=== PATIENT | female | born 1955 | race Caucasian/White ===

== ENCOUNTER 2021-11-27 15:04 | Outpatient (CLI) | payer MEDICARE, BC, SELFPAY ==
--- NOTE | 2021-11-27 15:00 | CRLHL7_ITS ---
For Patients: As a result of the Century Cures Act, medical imaging exams and procedure reports are released immediately into your electronic medical record. You may view this report before your referring provider. If you have questions, please contact your health care provider. DXA BONE MINERAL DENSITY STUDY, 11/27/2021 Current height (in): 64.0 Weight (lb): 136.0 Menopause age: 52 Ethnicity: White 1. Have you had a previous hip or vertebral fracture? No. 2. Have you had any fractures during your adult life which did not result from significant trauma (e.g., auto accident)? No. 3. Did either of your parents have a hip fracture? Yes. 4. Do you smoke? No. 5. Have you ever taken Glucocorticoids? No. 6. Do you have rheumatoid arthritis? No. 7. Do you have secondary osteoporosis? No. 8. Do you drink 3 or more alcoholic drinks per day? No. 9. Are you being treated for osteoporosis? No. 10. Have you ever taken any of the following medications: Actonel, Evista, Fosamax, Miacalcin, Reclast, Boniva, Forteo, HRT (i.e., estrogen/hormone therapy), Protelos, Prolia, Vitamin D, Calcium, other ??? please specify. ANSWER: Yes, vitamin D and calcium. 11. Do you have any of the following medical conditions: Anorexia or bulimia, asthma or emphysema, end stage renal disease, hyperparathyroidism, any seizure disorders, cancer, inflammatory bowel diseases, hysterectomy, other ??? please specify. ANSWER: Yes, asthma or emphysema, hysterectomy. 12. What was your maximum height (inches)? 64. 13. Do you perform weight bearing exercise regularly? Yes. 14. Do you regularly consume dairy products? Yes. 15. Do you drink caffeinated beverages? No. If female: 16. At what age did your period start? 13. 17. Are you premenopausal? No. 18. How many full-term pregnancies have you had? 0. 19. Have you ever missed your period for more than 6 months in a row (not including or menopause)? No. TECHNIQUE: Bone mineral density study was performed using the [employer]. FINDINGS: The results of the study expressed as bone mineral density (BMD) are as follows: Lumbar Spine L1 and L4: BMD: 0.975 g/cm2. T-score: -0.6. Z-score: 1.3. Neck Left: BMD: 0.752 g/cm2. T-score: -0.9. Z-score: 0.7. Right: BMD: 0.774 g/cm2. T-score: -0.7. Z-score: 0.9. Total Left: BMD: 0.886 g/cm2. T-score: -0.5. Z-score: 0.9. Right: BMD: 0.964 g/cm2. T-score: 0.2. Z-score: 1.5. IMPRESSION: Normal bone density. COMPARISON: Compared with scan of 03/15/2017, the bone mineral density has decreased by 15.0 percent at the spine and decreased by 10.1 percent at the hip. *Comparison exams done prior to 10/2019 were performed on different unit, nuvoTV. JUANITA TORRES M.D. Diagnostic/Breast Radiologist [email or web address] Transcribed: 6:[address]/Dictated by: Juanita Torres MD @ 11/27/2021 3:43:00 PM (Electronically Signed)
== END 2021-11-27 15:05 | disposition home or self-care (01) ==
LOC: RAD 15:06
PROVIDERS: PCP Internal Medicine; Visit Provider Internal Medicine
DX: Z78.0 Asymptomatic menopausal state (principal); Z13.820 Encounter for screening for osteoporosis
CPT/HCPCS: 77080

== ENCOUNTER 2022-03-04 13:01 | Outpatient (REF) | payer MEDICARE, BC, SELFPAY ==
--- OUTSIDE RECORDS SUMMARY | 2022-03-04 13:10 | XMS_ITS | Continuity of Care Document ---
:1955 Author Organization [facility] Address [address] [place] [address] Care Team Providers Name Role Phone Boogie Oseguera Admitting Physician Allergies, Adverse Reactions, Alerts Allergen Type Severity Reaction Last Updated Verified Status bacitracin Allergy Unknown May 29, 2019 Y A ctive neomycin Allergy Unknown May 29, 2019 Y Ac tive polymyxin B Allergy Unknown May 29, 2019 Y Active Quinolones Allergy Unknown May 29, 2019 Y A ctive Medications No medication information available. Problem List Active Problems Medical Problem Onset Date Status Urinary urgency Active Bladder wall thickening Active Procedures Procedure Date Status US pelvis complete TA May 29, 2019 completed Urine Culture active Relevant Diagnostic Tests and/or Laboratory Data Laboratory Results Test Date/Time Result Interp. Ref. Range Result Comment White Blood Count 7.4 K/uL 4.0-10.0 Red Blood Count 4.59 M/uL 3.93-5.55 Hemoglobin 9.9 g/dL Low 11.2-15.7 Hematocrit 34.3 % 34.1-44.9 Mean Corpuscular 74.70 fl Low 80.00-98.00 Volume Mean Corpuscular 21.6 pg Low 25.6-32.2 Hemoglobin Mean Corpuscular Hgb 28.9 g/dl Low 32.2-36.0 Concent Diff Red Cell Distribution 15.9 % High 11.6-14.4 Width Platelet Count 265 K/uL 150-450 Mean Platelet Volume 10.5 fL 9.1-12.4 Nucleated Red Blood 0.0 % 0.0-0.2 Cells % (auto) Absolute Neutrophils 3.83 K/uL 1.56-6.13 (auto) Absolute Immature 0.03 k/uL 0.00-0.05 Granulocyte (auto Absolute Lymphocytes 1.90 K/uL 1.18-3.74 (auto) Absolute Monocytes 0.52 K/uL 0.24-0.82 (auto) Absolute Eosinophils 1.09 K/uL High 0.04-0.54 (auto) Absolute Basophils 0.03 K/uL 0.00-0.20 (auto) Nucleated RBC Absolute 0.00 M/uL 0.00-0.12 Count (auto) C-Reactive Protein < 4.0 mg/L 0.0-5.0 Sodium Level 143 mEq/L 136-145 Potassium Level 3.4 mEq/L Low 3.5-5.1 Chloride Level 107 mEq/L 98-107 Carbon Dioxide Level 28 mEq/L 23-32 Anion Gap 8 5-15 Glucose Level 99 mg/dL 60-99 Blood Urea Nitrogen 11 mg/dL 8-23 Creatinine 0.78 mg/dL 0.70-1.20 Estimat Glomerular > 60 Race: Filtration Rate Reference Units: mL/min/1.73m2 *Calculated us ing the MDRD equation* In EMR click o n external links for further EGFR information. Calcium Level 8.8 mg/dL 8.5-10.5 Urine Collection Type Void Urine Color Yellow Urine Appearance Clear Urine Specific Jewett 1.015 Urine pH 5.0 Urine Glucose Negative Urine Blood Negative Urine Bilirubin Negative Urine Ketones Negative mg/dL Urine Protein Negative mg/dL Urine Urobilinogen 0.2 EU/dL Urine Nitrite Negative Urine Leukocyte Negative Esterase Chief Complaint and Reason for Visit Encounter Admit Date Chief Complaint Reason for Visit Departed Emergency May 29, 2019 11:19am [facility] Hospital Discharge Instructions Additional Discharge Instructions As we discussed, you r lab work and urinalysis here today do not show any acute abnormalities. Your bladder ultrasound does show mild nonspecific wall thickening of your anterior bladder. This will requi re further evaluation by Uro logy, likely with cystoscopy. You should contact your regular doctor tomorrow for referral to Urology in your home town. As always, you should return to the ER if you develop worsening symptoms, or if you are unable to obtain close follow-up with urologist in the next 1-2 weeks.. No Instructions/Education Provided Encounters Encounter Facility Location Admit/Visit Discharge/Departure Atte nding Date Date Provider Departed [facility] Emergency May 29May 29, 2019 Emergency [facility] Department 2018 11:19am 7:15pm Functional Status No known functional status. Immunizations No known immunizations. Payers Payer Name Policy Covered Covered Relationship Subscriber Subsc riber Type Alliance Party Alliance Party Id Id HealthPartaubrey Marshall [id number] Self / Same As Joanna [id number] Gena Patient Gena SELF PAY Plan of Care No Known Plan of Care Information Social History No known social history. Vital Signs Vital Reading Result Reference Range Collection Date/ Time Height n/a Weight 70.307 kg May 29 11:26am Temperature 98.0 F 97.5 F-99.6 F May 29 11:26am Pulse 70 BPM 60-100 May 29 11:26am Respiration 18 RPM 12-20 May 29 11:26am Pulse Oximetry 98 % 88-100 May 29 9 11:26am Blood Pressure Systolic 180 95-135 May 29, 2019 11:26am Blood Pressure Diastolic 83 55-85 [facility] 2018 11:26am Body Mass Index n/a
[2022-03-04 13:25] LABS: Basophils Absolute Auto 0.04 K/uL (0.00-0.30); Basophils Percent Auto 0.5 % (0.0-3.0); Eosinophils Absolute Auto 0.54 K/uL (0.00-0.50); Hematocrit 38.5 % (33.0-51.0); Hemoglobin* 11.7 gm/dL (12.0-16.0); Immature Granulocytes Abs Auto 0.01 K/uL (0.00-0.30); Lymphocytes Absolute Auto 1.92 K/uL (0.90-2.90); Lymphocytes Percent Auto 24.8 % (20-44); Mean Corpuscular HGB Conc 30 gm/dL (32-36); Mean Corpuscular Hemoglobin 24 pg (26-34); Mean Corpuscular Volume 78 fL (80-100); Monocytes Percent Auto 6.2 % (0.0-11.0); Neutrophils Absolute Auto 4.74 K/uL (1.7-7.0); Neutrophils Percent Auto 61.4 % (42.0-72.0); Platelet Count* 256 K/uL (140-440); RDW Coefficient of Variation % 16.4 % (11.5-15.5); Red Blood Count 4.96 m/uL (4.00-5.20); White Blood Count* 7.73 K/uL (4.50-11.00)
[2022-03-04 13:30] LABS: Slide Review Reflex No
[2022-03-04 13:39] LABS: Iron* 31 ug/dL (37-170)
[2022-03-04 13:48] LABS: Percent Iron Saturation 7 % (20-50); Total Iron Binding Capacity 416 ug/dL (265-497)
[2022-03-04 14:47] LABS: Ferritin* 6.1 ng/mL (11.1-264.0)
[2022-03-04 15:00] LABS: Vitamin B12* 475 pg/mL (243-894)
== END 2022-03-04 13:02 | disposition home or self-care (01) ==
LOC: NPINS 13:01
DX: D50.9 Iron deficiency anemia, unspecified (principal)
CPT/HCPCS: 82607; 82728; 83540; 83550; 85025

== ENCOUNTER 2022-07-28 14:39 | Outpatient (CLI) | payer MEDICARE, BC, SELFPAY ==
[2022-07-28 18:17] LABS: Ferritin* 11.1 ng/mL (11.1-264.0)
--- NOTE | 2022-08-07 09:10 | ONC.NURNOTE ---
Reviewed hematology referral with Dr. Cook. Per Dr. Cook, no anemia; in the notes GI gave cause of low iron, therefore no consult needed. Reviewed with pt; she is being worked up by a 2nd GI team at [facility] (prev followed at [facility]). She reports that [facility] found no GI cause but her new GI team noticed her small bowel has not been worked up. She is currently trialing off of PPI's for a scope and Finnegan placement in 6-8 weeks; this is not scheduled but is in process. Reviewed with pt that she is not anemia now, but if there are future concerns she could talk to PCP about having her labs rechecked. Reviewed all of this with Dr. Rivers, PCP, via phone.
== END 2022-07-28 14:40 | disposition home or self-care (01) ==
LOC: NFLDREF 14:41
PROVIDERS: Visit Provider Internal Medicine
DX: D50.9 Iron deficiency anemia, unspecified (principal)
CPT/HCPCS: 82728

== ENCOUNTER 2022-11-18 08:52 | Outpatient (CLI) | payer MEDICARE, BC, SELFPAY | END 2022-11-18 08:53 | disposition home or self-care (01) | LOC: NFLDREF 14:08 | PROVIDERS: PCP Internal Medicine; Visit Provider Internal Medicine | DX: Z00.00 Encounter for general adult medical examination without abnormal findings (principal); K76.0 Fatty (change of) liver, not elsewhere classified; E83.42 Hypomagnesemia; E03.8 Other specified hypothyroidism; D50.9 Iron deficiency anemia, unspecified; Z83.3 Family history of diabetes mellitus; E78.5 Hyperlipidemia, unspecified; E78.1 Pure hyperglyceridemia | CPT/HCPCS: 80061; 80076; 82565; 82728; 82947; 83735; 84443 ==

== ENCOUNTER 2023-06-08 14:43 | Outpatient (CLI) | payer MEDICARE, BC, SELFPAY ==
--- OUTSIDE RECORDS SUMMARY | 2023-06-09 06:27 | XMS_ITS | Clinical Summary ---
Author Name Unknown Organization [facility] Address [place], [place] [address] Care Team Providers Care Account Development Manager Name Role Phone Sophia Rivers MD Primary Care Provider [phone] Jennifer Prakash MBBS Unavailable [phone] Pcp, No Unavailable Unavailable Sophia Rivers MD Unavailable Sincere Mckee MD Unavailable Unavailable Jennifer Prakash MBBS Unavailable [phone] Jennifer Prakash Unavailable [phone] Allergies Active Allergy Reactions Criticality Noted Date Comments Adhesive Itching,Other - Describe In Comment Field 01/08/2012 Monitor patches Tape it outlines the adhesive spot & gets itchy Allergenic Extracts Other - Describe In Comment Field 08/06/2006 Nasal breathing Amitriptyline Palpitations 06/08/2022 Animal Dander Other - Describe In Comment Field Unknown 06/10/2021 Cats and dogs, allergic rhinitis Bacitracin Itching,Other - Describe In Comment Field Medium 08/06/2006 Skin redness & swelling Efinaconazole Itching Medium 07/01/2016 Skin redness, swelling Severe skin breakdown Hydrocodone Arrhythmia 10/03/2013 Causes arrythmia Kcrhcoaf-Yvtyggckjy-Mfv ymyxin Other - Describe In Comment Field Medium 05/11/2018 Skin itching, redness, swelling Hydrocortisone Rash Medium 08/26/2011 Unlisted Allergen (Include Detail In Comments) Itching,Edema Low 08/11/2012 Topical Antibiotics Quinolones Arrhythmia High 08/27/2015 Skipped beats Quinolones Other - Describe In Comment Field Medium 05/22/2021 Irregular heartbeat Sulfamethoxazole-Trimet hoprim Itching,Other - Describe In Comment Field Medium 08/08/2019 Swollen, red hands Itchy red, swollen palms of both hands Sulfamethoxazole-Trimet hoprim Hives,Edema,Erythema Medium 05/22/2021 Medications Medication Sig Dispensed Refills Start Date End Date Status acetaminophen (TYLENOL) 325 mg tablet Take 2 tablets by mouth every 4 hours if needed (For mild pain.). Max acetaminophen dose: 4000mg in 24 hrs. 0 0 Active propylene glycol (SYSTANE COMPLETE OPHT) Place 1 Drop into the eye(s) each time if needed. 0 Active albuterol sulfate 90 mcg/actuation aebs Inhale 2 Puffs by mouth every 4 hours if needed. 0 Active cholecalciferol, Vitamin D3, 2,000 unit tablet Take 2,000 units by mouth once daily. 0 Active triamcinolone, 55 mcg each actuation, nasal (NASACORT AQ) 55 mcg nasal spray Inhale 2 Sprays to both nostrils once daily. 0 Active rosuvastatin (CRESTOR) 20 mg tabletIndications: Hyperlipidemia, unspecified hyperlipidemia type TAKE 1 TABLET BY MOUTH EVERYDAY AT BEDTIME 90 Tablet 3 2 Active temazepam (RESTORIL) 15 mg capsule Take 15 mg by mouth at bedtime. 0 2 Active Aluminum Hydrox-Magnesium Carb (Gaviscon) 95-358 mg/15 mL susp Take 10 mL by mouth at bedtime if needed (stomach upset). 0 Active Bifidobacterium infantis (ALIGN ORAL) Take 1 Capsule by mouth every morning. 0 Active calcium carb/magnesium hydrox (ROLAIDS ORAL) Take 2 capsules by mouth at bedtime and 2 capsules once daily as needed 0 Active calcium citrate (CITRACAL) 200 mg (950 mg) tablet Take 1,900 mg by mouth once daily. 0 Active clonazePAM (KLONOPIN) 0.5 mg tablet Take 0.25-0.5 mg by mouth at bedtime if needed for Anxiety or Sleep. 0 Active fluticasone propionate (FLOVENT) 44 mcg/Actuation inhaler Inhale 1 Puff by mouth once daily. 0 Active magnesium 250 mg tab Take 250 mg by mouth once daily. 0 Active omeprazole (PRILOSEC) 20 mg Delayed-Release capsule Take 20 mg by mouth two times daily before meals. 0 Active zinc 50 mg tablet Take 50 mg by mouth every morning. 0 Active estrogens, conjugated (PREMARIN) 0.625 mg/gram vaginal cream Insert into the vagina at bedtime if needed. 0 Active famotidine (PEPCID) 40 mg tablet Take 40 mg by mouth 2 times daily if needed for Heartburn or GI Upset. 0 Active Simethicone 125 mg chewable tablet Chew 125-250 mg by mouth 2 times daily if needed for Flatulence or GI Upset. Max dose: 500 mg per 24 hrs 0 Active metoprolol succinate (TOPROL XL) 50 mg sustained-release tabletIndications: PVC's (premature ventricular contractions) TAKE 1 TABLET BY MOUTH EVERY DAY 90 Tablet 1 3 Active lisinopriL (PRINIVIL; ZESTRIL) 2.5 mg tabletIndications: Essential hypertension TAKE 1 TABLET BY MOUTH EVERY DAY 90 Tablet 1 3 Active metoprolol succinate (TOPROL XL) 50 mg sustained-release tabletIndications: PVC's (premature ventricular contractions) TAKE 1 TABLET BY MOUTH EVERY DAY 90 Tablet 3 3 05/18/20 23 Discontinued lisinopriL (PRINIVIL; ZESTRIL) 2.5 mg tabletIndications: Essential hypertension TAKE 1 TABLET BY MOUTH EVERY DAY 90 Tablet 3 3 05/18/20 23 Discontinued Active Problems Problem Noted Date Diagnosed Date Small bowel obstruction 04/04/2022 Obstructive sleep apnea 04/04/2022 Atrial tachycardia 04/14/2017 PVC (premature ventricular contraction) 07/06/19 15 Eosinophilic esophagitis 05/31/2010 Gastroesophageal reflux disease with esophagitis 05/31/2010 Primary hypertension 05/31/2010 Pure hypercholesterolemia 05/31/2010 Leukocytosis 05/31/2010 Microcytic anemia 05/31/2010 Anxiety disorder Primary insomnia Asthma Paroxysmal supraventricular tachycardia Encounters Date Type Department Care Team Description 05/17/2023 Refill [facility] [address] [place] [address] Neda Fuller MD Refill Request (Metoprolol Succinate, Lisinopril) from Last 3 Months Family History Medical History Relation Name Comments Alcoholism Father at age 38 of delerium tremens when he quit drinking ETOH cold-turkey. Cancer-breast Mother Diabetes type II Mother Hyperlipidemia Mother Relation Name Status Comments Father Mother Social History Tobacco Use Types Packs/Day Years Used Date Smoking Tobacco: Never Smokeless Tobacco: Never Tobacco Cessation:Counseling Given: No Alcohol Use Standard Drinks/Week Comments Not Currently 0 (1 standard drink = 0.6 oz pur e alcohol) past yr Social Connections Answer Date Recorded Frequency of Communication with Friends and Fami ly Not on file 05/31/2021 Financial Resource Strain Answer Date R ecorded Difficulty of Paying Living Expenses Not on file 05/31/2021 Difficulty of Paying Living Expenses Not on file 05/31/2021 Sex and Gender Information Value Date Recorded Sex Assigned at Not on file Gender Identity Not on file Sexual Orientation Not on file Obstetrics History Last Filed Vital Signs Vital Sign Reading Time Taken Comments Blood Pressure 132/82 07/01/2022 3:17 PM PLANER STONE Pulse 69 07/01/2022 3:17 PM PLANER STONE Temperature 36.6 ??C (97.8 ??F) 04/05/2022 4:00 PM CS T Respiratory Rate 18 07/01/2022 3:17 PM PLANER STONE Oxygen Saturation 98% 07/01/2022 3:17 PM PLANER STONE Inhaled Oxygen Concentration - - Weight 60.8 kg (134 lb) 07/29/2022 8:09 AM PLANER STONE Height 162.6 cm (5' 4) 07/29/2022 8:09 AM PLANER STONE Body Mass Index 23 07/29/2022 8:09 AM PLANER STONE Plan of Treatment Upcoming Encounters Date Type Department Care Team (Late st Contact Info) Description 09/01/2023 Cardiac Device Check [facility] [phone] 09/02/2023 10:30 AM CDT Office Visit [facility] [address] [place] [address] Neda Fuller MD [address] [facility] [address] [place] [address] Health Maintenance Due Date Last Done Comments Pneumococcal series for age 65+ (1 of 2 - PCV) 1961 Tdap 1966 Depression screening for age 12+ 1967 Hepatitis C screening for ag e 18-79 1973 Tetanus booster 1975 Colonoscopy through age 75 2000 Lipids for age 45-75 2000 Mammogram for age 45-75 2000 Zoster (shingles) series for age 50+ (1 of 2) 2005 DEXA/DXA scan for age 65+ 2020 Medicare Wellness for age 65+ 2020 COVID-19 vaccine series (2022-24 season) 2023 09/29/2022, 03/17/2022, 09/17/2021, Additional history exists Influenza for age 65+ 01/29/2023 BMI (ht and wt on same day) for age 18+ 07/30/2023 07/29/2022, 07/01/2022, 03/30/2022, Additional history exists Insurance Payer Benefit Plan / Group Subscriber ID Effective Dates Phone Address Type MEDICARE PROVIDER BASED MEDICARE PROVIDER BASED [id number] 03/31/2020-Prese nt [address] [place] [address] MEDICARE PART A - HB USE ONLY MEDICARE PART A HB ONLY [id number] 03/31/2020-Prese nt ATTN: CLAIMS [address] [place] [address] MEDICARE PROVIDER BASED MEDICARE PROVIDER BASED [id number] 03/24/2021-Pres ent [address] [place] [address] MEDICARE PART B - HB USE ONLY MEDICARE PART B HB ONLY [id number] 06/08/2022-Presen t ATTN: CLAIMS [address] [place] [address] [facility] [id number] 03/24/2021-Pres ent [address] [place] [address] MEDICARE - PB USE ONLY MEDICARE PB ONLY [id number] 03/24/2021-Pres ent ATTN: CLAIMS [address] [place] [address] [facility] [id number] 03/25/2021-Pres ent [address] [place] [address] [employer] [facility] [place] [id number] 03/31/2020-Prese nt [address] [place] [address] [employer] [facility] [id number] 03/24/2021-Pres ent [address] [place] [address] Advance Directives Documents on File Type Date Recorded Patient [employer] Mason Expl anation Healthcare Directive 03/28/2020 10:41 AM Agent_Darren Avery_12/08/2017 Latest Code Status on File Code Status Date Activated Date Inactivated Comments Full Code 04/04/2022 12:18 PM 04/05/2022 8:00 PM Question Answer Comments Code Status Discussion: Reviewed Preferences Code Status History Code Status Date Activated Date Inactivated Comments Full Code 06/11/2021 12:06 PM 06/12/2021 2:37 AM Question Answer Comments Code Status Discussion: Not Discussed Full Code 07/26/2020 9:07 AM 07/27/2020 2:28 AM Question Answer Comments Code Status Discussion: Not Discussed Full Code 06/14/2020 10:43 AM 06/15/2020 6:13 AM Question Answer Comments Code Status Discussion: Not Discussed Full Code 06/14/2020 7:22 AM 06/14/2020 10:43 AM Question Answer Comments Code Status Discussion: Not Discussed Care Teams Account Development Manager Relationship Specialty Start Date End Date Sophia Rivers MD [address] [place] [address] PCP - General Internal Medicine 04/10/21 Jennifer Prakash MBBS [address] [facility] [address] [place] [address] 06/26/14 Pcp, No . 04/10/21 Sophia Rivers MD [address] [place] [address] Internal Medicine 06/26/14 Sincere Mckee MD . Consulting Physician Cardiology - Electrophysiology 06/26/14 Jennifer Prakash MBBS [address] [address] Cardiology Cardiovascular Disease 06/26/14 Jennifer Prakash MBBS [address] [facility] [address] [place] [address] 03/24/21
--- OUTSIDE RECORDS SUMMARY | 2023-06-09 06:27 | XMS_ITS | Patient Health Record ---
Author Name Unknown Organization [facility] Address [address] [place] [address] [place] [address] Care Team Providers Care Assistive Technology Specialist Name Role Phone SUSY MOSQUEDA MD Primary Care Provider Unatierney ilable ALLERGIES Allergen (clinical drug ingredient) Drug/Non Drug Allergy documented on EMR Reaction Allergy Type Onset Date Status Adhesive (uncoded) other Allergy A ctive All topical antibiotics (uncoded) other Allergy Active cat dander allergenic extract / cat skin extract Cat hair extract (uncoded) other Allergy Active efinaconazole Jublia (uncoded) Unknown Allergy Active Medicinal quinolone and acting as antibacterial agent (FN) Quinolones (uncoded) Unknown Allergy Active moxifloxacin Avelox other Drug Allergy Acti ve Bacitracin other Drug Allergy Active neomycin Neomycin itching, other Drug Allergy Ac tive REASON FOR REFERRAL No Information MEDICATIONS Medication SIG (Take, Route, Frequency, Duration) Notes Start Date End Date Status Aspirin 81 MG 1 tablet Orally Once a day Active Simvastatin 40 MG 1 tablet in the evening Orally Once a day Active Albuterol Sulfate HFA 108 (90 Base) MCG/ACT 2 puffs as needed Inhalation every 6 hrs Active Nasacort Allergy 24HR 55 MCG/ACT 2 puffs in each nostril Nasally Once a day Active Zinc 50 MG 1 tablet Orally Once a day Active Fluticasone Propionate HFA 44 MCG/ACT 1 puff Inhalation once a day Active Pantoprazole Sodium 20 MG 1 tablet Orally twice a day Active Magnesium 250 MG 1 tablet with a meal Orally Once a day Active clonazePAM 0.5 MG 0.5-1 tablet Orally at bedtime and as needed when flying Active Citracal +D3 take two 400 mg tablets Orally twice daily switching to chewabl form due to dysphagia Active Fluocinonide 0.05 % use as directed Externally PRN Active Align 4 MG take one capsul Orally daily Active Systane 0.4-0.3 % 1 drop into each eye as needed Ophthalmic as needed Active Metamucil Smooth Texture 1 Tablespoonful Orally once a day Active Metoprolol Succinate ER 100 MG 1 tablet Orally Once a day can take a 50 mg tablet if needed in addition Active [place] 3 1000 MG 1 capsule Orally Onc e a day Active SOCIAL HISTORY Tobacco Use: Social History Observation Description Date Details (start date - stop date) Never Smoker NA - NA Sex Assigned At : Social History Observation Description Sex Assigned At Unknown Tobacco Use/Smoking Question Answer Notes Are you a nonsmoker PROBLEMS Problem Type ICD Code Onset Dates Problem Status W/U Status Risk SNOMED Code Notes Problem Eosinophilic esophagitis (K20.0) Active confirmed Eosinoph ilic esophagitis (807736411) Problem Hiatal hernia (K44.9) Active confirmed 58159731 Problem Gastroesophageal reflux disease with esophagitis (K21.0) Active confirmed 590899559 Problem Dysphagia (R13.10) Active confirmed Dys phagia (78714449) Problem Obstructive sleep apnea (adult) (pediatric) (G47.33) Active confirmed Obstructive sle ep apnea syndrome (disorder) (06245211) Problem Diaphragmatic hernia without obstruction or gangrene (K44.9) Active confirmed Diaphragmat ic hernia (32245825) Problem Body mass index (BMI) 28.0-28.9, adult (Z68.28) Active confirmed Body mass ind ex 25-29 - overweight (394255765) Problem Atypical chest pain (R07.89) Active confirmed Atypical chest pain (790412215) Problem Overweight (E66.3) Active confirmed Ove rweight (565734867) Problem Schatzki's ring (K22.2) Active confirmed Schatzki's ring (42488005) Problem Chronic gastroesophageal reflux disease (K21.9) Active confirmed Gastroesophagea l reflux disease (721500175) Problem Other sinusitis, unspecified chronicity (J32.9) Active confirmed [id number] PLAN OF TREATMENT No Information Insurance Providers Payer Name Payer Address Payer Phone Subscriber Number Group Number Insured Name Patient Relationship to Insured Coverage Start Date Coverage End Date [facility] MEDICARE PLAN START 19 [address] [place] [address] [id number] KAREN SHIRLEY Self - patient is the insured MEDICAL (GENERAL) HISTORY Medical History History ICD Code asthma gastritis LUCITA on CPAP anxiety and depression hypertension-denies dyslipidemia abdominal pain, bilateral upper quadrant with coffee-ground emesis GERD Long-term arrhythmia Surgical History Surgery Date(Month/Year) hystectomy with bilateral oo phorectomy and salpinectomy (stil has cervix) tonsillectomy and adenoidectomy colonoscopy upper GI endoscopy 01/26/2017 tee Hospitalization History Reason Date(Month/Year) Arrhythmia 1980
--- OUTSIDE RECORDS SUMMARY | 2023-06-09 06:28 | XMS_ITS | Clinical Summary ---
Author Name Unknown Organization [facility] Address [address] [place] [address] Care Team Providers Care Cadastral Engineer Name Role Phone Jonathan Thornton MD Unavailable [phone] Sophia Rivers Primary Care Provider Sandra Ruano APRN, WELDER OPERATOR Unavailable [phone] Clinic, Not Listed Unavailable Unavailable Allergies Active Allergy Reactions Criticality Noted Date Comments Adhesive Other 01/08/2012 Tape it outlines the adhesive spot & gets itchy Moxifloxacin Other 10/23/2011 causes skipping heartbeat Bacitracin Itching,Other 08/06/2006 Skin redness & swelling Sulfamethoxazole-Trimethopr im Itching,Other 10/18/2019 Itchy red, swollen palms of both hands Cat Hair Extract Other 08/06/2006 Nasal breathing Hydrocodone 10/03/2013 Causes arrythmia Neomycin Itching,Other 08/06/2006 Skin redness & swelling Quinazolinones 09/12/2013 Irregular heartbeat ??All All fluoroquinolones. Irregular heart beat Unidentified Other 08/06/2006 Dogs cause nasal breathing Avalox causes skipping heartbeat Medications Medication Sig Dispensed Refills Start Date End Date Status albuterol HFA 90mcg/puff (PROVENTIL;VENTOLIN HFA) 90 mcg/actuation Inhl Inhale 2 puffs every 6 (six) hours as needed. 0 Active metoprolol succinate, XL, (TOPROL XL) 100 mg Oral Tab SR 24hr Take 50 mg by mouth once daily. 0 Active fluticasone HFA 44mcg/puff (FLOVENT) 44 mcg/actuation Inhl Aerosol Inhale 1 puff every morning. 0 Active Zinc 50 mg Oral Tab Take 50 mg by mouth once daily. 0 Active PSYLLIUM SEED, WITH SUGAR, (METAMUCIL SMOOTH TEXTURE ORAL) Take 1 Tablespoonful by mouth at bedtime. 0 Active magnesium 250 mg Oral Tab Take 250 mg by mouth twice a day. 0 Active CALCIUM ORAL Take 200 mg by mouth once daily. I take approx. 1200 mg a day 0 Active PROPYLENE GLYCOL/PEG 400 (SYSTANE OPHT) Instill 1 drop into EACH eye as needed. 0 Active clonazePAM (KLONOPIN) 0.5 mg Oral Tab Take 0.25-0.5 mg by mouth as needed. 0 Active TRIAMCINOLONE ACETONIDE (NASACORT NASAL SPRAY) Instill 2 sprays into EACH nare once daily. 0 Active cholecalciferol, Vitamin D3, 1,000 unit oral tablet Take 1,000 Units by mouth once daily. 0 Active iron,carbonyl-vitam in C (VITRON-C) 65 mg iron- 125 mg oral delayed release tablet Take by mouth once daily. 0 Active Simethicone 125 mg oral Tab Take by mouth twice a day. 0 Active rosuvastatin (CRESTOR) 10 mg oral tablet Take 20 mg by mouth once daily. 0 Active lisinopriL (PRINIVIL) 2.5 mg oral tablet Take 2.5 mg by mouth once daily. 0 Active Active Problems Problem Noted Date Diagnosed Date Small bowel obstruction due to adhesions 020 Abdominal pain, bilateral up per quadrant with coffee ground emesis 10/23/2011 Coffee ground emesis 10/23/2011 Asthma Gastritis LUCITA (obstructive sleep apnea) Overview: on CPAP Anxiety and depression HTN (hypertension) Dyslipidemia Immunizations Name Administration Dates Next Due Influenza 02/28/2011 Social History Tobacco Use Types Packs/Day Years Used Date Smoking Tobacco: Never Smokeless Tobacco: Never Alcohol Use Standard Drinks/Week Comments Not Currently 0 (1 standard drink = 0.6 oz pur e alcohol) Sex and Gender Information Value Date Recorded Sex Assigned at Not on file Gender Identity Not on file Sexual Orientation Not on file Last Filed Vital Signs Vital Sign Reading Time Taken Comments Blood Pressure 147/66 10/19/2019 1:10 PM CDT Pulse 69 10/19/2019 1:10 PM CDT Temperature 36.6 ??C (97.9 ??F) 10/19/2019 1:10 PM CD T Respiratory Rate 18 10/19/2019 1:10 PM CDT Oxygen Saturation 99% 10/19/2019 1:10 PM CDT Inhaled Oxygen Concentration - - Weight 62.6 kg (138 lb) 12/17/2021 8:59 AM CDT Height 162.6 cm (5' 4) 12/17/2021 8:59 AM CDT Body Mass Index 23.69 12/17/2021 8:59 AM CDT Plan of Treatment Health Maintenance Due Date Last Done Comments Dexa Scan 1955 Mammogram Screening 1955 Depression Follow-Up (PHQ-9) 1956 RSV (1 - 1-dose 60+ series) 2015 Adult Tetanus Booster 11/12/2018 11/12/2008 Zoster Vaccine (3 of 3) 04/12/2019 02/15/2019, 03/15 Yearly Review of HCD 10/08/2020 10/09/2019, 10/10/2018, 06/22/2017 COVID-19 Vaccine (5 - 2022-2 4 season) 2023 09/17/2021, 02/27/2021, 08/14/2020, Additional history exists Influenza Vaccine (#1) 2023 , 03/21/2020, 03/21/2019, Additional history exists Pneumococcal 65+ (3 of 3 - P PSV23 or PCV20) 02/28/2023 11/20/2021, 02/28/2018 Colonoscopy 12/05/2026 12/05/2021, 07/01, 01/26/2017, Additional history exists Hepatitis C Screening Completed 09/12/2013 Advance Directives For more information, please contact: [phone] Latest Code Status on File Code Status Date Activated Date Inactivated Comments Full Code 10/19/2019 9:46 AM 10/19/2019 9:04 PM Question Answer Comments How was code status determined? Patient Code Status History Code Status Date Activated Date Inactivated Comments Full Code 10/23/2011 10:49 AM 10/24/2011 1:30 AM Question Answer Comments How was code status determined? Patient Care Teams Cadastral Engineer Relationship Specialty Start Date End Date Sophia Rivers [address] [place] [address] PCP - General 09/13/13 Clinic, Not Listed PCP - Primary Care Clinic 01/25/17 Jonathan Thornton MD [address] [facility] [place] [address] Gastroenterology 11/14/11 Sandra Ruano, GOVERNMENT AFFAIRS RESEARCHER, WELDER OPERATOR [address] [place] [address] Pulmonary/Critical Care 12/27/15
--- OUTSIDE RECORDS SUMMARY | 2023-06-09 06:28 | XMS_ITS | Encounter Summary ---
Author Name Unknown Organization [facility] Address [address], [place] [address] Care Team Providers Care Office Administrative Assistant Name Role Phone Needs Pcp, Assignment Primary Care Provider Reason for Referral * (Routine) - New Request Specialty Diagnoses / Procedures Referred By Contac t Referred To Contact Diagnoses Heartburn Gastroesophageal reflux disease without esophagitis Procedures PH MONITORING 48HR Rashel lE MD [address] [place] [address] Referral ID Status Reason Start Date Expiration Date V isits Requested Visits Authorized [id number] New Request 10/13/2022 01/12/2024 1 1 * Procedure/Equipment (Routine) - New Request Specialty Diagnoses / Procedures Referred By Contjessika t Referred To Contact Diagnoses Heartburn Procedures EGD Boo Crowell MD [address] [place] [address] Referral ID Status Reason Start Date Expiration Date V isits Requested Visits Authorized [id number] New Request 07/30/2022 10/29/2023 1 1 Reason for Visit * Procedure/Equipment (Routine) - New Request Specialty Diagnoses / Procedures Referred By Bhumi t Referred To Contact Diagnoses Heartburn Procedures EGD Boo Crowell MD [address] [place] [address] Referral ID Status Reason Start Date Expiration Date V isits Requested Visits Authorized [id number] New Request 07/30/2022 10/29/2023 1 1 Encounter Details Date Type Department Care Team Description 10/06/2022 9:53 AM CDT - 10/06/2022 11:59 PM CDT [facility] [address] [place], [place] [id number] Rashel lE MD [address] [place], [place] [id number] Gastroesophageal reflux disease without esophagitis (Primary Dx); Heartburn Discharge Disposition: Home Social History Tobacco Use Types Packs/Day Years Used Date Smoking Tobacco: Never Smokeless Tobacco: Never Alcohol Use Standard Drinks/Week Comments Not Currently 0 (1 standard drink = 0.6 oz pur e alcohol) rare Sex and Gender Information Value Date Recorded Sex Assigned at Not on file Gender Identity Not on file Sexual Orientation Not on file documented as of this encounter Last Filed Vital Signs Vital Sign Reading Time Taken Comments Blood Pressure 117/54 10/06/2022 12:00 PM CDT Pulse 60 10/06/2022 12:00 PM CDT Temperature - - Respiratory Rate 16 10/06/2022 12:00 PM CDT Oxygen Saturation 98% 10/06/2022 12:00 PM CDT Inhaled Oxygen Concentration - - Weight - - Height - - Body Mass Index - - documented in this encounter Medications at Time of Discharge Medication Sig Dispensed Refills Start Date End Date ALBUTEROL IN Inhale 1-2 puffs every 4 hours as needed. 51 3 07/09/2006 alumuminum hydroxide-magnesium trisilicate (AKA GAVISCON) 80-20 MG Chew and swallow 2 Tablets by mouth 4 times daily as needed. 0 CALCIUM CITRATE-VITAMIN D OR Take 2 Tablets by mouth. 0 clonazePAM (AKA KLONOPIN) 0.5 MG tablet Take 1-2 tablets by mouth NEEDED PRN. LW Addl Instr:3 refills total Indicated for: Anxiety 60 2 01/25/2009 fluocinonide (LIDEX) 0.05 % external solution Apply topically. 0 06/27/2015 fluticasone (FLOVENT HFA) 44 mcg/actuation inhaler Inhale 2 Puffs two times a day. 34.8 3 07/09/2006 fluticasone propionate (FLONASE) 50 MCG/ACT nasal solution 1 Davidson by Nasal route. 0 08/17/2018 Iron-Vitamin C (VITRON-C) 65-125 MG TABS Take by mouth. 0 lisinopril (ZESTRIL) 2.5 MG tablet Take 1 Tablet (2.5 mg) by mouth daily. 0 magnesium oxide (AKA MAG-OX 400) 250 MG tablet daily with breakfast. 0 metoprolol tartrate (LOPRESSOR) 50 MG tablet Take 1 Tablet (50 mg) by mouth two times a day. 0 Probiotic Product (ALIGN) 4 MG CAPS 0 rosuvastatin (CRESTOR) 20 MG tablet TAKE 1 TABLET BY MOUTH EVERYDAY AT BEDTIME 0 10/27/2019 triamcinolone (NASACORT AQ) 55 MCG/ACT nasal inhaler Place 2 Sprays into both nostrils daily. 0 zinc gluconate 50 MG tablet Take 1 Tablet (50 mg) by mouth daily. 0 Cimetidine (TAGAMET) 200 MG tablet Take 400 mg by mouth daily at bedtime. 0 10/02/2019 01/04/2023 magnesium 250 MG oral tablet Take 1 Tablet (250 mg) by mouth. 0 01/04/2023 documented as of this encounter Progress Notes * Rashel El MD - 10/06/2022 10:10 AM CDTEncounter addended by: Rashel El MD on: 10/13/2022 1:09 PM Actions taken: Visit diagnoses modified, Order list changed, Diagnosis association updated * Rashel El MD - 10/06/2022 10:10 AM CDTEncounter addended by: Rashel El MD on: 10/15/2022 1:25 PM Actions taken: Letter saved * Merlene Power RN - 10/06/2022 10:10 AM CDT Nasal cannula O2 plus verbal stimulation to obtain sats greater than 90%. * Dyana Fontenot RN - 10/06/2022 10:10 AM CDT Patient alert and oriented. Denies pain at this time. Tolerating liquids. Discussed discharge teaching. Patient/family given handouts. Verbalized understanding. Discharge criteria met, pt discharged to home. documented in this encounter Procedure Notes * Rashel El MD - 10/06/2022 10:14 AM CDT Patient Name: Joanna Avery Procedure Date: 10/06/2022 10:14 AM Date of : 1955 Admit Type: Outpatient Age: 67 Gender: Female Note Status: Finalized Attending MD: Rashel El , Procedure: Upper GI endoscopy Indications: Abdominal pain, Iron deficiency anemia, Heartburn, Follow-up of gastro-esophageal reflux disease, Follow-up of eosinophilic esophagitis Providers: Merlene Riggins RN Referring MD: Boo Crowell MD Medicines: Midazolam 6 mg IV, Fentanyl 150 micrograms IV Complications: No immediate complications. Estimated blood loss: Minimal. Procedure: Pre-Anesthesia Assessment: - Prior to the procedure, a History and Physical was performed, and patient medications, allergies and sensitivities were reviewed. The patient's tolerance of previous anesthesia was reviewed. - The risks and benefits of the procedure and the sedation options and risks were discussed with the patient. All questions were answered and informed consent was obtained. - Patient identification and proposed procedure were verified prior to the procedure by the physician and the nurse. The procedure was verified in the procedure room. - Pre-procedure physical examination revealed no contraindications to sedation. - ASA Grade Assessment: II - A patient with mild systemic disease. - After reviewing the risks and benefits, the patient was deemed in satisfactory condition to undergo the procedure. - The anesthesia plan was to use moderate sedation/analgesia (conscious sedation). - Immediately prior to administration of medications, the patient was re-assessed for adequacy to receive sedatives. - Sedation was administered by an endoscopy nurse and surprised by the endoscopist. The sedation level attained was moderate. - The heart rate, respiratory rate, oxygen saturations, blood pressure, adequacy of pulmonary ventilation, and response to care were monitored throughout the procedure. - The physical status of the patient was re-assessed after the procedure. After obtaining informed consent, the endoscope was passed under direct vision. Throughout the procedure, the patient's blood pressure, pulse, and oxygen saturations were monitored continuously. The [id number] was introduced through the mouth, and advanced to the second part of duodenum. The upper GI endoscopy was accomplished without difficulty. The patient tolerated the procedure fairly well. Findings: The Z-line was irregular and was found 37 cm from the incisors. Irregularities were well under 1 cm in length and did not fulfill endoscopic criteria for Barretts esophagus. There were no focal mucosal irregularity seen under white light nor narrow band imaging. This was biopsied with a cold large-capacity forceps for histology and evaluation to rule out Vicente's Esophagus. Estimated blood loss was minimal. There is no endoscopic evidence of areas of erosion, inflammation, stenosis, stricture, ulcerations, free flow reflux, findings consistent with candidiasis, areas of ectopic gastric mucosa, erythema, sclerosis, vertical lines, white nummular lesions, white specks, plaque, scarring, mass, nodules, polyps or diverticula in the entire esophagus. Six random biopsies were obtained with cold large-capacity forceps for histology randomly in the entire esophagus. The patient verbalized discomfort during each biopsy sampling pass of the esophagus. Estimated blood loss was minimal. Evidence of a Toupet fundoplication was found at the gastroesophageal junction and in the cardia. The wrap appeared intact. This was traversed. Patchy mildly erythematous mucosa without bleeding was found in the gastric body. Biopsies were obtained on the greater curvature of the gastric body, on the lesser curvature of the gastric body, at the incisura, on the greater curvature of the gastric antrum and on the lesser curvature of the gastric antrum with cold large-capacity forceps for histology and Helicobacter pylori testing. Biopsies included direct sampling of the erythematous areas within the body described above. Estimated blood loss was minimal. There is no endoscopic evidence of bleeding, ulceration, gastric antral vascular ectasia, areas of hemorrhagic mucosa, angiodysplasia, angioectasia, papules, polyps, mass or erosion in the entire examined stomach. A few localized erosions without bleeding were found in the duodenal bulb. The exam of the duodenum was otherwise normal. Two biopsies were obtained with cold large-capacity forceps for histology and evaluation of celiac disease in the duodenal bulb, as well as four biopsies in the second portion of the duodenum. Estimated blood loss was minimal. The HATCH capsule with delivery system was introduced through the mouth and advanced into the esophagus, such that the HATCH pH capsule was positioned 31 cm from the incisors, which was 6 cm proximal to the GE junction. Suction was applied to the well of the HACTH pH capsule to suck in the adjacent mucosa of the esophagus using the external vacuum pump set at a minimum vacuum pressure of 600 mmHg for 60 seconds. The HATCH pH capsule was then deployed by depressing the plunger on top of the handle to advance the locking pin into the mucosa, thereby attaching the capsule to the esophagus. The plunger was then rotated a quarter turn clockwise to release the capsule from the delivery system. The delivery system was then withdrawn. Endoscopy was utilized for probe placement and diagnostic evaluation. Probe placement was photo documented after deployment by reinsertion of the gastroscope. Estimated blood loss was minimal. Moderate Sedation: Moderate (conscious) sedation was administered by the endoscopy nurse and supervised by the endoscopist. The following parameters were monitored: oxygen saturation, heart rate, blood pressure, and response to care. Total physician intraservice time was 14 minutes. Impression: - Z-line irregular, 37 cm from the incisors. Biopsied. - A Toupet fundoplication was found. The wrap appears intact. - Erythematous mucosa in the gastric body. - Duodenal erosions without bleeding. - Six random biopsies were obtained in the entire esophagus. Note is made of the patient's verbalization of intraprocedural mild discomfort during each biopsy sampling pass of the esophagus during today's exam. - Biopsies were obtained on the greater curvature of the gastric body, on the lesser curvature of the gastric body, at the incisura, on the greater curvature of the gastric antrum and on the lesser curvature of the gastric antrum. - Biopsy performed in the duodenal bulb and in the second portion of the duodenum. - The HATCH pH capsule was positioned 31 cm from the incisors, which was 6 cm proximal to the GE junction. Recommendation: - Hatch pH probe protocol for next 96 hours. - Remain off of all anti secretory therapy. Procedure Code(s): --- Professional --- 54087, Esophagogastroduodenoscopy, flexible, transoral; with biopsy, single or multiple G0500, Moderate sedation services provided by the same physician or other qualified health critical care unit manager performing a gastrointestinal endoscopic service that sedation supports, requiring the presence of an independent trained observer to assist in the monitoring of the patient's level of consciousness and physiological status; initial 15 minutes of intra-service time; patient age 5 years or older (additional time may be reported with [address]01, as appropriate) Diagnosis Code(s): --- Professional --- K22.8, Other specified diseases of esophagus Z98.890, Other specified postprocedural states K31.89, Other diseases of stomach and duodenum K26.9, Duodenal ulcer, unspecified as acute or chronic, without hemorrhage or perforation R10.9, Unspecified abdominal pain D50.9, Iron deficiency anemia, unspecified R12, Heartburn K21.9, Gastro-esophageal reflux disease without esophagitis K20.0, Eosinophilic esophagitis CPT copyright 2020 [employer]. All rights reserved. The codes documented in this report are preliminary and upon welder gas tungsten arc review may be revised to meet current compliance requirements. Rashel El, 10/06/2022 11:43:34 AM Number of Addenda: 0 Note Initiated On: 10/06/2022 10:14 AM Endoscopy Report documented in this encounter Plan of Treatment Upcoming Encounters Date Type Department Care Team Description 07/26/2023 1:30 PM [facility] [address] [facility] [place] [address] 09/09/2023 3:40 PM CDT [facility] [address] [facility] [place] [address] Boo Crowell MD [facility] [address] [facility] [address] [place] [address] documented as of this encounter Procedures Procedure Name Priority Date/Time Associated Diagnosis Comments PH MONITORING 48HR Routine 10/13/2022 3:04 PM CDT Heartburn Gastroesophageal reflux disease without esophagitis SURGICAL PATHOLOGY, GI Routine 11:33 AM CDT ENDO ESOPHAGOGASTRODUODENOSC OPY (EGD) Routine 10/06/2022 10:14 AM CDT Heartburn documented in this encounter Results * PH MONITORING 48HR (10/13/2022 3:04 PM CDT) 10/13/2022 3:04 PM CDT Narrative PN [facility] - 10/13/2022 3:04 PM CDT Patient Name: Joanna Avery Procedure Date: 10/13/2022 3:04 PM Date of : 1955 Admit Type: Outpatient Age: 67 Gender: Female Note Status: Finalized Attending MD: Rashel El , Procedure: ? Esophageal HATCH pH Capsule Results ? / Interpretation Indications: ? Heartburn, Follow-up of esophageal ? reflux, Failure to respond to ? treatment of gastro-esophageal ? reflux disease Providers: ? Rashel El Patient Profile: ? Patient presented for upper ? endoscopy followed by ambulatory pH ? probe study. Study done off of ? anti-secretory therapy. Referring MD: ?Boo Crowell MD Medicines: ? See EGD report. Complications: ? No immediate complications. Procedure: ? The [employer] pH capsule was previously ? placed. Results from that study ? were obtained for interpretation. Findings: ? TOTALS FOR ACID REFLUX ANALYSIS: ? - Acid Exposure Time(s) for pH < 4.0: ? Total Percent Time: 0.6 %. ? - Number of Reflux Episodes: ? Total Refluxes: 12 ? Number of reflux episodes > 5 minutes: 1. ? - Longest reflux episode: 20.9 minutes ? - Symptoms Index (SI): 0.0 (chest pain); 14.3 ? (heartburn); 0.0 (pain along bra line) ? - Symptom Association Probability (SAP): 80.7 (chest ? pain); 80.7 (heartburn); 0.0 (pain along bra line). ? - Symptom Correlation: Weak correlation between ? symptoms (heartburn, chest pain) and reflux episodes, ? noted during the study. ? - See the [employer] data report for further ? details. Moderate Sedation: ? See EGD report. Impression: ?- Normal ambulatory esophageal pH ? study. Patient had one long reflux ? just under 21 minutes in duration ? during which no symptoms were ? logged by the patient (either and ? written in the diary or activated ? by the device recorder on day #2. ? Patient had one other instance of a ? short-lived reflux episode during ? which chest pain was recorded on ? the device recorder. Patient ? recorded a single instance of ? regurgitation during the study on ? the first day during which ? corresponding pH values were basic ? (well above 4 pH). Patient records ? (either via device for quarter or ? written in diary) multiple other ? instances over the course of this ? study marked by symptoms ranging ? from ? s evere pain along bra line? , ? heartburn, chest pain, pain behind ? sternum, sore throat, hoarseness, ? and mucus in throat that are not ? correlated with any reflux episodes ? over the course of the study. ? Findings suggest hypersensitive ? esophagus, functional heartburn, ? and an extra-esophageal source ? (musculoskeletal?) for many of the ? patient's symptoms. Significant ? esophageal motility disorders also ? possible but statistically these ? would be a distinctly less common ? cause of noncardiac chest pain ? and/or the other symptoms ? documented by the patient given the ? patient's study results. Recommendation: ?- Return to GI clinic as previously ? scheduled. Procedure Code(s): ? --- Professional --- ? 13286, 26, Esophagus, ? gastroesophageal reflux test; with ? mucosal attached telemetry pH ? electrode placement, recording, ? analysis and interpretation Diagnosis Code(s): ? --- Professional --- ? R12, Heartburn ? K21.9, Gastro-esophageal reflux ? disease without esophagitis CPT copyright 2020 [employer]. All rights reserved. The codes documented in this report are preliminary and upon welder gas tungsten arc review may be revised to meet current compliance requirements. Rashel El, 10/13/2022 5:31:31 PM Number of Addenda: 0 Note Initiated On: 10/13/2022 3:04 PM ? Endoscopy Report Procedure Note Rashel El MD - 10/13/2022 Patient Name: Joanna Avery Procedure Date: 10/13/2022 3:04 PM Date of : 1955 Admit Type: Outpatient Age: 67 Gender: Female Note Status: Finalized Attending MD: Rashel El , Procedure: Esophageal HATCH pH Capsule Results / Interpretation Indications: Heartburn, Follow-up of esophageal reflux, Failure to respond to treatment of gastro-esophageal reflux disease Providers: Rashel El Patient Profile: Patient presented for upper endoscopy followed by ambulatory pH probe study. Study done off of anti-secretory therapy. Referring MD: Boo Crowell MD Medicines: See EGD report. Complications: No immediate complications. Procedure: The HATCH pH capsule was previously placed. Results from that study were obtained for interpretation. Findings: TOTALS FOR ACID REFLUX ANALYSIS: - Acid Exposure Time(s) for pH < 4.0: Total Percent Time: 0.6 %. - Number of Reflux Episodes: Total Refluxes: 12 Number of reflux episodes > 5 minutes: 1. - Longest reflux episode: 20.9 minutes - Symptoms Index (SI): 0.0 (chest pain); 14.3 (heartburn); 0.0 (pain along bra line) - Symptom Association Probability (SAP): 80.7 (chest pain); 80.7 (heartburn); 0.0 (pain along bra line). - Symptom Correlation: Weak correlation between symptoms (heartburn, chest pain) and reflux episodes, noted during the study. - See the [employer] HATCH data report for further details. Moderate Sedation: See EGD report. Impression: - Normal ambulatory esophageal pH study. Patient had one long reflux just under 21 minutes in duration during which no symptoms were logged by the patient (either and written in the diary or activated by the device recorder on day #2. Patient had one other instance of a short-lived reflux episode during which chest pain was recorded on the device recorder. Patient recorded a single instance of regurgitation during the study on the first day during which corresponding pH values were basic (well above 4 pH). Patient records (either via device for quarter or written in diary) multiple other instances over the course of this study marked by symptoms ranging from ? s evere pain along bra line? , heartburn, chest pain, pain behind sternum, sore throat, hoarseness, and mucus in throat that are not correlated with any reflux episodes over the course of the study. Findings suggest hypersensitive esophagus, functional heartburn, and an extra-esophageal source (musculoskeletal?) for many of the patient's symptoms. Significant esophageal motility disorders also possible but statistically these would be a distinctly less common cause of noncardiac chest pain and/or the other symptoms documented by the patient given the patient's study results. Recommendation: - Return to GI clinic as previously scheduled. Procedure Code(s): --- Professional --- 63980, 26, Esophagus, gastroesophageal reflux test; with mucosal attached telemetry pH electrode placement, recording, analysis and interpretation Diagnosis Code(s): --- Professional --- R12, Heartburn K21.9, Gastro-esophageal reflux disease without esophagitis CPT copyright 2020 [employer]. All rights reserved. The codes documented in this report are preliminary and upon welder gas tungsten arc review may be revised to meet current compliance requirements. Rashel El, 10/13/2022 5:31:31 PM Number of Addenda: 0 Note Initiated On: 10/13/2022 3:04 PM Endoscopy Report Rashel El MD PN GI PROCEDURE [facility]ON[facility]END[facility] PN [facility] * Surgical Path - GI (10/06/2022 11:33 AM CDT) Case Report Surgical Pathology ?Case: [id number] ? Authorizing Provider: ??Rashel El MD ? Collected: ? 10/06/2022 1133 ? Ordering Location: ? [facility] ?Received: ?10/06/2022 1200 ? Endoscopy ? Pathologist: ? Cindy Weems MD ? Specimens: ?? A) - Duodenum ? B) - Stomach ? C) - GE Junction ? D) - Esophagus ? 10/08/2022 4:31 PM CDT [facility] FINAL DIAGNOSIS A. Duodenum, biopsy: Duodenal mucosa with focal mucosal erosion B. Stomach, biopsy: Mild non-specific chronic gastritis No Helicobacter organisms identified on immunohistochemical stain C. GE Junction, biopsy: Squamocolumnar mucosa negative for intestinal metaplasia and dysplasia D. Esophagus, biopsy: Esophageal mucosa with no diagnostic abnormality 10/08/2022 4:31 PM CDT [facility] Clinical Information Anemia GERD 10/08/2022 4:31 PM CDT [facility] Microscopic Description Microscopic examination is performed. Deeper levels were obtained on part A. 10/08/2022 4:31 PM CDT [facility] Special Stains The stain controls have been reviewed and stain appropriately. 10/08/2022 4:31 PM CDT [facility] ASR Disclaimer One or more of these tests were developed and the performance characteristics were determined by [facility]. They have not been cleared or approved by the U.S. Food and Drug Administration. The FDA has determined that such clearance or approval is not necessary. FDA does not require this test to go through premarket FDA review. This test is used for clinical purposes. It should not be regarded as investigational or for research. This laboratory is certified under the Clinical Laboratory Improvement Amendments (CLIA) as qualified to perform high complexity clinical laboratory testing. 10/08/2022 4:31 PM T [facility] Gross Description A: The specimen is received in formalin and labeled with the patient's name and Duodenum. The specimen consists of multiple sosa-white irregular soft tissue fragments, averaging 0.4 cm. The specimen is filtered and entirely submitted in one cassette. B: The specimen is received in formalin and labeled with the patient's name and Stomach. The specimen consists of multiple sosa-white irregular soft tissue fragments, ranging from 0.2-0.4 cm. The specimen was collected and placed in formalin at 11:31 AM, 10/06/2022. The specimen is filtered and entirely submitted in one cassette. C: The specimen is received in formalin and labeled with the patient's name and GE Junction. The specimen consists of 2 sosa-white irregular soft tissue fragments, averaging 0.3 cm. The specimen was collected and placed in formalin at 11:31 AM, 10/06/2022. The specimen is filtered and entirely submitted in one cassette. D: The specimen is received in formalin and labeled with the patient's name and Esophagus. The specimen consists of multiple sosa-white irregular soft tissue fragments, ranging from 0.2-0.5 cm. The specimen was collected and placed in formalin at 11:31 AM, 10/06/2022. The specimen is filtered and entirely submitted in one cassette. DZ 10/08/2022 4:31 PM CDT [facility] Embedded Images 10/08/2022 4:31 PM CDT [facility] Tissue ESOPHAGEAL STRUCTURE / Unknown 10/06/2022 11:33 AM CDT 10/06/2022 12:00 PM CDT Tissue specimen (specimen) STOMACH STRUCTURE / Unknown 10/06/2022 11:33 AM CDT 10/06/2022 12:00 PM CDT Tissue specimen (specimen) ENTIRE INFERIOR ESOPHAGEAL SPHINCTER / Unknown 10/06/2022 11:33 AM CDT 10/06/2022 12:00 PM CDT Tissue specimen (specimen) ESOPHAGEAL STRUCTURE / Unknown 10/06/2022 11:33 AM CDT 10/06/2022 12:00 PM CDT Rashel El MD LAB PATHOLOGY [facility] [address] * EGD (10/06/2022 10:14 AM CDT) 10/06/2022 10:1 4 AM CDT Narrative PN PROVATION - 10/06/2022 10:14 AM CDT Patient Name: Joanna Avery Procedure Date: 10/06/2022 10:14 AM Date of : 1955 Admit Type: Outpatient Age: 67 Gender: Female Note Status: Finalized Attending MD: Rashel El , Procedure: ? Upper GI endoscopy Indications: ? Abdominal pain, Iron deficiency ? anemia, Heartburn, Follow-up of ? gastro-esophageal reflux disease, ? Follow-up of eosinophilic ? esophagitis Providers: ? Rashel El, Merlene Gamez RN Referring MD: ?Boo Crowell MD Medicines: ? Midazolam 6 mg IV, Fentanyl 150 ? micrograms IV Complications: ? No immediate complications. ? Estimated blood loss: Minimal. Procedure: ? Pre-Anesthesia Assessment: ? - Prior to the procedure, a History ? and Physical was performed, and ? patient medications, allergies and ? sensitivities were reviewed. The ? patient's tolerance of previous ? anesthesia was reviewed. ? - The risks and benefits of the ? procedure and the sedation options ? and risks were discussed with the ? patient. All questions were ? answered and informed consent was ? obtained. ? - Patient identification and ? proposed procedure were verified ? prior to the procedure by the ? physician and the nurse. The ? procedure was verified in the ? procedure room. ? - Pre-procedure physical ? examination revealed no ? contraindications to sedation. ? - ASA Grade Assessment: II - A ? patient with mild systemic disease. ? - After reviewing the risks and ? benefits, the patient was deemed in ? satisfactory condition to undergo ? the procedure. ? - The anesthesia plan was to use ? moderate sedation/analgesia ? (conscious sedation). ? - Immediately prior to ? administration of medications, the ? patient was re-assessed for ? adequacy to receive sedatives. ? - Sedation was administered by an ? endoscopy nurse and surprised by ? the endoscopist. The sedation level ? attained was moderate. ? - The heart rate, respiratory rate, ? oxygen saturations, blood pressure, ? adequacy of pulmonary ventilation, ? and response to care were monitored ? throughout the procedure. ? - The physical status of the ? patient was re-assessed after the ? procedure. ? After obtaining informed consent, ? the endoscope was passed under ? direct vision. Throughout the ? procedure, the patient's blood ? pressure, pulse, and oxygen ? saturations were monitored ? continuously. The [id number] was ? introduced through the mouth, and ? advanced to the second part of ? duodenum. The upper GI endoscopy ? was accomplished without ? difficulty. The patient tolerated ? the procedure fairly well. Findings: ? The Z-line was irregular and was found 37 cm from the ? incisors. Irregularities were well under 1 cm in ? length and did not fulfill endoscopic criteria for ? Barretts esophagus. There were no focal mucosal ? irregularity seen under white light nor narrow band ? imaging. This was biopsied with a cold large-capacity ? forceps for histology and evaluation to rule out ? Vicente's Esophagus. Estimated blood loss was minimal. ? There is no endoscopic evidence of areas of erosion, ? inflammation, stenosis, stricture, ulcerations, free ? flow reflux, findings consistent with candidiasis, ? areas of ectopic gastric mucosa, erythema, sclerosis, ? vertical lines, white nummular lesions, white specks, ? plaque, scarring, mass, nodules, polyps or ? diverticula in the entire esophagus. Six random ? biopsies were obtained with cold large-capacity ? forceps for histology randomly in the entire ? esophagus. The patient verbalized discomfort during ? each biopsy sampling pass of the esophagus. Estimated ? blood loss was minimal. ? Evidence of a Toupet fundoplication was found at the ? gastroesophageal junction and in the cardia. The wrap ? appeared intact. This was traversed. ? Patchy mildly erythematous mucosa without bleeding ? was found in the gastric body. Biopsies were obtained ? on the greater curvature of the gastric body, on the ? lesser curvature of the gastric body, at the ? incisura, on the greater curvature of the gastric ? antrum and on the lesser curvature of the gastric ? antrum with cold large-capacity forceps for histology ? and Helicobacter pylori testing. Biopsies included ? direct sampling of the erythematous areas within the ? body described above. Estimated blood loss was ? minimal. ? There is no endoscopic evidence of bleeding, ? ulceration, gastric antral vascular ectasia, areas of ? hemorrhagic mucosa, angiodysplasia, angioectasia, ? papules, polyps, mass or erosion in the entire ? examined stomach. ? A few localized erosions without bleeding were found ? in the duodenal bulb. ? The exam of the duodenum was otherwise normal. ? Two biopsies were obtained with cold large-capacity ? forceps for histology and evaluation of celiac ? disease in the duodenal bulb, as well as four ? biopsies in the second portion of the duodenum. ? Estimated blood loss was minimal. ? The HATCH capsule with delivery system was introduced ? through the mouth and advanced into the esophagus, ? such that the HATCH pH capsule was positioned 31 cm ? from the incisors, which was 6 cm proximal to the GE ? junction. Suction was applied to the well of the ? HATCH pH capsule to suck in the adjacent mucosa of ? the esophagus using the external vacuum pump set at a ? minimum vacuum pressure of 600 mmHg for 60 seconds. ? The HATCH pH capsule was then deployed by depressing ? the plunger on top of the handle to advance the ? locking pin into the mucosa, thereby attaching the ? capsule to the esophagus. The plunger was then ? rotated a quarter turn clockwise to release the ? capsule from the delivery system. The delivery system ? was then withdrawn. Endoscopy was utilized for probe ? placement and diagnostic evaluation. Probe placement ? was photo documented after deployment by reinsertion ? of the gastroscope. Estimated blood loss was minimal. Moderate Sedation: ? Moderate (conscious) sedation was administered by the ? endoscopy nurse and supervised by the endoscopist. ? The following parameters were monitored: oxygen ? saturation, heart rate, blood pressure, and response ? to care. Total physician intraservice time was 14 ? minutes. Impression: ?- Z-line irregular, 37 cm from the ? incisors. Biopsied. ? - A Toupet fundoplication was ? found. The wrap appears intact. ? - Erythematous mucosa in the ? gastric body. ? - Duodenal erosions without ? bleeding. ? - Six random biopsies were obtained ? in the entire esophagus. Note is ? made of the patient's verbalization ? of intraprocedural mild discomfort ? during each biopsy sampling pass of ? the esophagus during today's exam. ? - Biopsies were obtained on the ? greater curvature of the gastric ? body, on the lesser curvature of ? the gastric body, at the incisura, ? on the greater curvature of the ? gastric antrum and on the lesser ? curvature of the gastric antrum. ? - Biopsy performed in the duodenal ? bulb and in the second portion of ? the duodenum. ? - The HATCH pH capsule was ? positioned 31 cm from the incisors, ? which was 6 cm proximal to the GE ? junction. Recommendation: ?- Hatch pH probe protocol for next ? 96 hours. ? - Remain off of all anti secretory ? therapy. Procedure Code(s): ? --- Professional --- ? 16363, Esophagogastroduodenoscopy, ? flexible, transoral; with biopsy, ? single or multiple ? G0500, Moderate sedation services ? provided by the same physician or ? other qualified health care ? professional performing a ? gastrointestinal endoscopic service ? that sedation supports, requiring ? the presence of an independent ? trained observer to assist in the ? monitoring of the patient's level ? of consciousness and physiological ? status; initial 15 minutes of ? intra-service time; patient age 5 ? years or older (additional time may ? be reported with 39508, as ? appropriate) Diagnosis Code(s): ? --- Professional --- ? K22.8, Other specified diseases of ? esophagus ? Z98.890, Other specified ? postprocedural states ? K31.89, Other diseases of stomach ? and duodenum ? K26.9, Duodenal ulcer, unspecified ? as acute or chronic, without ? hemorrhage or perforation ? R10.9, Unspecified abdominal pain ? D50.9, Iron deficiency anemia, ? unspecified ? R12, Heartburn ? K21.9, Gastro-esophageal reflux ? disease without esophagitis ? K20.0, Eosinophilic esophagitis CPT copyright 2020 [employer]. All rights reserved. The codes documented in this report are preliminary and upon welder gas tungsten arc review may be revised to meet current compliance requirements. Rashel El, 10/06/2022 11:43:34 AM Number of Addenda: 0 Note Initiated On: 10/06/2022 10:14 AM ? Endoscopy Report Procedure Note Rashel El MD - 10/06/2022 Patient Name: Joanna Avery Procedure Date: 10/06/2022 10:14 AM Date of : 1955 Admit Type: Outpatient Age: 67 Gender: Female Note Status: Finalized Attending MD: Rashel El , Procedure: Upper GI endoscopy Indications: Abdominal pain, Iron deficiency anemia, Heartburn, Follow-up of gastro-esophageal reflux disease, Follow-up of eosinophilic esophagitis Providers: Merlene Riggins RN Referring MD: Boo Crowell MD Medicines: Midazolam 6 mg IV, Fentanyl 150 micrograms IV Complications: No immediate complications. Estimated blood loss: Minimal. Procedure: Pre-Anesthesia Assessment: - Prior to the procedure, a History and Physical was performed, and patient medications, allergies and sensitivities were reviewed. The patient's tolerance of previous anesthesia was reviewed. - The risks and benefits of the procedure and the sedation options and risks were discussed with the patient. All questions were answered and informed consent was obtained. - Patient identification and proposed procedure were verified prior to the procedure by the physician and the nurse. The procedure was verified in the procedure room. - Pre-procedure physical examination revealed no contraindications to sedation. - ASA Grade Assessment: II - A patient with mild systemic disease. - After reviewing the risks and benefits, the patient was deemed in satisfactory condition to undergo the procedure. - The anesthesia plan was to use moderate sedation/analgesia (conscious sedation). - Immediately prior to administration of medications, the patient was re-assessed for adequacy to receive sedatives. - Sedation was administered by an endoscopy nurse and surprised by the endoscopist. The sedation level attained was moderate. - The heart rate, respiratory rate, oxygen saturations, blood pressure, adequacy of pulmonary ventilation, and response to care were monitored throughout the procedure. - The physical status of the patient was re-assessed after the procedure. After obtaining informed consent, the endoscope was passed under direct vision. Throughout the procedure, the patient's blood pressure, pulse, and oxygen saturations were monitored continuously. The [id number] was introduced through the mouth, and advanced to the second part of duodenum. The upper GI endoscopy was accomplished without difficulty. The patient tolerated the procedure fairly well. Findings: The Z-line was irregular and was found 37 cm from the incisors. Irregularities were well under 1 cm in length and did not fulfill endoscopic criteria for Barretts esophagus. There were no focal mucosal irregularity seen under white light nor narrow band imaging. This was biopsied with a cold large-capacity forceps for histology and evaluation to rule out Vicente's Esophagus. Estimated blood loss was minimal. There is no endoscopic evidence of areas of erosion, inflammation, stenosis, stricture, ulcerations, free flow reflux, findings consistent with candidiasis, areas of ectopic gastric mucosa, erythema, sclerosis, vertical lines, white nummular lesions, white specks, plaque, scarring, mass, nodules, polyps or diverticula in the entire esophagus. Six random biopsies were obtained with cold large-capacity forceps for histology randomly in the entire esophagus. The patient verbalized discomfort during each biopsy sampling pass of the esophagus. Estimated blood loss was minimal. Evidence of a Toupet fundoplication was found at the gastroesophageal junction and in the cardia. The wrap appeared intact. This was traversed. Patchy mildly erythematous mucosa without bleeding was found in the gastric body. Biopsies were obtained on the greater curvature of the gastric body, on the lesser curvature of the gastric body, at the incisura, on the greater curvature of the gastric antrum and on the lesser curvature of the gastric antrum with cold large-capacity forceps for histology and Helicobacter pylori testing. Biopsies included direct sampling of the erythematous areas within the body described above. Estimated blood loss was minimal. There is no endoscopic evidence of bleeding, ulceration, gastric antral vascular ectasia, areas of hemorrhagic mucosa, angiodysplasia, angioectasia, papules, polyps, mass or erosion in the entire examined stomach. A few localized erosions without bleeding were found in the duodenal bulb. The exam of the duodenum was otherwise normal. Two biopsies were obtained with cold large-capacity forceps for histology and evaluation of celiac disease in the duodenal bulb, as well as four biopsies in the second portion of the duodenum. Estimated blood loss was minimal. The HATCH capsule with delivery system was introduced through the mouth and advanced into the esophagus, such that the HATCH pH capsule was positioned 31 cm from the incisors, which was 6 cm proximal to the GE junction. Suction was applied to the well of the HATCH pH capsule to suck in the adjacent mucosa of the esophagus using the external vacuum pump set at a minimum vacuum pressure of 600 mmHg for 60 seconds. The HATCH pH capsule was then deployed by depressing the plunger on top of the handle to advance the locking pin into the mucosa, thereby attaching the capsule to the esophagus. The plunger was then rotated a quarter turn clockwise to release the capsule from the delivery system. The delivery system was then withdrawn. Endoscopy was utilized for probe placement and diagnostic evaluation. Probe placement was photo documented after deployment by reinsertion of the gastroscope. Estimated blood loss was minimal. Moderate Sedation: Moderate (conscious) sedation was administered by the endoscopy nurse and supervised by the endoscopist. The following parameters were monitored: oxygen saturation, heart rate, blood pressure, and response to care. Total physician intraservice time was 14 minutes. Impression: - Z-line irregular, 37 cm from the incisors. Biopsied. - A Toupet fundoplication was found. The wrap appears intact. - Erythematous mucosa in the gastric body. - Duodenal erosions without bleeding. - Six random biopsies were obtained in the entire esophagus. Note is made of the patient's verbalization of intraprocedural mild discomfort during each biopsy sampling pass of the esophagus during today's exam. - Biopsies were obtained on the greater curvature of the gastric body, on the lesser curvature of the gastric body, at the incisura, on the greater curvature of the gastric antrum and on the lesser curvature of the gastric antrum. - Biopsy performed in the duodenal bulb and in the second portion of the duodenum. - The HATCH pH capsule was positioned 31 cm from the incisors, which was 6 cm proximal to the GE junction. Recommendation: - Hatch pH probe protocol for next 96 hours. - Remain off of all anti secretory therapy. Procedure Code(s): --- Professional --- 90750, Esophagogastroduodenoscopy, flexible, transoral; with biopsy, single or multiple G0500, Moderate sedation services provided by the same physician or other qualified health critical care unit manager performing a gastrointestinal endoscopic service that sedation supports, requiring the presence of an independent trained observer to assist in the monitoring of the patient's level of consciousness and physiological status; initial 15 minutes of intra-service time; patient age 5 years or older (additional time may be reported with 15343, as appropriate) Diagnosis Code(s): --- Professional --- K22.8, Other specified diseases of esophagus Z98.890, Other specified postprocedural states K31.89, Other diseases of stomach and duodenum K26.9, Duodenal ulcer, unspecified as acute or chronic, without hemorrhage or perforation R10.9, Unspecified abdominal pain D50.9, Iron deficiency anemia, unspecified R12, Heartburn K21.9, Gastro-esophageal reflux disease without esophagitis K20.0, Eosinophilic esophagitis CPT copyright 2020 [employer]. All rights reserved. The codes documented in this report are preliminary and upon welder gas tungsten arc review may be revised to meet current compliance requirements. Rashel El, 10/06/2022 11:43:34 AM Number of Addenda: 0 Note Initiated On: 10/06/2022 10:14 AM Endoscopy Report Boo Crowell MD PN GI PROCEDURE ORDJuan J [facility]ARD[facility] Organization Address City/State/ZIP Co de Phone Number PN PROVATION documented in this encounter Visit Diagnoses Diagnosis Gastroesophageal reflux disease without esophagitis- Primary Esophageal reflux Heartburn documented in this encounter Administered Medications Inactive Administered Medications - up to 3 most recent administrations Medication Order MAR Action Action Date Dose Rate Site fentaNYL (SUBLIMAZE) injection 25-100 mcg 25-100 mcg, Intravenous, PRN, Other, Moderate Sedation, Starting on Wed10/06/22 at 0727, Until Wed10/07/22 at 0205, Administer in 25-100 mcg increments as directed by endoscopy procedure Practitioner up to a total of 300 mcg. (Give only during endoscopy procedure visit) Given 10/06/2022 11:22 AM CDT 150 mcg midazolam (VERSED) injection 0.5-2 mg 0.5-2 mg, Intravenous, PRN, Sedation, Starting on Wed10/06/22 at 0727, Until Wed10/07/22 at 0205, Administer in 0.5-2 mg increments as directed by endoscopy procedure Practitioner up to a total of 8 mg. (Give only during endoscopy procedure visit) Given 10/06/2022 11:22 AM CDT 6 mg sodium chloride 0.9% injection 10-60 mL 10-60 mL, Intravenous, PRN, Line Patency, For port access and deaccess only, Starting on Wed10/06/22 at 07, Until Wed10/07/22 at 0205 Given 10/06/2022 11:22 AM CDT 20 mL documented in this encounter Care Teams Office Administrative Assistant Relationship Specialty Start Date End Date Needs Pcp, [place] [address] PCP - General 12/12/21 documented as of this encounter
--- OUTSIDE RECORDS SUMMARY | 2023-06-09 06:28 | XMS_ITS | Encounter Summary ---
Author Name Unknown Organization [facility] Address [address], [place] [address] Care Team Providers Care Profile Mill Operator Tape Control Name Role Phone Needs Pcp, Assignment Primary Care Provider [phone] Encounter Details Date Type Department Care Team Description 09/29/2022 9:00 AM CDT Immunization [facility] Department [id number] [id number] Encounter for administration of vaccine (Primary Dx) Social History Tobacco Use Types Packs/Day Years Used Date Smoking Tobacco: Never Smokeless Tobacco: Never Alcohol Use Standard Drinks/Week Comments Not Currently 0 (1 standard drink = 0.6 oz pur e alcohol) rare Sex and Gender Information Value Date Recorded Sex Assigned at Not on file Gender Identity Not on file Sexual Orientation Not on file documented as of this encounter Plan of Treatment Upcoming Encounters Date Type Department Care Team Description 07/26/2023 1:30 PM CRANE ASSEMBLER Appointment [facility] [address] Endoscopy [address] [facility] [address] 09/09/2023 3:40 PM CDT [facility] [address] Gastroenterology [address] [facility] [address] Boo Crowell MD [address] [facility] [address] [place] [address] documented as of this encounter Visit Diagnoses Diagnosis Encounter for administration of vaccine- Primary documented in this encounter Care Teams Profile Mill Operator Tape Control Relationship Specialty Start Date End Date Needs Pcp, Assignment [place], [place] [address] PCP - General 12/12/21 documented as of this encounter
--- OUTSIDE RECORDS SUMMARY | 2023-06-09 06:28 | XMS_ITS | Encounter Summary ---
Author Name Unknown Organization [facility] Address [address], [place] [address] Care Team Providers Care Cupola Charger Insulation Name Role Phone Needs Pcp, Assignment Primary Care Provider Reason for Referral * (Routine) - New Request Specialty Diagnoses / Procedures Referred By Bhumi wellington Referred To Contact Diagnoses Gastroesophageal reflux disease with esophagitis without hemorrhage Procedures Manometry Esophageal Boo Crowell MD [address] [facility] [address] [place] [address] Referral ID Status Reason Start Date Expiration Date V isits Requested Visits Authorized [id number] New Request 04/29/2023 07/28/2024 1 1 TS SPECIALIST Reason for Visit * Reason Onset Date Comments Video Visit 04/29/2023 Encounter Details Date Type Department Care Team Description 04/29/2023 3:40 PM GRANTS SPECIALIST [facility] [address] [place], [place] [address] Boo Crowell MD [address] [place], [place] [id number] Gastroesophageal reflux disease with esophagitis without hemorrhage (Primary Dx); Epigastric burning sensation; Throat burning; Abdominal bloating Social History Tobacco Use Types Packs/Day Years Used Date Smoking Tobacco: Never Smokeless Tobacco: Never Alcohol Use Standard Drinks/Week Comments Not Currently 0 (1 standard drink = 0.6 oz pur e alcohol) rare Sex and Gender Information Value Date Recorded Sex Assigned at Not on file Gender Identity Not on file Sexual Orientation Not on file documented as of this encounter Patient Instructions * Patient Instructions* Boo Crowell MD - 04/29/2023 3:40 PM GRANTS SPECIALIST Jerri Avery, it was a pleasure seeing you again. I have made this summary of our clinicvisit for you today. You have valid questions about possibilities of what could be causing your symptoms. We know, basedon testing, that you do not have a significant amount of 'true acid reflux,' and the amount of acidreflux that you do have is not causing your symptoms. However, that does not rule out the possibility that you may have bile reflux OR the possibility that what you are swallowing is not making it thr ough into your stomach. 2. First, I recommend an Esophageal Manometry with 24h ph-impedance test. I know this is unpleasant, but this will tell us what your swallowing looks like now that you have had the fundoplication andalso if you have bile (non-acid) reflux. 3. I also recommend a test for Small Intestinal Bacterial Overgrowth. You very well may have Small Intestinal Bacterial Overgrowth - the question is if that is responsible for some of your symptoms. We will send you a kit to your home to test for it and be able to help treat with an antibiotics that mostly works in the GI tract, if so. 4. We'll plan to see you back in 6 months and will be in touch as we get these results back. Pleasedon't hesitate to contact us with any questions or concerns. Otherwise, take care! TS SPECIALIST documented in this encounter Progress Notes * Boo Crowell MD - 04/29/2023 3:40 PM CST GI Clinic Consult - [facility] Gastroenterology - MD Joanna Troy Truman Gena MR# [id number] Date of Visit: 04/29/23 MEDICAL DECISION MAKING IMPRESSION/Plan: Joanna Avery is a 68 y.o. female presenting for evaluation of several GI concerns. #. GERD/Eosinophilic Esophagitis - this has resolved with her fundoplication. Upper Endoscopy w Hatch OFF Proton Pump Inhibitor was negative for pathologic reflux. She had a small amount of non-pathologic reflux, however, this did not correlate with her symptoms of throat/epigastric burning - negative Upper Endoscopy in 2022 without any eosinophils #. Epigastric burning/throat burning/LPR - we discussed that this is not due to 'true acid reflux,'however, there is the possiblity of bile reflux - will therefore move forward with Esophageal Manometry plus 24h ph-impedance - notable is that she did report some mild discomfort during esophageal biopsies with the Upper Endoscopy. This raises the possibility of a visceral hypersensitivity #. Abdominal pain - improved with peppermint oil before meals, although not resolved - low FODMAPs was not easy for her as much of it requires a high fiber diet - continue peppermint oil - could consider bentyl in the future - continue the peppermint altoids - test for Small Intestinal Bacterial Overgrowth, suspect this is the case with history of small bowel obstruction, unsure how much this is related to symptomatology #. History of small bowel obstruction - due to adhesions, effectively ruled out IBD with negative MRE and colonoscopy in the past #. Colorectal cancer screening - negative in 2021 Rtc 6 months SUBJECTIVE: Date of Visit: 04/29/23 HPI: Joanna vAery is a 68 y.o. female presenting for evaluation of GERD/Eosinophilic Esophagitis and Disorders of the Gut-Brain Interaction involving chest/upper abdominal pain. History of smallbowel obstruction due to adhesions on a low residue diet - history of G-POEM At last visit, we had recommended peppermint oil in the form of altoids. Had also recommended low FODMAPs diet. Could consider acupuncture and bentyl. Has a history of small bowel obstruction due to adhesions, therefore, recommended against fiber supplement and instead laxatives/stool softeners Re esophageal eosinophilia, her fundoplication reflux surgery reduced reflux such that she does nothave any eosinophils any longer She reports that she's not feeling well bc she's feeling overwhelmed She is still having a burnign sensation at the xiphoid process and is spreading along to both sides. She is having some abdominal pain after she eats and that is not as bothersome. The peppermint seems to be helping somewhat The new things that have happened since she saw me last : - she had two days of diffuse abdominal discomfort, difficult to describe - she also had diarrhea that was just red flakes. Lasted about two days and then went away - the other thing she's had since 2014 is that she's had LPR. She was referred to ENT once in a while and has them look at her throat - reports that her throat has been burning ongoing She had objective data that demonstrated that she had a negative hatch study She had 5 hours of abdominal pain in 04/22 and reports that it was significant. She called into theoffice. It would come in waves, come back, and go away for a minute. That has not come back. She wonders about testing for Small Intestinal Bacterial Overgrowth. Has not had bloating for over a year since her last small bowel obstruction - has been on low fiberdiet. 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 Please refer to chart for details. 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 51 3 alumuminum hydroxide-magnesium trisilicate (AKA GAVISCON) 80-20 MG Chew and swallow 2 Tablets by mouth 4 times daily as needed. CALCIUM CITRATE-VITAMIN D OR Take 2 Tablets by mouth. clonazePAM (AKA KLONOPIN) 0.5 MG tablet Take 1-2 tablets by mouth NEEDED PRN. LW Addl Instr:3 refills total Indicated for: Anxiety 60 2 fluocinonide (LIDEX) 0.05 % external solution Apply topically. fluticasone (FLOVENT HFA) 44 mcg/actuation inhaler Inhale 2 Puffs two times a day. 34.8 3 fluticasone propionate (FLONASE) 50 MCG/ACT nasal solution 1 [place] by Nasal route. Iron-Vitamin C (VITRON-C) 65-125 MG TABS Take by mouth. lisinopril (ZESTRIL) 2.5 MG tablet Take 1 Tablet (2.5 mg) by mouth daily. magnesium oxide (AKA MAG-OX 400) 250 MG tablet daily with breakfast. metoprolol tartrate (LOPRESSOR) 50 MG tablet Take 1 Tablet (50 mg) by mouth two times a day. Probiotic Product (ALIGN) 4 MG CAPS rosuvastatin (CRESTOR) 20 MG tablet TAKE 1 TABLET BY MOUTH EVERYDAY AT BEDTIME triamcinolone (NASACORT AQ) 55 MCG/ACT nasal inhaler Place 2 Sprays into both nostrils daily. zinc gluconate 50 MG tablet Take 1 Tablet (50 mg) by mouth daily. No facility-administered medications prior to visit. Allergies: Allergies for Flower Avery A Status Agent Date Noted Reaction Type Active ADHESIVE 01/08/2012 Other, see comments Active BACITRACIN 07/12/2012 Other, see comments Unspecified Active [id number] 04/25/2001 Allergy Active BACTINE [ANESTHETICS, AMIDE] 07/12/2012 Rash Unspecified Active BACTRIM [SULFAMETHOXAZOLE-TRIMETHOPRIM] 08/08/2019 Itching Active CAT HAIR EXTRACT 08/06/2006 Other, see comments Active JUBLIA [EFINACONAZOLE] 07/01/2016 Active QUINOLONES 04/25/2001 Allergy Physical Exam: GEN: No acute distress, comfortable, appears stated age Head: normocephalic, atraumatic; sclera anicteric ENT: oropharynx clear, normal hearing Lungs: Non labored breathing Abdomen: No abdominal pain reported Skin: no obvious rash, no skin breakdown on face Neuro: A&Ox3, no focal deficits in cranial nerves Psych: appropriate affect and mood GI Procedures: [facility] Esophageal Manometry in 07/2017 - incomplete bolus clearance in 50% of swallows, but otherwise normal Impression: - Z-line irregular, 37 cm from [...] Remain off of all anti secretory therapy. A. Duodenum, biopsy: Duodenal mucosa with focal mucosal erosion B. Stomach, biopsy: Mild non-specific chronic gastritis No Helicobacter organisms identified on immunohistochemical stain C. GE Junction, biopsy: Squamocolumnar mucosa negative for intestinal metaplasia and dysplasia D. Esophagus, biopsy: Esophageal mucosa with no diagnostic abnormality Hatch ph study 09/2022: TOTALS FOR ACID REFLUX ANALYSIS: - Acid [...] noted during the study. - See the [employer] data report for further details. Impression: - Normal ambulatory esophageal pH study. [...] this study marked by symptoms ranging from ?severe pain along bra line?, heartburn, chest pain, pain behind sternum, sore [...] Return to GI clinic as previously scheduled. Notes a longstanding history of GERD. - multiple Upper Endoscopy's demonstrating esophagitis as well as Eosinophilic Esophagitis and a hiatl hernia S/p toupet fundoplication with hernia repair in early 2020 - ph/impedance from 04/2017 demonstrating a demeester score of 33 with significant symptoms correlation w heartburn/chest pain - had reported history of esophageal spasms xx 3 months following removal of the catheter. Esophagus reportedly swallowing on its own - Upper Endoscopy 07/2017 -> dilated the esophagus to 18mm with resultant increase in frequency of heartburn and severity - LPR diagnosed 07/2017. - Esophageal Manometry in 07/2017 -> unremarkable Upper Endoscopy 03/20 - irregular z-line, toupet fundoplication intact. Unremaerkble esophageal biopsies - this was following taper of budesonide Gastric Emptying Scan 04/20 - unremarkable Upper Endoscopy 1 year s/p Toupet in 06/21 -> normal esophagus in the GEJ and the esophageal body - follow-up ph-impedance study in 06/21 demonstrated demeester of 0.4 Hatch performed in 12/19 -> this was performed OFF therapy. Did not have any heartburn. Demeesterwas 1.3. - however, developed ongoing heartburn and was restarted on Proton Pump Inhibitor omeprazole 20mg once a day in 02/19. This was increased to 20mg BID in 03.21 - without improvement, but continued to take Proton Pump Inhibitor for Proton Pump Inhibitor-REE - has taken famoitidine, rolaids, and gaviscon without longlasting relief Overall, has heartburn symptoms without objective evidence of heartburn based on most recent studies. Re Pain - started a few days following Upper Endoscopy w Hatch placement - pain behind sternum, ice packs helps - also has pain along the bra line along the rib since fundoplication -> became worse and daily starting in 01/19. Hot packs help with the discomfort. - both of these pains occur at the same time, starts waking and continues throughout the day Concern for possible Esophageal spasms v EoE - has had negative EoE since the reflux surgery, but has spasms type pain that occurs memontarily with swallowing. Some worse than others. Also with a sticking sensation in the middle of the chest when swallowing liqiuds Intermittent Bowel Obstructions - 10-12y history of intermittent abdominal pain/bloating/vomiting occurring every 6-12 weeks and lasting from 6-18h - hqd coffee ground emesis with this in 2011 and underwent Upper Endoscopy demonstrating acid reflux changes and Eosinophilic Esophagitis. Had started probiotic - pill cam became impacted in 09/2019 -> underwent lysos of adhesions. However, symptoms continued despite the surgery (impacted between the jejunum and ileum) - underwent MRE 12/19 - inflamed bowel loop had resolved and w/o any new findings - hospitalized in 04/21 with small bowel obstruction (CT confirmed), decompressed w NG and discharged the next evening. Pill cam scheduled for 04/21 had been canceled due to concern for capsule retention - has been on low residue diet since w/o any further bowel obstruction symptoms - MRE repeated w/o any evidence of IBD or stricture in 04/[address] Quinones and Jose [facility] - last [facility] in 06/22 - no further bowel obstruction since 04/21 w/o any evidence of CXrohn's - recommend to start fiber supplement - no clear etiology of Iron Deficiency Anemia from a GI cause. 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 - started buspar 06/21 and developed chest pain, restarted 07/18/21 after discussion Last issue is recurrent Iron Deficiency Anemia - found to have hemoglobin of 10 in 04/2019. Upper Endoscopy/colon done 07/2019. Video capsule endoscopy lodged 07/2019 as above. - hemoglobin up to 11.5 with Iron. - 12/19 repeat colon and Upper Endoscopy were negative - 03/21 iron studies clearly with Iron Deficiency Anemia and normal B12. - repeat video capsule endoscopy canceled due to concern for pill retention - uncertain etiology of Iron Deficiency Anemia overall. Cannot assess entire small intestine due tohistory of pillcam impaction She also had a G-POEM performed, presumably for delayed gastric emptying. Boo Crowell MD Gastroenterology Assessment/Plan: Gastroesophageal reflux disease with esophagitis without hemorrhage - BREATH HYDROGEN TEST - Manometry Esophageal; Future Epigastric burning sensation Throat burning Abdominal bloating Billing based on: Time Total time for the visit was 70 minutes including, but not limited to, zax-[id number]-face time spent reviewing records, counseling, and coordination of care. Boo Crowell MD TS SPECIALIST documented in this encounter Plan of Treatment Upcoming Encounters Date Type Department Care Team Description 07/26/2023 1:30 PM GRANTS SPECIALIST Appointment Specialty Center [address] [place] [address] 09/09/2023 3:40 PM CDT Telemedicine Specialty Center [address] [place] [address] Boo Crowell MD [address] [place] [place] [address] Scheduled Orders Name Type Priority Associated Diagnoses Orde r Schedule Manometry Esophageal GI Routine Gastroesophageal reflux disease with esophagitis without hemorrhage 1 Occurrences starting 04/29/2023 documented as of this encounter Visit Diagnoses Diagnosis Gastroesophageal reflux disease with esophagitis without hemorrhage- Primary Epigastric burning sensation Abdominal pain, epigastric Throat burning Throat pain Abdominal bloating Flatulence, eructation, and gas pain documented in this encounter Care Teams Cupola Charger Insulation Relationship Specialty Start Date End Date Needs Pcp, [place] [address] PCP - General 12/12/21 documented as of this encounter
--- OUTSIDE RECORDS SUMMARY | 2023-06-09 06:28 | XMS_ITS | Encounter Summary ---
Author Name Unknown Organization [facility] Address [address], [place] [address] Care Team Providers Care House Director Name Role Phone Needs Pcp, Assignment Primary Care Provider Reason for Visit * (Routine) - New Request Specialty Diagnoses / Procedures Referred By Bhumi t Referred To Contact Diagnoses Heartburn Gastroesophageal reflux disease without esophagitis Procedures PH MONITORING 48HR Rashel El MD [address] [place] [address] Referral ID Status Reason Start Date Expiration Date V isits Requested Visits Authorized [id number] New Request 10/13/2022 01/12/2024 1 1 Encounter Details Date Type Department Care Team Description 10/13/2022 1:13 PM CDT - 10/13/2022 11:59 PM CDT Hospital Encounter Specialty Center [address] [place] [address] Rashel El MD [address] [place], [place] [id number] Discharge Disposition: Home Social History Tobacco Use [...] on file documented as of this encounter Medications at Time of Discharge [...] propionate (FLONASE) 50 MCG/ACT nasal solution 1 [place] by Nasal route. 0 08/17/2018 Iron-Vitamin C [...] 0 01/04/2023 documented as of this encounter Procedure Notes * Rashel El MD - 10/13/2022 3:04 PM CDT Patient Name: [...] noted during the study. - See the [employer] HATCH data report for further details. Moderate [...] previously scheduled. Procedure Code(s): --- Professional --- 98239, 26, Esophagus, gastroesophageal reflux test; with mucosal attached telemetry pH electrode placement, recording, analysis and interpretation Diagnosis Code(s): --- Professional --- R12, Heartburn K21.9, Gastro-esophageal reflux disease without esophagitis CPT copyright 2020 [employer]. All rights reserved. The codes documented in this report are preliminary and upon design coordinator review may be revised to meet current compliance requirements. Rashel El, 10/13/2022 5:31:31 PM Number of Addenda: 0 Note Initiated On: 10/13/2022 3:04 PM Endoscopy Report documented in this encounter Plan of Treatment Upcoming Encounters Date Type Department Care Team Description 07/26/2023 1:30 PM SENIOR J2EE DEVELOPER Appointment Specialty Center [address] [place] [address] 09/09/2023 3:40 PM CDT Telemedicine Specialty Center [address] [place] [address] Boo Crowell MD [address] [facility] [address] [place], [place] [address] documented as of this encounter Procedures Procedure Name Priority Date/Time Associated Diagnosis Comments PH MONITORING 48HR Routine 10/13/2022 3: 04 PM CDT Heartburn Gastroesophageal reflux disease without esophagitis documented in this encounter Results * PH [...] ? No immediate complications. Procedure: ? The HATCH pH capsule was previously ? placed. Results [...] during the study. ? - See the [employer] data report for further ? details. Moderate [...] Procedure Code(s): ? --- Professional --- ? 69901, 26, Esophagus, ? gastroesophageal reflux test; with ? mucosal attached telemetry pH ? electrode placement, recording, ? analysis and interpretation Diagnosis Code(s): ? --- Professional --- ? R12, Heartburn ? K21.9, Gastro-esophageal reflux ? disease without esophagitis CPT copyright 2020 [employer]. All rights reserved. The codes documented in this report are preliminary and upon design coordinator review may be revised to meet current [...] noted during the study. - See the [employer] data report for further details. Moderate Sedation: [...] previously scheduled. Procedure Code(s): --- Professional --- 18955, 26, Esophagus, gastroesophageal reflux test; with mucosal attached telemetry pH electrode placement, recording, analysis and interpretation Diagnosis Code(s): --- Professional --- R12, Heartburn K21.9, Gastro-esophageal reflux disease without esophagitis CPT copyright 2020 [employer]. All rights reserved. The codes documented in this report are preliminary and upon design coordinator review may be revised to meet current compliance requirements. Rashel El, 10/13/2022 5:31:31 PM Number of Addenda: 0 Note Initiated On: 10/13/2022 3:04 PM Endoscopy Report Rashel El MD PN GI PROCEDURE PERLA CARDONA PN [employer]OVATION documented in this encounter Visit Diagnoses Not on filedocumented in this encounter Care Teams House Director Relationship Specialty Start Date End Date Needs Pcp, [place] [address] PCP - General 12/12/21 documented as of this encounter
--- OUTSIDE RECORDS SUMMARY | 2023-06-09 06:28 | XMS_ITS | Encounter Summary ---
Author Name Unknown Organization [facility] Address [address], [place] [address] Care Team Providers Care Film Cleaner Name Role Phone Needs Pcp, Assignment Primary Care Provider [phone] Reason for Visit * Reason Comments Test Results Encounter Details Date Type Department Care Team Description 04/28/2023 Telephone Specialty Center [facility] Gastroenterology [address] [place], [place] [phone] Boo Crowell MD [address] [facility] [address] [place] [address] Test Results Social History Tobacco Use Types Packs/Day Years Used Date Smoking Tobacco: Never Smokeless Tobacco: Never Alcohol Use Standard Drinks/Week Comments Not Currently 0 (1 standard drink = 0.6 oz pur e alcohol) rare Sex and Gender Information Value Date Recorded Sex Assigned at Not on file Gender Identity Not on file Sexual Orientation Not on file documented as of this encounter Nursing Notes * Leticia Zabala RN - 04/28/2023 4:18 PM CST Manometry study from 2018 received via fax. Placed in provider inbox for appt on 04/29. HER SPECIALIST documented in this encounter Plan of Treatment Upcoming Encounters Date Type Department Care Team Description 07/26/2023 1:30 PM TEACHER SPECIALIST Appointment Specialty Center [address] [place] [address] 09/09/2023 3:40 PM CDT Telemedicine Specialty Center [address] [place] [address] Boo Crowell MD [address] [facility] [address] [place], [place] [address] documented as of this encounter Visit Diagnoses Not on filedocumented in this encounter Care Teams Film Cleaner Relationship Specialty Start Date End Date Needs Pcp, [place] [address] PCP - General 12/12/21 documented as of this encounter
--- OUTSIDE RECORDS SUMMARY | 2023-06-09 06:28 | XMS_ITS | Encounter Summary ---
Author Name Unknown Organization [facility] Address [address], [place] [address] Care Team Providers Care Arc Welding Machine Operator Name Role Phone Needs Pcp, Assignment Primary Care Provider Reason for Visit * Reason Comments Provider Orders Glucose breath test Encounter Details Date Type Department Care Team Description 04/29/2023 Telephone [facility] [address] [employer] [address] [place], [place] [id number] Boo Crowell MD [address] [facility] [address] [place] [address] Provider Orders (Glucose breath test) Social History Tobacco Use Types Packs/Day Years [...] as of this encounter Nursing Notes * Britt Carpenter PCA - 04/29/2023 4:32 PM CST Placed glucose breath test via CDI website. Sent patient instructions via [employer]imi. Received CDI confirmation ECTIVE SERVICES OFFICER documented in this encounter Plan of Treatment Upcoming Encounters Date Type Department Care Team Description 07/26/2023 1:30 PM PROTECTIVE SERVICES OFFICER Appointment [facility]ty [facility] [address] [place] [address] 09/09/2023 3:40 PM CDT Telemedicine Specialty [facility] [address] [place] [address] Boo Crowell MD [address] [facility] [address] [place], [place] [phone] documented as of this encounter Visit Diagnoses Not on filedocumented in this encounter Care Teams Arc Welding Machine Operator Relationship Specialty Start Date End Date Needs Pcp, Janessa [place], [place] [phone] PCP - General 12/12/21 documented as of this encounter
--- OUTSIDE RECORDS SUMMARY | 2023-06-09 06:28 | XMS_ITS | Clinical Summary ---
Author Name Unknown Organization [facility] Address [address] [place] [address] Care Team Providers Care Black And White Printer Operator Name Role Phone Needs Pcp, Assignment Primary Care Provider Source Comments You are receiving this document as you are listed as the primary care provider,follow-up provider, or the patient has been referred to you for consultation.This is in compliance with the Medicare and[facility] EHR Incentive Program,which states Providers who transition their patient to another setting of careor provider of care or refers their patient to another provider of care shouldprovide summary care record for each transition of care or referral. [facility] Allergies Active Allergy Reactions Criticality Noted Date Comments Adhesive Other, see comments 01/08/2012 Tape it outlines the adhesive spot & gets itchy Bacitracin Other, see comments 07/12/2012 itching Bhieosczhg-Exntzbgj-Mvz ymyxin 04/25/2001 PN: LW Reaction: ITCHY, SKIN SWELLS Anesthetics, Amide Rash 07/12/2012 Sulfamethoxazole-Trimet hoprim Itching 08/08/2019 Cat Hair Extract Other, see comments 08/06/2006 Nasal breathing Efinaconazole 07/01/2016 Severe skin breakdown Quinolones 04/25/2001 PN: LW Reaction: ARRHYTHMIA Medications Medication Sig Dispensed Refills Start Date End Date Status clonazePAM (AKA KLONOPIN) 0.5 MG tablet Take 1-2 tablets by mouth NEEDED PRN. LW Addl Instr:3 refills total Indicated for: Anxiety 60 2 01/25/2009 Active ALBUTEROL IN Inhale 1-2 puffs every 4 hours as needed. 51 3 07/09/2006 Active fluticasone (FLOVENT HFA) 44 mcg/actuation inhaler Inhale 2 Puffs two times a day. 34.8 3 07/09/2006 Active Probiotic Product (ALIGN) 4 MG CAPS 0 Active magnesium oxide (AKA MAG-OX 400) 250 MG tablet daily with breakfast. 0 Active zinc gluconate 50 MG tablet Take 1 Tablet (50 mg) by mouth daily. 0 Active triamcinolone (NASACORT AQ) 55 MCG/ACT nasal inhaler Place 2 Sprays into both nostrils daily. 0 Active rosuvastatin (CRESTOR) 20 MG tablet TAKE 1 TABLET BY MOUTH EVERYDAY AT BEDTIME 0 10/27/2019 Active CALCIUM CITRATE-VITAMIN D OR Take 2 Tablets by mouth. 0 Active fluocinonide (LIDEX) 0.05 % external solution Apply topically. 0 06/27/2015 Active fluticasone propionate (FLONASE) 50 MCG/ACT nasal solution 1 [place] by Nasal route. 0 08/17/2018 Active Iron-Vitamin C (VITRON-C) 65-125 MG TABS Take by mouth. 0 Active metoprolol tartrate (LOPRESSOR) 50 MG tablet Take 1 Tablet (50 mg) by mouth two times a day. 0 Active lisinopril (ZESTRIL) 2.5 MG tablet Take 1 Tablet (2.5 mg) by mouth daily. 0 Active alumuminum hydroxide-magnesium trisilicate (AKA GAVISCON) 80-20 MG Chew and swallow 2 Tablets by mouth 4 times daily as needed. 0 Active Active Problems Problem Noted Date Diagnosed Date Gastroesophageal reflux disease without esophagi tis 01/26/2018 Encounters Date Type Department Care Team Description 05/14/2023 Orders Only HIM DEPARTMENT Provider, MD Jesenia 04/29/2023 3:40 PM [facility] Telemedicine Specialty Center [facility] [place] [address] Boo Crowell MD Gastroesophageal reflux disease with esophagitis without hemorrhage (Primary Dx); Epigastric burning sensation; Throat burning; Abdominal bloating 04/29/2023 Telephone Specialty Center [facility] Gastro[facility] [address] [place] [address] Boo Crowell MD Provider Orders (Glucose breath test) 04/28/2023 Telephone Specialty Center [address] [facility] [place] [address] Boo Crowell MD Test Results 04/08/2023 Nurse Triage Careline [address] [place] [address] Unassigned, Provider ABDOMINAL PAIN from Last 3 Months Immunizations Name Administration Dates Next Due Flu Vac (18-64 Yrs), Intradermal 03/09/2016,11/2014 Flu Vac (3+ yrs) 02/28/2011 Flu Vac Preserv Free (3+yrs) 03/14/2013,04/01/20 12,05/14/2006 Flublok (RIV4) 03/21/2020 Influenza ([place] Only) (Flul aval Quad 0.5, 3+ yrs) 02/28/2011 Influenza IIV4 (Quadrivalent ) 0.5mL ([id number]) 03/21/2019,03/16/2018,02/28/2018,2016 Influenza IIV4 (Quadrivalent ) Fluzone, 65+ Yrs 03/17/2022,03/27/2021 Influenza, Unspecified Formulation 05/14/2006 Influenza, Whole 03/28/2014 Moderna Bivalent 12+ 09/29/2022 Moderna Monovalent 12+ 09/17/2021 PCV13 (Prevnar) 11/20/2021 PPSV23 (Pneumovax) 02/28/2018 Pfizer Bivalent 12+ 03/17/2022 Pfizer Monovalent 12+ Purple Top 02/27/2021,07/29,07/24/2020 Td, Preservative Free 02/28/2018 Tdap 11/12/2008 Zoster (Zostavax) 03/15/2017 Zoster RZV (Shingrix) 02/15/2019 Social History Tobacco Use Types Packs/Day Years [...] Pulse 60 10/06/2022 12:00 PM CDT Temperature 37.3 ??C (99.2 ??F) 01/26/2018 10:22 AM C DT Respiratory Rate 16 10/06/2022 12:00 PM CDT Oxygen Saturation 98% 10/06/2022 12:00 PM CDT Inhaled Oxygen Concentration - - Weight 62.1 kg (137 lb) 07/30/2022 9:12 AM COMB FIXER Height 162.6 cm (5' 4) 03/06/2021 8:46 AM CDT Body Mass Index 23.52 03/06/2021 8:46 AM CDT Plan of Treatment Upcoming Encounters Date Type Department Care Team Description 07/26/2023 1:30 PM COMB FIXER Appointment Specialty Center [address] [place] [address] 09/09/2023 3:40 PM CDT Telemedicine Specialty Center [address] [place] [address] Boo Crowell MD [address] [place], [place] [id number] Health Maintenance Due Date Last Done Comments Colon Cancer Screening Plan Due 1955 Hep C Screening (Preventive Services) 1955 Medicare Annual Wellness Visit 1955 Mammogram 1955 Cholesterol 2000 Zoster/Shingles (3 of 3) 04/12/2019 02/15/2019, 02/28 Dexa 2020 COVID-19 Vaccine ( season) 2023 09/29/2022, 03/17/2022, 09/17/2021, Additional history exists Pneumococcal 65+ Yrs (3 - PPSV23 or PCV20) 11/20/2026 11/20/2021, 02/28/2018 DTaP/Tdap/Td (3 - Tdap) 02/29/2028 02/28/2018, 11/12 Influenza Completed 03/24/2023, 02/28, 03/27/2021, Additional history exists HepA Aged Out No longer eligi ble based on patient's age to complete this topic HepB Aged Out No longer eligi ble based on patient's age to complete this topic Hib Aged Out No longer eligi ble based on patient's age to complete this topic IPV (Polio) Aged Out No longer eligi ble based on patient's age to complete this topic MCV4 Aged Out No longer eligi ble based on patient's age to complete this topic Procedures Procedure Name Priority Date/Time Associated Diagnosis Comments ENDOSCOPY 05/14/2023 from Last 3 Months Results * ENDOSCOPY (05/14/2023) Interface Provider MD VALDEZ/OTHER/AR from Last 3 Months Care Teams Black And White Printer Operator Relationship Specialty Start Date End Date Needs Pcp, [place] [address] PCP - General 12/12/21
--- OUTSIDE RECORDS SUMMARY | 2023-06-09 06:28 | XMS_ITS | Continuity of Care Document ---
Author Name Unknown Organization [facility] Address [address] [address] [place] [address] Phone Care Team Providers Care Metalworker Name Role Phone Eliazar Garcia MD Unavailable [...] E&m Estab Mod-hi 2 18 Offic/outpt E&m [facility] Mod-ny 2 18 Offic/outpt E&m New Mod-ny Advance Directives Directive Yes / No Effective Date File Name No Information Encounters Encounter Description Practice Location Reason(s) For Visit Diagnoses Date Provider Providers Copied on Encounter [facility], [address] [address], [place], [id number], [place] tel:[phone] [facility] No Information 3 Jose Perea. [address] [facility], [address], [place], [address] , [place]. tel:[phone] Offic/outpt E&m [facility] 2 [facility] [place], [address] [address], [place], [id number], [place] tel:[phone] [facility] GI Symptoms or Concerns (chief complaint) Previous History Review (chief complaint) Eosinophilic esophagitisHiatal herniaEsophageal dysmotility 3 Jose Perea. [address] [facility], [address], [place], [place], [address] , [place]. tel:[phone] Referring Provider: Referral Self, USE FOR SELF REFERRALS. [facility] [place], [address] [address], [place], [id number], [place] tel:[phone] [facility] GI Symptoms or Concerns (chief complaint) Small bowel strictureDietary counseling and surveillance 2 Lorena Mancuso. [address] [facility] [address], [address], [place], [place], [address] , [place]. tel:[phone] Referring Provider: Referral Self, USE FOR SELF REFERRALS. [facility] [place], [address] [address], [place], [address], [place] tel:[phone] [facility] Small bowel stricture 2 Jose Perea. [address] [facility] [address], [address], [place], [place], [address] , [place]. tel:[phone] Established Level 5 [facility] [place], [address] [address], [place], [address], [place] tel:[phone] [facility] GI Symptoms or Concerns (chief complaint) Iron deficiency anemia, unspecified iron deficiency anemia typeSmall bowel stricture 2 Jose Perea. [address] [facility] [address], [address], [place], [address] , [place]. tel: [phone] Referring Provider: Referral Self, USE FOR SELF REFERRALS. [facility], [address] [address], [place], [address], [place] tel:[phone] [facility] Iron deficiency anemia, unspecified iron deficiency anemia type 2 Cain Mello. [address] [facility], [address], [place], [address] , [place]. tel: [phone] [facility], [address] [address], [place], [address], [place] tel:[phone] [facility] No Information 2 Cain Mello. [address] [facility], [address], [place], [address] , [place]. tel: [phone] Established Level 5 [facility], [address] [address], [place], [address], [place] tel:[phone] [facility] GI Symptoms or Concerns (chief complaint) Iron deficiency anemia, unspecified iron deficiency anemia typeGastroesophag eal reflux disease without esophagitis 2 Cain Mello. [address] [facility] [address], [address], [place], [address] , [place]. tel: [phone] Referring Provider: Referral Self, USE FOR SELF REFERRALS. [facility], [address] [address], [place], [address], [place] tel:[phone] [facility] Iron deficiency anemia, unspecified Dec- 2 Cain Mello. [address] [facility], [address], [place], [address] , [place]. tel: [phone] Referring Provider: Riaz Laughlin, [address] [facility] [address], [place], [address] . tel:[phone] [facility], [address] [address], [place], [address], [place] tel:[phone] [facility] GI Symptoms or Concerns (chief complaint) Dysphagia, unspecified typeIron deficiency anemia, unspecifiedDyspha porsche, unspecified 2 Cain Mello. [address] [facility], [address], [place], [address] , [place]. tel: [phone] Referring Provider: Referral Self, USE FOR SELF REFERRALS. [facility], [address] [address], [place], [address], [place] tel:[phone] [facility] Iron deficiency anemia, unspecified iron deficiency anemia typeIron deficiency anemia, unspecified 2 Cain Mello. [address] [facility], [address], [place], [address] , [place]. tel: [phone] Referring Provider: Referral Self, USE FOR SELF REFERRALS. [facility], [address] [address], [place], [address], [place] tel:[phone] [facility] No Information 2 Cani Mello. [address] [facility], [address], [place], [address] , [place]. tel: [phone] Established Level 5 [facility], [address] [address], [place], [address], [place] tel:[phone] [facility] GI Symptoms or Concerns (chief complaint) Iron deficiency anemia, unspecified 2 Cain Mello. [address] [facility] [address], [address], [place], [address] , [place]. tel: [phone] Referring Provider: Referral Self, USE FOR SELF REFERRALS. [facility], [address] [address], [place], [address], [place] tel:[phone] [facility] No Information Jason-2 2 Babak Carney. [address] [facility] [address], [address], [place], [address] , [place]. tel: [phone] Offic/outpt E&m Estab Mod-hi 2 [facility], [address] [address], [place], [address], [place] tel:[phone] [facility] Comment (chief complaint) Iron deficiency anemia, unspecified Apr-0 0 Cain Mello. [address] [facility] [address], [address], [place], [address] , [place]. tel: [phone] Telephone E&M III 21-30 Min EMMANUEL [facility], [address] [address], [place], [address], [place] tel:[phone] [facility] No Information Aug-0 0 Cain Mello. [address] [facility] [address], [address], [place], [address] , [place]. tel: [phone] Referring Provider: Referral Self, USE FOR SELF REFERRALS. [facility], [address] [address], [place], [address], [place] tel:[phone] [facility] Abdominal pain, unspecified abdominal location Jul-2 0 Cain Mello. [address] [facility] [address], [address], [place], [address] , [place]. tel: [phone] [facility], [address] [address], [place], [address], [place] tel:[phone] [facility] Abnormal findings on imaging test Jul-0 0 Cain Mello. [address] [facility] [address], [address], [place], [address] , [place]. tel: [phone] [facility], [address] [address], [place], [address], [place] tel:[phone] [facility] [place] Abnormal finding on imaging Jul-0 0 Cain Mello. [address] [facility] [address], [address], [place], [address] , [place]. tel: [phone] [facility], [address] [address], [place], [address], [place] tel:[phone] [facility] [place] Abnormal finding on imaging Mar-0 0 Cain Mello. [address] [facility] [address], [address], [place], [address] , [place]. tel: [phone] [facility], [address] [address], [place], [address], [place] tel:[phone] [facility] [place] Abdominal pain, unspecified abdominal location Mar-0 0 Cain Mello. [address] [facility], [address], [place], [address] , [place]. tel: [phone] [facility], [address] [address], [place], [address], [place] tel:[phone] [facility] Iron deficiency anemia, unspecified Mar-0 0 Zulma Demarco. [address] [facility], [address], [place], [address] , [place]. tel: [phone] Referring Provider: Riaz Laughlin, [address] [facility] [address], [place], [address] . tel:[phone] [facility], [address] [address], [place], [address], [place] tel:[phone] [facility] No Information Jul-0 0 Cain Mello. [address] [facility], [address], [place], [address] , [place]. tel: [phone] Referring Provider: Jonathan Laughlin, [address], [place], [address]. tel:[phone] [facility], [address] [address], [place], [address], [place] tel:[phone] [facility] No Information 0 Jose Perea. [address] [facility], [address], [place], [address] , [place]. tel: [phone] [facility], [address] [address], [place], [address], [place] tel:[phone] [facility] Iron deficiency anemia, unspecified iron deficiency anemia type 0 Cain Mello. [address] [facility], [address], [place], [address] , [place]. tel: [phone] Specialist : Jonathan Thornton MD, [address] [place] [address] [address], [place], [address]. tel:[phone] [facility] Provider: Boogie Garcia MD, [address] [facility] [address], [place], [address]. tel:[phone] cialist: Kacie Flores MD, [address] [facility] [address], [place], [address]. tel:[phone] [facility], [address] [address], [place], [address], [place] tel:[phone] [facility] Iron deficiency anemia, unspecified iron deficiency anemia type 0 Cain Mello. [address] [facility], [address], [place], [address] , [place]. tel: [phone] [facility], [address] [address], [place], [address], [place] tel:[phone] [facility] Iron deficiency anemia, unspecified iron deficiency anemia type 0 Cain Mello. [address] [facility], [address], [place], [address] , [place]. tel: [phone] Offic/outpt E&m Estab Mod-hi 2 [facility], [address] [address], [place], [address], [place] tel:[phone] [facility] GI Symptoms or Concerns (chief complaint) Eosinophilic esophagitisDietar y counseling and surveillanceEssen tial (primary) hypertension 9 Cain Mello. [address] [facility], [address], [facility] [place], [address] , [place]. [phone] Referring Provider: Referral Self, USE FOR SELF REFERRALS. Offic/outpt E&m Estab Mod-hi 2 [facility], [address] [address], [place], [address], [place] tel:[phone] [facility] GI Symptoms or Concerns (chief complaint) Eosinophilic esophagitisDietar y counseling and surveillanceEssen tiaaaliyah (primary) hypertension 8 Cain Mello. [address] [facility], [facility] [address], [facility] [place], [address] , [place]. [phone] Referring Provider: Sophia Arita, [address] [place] [address], [address]. tel:[phone] Offic/outpt E&m Estab Mod-hi 2 [facility], [address] [address], [place], [address], [place] tel:[phone] [facility] GI Symptoms or Concerns (chief complaint) Eosinophilic esophagitisDietar y counseling and surveillance 8 Cain Mello. [address] [facility], [facility] [address], [facility] [place], [address] , [place]. [phone] Referring Provider: Referral Self, USE FOR SELF REFERRALS. Offic/outpt E&m New Mod-hi [facility], [address] [address], [place], [address], [place] tel:[phone] [facility] GI Symptoms or Concerns (chief complaint) Eosinophilic esophagitisHiatal herniaChest discomfort 8 Roman Morse. [address] [facility], [address], [place], [address] , [place]. [phone] Specialist : Jonathan Thornton MD, [address] [place] [address] [address], [place], [address]. tel:[phone] Provider: Boogie Garcia MD, [address] [place] [address], [place], [address]. tel:[phone] cialist: Kacie Flores MD, [address] [facility] [address], [place], [address]. tel:[phone] erring Provider: Referral Self, USE FOR SELF [...] irectional interface ; Source: Other Registry Prevnar administered Note: MI[facility] bi-d irectional interface ; [...] Influenza, injectable, MDCK, preservative free Flucelvax Quad [id number] administered Source: Source Unspe cified Influenza, injectable, [...] Registry Payers Payer name Insurance type Covered democrat ID Authoriza tion(s) Medicare NGS [id number] Blue Cross Medicare Supplement [id number] Social History Type Description Quantity Date Captured [...] had refractory reflux and went to the [facility] and she ultimately had a [...] chips, canned peaches and skim milkDinner: Silva Calender pot pie (did not eat the peas) [...] Toupet fundoplication in May 2020 at the [facility] and did relatively well for a [...] had refractory reflux and went to the [facility] and she ultimately had a Toupet [...] was including the Baltazar was performed in [facility]. 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 The patient has done well on pantoprazole 20 mg twice daily with clearance of her esophageal eosinophilia and adequate control of her reflux. 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 Thornton at [facility].Diagnosis of Eosinophilic Esophagitis have been made with [...] or my patient coordinator Annika at ext [phone]. Related to Small bowel stricture Gastroparesis Folder [...] the PPIs, we believe as does the [employer] that the benefits in patients [...] Rivers or certainly with Dr. Thornton at [facility].We appreciate assisting in this patient's care and would be happy to see her as needed.Please note these findings are discussed in counseling with the patient for over 45 minutes. Related to Eosinophilic esophagitis Assessments Type Assessment Date No Information Patient Care Teams Name Effective Dates (start - stop) Status Members No Information
--- OUTSIDE RECORDS SUMMARY | 2023-06-09 06:28 | XMS_ITS | Encounter Summary ---
Author Name Unknown Organization [facility] Address [address], [place] [address] Care Team Providers Care Dialysis Registered Nurse Name Role Phone Needs Pcp, Assignment Primary Care Provider Reason for Visit * Reason Comments ABDOMINAL PAIN Encounter Details Date Type Department Care Team Description 04/08/2023 Nurse Triage Careline [address] [place], [place] [address] Unassigned, Provider [address] [place] [address] ABDOMINAL PAIN Social History Tobacco Use Types Packs/Day Years [...] as of this encounter Nursing Notes * Cindy Alcaraz RN - 04/09/2023 3:28 PM CST Spoke with pt and gave below info, pt verbalized understanding and has no questions or concerns andwill continue to monitor and go to the ER if pain is not improving or worsening ITY LINEMAN * Boo Crowell MD - 04/09/2023 3:20 PM CST Sorry that is hard to determine what it is. If it is severe she should go into the ED, otherwise she'll need to be seen in clinic. Thanks. ITY LINEMAN * Xena Choi RN - 04/09/2023 11:34 AM CST Patient calling regarding careline call from last night. Patient describes sharp to burning pain. Upper abdomen last night. Only had protein shake, crackers with soup yesterday - is on a low fiber diet. Patient advised to drink water and monitor. Pain did then resolve. While eating this morning (half a mashed banana), pain returned. No nausea or vomiting. No NSAID use. History of bowel obstruction however the pain is different and patient would normally have vomiting with that. Patients last BM, one little pepper gilmer of red in her stool. Just had water since this morning. Patient wonders if this could be an ulcer since it started again with eating. Dr. Crowell: please advise, thank you. ITY LINEMAN * Bree Carbajal RN - 04/08/2023 5:29 PM CST Verified patient identity: Yes Last name, & street address Situation/Background (brief explanation of current symptoms/situation): Patient is having upper abdominal pain since noon today. It has been waves of pain every couple of minutes that last 1 minute with a 2-3 minute break between. The pain has been pretty severe. It was sharp crampy pain that over the last 45 minutes became stabbing. Patient has had issues with bowel obstructions. The last time was 03/2022. Patient has several erosions that showed up during an endoscopy that was done on 10/06/22.Patient had an episode yesterday that was similar that started at 4:30 pm and lasted about 4 hours.She woke up this morning feeling perfect fine. Patient's last BM was at 4 pm this afternoon. It wasformed and very small. Patient has been waking up for the past 3-4 weeks with a sore throat and sore taste in her mouth. Patient tried peppermint and trident mint gum without help. She also took simethicone around 4 pm. Patient states that [place] she has not had any pain and it appears to have resolved. Reviewed with patient pertinent medical history (as it related to the call): Yes Reviewed with patient pertinent medications (as they relate to call): Yes Reviewed with patient pertinent allergies (as they relate to call): Yes Allergies Allergen Reactions Adhesive Other, see comments Tape it outlines the adhesive spot & gets itchy Bacitracin Other, see comments itching Hezocbicgv-Mmlkwubj-Kxlhwsfuj PN: LW Reaction: ITCHY, SKIN SWELLS Bactine [Anesthetics, Amide] Rash Bactrim [Sulfamethoxazole-Trimethoprim] Itching Cat Hair Extract Other, see comments Nasal breathing Jublia [Efinaconazole] Severe skin breakdown Quinolones PN: LW Reaction: ARRHYTHMIA Reason for Disposition Abdominal pains regularly occur about 1 hour after meals Protocols used: Abdominal Pain - Epcdr-WBIXP-UP Care advice given. Discussed calling GI in the morning to see if there are any cancels and if she can get in within the next 2 weeks. Also advised to have them review what has been going on with her. Patient/caller agrees with plan. Patient/caller verbalizes understanding and has no further questions at this time. Advised patient/caller to call back CareLine if there are further questions or concerns. The CareLine is available 21/12. Bree Olguin RN 5:52 PM 04/08/2023 ITY LINEMAN * Ping Lawson - 04/08/2023 5:26 PM CST Verified patient using 3 identifiers: Yes Caller reports the following red flag symptoms: Pt is having waves of severe abdominal pain. Pt haschronic GI issues. Plan: Transferred directly to a CareLine RN. ' ITY LINEMAN documented in this encounter Plan of Treatment Upcoming Encounters Date Type Department Care Team Description 07/26/2023 1:30 PM UTILITY LINEMAN Appointment Specialty Center [address] [facility] [place] [address] 09/09/2023 3:40 PM CDT Tele[facility] [address] [place] [address] Boo Crowell MD [address] [facility] [address] [place] [address] documented as of this encounter Visit Diagnoses Not on filedocumented in this encounter Care Teams Dialysis Registered Nurse Relationship Specialty Start Date End Date Needs Pcp, [place] [address] PCP - General 12/12/21 documented as of this encounter
--- OUTSIDE RECORDS SUMMARY | 2023-06-09 06:28 | XMS_ITS | Encounter Summary ---
Author Name Unknown Organization [facility] Address [address] [place] [address] Care Team Providers Care Textile Scrap Salvager Name Role Phone Needs Pcp, Assignment Primary Care Provider Encounter Details Date Type Department Care Team Description 12/03/2022 3:40 PM CDT Tele[facility]icine [facility] 6[address] [place], [place] [address] Boo Crowell MD [facility] [facility] [place], [place] [id number] Eosinophilic esophagitis (Primary Dx); Functional chest pain; Small bowel obstruction due to adhesions (HRC) Social History Tobacco Use Types Packs/Day Years [...] * Patient Instructions* Boo Crowell MD - 12/03/2022 3:40 PM CDT Jerri Avery, it was a pleasure seeing you again. I have made this summary of our clinicvisit for you today. Your symptoms are still occurring and frustrating. At this point, we have ruled out actionable problems and our focus is now on symptom control. 2. I recommend you try peppermint altoids or another form of peppermint oil. Take a couple peppermint altoids before each meal. See if that helps with some of the pain in your chest/abdomen that you have been experiencing. 3. I will also speak with Dr. El regarding the DeMeester score and will reach back out to you with it. 4. There are other medications that can help with your pain in case the peppermint altoids do not do the trick. We are talking about bentyl and levsin. I'm not sure about the risk of levsin with heart issues, but we can avoid that in the future anyway. 5. You do not have any eosinophils in your esophagus. That is great. The surgery has taken care of the acid reflux which has normalized your esophagus. 6. Acupuncture is a good avenue to take. TCM acupuncture appears like a reasonable place to try foryour symptoms. 7. Low FODMAPs is a reasonable diet to try. [employer] provides a good source of informationon that. 8. We'll plan to see you back in 4 months. Please don't hesitate to contact us with any questions or concerns. Otherwise, take care! documented in this encounter Progress Notes * Boo Crowell MD - 12/03/2022 3:40 PM CDT GI Clinic Consult - [facility] Gastroenterology - Boo Crowell MD Joanna Avery MR# [id number] Date of Visit: 12/03/22 MEDICAL DECISION MAKING IMPRESSION/Plan: Joanna Avery is a 67 y.o. female presenting for evaluation of multiple GI problems. #. GERD/Eosinophilic Esophagitis - this has significantly improved and has been off medications w/osymptoms based on recent Upper Endoscopy and Hatch study (negative) - negative Upper Endoscopy for eosinophils in esophagus in 2022 - will obtain demeester score and be in touch with her with it as she was requesting this specifically #. Functional chest/upper abdominal pain - provided reassurance - will try peppermint oil in the form of altoids, take 2 before each meal - we discussed the low FODMAPs diet - [employer], would be reasonable to try if her symptomswere problematic enough - reasonable to try acupuncture - could consider bentyl (she was told not to take levsin by a pharmacist) #. History of small bowel obstruction - due to adhesions, I recommended against fiber supplement, can take laxative or stool softener for constipation #. Colorectal cancer screening - negative in 2021 Rtc 4 months SUBJECTIVE: Date of Visit: 12/03/22 HPI: Joanna Avery is a 67 y.o. female presenting for evaluation of multiple GI problems. I had seen Flower in 08/20 at which point I had recommended she undergo an Upper Endoscopy w hatch OFF Proton Pump Inhibitor - this has returned and demonstrates a non-pathologic amount of acid reflux w/o significance Also known to have abdominal pain s/p G-POEM for fundoplication with negative imaging - Gastric Emptying Scan had been unable to be performed in the meanwhile Regarding recurrent small bowel obstruction, she was to continue on low-residue diet - thought to be related to adhesions Known to also have Iron Deficiency Anemia, but unable to fully assess due to capsule retention She was surprised that her Upper Endoscopy was normal. - she is curious as to what her DeMeester score is. She had a normal hemoglobin of 13. She does have low iron. - she was attempted to be referred to hematology, but this was declined bc she did not have anemia - she continues to take PO iron (taking a combo with Vitamin C) - she does feel that it causes her gastric distress She stll has pain behind her sternum. - she is still having pain below her sternum, right int he middle. She has other questions about gastritis and duodenal erosions. She still has the band-like pain across the lower chest. She reports being told to stay away from peppermint oil. - had failed elavil and buspirone - she had been offered bethanechol She also tried acupuncture - felt like it helped with sleep, but did not help with her GI tract. She wants to add fiber back into her diet, but is unsure if she wants to given the history of recurrent small bowel obstruction. 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 Past medical history, family history and social history are reviewed. Please refer to chart for details. PMH: Past Medical History: Diagnosis Date Anxiety disorder, unspecified (HRC) Asthma (HRC) Hypertension (HRC) Obsessive-compulsive personality disorder (HRC) 08/03/[address] [facility] Paroxysmal atrial fibrillation (HRC) PVC (premature ventricular [...] D OR Take 2 Tablets by mouth. Cimetidine (TAGAMET) 200 MG tablet Take 400 mg by mouth daily at bedtime. clonazePAM (AKA KLONOPIN) 0.5 MG tablet Take 1-2 tablets by mouth NEEDED PRN. LW Addl Instr:3 refills total Indicated for: Anxiety 60 2 fluocinonide (LIDEX) 0.05 % external solution Apply topically. fluticasone (FLOVENT HFA) 44 mcg/actuation inhaler Inhale 2 Puffs two times a day. 34.8 3 fluticasone propionate (FLONASE) 50 MCG/ACT nasal solution 1 [place] by Nasal route. Iron-Vitamin C (VITRON-C) 65-125 MG TABS Take by mouth. lisinopril (ZESTRIL) 2.5 MG tablet Take 1 Tablet (2.5 mg) by mouth daily. magnesium 250 MG oral tablet Take 1 Tablet (250 mg) by mouth. magnesium oxide (AKA MAG-OX 400) 250 MG [...] BACITRACIN 07/12/2012 Other, see comments Unspecified Active [id number] 04/25/2001 Allergy Active BACTINE [ANESTHETICS, AMIDE] 07/12/2012 [...] cranial nerves Psych: appropriate affect and mood Pertinent labs and imaging were reviewed. Please refer to chart for details Labs: Hemoglobin is 13.6 Ferritin is 16 Iron level is 31 Trans sat% is 7 - this is while taking iron therapy TIBC is 416 GI Procedures: Upper Endoscopy 09/2022: Impression: - Z-line irregular, 37 cm from [...] noted during the study. - See the Dov[facility] HATCH data report for further details. Impression: - [...] 07/2017. - Esophageal Manometry in 07/2017 -> Upper Endoscopy 03/20 - irregular z-line, toupet fundoplication intact. Unremaerkble esophageal biopsies - this was following taper of budesonide Gastric Emptying Scan 04/20 - unremarkable Upper Endoscopy 1 year s/p Toupet in 06/21 -> normal esophagus in the GEJ and the esophageal body - follow-up ph-impedance study in 06/21 demonstrated demeester of 0.4 Hatch performed in 12/19 -> assumed this was performed OFF therapy. Did not have any heartburn. Demeester was 1.3. - however, developed ongoing heartburn and [...] G-POEM performed, presumably for delayed gastric emptying. I do not have a copy of the Esophageal Manometry. Boo Crowell MD Gastroenterology documented in this encounter Plan of Treatment Upcoming Encounters Date Type Department Care Team Description 07/26/2023 1:30 PM FLOOR FINISHER Appointment Specialty Center 6[address] Endoscopy [address] [facility] [place] [address] 09/09/2023 3:40 PM CDT Telemedicine Specialty Center [address] [place] [address] Boo Crowell MD [address] [facility] [address] [place], [place] [address] documented as of this encounter Visit Diagnoses Diagnosis Eosinophilic esophagitis- Primary Functional chest pain Other chest pain Small bowel obstruction due to adhesions (HRC) Intestinal or peritoneal adhesions with obstruction (postoperative) (postinfection) documented in this encounter Care Teams Textile Scrap Salvager Relationship Specialty Start Date End Date Needs Pcp, [place] [address] PCP - General 12/12/21 documented as of this encounter
--- OUTSIDE RECORDS SUMMARY | 2023-06-09 06:28 | XMS_ITS | Encounter Summary ---
Author Name Unknown Organization [facility] Address [address], [place] [address] Care Team Providers Care Knowledge Management Consultant Name Role Phone Needs Pcp, Assignment Primary Care Provider Encounter Details Date Type Department Care Team Description 05/14/2023 Orders Only [facility] DEPARTMENT Provider, [place] [address] Social History Tobacco Use Types Packs/Day Years [...] Department Care Team Description 07/26/2023 1:30 PM MIRROR FRAMER Appointment Specialty Center [address] [place] [address] 09/09/2023 3:40 PM CDT Telemedicine Specialty Center [address] [place] [address] Boo Crowell MD [address] [facility] [address] [place] [address] documented as of this encounter Procedures Procedure Name Priority Date/Time Associated Diagnosis Comments ENDOSCOPY 05/14/2023 documented in this encounter Results * ENDOSCOPY (05/14/2023) Interface Provider MD DUMMY/OTHER/AR documented in this encounter Visit Diagnoses Not on filedocumented in this encounter Care Teams Knowledge Management Consultant Relationship Specialty Start Date End Date Needs Pcp, [place] [address] PCP - General 12/12/21 documented as of this encounter
--- OUTSIDE RECORDS SUMMARY | 2023-06-09 06:28 | XMS_ITS | Referral Summary ---
Author Name Unknown Organization [facility] Address [address] [place] [address] Care Team Providers Care Toolroom Clerk Name Role Phone Jonathan Thornton MD Unavailable [phone] Sophia Rivers Primary Care Provider Sandra Ruano APRN, FOOD TRAY ASSEMBLER Unavailable [phone] Clinic, Not Listed Unavailable Unavailable Allergies Active [...] 12/17/2021 8:59 AM CDT Plan of Treatment Not on file Advance Directives For more information, please contact: [phone] Latest Code Status on File Code Status Date Activated Date Inactivated Comments Full Code 10/19/2019 9:46 AM 10/19/2019 9:04 PM Question Answer Comments How was code status determined? Patient Code Status History Code Status Date Activated Date Inactivated Comments Full Code 10/23/2011 10:49 AM 10/24/2011 1:30 AM Question Answer Comments How was code status determined? Patient Care Teams Toolroom Clerk Relationship Specialty Start Date End Date Sophia RiversRicha [address] [place] [address] PCP - General 09/13/13 Clinic, Not Listed PCP - Primary Care Clinic 01/25/17 Jonathan Thornton MD [address] [place] [address] [place] [address] Gastroenterology 11/14/11 Sandra Ruano, COMPUTER SUPPORT TECHNICIAN, FOOD TRAY ASSEMBLER [address] [place] [address] Pulmonary/Critical Care 12/27/15
--- OUTSIDE RECORDS SUMMARY | 2023-06-09 06:29 | XMS_ITS | Encounter Summary ---
Author Name Unknown Organization [facility] Address [address] [place] [address] Care Team Providers Care Roof Cement And Paint Maker Name Role Phone Needs Pcp, Assignment Primary Care Provider [phone] Reason for Visit * Reason Comments Provider Orders Encounter Details Date Type Department Care Team Description 08/03/2022 Telephone Specialty Center 6[address] [place], [place] [address] Boo Crowell MD [address] [facility] [address] [place] [address] Provider Orders Social History Tobacco Use Types Packs/Day Years [...] as of this encounter Nursing Notes * Mahsa Akbar RN - 08/14/2022 10:39 AM CDT Lav Crewman was made aware by GI nurse Tara RN that [facility] called this morning and reported that they needed an ICD code indicated on pt's GES orders. Lav Crewman verified paper copy orders that there is a diagnosis code written code K31.84. Lav Crewman attempted to call [facility] multiple times, but received message that office is closed. Lav Crewman left message that ICD code is listed and left GI nursing phone number if any questions. * Mahsa Akbar RN - 08/13/2022 2:34 PM CDT Orders received. Faxed to [facility] via fax number provided below. Confirmation received. Placed in HIM for scanning. Fax numbers: [phone] or [phone] * Boo Crowell MD - 08/13/2022 12:13 PM CDT Order written and in my outbox. Thanks. * Denise Zhao RN - 08/03/2022 11:07 AM CST Patient calling - ROSA 07/30/[address] Crowell - calling to request the Gastric Emptying Scan order be faxed to where she has previously had the test - located out of the [facility] in [place]. (Lav Crewman called to verify that the machine is located in the [facility] and verified the numbers below from the staff - staff states that yes, that test is done out of the [facility]). Ph. [phone] Dr. Crowell: to review fill out fuschia. GI Nursing: Please call patient once orders are faxed. IDE ENERGY SALES REPRESENTATIVES documented in this encounter Plan of Treatment Upcoming Encounters Date Type Department Care Team Description 07/26/2023 1:30 PM OUTSIDE ENERGY SALES REPRESENTATIVES Appointment Specialty Center 6500 Endoscopy [address] [place] [address] 09/09/2023 3:40 PM CDT Telemedicine Specialty Center 6500 G[address]ology [address] [facility] [place] [address] Boo Crowlel MD [address] [facility] [address] [place], [place] [address] documented as of this encounter Visit Diagnoses Not on filedocumented in this encounter Care Teams Roof Cement And Paint Maker Relationship Specialty Start Date End Date Needs Pcp, Janessa [place], [place] [address] PCP - General 12/12/21 documented as of this encounter
--- OUTSIDE RECORDS SUMMARY | 2023-06-09 06:29 | XMS_ITS | Encounter Summary ---
Author Name Unknown Organization [facility] Address [address] [place] [address] Care Team Providers Care Hand Buffer Name Role Phone [facility] Primary Care Provider Encounter Details Date Type Department Care Team (Late st Contact Info) Description 02/06/2023 [facility] [address] [address] Maureen Newton MD [address] [place] [id number] Social History Tobacco Use Types Packs/Day Years Used Date Smoking Tobacco: Never Smokeless Tobacco: Never Alcohol Use Standard Drinks/Week Comments Not Currently 0 (1 standard drink = 0.6 oz pur e alcohol) PHQ-2 Answer Date Recorded PHQ-2 Score 0 06/07/2019 Sex and Gender Information Value Date Recorded Sex Assigned at Not on file Gender Identity Not on file Sexual Orientation Not on file documented as of this encounter Plan of Treatment Not on file documented as of this encounter Visit Diagnoses Not on filedocumented in this encounter Additional Health Concerns Assessment Noted Time PHQ-9 Depression Total Score: 0 06/07/19 20 12:16 PM ROUTE AIDE documented as of this encounter Care Teams Hand Buffer Relationship Specialty Start Date End Date [facility] [address] [place] [address] PCP - General 08/06/15 documented as of this encounter
--- OUTSIDE RECORDS SUMMARY | 2023-06-09 06:29 | XMS_ITS | Encounter Summary ---
Author Name Unknown Organization [facility] Address [address], [place] [address] Care Team Providers Care Panel Flow Machine Operator Name Role Phone Needs Pcp, Assignment Primary Care Provider [phone] Reason for Visit * Reason Comments Questions Encounter Details Date Type Department Care Team Description 08/12/2022 Telephone Specialty Center 6[address] [place] [address] Boo Crowell MD [address] [facility] [address] [place] [address] Questions Social History Tobacco Use Types Packs/Day Years [...] Nursing Notes * Mahsa Akbar RN - 08/13/2022 2:39 PM CDT Outgoing call to pt. Editing Intern relayed provider's message below and advised pt that gastric emptying scan order has been signed and sent (see 08/03/22 tele note). Pt verbalized understanding and agreement. * Boo Crowell MD - 08/13/2022 12:07 PM CDT Keeping it with catina for 10/20 is appropriate. Thanks. * Mahsa Akbar RN - 08/12/2022 2:55 PM CDT Incoming call from pt ROSA 07/30/2022. Plan per provider's [facility] notes was to complete upper endoscopywith HATCH. Pt states earliest appt with HATCH with Dr. Crowell is November 2022. Pt wanted to get in sooner and scheduled with Dr. El for October 06, 2022. Pt inquiring if scheduled appropriately or if Dr. Crowell prefers pt schedule with Dr. Crowell. If so, earliest available is not until November 2022. Pt expressed concerns of not being able to wait that long due to her pain. Seeking provider's guidance and recommendations. documented in this encounter Plan of Treatment Upcoming Encounters Date Type Department Care Team Description 07/26/2023 1:30 PM ELECTRONICS SPECIALIST Appointment Specialty Center 6[address] Endoscopy [address] [place] [facility] [place] [address] 09/09/2023 3:40 PM CDT Telemedicine Specialty Center 6[address] G[address]ology [address] [place] [facility] [place] [address] Boo Crowell MD [address] [facility] [address] [place] [address] documented as of this encounter Visit Diagnoses Not on filedocumented in this encounter Care Teams Panel Flow Machine Operator Relationship Specialty Start Date End [place] [address] PCP - General 12/12/21 documented as of this encounter
--- OUTSIDE RECORDS SUMMARY | 2023-06-09 06:29 | XMS_ITS | Encounter Summary ---
Author Name Unknown Organization [facility] Address [address] [place] [address] Care Team Providers Care Cleaning Professional Name Role Phone Needs Pcp, Assignment Primary Care Provider Encounter Details Date Type Department Care Team Description 08/03/2007 Scanned History External to [facility] OPERATIVE REPORT Social History Tobacco Use Types Packs/Day Years Used Date Smoking Tobacco: Never Assessed Sex and Gender Information Value Date Recorded Sex Assigned at Not on file Gender Identity Not on file Sexual Orientation Not on file documented as of this encounter Plan of Treatment Upcoming Encounters Date Type Department Care Team Description 07/26/2023 1:30 PM STRIP PRESSER Appointment Specialty Center 6[address] [place] [address] 09/09/2023 3:40 PM CDT Telemedicine Specialty Center 6500 Gastroenterology [address] [facility] [place] [address] Boo Crowell MD [address] [facility] [address] [place] [address] documented as of this encounter Visit Diagnoses Not on filedocumented in this encounter Care Teams Cleaning Professional Relationship Specialty Start Date End Date Needs Pcp, [place] [address] PCP - General 12/12/21 documented as of this encounter
--- OUTSIDE RECORDS SUMMARY | 2023-06-09 06:29 | XMS_ITS | Clinical Summary ---
Author Name Unknown Organization [place] Address [address] [place] [id number] Care Team Providers Care Supervisor Drying Name Role Phone Clinic, [facility] Primary Care Provider Allergies Active Allergy Reactions Criticality Noted Date Comments Anesthetics, Amide Other (See Comments),Rash Medium 08/26/2011 Skin itching, redness, swelling Other reaction(s): Other Skin itching, redness, swelling Bacitracin Itching,Other (See Comments) Medium 08/06/2006 Skin redness & swelling Skin redness & swelling Efinaconazole Other (See Comments),Itching Medium 07/01/2016 Severe skin breakdown Skin itching, redness, swelling Other reaction(s): Other Skin itching, redness, swelling Skin redness, swelling Severe skin breakdown Rqceswnm-Lfxfmlnrpc-Qdmw myxin Other (See Comments) Medium 05/11/2018 Skin itching, redness, swelling Other reaction(s): Other Skin itching, redness, swelling Skin itching, redness, swelling Quinolones Other (See Comments) High 04/25/2001 Skipped beats PN: LW Reaction: ARRHYTHMIA Irregular heart beat Other reaction(s): Other causes skipping heartbeat Other reaction(s): Other Irregular heart beat Other reaction(s): Irregular Heartbeat Skipped beats causes skipping heartbeat Medications Medication Sig Dispensed Refills Start Date End Date Status ALBUTEROL IN Inhale 1-2 puffs into the lungs as needed 0 07/09/2006 Active Zinc Sulfate (ZINC 15 PO) Take 50 mg by mouth daily 0 Active Calcium Citrate-Vitamin D 200-250 MG-UNIT TABS Take 2 tablets by mouth daily 0 Active fish oil-omega-3 fatty acids 1000 MG capsule Take 2 g by mouth daily 0 Active metoprolol tartrate (LOPRESSOR) 100 MG tablet Take 50 mg by mouth daily Patient take ER tabs 0 Active pantoprazole (PROTONIX) 20 MG EC tablet Take 40 mg by mouth daily 0 Active clonazePAM (KLONOPIN) 0.5 MG tablet Take 0.5 mg by mouth 2 times daily as needed for anxiety 0 Active multiple vitamin tablet TABS Take 1 tablet by mouth daily 0 Active rosuvastatin (CRESTOR) 20 MG tablet TAKE 1 TABLET BY MOUTH EVERYDAY AT BEDTIME 0 08/10/2020 Active Active Problems No known active problems Resolved Problems Problem Noted Date Diagnosed Date Resolved Date iamJOINT PAIN-ANKLE 12/26/2004 05/13/20 05 Family History Medical History Relation Comments Diabetes Type 2 Brother Alcoholism Father Arrhythmia Father age 38 No Known Problems Maternal Grandfather No Known Problems Maternal Grandmother Breast Cancer Mother Diabetes Type 2 Mother GERD Mother Heart Disease Mother No Known Problems Paternal Grandmother GERD Sister Hyperlipidemia Sister Relation Status Comments Brother Alive Father Maternal Grandfather Maternal Grandmother Mother Alive Paternal Grandmother Sister Alive Social History Tobacco Use Types Packs/Day Years Used Date Smoking Tobacco: Never Smokeless Tobacco: Never Alcohol Use Standard Drinks/Week Comments Not Currently 0 (1 standard drink = 0.6 oz pur e alcohol) PHQ-2 Answer Date Recorded PHQ-2 Score 0 06/07/2019 Adolescent Education Answer Date Record ed Getting School Help Needed Not on file 03/14 Sex and Gender Information Value Date Recorded Sex Assigned at Not on file Gender Identity Not on file Sexual Orientation Not on file Last Filed Vital Signs Vital Sign Reading Time Taken Comments Blood Pressure 120/70 06/07/2019 10:32 AM V/STOL LANDING SIGNAL OFFICER Pulse 78 06/07/2019 10:32 AM V/STOL LANDING SIGNAL OFFICER Temperature - - Respiratory Rate - - Oxygen Saturation - - Inhaled Oxygen Concentration - - Weight 59.8 kg (131 lb 12.8 oz) 021 10:36 AM CDT Height 162.6 cm (5' 4) 10/16/2020 10:3 6 AM CDT Body Mass Index 22.62 10/16/2020 10:36 AM CDT Plan of Treatment Health Maintenance Due Date Last Done Comments ADVANCE CARE PLANNING 1955 ANNUAL REVIEW OF HM ORDERS 1955 CT COLONOGRAPHY 1955 DEXA 1955 FIT 1955 FLEX SIG 1955 MAMMO SCREENING 1955 sDNA (Cologuard) 1955 HEPATITIS C SCREENING 1973 LIPID 2000 RSV VACCINE ( & 60+) (1 - 1-dose 60+ series) 2015 ZOSTER IMMUNIZATION (3 of 3) 04/12/2019 02/15/2019, 03/15/2017 FALL RISK ASSESSMENT 2020 MEDICARE ANNUAL WELLNESS VISIT 10/16/2021 10/16/2020 COVID-19 Vaccine (2022- season) 2023 09/29/2022, 03/17/2022, 09/17/2021, Additional history exists INFLUENZA VACCINE (#1) 2023 , 03/27/2021, 03/21/2020, Additional history exists PHQ-2 (once per calendar year) 2023 06/07/2019, 06/07/2019 Pneumococcal Vaccine: 65+ Years (3 of 3 - PPSV23 or PCV20) 11/20/2026 11/20/2021, 02/28/2018 DTAP/TDAP/TD IMMUNIZATION (3 - Td or Tdap) 02/29/2028 02/28/2018, 11/12/2008 COLONOSCOPY 12/06/2031 12/05/2021 COLORECTAL CANCER SCREENING 12/06/2031 PAP Discontinued 10/16/2020, 10/16/2020 HPV IMMUNIZATION Aged Out No longer e ligible based on patient's age to complete this topic IPV IMMUNIZATION Aged Out No longer e ligible based on patient's age to complete this topic MENINGITIS IMMUNIZATION Aged Out No l onger eligible based on patient's age to complete this topic RSV MONOCLONAL ANTIBODY Aged Out No l onger eligible based on patient's age to complete this topic Care Teams Supervisor Drying Relationship Specialty Start Date End Date Clinic, [facility] [address] [place] [address] PCP - General 08/06/15
--- OUTSIDE RECORDS SUMMARY | 2023-06-09 06:29 | XMS_ITS | Encounter Summary ---
Author Name Unknown Organization [place] Address [address] [place] [address] Care Team Providers Care Massage Therapist Name Role Phone Clinic, [facility] Primary Care Provider Reason for Visit * Reason Onset Date Comments Infection 02/06/2023 Encounter Details Date Type Department Care Team (Late st Contact Info) Description 02/06/2023 3:30 PM CDT Virtual Visit [facility] [address] [id number] Maureen Newton MD [address] [place] [id number] Clinical diagnosis of COVID-19 (Primary Dx) Social History Tobacco Use Types [...] on file documented as of this encounter Progress Notes * Maureen Newton MD - 02/06/2023 3:30 PM CDT Joanna is a 67 year old who is being evaluated via a billable video visit. Tested + last night. Sx started 02/05. First time getting COVID. How would you like to obtain your AVS? MyChart If the video visit is dropped, the invitation should be resent by: Send to e- mail at: [email or web address] Will anyone else be joining your video visit? No Assessment & Plan Clinical diagnosis of COVID-19 - nirmatrelvir and ritonavir (PAXLOVID) 300 mg/100 mg therapy pack; Take 3 tablets by mouth 2 timesdaily for 5 days (Take 2 Nirmatrelvir tablets and 1 Ritonavir tablet twice daily for 5 days) COVID-19 positive patient. Encounter for consideration of medication intervention. Patient does qualify for a prescription. Full discussion with patient including medication options, risks and benefits. Potential drug interactions reviewed with patient. Treatment Planned Paxlovid RX sent to [facility] Temporary change to home medications: Hold rosuvastatin while on Paxlovid x 5 days. Restart on day 6. Estimated body mass index is 22.62 kg/m?? as calculated from the following: Height as of 10/16/20: 1.626 m (5' 4). Weight as of 10/16/20: 59.8 kg (131 lb 12.8 oz). GFR Estimate Date Value Ref Range Status 05/29/2019 >60 see scan ml/min/1.73m2 Final Rocio Newton MD Virtual Urgent Care [facility] Guillermo [place] is a 67 year old, presenting for the following health issues: No chief complaint on file. HPI Tested + last night. Sx started 02/05. First time getting COVID. Review of Systems Constitutional, HEENT, cardiovascular, pulmonary, GI, , musculoskeletal, neuro, skin, endocrine and psych systems are negative, except as otherwise noted. Objective Vitals: No vitals were obtained today due to virtual visit. Physical Exam GENERAL: Healthy, alert and no distress PSYCH: mentation appears normal and affect normal/bright Phone call duration # 10 minutes documented in this encounter Plan of Treatment Not on file documented as of this encounter Visit Diagnoses Diagnosis Clinical diagnosis of COVID-19- Primary documented in this encounter Additional Health Concerns Assessment Noted Time PHQ-9 Depression Total Score: 0 06/07/19 20 12:16 PM HEATING AND VENTILATION ENGINEER documented as of this encounter Care Teams Massage Therapist Relationship Specialty Start Date End Date Clinic, [address] [address] PCP - General 08/06/15 documented as of this encounter
--- OUTSIDE RECORDS SUMMARY | 2023-06-09 06:29 | XMS_ITS | Encounter Summary ---
Author Name Unknown Organization [facility] Address [address], [place] [address] Care Team Providers Care Heat Treat Operator Name Role Phone Needs Pcp, Assignment Primary Care Provider Encounter Details Date Type Department Care Team Description 07/29/2022 Telephone [facility] Procedures [address] [place] [address] Boo Crowell MD [address] [facility] [address] [place] [address] Social History Tobacco Use Types Packs/Day Years [...] as of this encounter Nursing Notes * Boo Crowell MD - 07/29/2022 7:59 AM CST Previous records reviewed: Notes a longstanding history of GERD. - [...] study in 06/21 demonstrated demeester of 0.4 Finnegan performed in 12/19 -> assumed this was [...] a few days following Upper Endoscopy w Finnegan placement - pain behind sternum, ice packs [...] have a copy of the Esophageal Manometry. FIGHTERS DISPATCHER documented in this encounter Plan of Treatment Upcoming Encounters Date Type Department Care Team Description 07/26/2023 1:30 PM FIRE FIGHTERS DISPATCHER Appointment [facility] [address] Endoscopy [address] [place] [address] 09/09/2023 3:40 PM CDT [facility] [address] Gastroenterology [address] [place] [address] Boo Crowell MD [address] Need Fixed [address] [place] [address] documented as of this encounter Visit Diagnoses Not on filedocumented in this encounter Care Teams Heat Treat Operator Relationship Specialty Start Date End Date Needs Pcp, [place] [address] PCP - General 12/12/21 documented as of this encounter
--- OUTSIDE RECORDS SUMMARY | 2023-06-09 06:29 | XMS_ITS | Encounter Summary ---
Author Name Unknown Organization [facility] Address [address] [place] [address] Care Team Providers Care Vehicle Operator Technician Name Role Phone Needs Pcp, Assignment Primary Care Provider Encounter Details Date Type Department Care Team Description 09/24/2022 Telephone [facility] [address] [place] [address] Needs Pcp, Assignment [place], [place] [phone] Social History Tobacco Use Types Packs/Day Years [...] Department Care Team Description 07/26/2023 1:30 PM ANALYSIS MANAGER Appointment [facility] [address] Endoscopy [address] [facility]. [place], [place] [id number] 09/09/2023 3:40 PM CDT Tele[facility]icine [facility] [address] Gastroenterology [facility]. [place], [place] [address] Boo Crowell MD [address] [facility] [address] [place], [place] [address] documented as of this encounter Visit Diagnoses Not on filedocumented in this encounter Care Teams Vehicle Operator Technician Relationship Specialty Start Date End Date Needs Pcp, [place] [address] PCP - General 12/12/21 documented as of this encounter
--- OUTSIDE RECORDS SUMMARY | 2023-06-09 06:29 | XMS_ITS | Referral Summary ---
Author Name Unknown Organization [place] Address [address] [place] [address] Care Team Providers Care Vending Route Servicer Name Role Phone Clinic, [facility] Primary Care Provider Allergies Active Allergy Reactions [...] swelling Skin redness, swelling Severe skin breakdown Qptkxbxt-Zzgkeyxebg-Ruvz myxin Other (See Comments) Medium 05/11/2018 Skin [...] Resolved Date iamJOINT PAIN-ANKLE 12/26/2004 05/13/20 05 Social History Tobacco Use Types Packs/Day Years [...] Comments Blood Pressure 120/70 06/07/2019 10:32 AM DIRECTOR OF ANESTHESIA SERVICES Pulse 78 06/07/2019 10:32 AM DIRECTOR OF ANESTHESIA SERVICES Temperature - - Respiratory Rate - - Oxygen Saturation - - Inhaled Oxygen Concentration - - Weight 59.8 kg (131 lb 12.8 oz) 021 10:36 AM CDT Height 162.6 cm (5' 4) 10/16/2020 10:3 6 AM CDT Body Mass Index 22.62 10/16/2020 10:36 AM CDT Plan of Treatment Not on file Care Teams Vending Route Servicer Relationship Specialty Start Date End Date Clinic, [address] [address] PCP - General 08/06/15
--- OUTSIDE RECORDS SUMMARY | 2023-06-09 06:29 | XMS_ITS | Encounter Summary ---
Author Name Unknown Organization [facility] Address [address] [address] Care Team Providers Care Maintenance Assistant Name Role Phone Needs Pcp, Assignment Primary Care Provider Reason for Referral * Procedure/Equipment (Routine) - Incomplete Specialty Diagnoses / Procedures Referred By Bhumi wellington Referred To Contact Diagnoses Heartburn Dyspepsia Procedures NM Gastric Emptying Scan Boo Crowell MD [address] [place] [address] Referral ID Status Reason Start Date Expiration Date V isits Requested Visits Authorized [id number] Incomplete 07/30/2022 10/29/2023 6 6 O MECHANIC HELPER * Procedure/Equipment (Routine) - New Request Specialty Diagnoses / Procedures Referred By Bhumi wellington Referred To Contact Diagnoses Heartburn Procedures EGD Boo Crowell MD [address] [place] [address] Referral ID Status Reason Start Date Expiration Date V isits Requested Visits Authorized [id number] New Request 07/30/2022 10/29/2023 1 1 O MECHANIC HELPER Encounter Details Date Type Department Care Team Description 07/30/2022 9:10 AM RADIO MECHANIC HELPER Office Visit Specialty Center [address] G[address] [facility] [place] [address] Boo Crowell MD [address] [facility] [address] [place] [address] Heartburn (Primary Dx); Dyspepsia; Hx SBO; Iron deficiency anemia, unspecified iron deficiency anemia type; Gastroparesis Social History Tobacco Use Types Packs/Day Years [...] Sign Reading Time Taken Comments Blood Pressure - - Pulse - - Temperature - - Respiratory Rate - - Oxygen Saturation - - Inhaled Oxygen Concentration - - Weight 62.1 kg (137 lb) 07/30/2022 9:12 AM RADIO MECHANIC HELPER Height - - Body Mass Index 23.52 03/06/2021 8:46 AM CDT documented in this encounter Patient Instructions * Patient Instructions* Boo Crowell MD - 07/30/2022 9:10 AM RADIO MECHANIC HELPER Jerri Avery, it was a pleasure seeing you in clinic today. I want you to go home with this summary of our clinic visit. I recommend we retest for acid reflux with a Upper Endoscopy with Hatch because your symptoms have recurred. I recommend we do this OFF all of your acid reflux medication. So, I recommend that you taper off the Proton Pump Inhibitor. Go to once a day for two weeks and then go to every other day fora week and then stop. If your symptoms get worse after stopping the Proton Pump Inhibitor, let me kn ow. 2. I also recommend a Gastric Emptying Scan to assess for gastroparesis again as some of your symptoms have returned. 3. As far as the low residue diet, I recommend you continue it within reason. You have to life a good quality of life so you can try to cautiously reintroduce things like bread. Just make sure that you chew them well and drink plenty of liquids with it. 4. We'll see if the abdominal pain you are having is related to reflux. The idea of the tri-cyclic and buspirone make sense and were worthwhile to have tried. If the above testing is negative, we canthink about other options for this hypersensitivity sensation. 5. We'll be in touch as we get the results back. Please don't hesitate to contact us with any questions or concerns. Otherwise, take care! O MECHANIC HELPER documented in this encounter Progress Notes * Boo Crowell MD - 07/30/2022 9:10 AM CST GI Clinic Consult - [facility] - Boo Crowell MD Joanna Avery MR# [id number] Date of Visit: 07/30/22 MEDICAL DECISION MAKING IMPRESSION/Plan: Joanna Avery is a 67 y.o. female presenting for evaluation of multiple GI problems. #. GERD/Eosinophilic Esophagitis - s/p toupet fundoplcation, symptoms have recurred, but prior to symptoms really getting worse, she had a negative hatch study - jeyson repeat Upper Endoscopy w hatch study OFF Proton Pump Inhibitor - taper off Proton Pump Inhibitor as this has not helped w symptoms #. Abdominal pain - possibly MSK in etiology, will check Gastric Emptying Scan as well - has a history of delayed gastric emptying s/p G-POEM in the past prior to fundoplication - provided reassurance - MRE and CT in 2021 negative for clear etiology #. Recurrent small bowel obstruction - on low-residue diet, suggested she could liberalize her dietunderstanding that this could lead to further issues. However, she is looking to improve her quality of life in the meanwhile #. Iron Deficiency Anemia - continue to manage medically with iron repletion - I do not recommend video capsule endoscopy given history of impaction and history of small bowel obstruction #. Colorectal cancer screening - negative in 2021 Rtc 3 months SUBJECTIVE: Date of Visit: 07/30/22 HPI: Joanna Avery is a 67 y.o. female presenting for evaluation of several GI issues includingGERD, Eosinophilic Esophagitis, chronic abdominal pain, Iron Deficiency Anemia, and history of intermittent SBOs. Re intermittent small bowel obstruction, have been determined to be related to adhesions as there has been no evidence of IBD beyond the Iron Deficiency Anemia. Re Iron Deficiency Anemia, unable to fully assess the small intestine due to capsule retention. Re GERd, underwent toupet fundoplication. Has since then re-developed heartburn symptoms without evidence of heartburn She reports she had to switch GI docs bc her doc at [facility] stopped seeing patients. - she went to [facility] and was initially happy, but had less confidence as time went on She reports today that she is here to discuss - she tries to hold back the vomiting when she gets SBOs, since having vomited, she has had more heartburn - she wonders if her wrap has loosened She did see a foregut surgeon, Dr. Jere Carbajal, to discuss her case. They had recommended undergoing an Upper Endoscopy to reassess the pain she is having. She reports the main thing is she has pain that is up to an 8/10 that is in the epigastrium. Burnign sensation. Also band-lke pain along the lower chest. She reports she cannot take elavil or buspirone due to side effects. 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 Past medical history, family history and social history are reviewed. Please refer to chart for details. 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 51 3 CALCIUM CITRATE-VITAMIN D OR Take 2 Tablets [...] (FLONASE) 50 MCG/ACT nasal solution 1 [place] by Nasal route. Iron-Vitamin C (VITRON-C) 65-125 MG TABS Take by mouth. magnesium 250 MG oral tablet Take 1 Tablet (250 mg) by mouth. magnesium oxide (AKA MAG-OX 400) 250 MG tablet daily with breakfast. Probiotic Product (ALIGN) 4 MG CAPS Psyllium (METAMUCIL SMOOTH TEXTURE OR) rosuvastatin (CRESTOR) 20 MG tablet TAKE 1 [...] BACITRACIN 07/12/2012 Other, see comments Unspecified Active [id number] 04/25/2001 Allergy Active BACTINE [ANESTHETICS, AMIDE] 07/12/2012 Rash Unspecified Active BACTRIM [SULFAMETHOXAZOLE-TRIMETHOPRIM] 08/08/2019 Itching Active CAT HAIR EXTRACT 08/06/2006 Other, see comments Active JUBLIA [EFINACONAZOLE] 07/01/2016 Active QUINOLONES 04/25/2001 Allergy Physical Exam: Vitals: Wt 137 lb (62.1 kg) BMI 23.52 kg/m?? GEN: No acute distress, comfortable Eyes: Sclera anicteric CV: rrr Lungs: breathing comfortably, non-labored Abdomen: soft, nt, nd Skin: no obvious rash or jaundice MSK: no obvious deformity Neuro: A&O, no focal deficits Psych: appropriate affect and mood Pertinent labs and imaging were reviewed. Please refer to chart for details OSH records: Notes a longstanding history of GERD. - [...] Department Care Team Description 07/26/2023 1:30 PM RADIO MECHANIC HELPER Appointment Specialty Center 6[address] Endoscopy [address] [facility] [place] [address] 09/09/2023 3:40 PM CDT Telemedicine Specialty Center [address] [facility] [place] [address] Boo Crowell MD [address] [place] [address] Scheduled Orders Name Type Priority Associated Diagnoses Orde r Schedule NM Gastric Emptying Scan Imaging New Routine Heartburn Dyspepsia Expected: 07/30/2022 (Approximate), Expires: 07/30/2023 documented as of this encounter Results * EGD (10/06/2022 10:14 AM CDT) 10/06/2022 [...] Follow-up of eosinophilic ? esophagitis Providers: ? Merlene Riggins, LUIS Referring MD: ?Boo Crowell MD Medicines: ? [...] ? saturations were monitored ? continuously. The [id number] was ? introduced through the mouth, and [...] Procedure Code(s): ? --- Professional --- ? 42418, Esophagogastroduodenoscopy, ? flexible, transoral; with biopsy, ? [...] (additional time may ? be reported with 78217, as ? appropriate) Diagnosis Code(s): ? --- [...] ? K20.0, Eosinophilic esophagitis CPT copyright 2020 [employer]. All rights reserved. The codes documented in this report are preliminary and upon braille coder review may be revised to meet current [...] and oxygen saturations were monitored continuously. The [id number] was introduced through the mouth, and advanced [...] duodenum. Estimated blood loss was minimal. The [employer] capsule with delivery system was introduced through [...] secretory therapy. Procedure Code(s): --- Professional --- 60928, Esophagogastroduodenoscopy, flexible, transoral; with biopsy, single or multiple G0500, Moderate sedation services provided by the same physician or other qualified health skin care specialist performing a gastrointestinal endoscopic service that sedation supports, requiring the presence of an independent trained observer to assist in the monitoring of the patient's level of consciousness and physiological status; initial 15 minutes of intra-service time; patient age 5 years or older (additional time may be reported with 56999, as appropriate) Diagnosis Code(s): --- Professional --- K22.8, Other specified diseases of esophagus Z98.890, Other specified postprocedural states K31.89, Other diseases of stomach and duodenum K26.9, Duodenal ulcer, unspecified as acute or chronic, without hemorrhage or perforation R10.9, Unspecified abdominal pain D50.9, Iron deficiency anemia, unspecified R12, Heartburn K21.9, Gastro-esophageal reflux disease without esophagitis K20.0, Eosinophilic esophagitis CPT copyright 2020 [employer]. All rights reserved. The codes documented in this report are preliminary and upon braille coder review may be revised to meet current compliance requirements. Rashel El, 10/06/2022 11:43:34 AM Number of Addenda: 0 Note Initiated On: 10/06/2022 10:14 AM Endoscopy Report Boo Crowell MD PN GI PROCEDURE [facility] PN [employer] documented in this encounter Visit Diagnoses Diagnosis Heartburn- Primary Dyspepsia Dyspepsia and other specified disorders of function of stomach Hx SBO Personal history of other diseases of digestive system Iron deficiency anemia, unspecified iron deficiency anemia type Gastroparesis Gastroesophageal reflux disease without esophagitis- Primary Esophageal reflux Heartburn documented in this encounter Care Teams Maintenance Assistant Relationship Specialty Start Date End Date Needs Pcp, [place] [address] PCP - General 12/12/21 documented as of this encounter
--- OUTSIDE RECORDS SUMMARY | 2023-06-09 06:29 | XMS_ITS | Encounter Summary ---
Author Name Unknown Organization [facility] Address [address] [place] [address] Care Team Providers Care Butcher Name Role Phone Needs Pcp, Assignment Primary Care Provider Encounter Details Date Type Department Care Team Description 08/03/2007 Scanned History External to [facility] OPERATIVE REPORT Social History Tobacco Use Types Packs/Day Years Used Date Smoking Tobacco: Never Assessed Sex and Gender Information Value Date Recorded Sex Assigned at Not on file Gender Identity Not on file Sexual Orientation Not on file documented as of this encounter Plan of Treatment Upcoming Encounters Date Type Department Care Team Description 07/26/2023 1:30 PM APPLICATION INFRASTRUCTURE ENGINEER Appointment Specialty Center 6[address] Endoscopy [address] [place] [address] 09/09/2023 3:40 PM CDT Telemedicine Specialty Center 6[address] G[address] [facility] [place] [address] Boo Crowell MD [address] [facility] [address] [place] [address] documented as of this encounter Visit Diagnoses Not on filedocumented in this encounter Care Teams Butcher Relationship Specialty Start Date End Date Needs Pcp, [place] [address] PCP - General 12/12/21 documented as of this encounter
== END 2023-06-08 14:44 | disposition home or self-care (01) ==
LOC: NFLDREF 06-09 06:25
PROVIDERS: PCP Internal Medicine; Referring Provider Internal Medicine; Visit Provider Internal Medicine
DX: D50.9 Iron deficiency anemia, unspecified (principal)
CPT/HCPCS: 82728

== ENCOUNTER 2023-07-09 08:08 | Outpatient (CLI) | payer MEDICARE, BC, SELFPAY ==
--- OUTSIDE RECORDS SUMMARY | 2023-07-09 08:11 | XMS_ITS | Clinical Summary ---
Author Name Unknown Organization [facility] Address [place], [place] [address] Care Team Providers Care Road Sign Installer Name Role Phone Sophia Rivers MD Primary Care Provider [phone] Jennifer Prakash MBBS Unavailable [phone] Pcp, No Unavailable Unavailable Sophia Rivers MD Unavailable Sincere Mckee MD Unavailable Unavailable Jennifer Prakash MBBS Unavailable [phone] Jennifer Prakash Unavailable Allergies Active Allergy Reactions Criticality Noted [...] skin breakdown Hydrocodone Arrhythmia 10/03/2013 Causes arrythmia Vplihnkx-Rtzkbmrzku-Yvb ymyxin Other - Describe In Comment Field [...] acetaminophen dose: 4000mg in 24 hrs. 0 02/07/2020 Active propylene glycol (SYSTANE COMPLETE OPHT) Place [...] daily. 0 Active rosuvastatin (CRESTOR) 20 mg tabletIndications:Hy perlipidemia, unspecified hyperlipidemia type TAKE 1 TABLET BY MOUTH EVERYDAY AT BEDTIME 90 Tablet 3 11/07/2021 Active temazepam (RESTORIL) 15 mg capsule Take 15 mg by mouth at bedtime. 0 02/22/2022 Active Aluminum Hydrox-Magnesium Carb (Gaviscon) 95-358 mg/15 [...] metoprolol succinate (TOPROL XL) 50 mg sustained-release tabletIndications:PV C's (premature ventricular contractions) TAKE 1 TABLET BY MOUTH EVERY DAY 90 Tablet 1 05/18/2023 Active lisinopriL (PRINIVIL; ZESTRIL) 2.5 mg tabletIndications:Es sential hypertension TAKE 1 TABLET BY MOUTH EVERY DAY 90 Tablet 1 05/18/2023 Active Active Problems Problem Noted Date Diagnosed Date Small bowel obstruction 04/04/2022 Obstructive sleep apnea 04/04/2022 Atrial tachycardia 04/14/2017 PVC (premature ventricular contraction) 07/06/19 15 Eosinophilic esophagitis 05/31/2010 Gastroesophageal reflux disease with esophagitis 05/31/2010 Primary hypertension 05/31/2010 Pure hypercholesterolemia 05/31/2010 Leukocytosis 05/31/2010 Microcytic anemia 05/31/2010 Anxiety disorder Primary insomnia Asthma Paroxysmal supraventricular tachycardia Encounters Date Type Department Care Team Description 05/17/2023 Refill Fidus Writer [facility] [place] [facility] [place] [address] [place] [address] Neda Fuller MD Refill Request (Metoprolol Succinate, [...] Comments Blood Pressure 132/82 07/01/2022 3:17 PM JUSTICE PROFESSOR Pulse 69 07/01/2022 3:17 PM JUSTICE PROFESSOR Temperature 36.6 ??C (97.8 ??F) 04/05/2022 4:00 PM CS T Respiratory Rate 18 07/01/2022 3:17 PM JUSTICE PROFESSOR Oxygen Saturation 98% 07/01/2022 3:17 PM JUSTICE PROFESSOR Inhaled Oxygen Concentration - - Weight 60.8 kg (134 lb) 07/29/2022 8:09 AM JUSTICE PROFESSOR Height 162.6 cm (5' 4) 07/29/2022 8:09 AM JUSTICE PROFESSOR Body Mass Index 23 07/29/2022 8:09 AM JUSTICE PROFESSOR Plan of Treatment Upcoming Encounters Date Type Department Care Team (Late st Contact Info) Description 09/01/2023 Cardiac Device Check [facility] [phone] 09/02/2023 10:30 AM CDT Office Visit [facility] [address] [place] [address] Neda Fuller MD [address] [facility] [address] [place] [address] Health Maintenance Due Date Last Done Comments [...] Type MEDICARE PROVIDER BASED MEDICARE PROVIDER BASED [id number] 03/31/2020-Prese nt [address] [place] [address] MEDICARE PART A - HB USE ONLY MEDICARE PART A HB ONLY [id number] 03/31/2020-Prese nt ATTN: CLAIMS [address] [place] [address] MEDICARE PROVIDER BASED MEDICARE PROVIDER BASED [id number] 03/24/2021-Pres ent [address] [place] [address] MEDICARE PART B - HB USE ONLY MEDICARE PART B HB ONLY [id number] 06/08/2022-Presen t ATTN: CLAIMS [address] [place] [address] [employer] [place] [id number] 03/24/2021-Pres ent [address] [place] [address] MEDICARE - PB USE ONLY MEDICARE PB ONLY [id number] 03/24/2021-Pres ent ATTN: CLAIMS [address] [place] [address] [employer] [place] [id number] 03/25/2021-Pres ent [address] [place] [address] [employer] [place] [id number] 03/31/2020-Prese nt [address] [place] [address] [employer] [place] [id number] 03/24/2021-Pres ent [address] [place] [address] Advance Directives Documents on File Type Date Recorded 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 04/10/21 Sophia Rivers MD [address] [place] [address] Internal Medicine 06/26/14 Sincere Mckee MD . Consulting Physician Cardiology - Electrophysiology 06/26/14 Jennifer Prakash MBBS [address] [place] [address] Cardiology Cardiovascular Disease 06/26/14 Jennifer Prakash MBBS [address] [place] [address] 03/24/21
--- OUTSIDE RECORDS SUMMARY | 2023-07-09 08:11 | XMS_ITS | Clinical Summary ---
Author Name Unknown Organization [facility] Address [address] [place] [address] Care Team Providers Care Hat Binder Name Role Phone Jonathan Thornton MD Unavailable [phone] Sophia Rivers Primary Care Provider Sandra Ruano APRN, MANAGER ASSISTED LIVING Unavailable [phone] Clinic, Not Listed Unavailable Unavailable Allergies Active [...] Advance Directives For more information, please contact: [phone] Latest Code Status on File Code Status Date Activated Date Inactivated Comments Full Code 10/19/2019 9:46 AM 10/19/2019 9:04 PM Question Answer Comments How was code status determined? Patient Code Status History Code Status Date Activated Date Inactivated Comments Full Code 10/23/2011 10:49 AM 10/24/2011 1:30 AM Question Answer Comments How was code status determined? Patient Care Teams Hat Binder Relationship Specialty Start Date End Date Sophia Rivers [address] [place] [address] PCP - General 09/13/13 Clinic, Not Listed PCP - Primary Care Clinic 01/25/17 Jonathan Thornton MD [address] [facility] [place] S[place] [address] Gastroenterology 11/14/11 Sandra Ruano, CIGARETTE BOOK MAKER, MANAGER ASSISTED LIVING [address] [place] [address] Pulmonary/Critical Care 12/27/15
--- OUTSIDE RECORDS SUMMARY | 2023-07-09 08:11 | XMS_ITS | Patient Health Record ---
Author Name Unknown Organization [facility] Address [address] [place] [address] [place] [address] Care Team Providers Care Marble Worker Name Role Phone SUSY MOSQUEDA MD Primary [...] mg tablet if needed in addition Active [place] 3 1000 MG 1 capsule Orally Onc [...] esophagitis (K20.0) Active confirmed Eosinoph ilic esophagitis (226653927) Problem Hiatal hernia (K44.9) Active confirmed 42245439 Problem Gastroesophageal reflux disease with esophagitis (K21.0) Active confirmed 927623879 Problem Dysphagia (R13.10) Active confirmed Dys phagia (98637651) Problem Obstructive sleep apnea (adult) (pediatric) (G47.33) Active confirmed Obstructive sle ep apnea syndrome (disorder) (83748284) Problem Diaphragmatic hernia without obstruction or gangrene (K44.9) Active confirmed Diaphragmat ic hernia (28936655) Problem Body mass index (BMI) 28.0-28.9, adult (Z68.28) Active confirmed Body mass ind ex 25-29 - overweight (518810067) Problem Atypical chest pain (R07.89) Active confirmed Atypical chest pain (861105632) Problem Overweight (E66.3) Active confirmed Ove rweight (398285365) Problem Schatzki's ring (K22.2) Active confirmed Schatzki's ring (03100391) Problem Chronic gastroesophageal reflux disease (K21.9) Active confirmed Gastroesophagea l reflux disease (319411953) Problem Other sinusitis, unspecified chronicity (J32.9) Active confirmed 18675318 PLAN OF TREATMENT No Information Insurance Providers Payer Name Payer Address Payer Phone Subscriber Number Group Number Insured Name Patient Relationship to Insured Coverage Start Date Coverage End Date [facility] MEDICARE PLAN START 19 [address] [place] [id number] KAREN SHIRLEY Self - patient is [...]
--- OUTSIDE RECORDS SUMMARY | 2023-07-09 08:12 | XMS_ITS | Encounter Summary ---
Author Name Unknown Organization [facility] Address [address], [place] [address] Care Team Providers Care Combat Systems Operator Mine Warfare Name Role Phone Needs Pcp, Assignment Primary Care Provider Reason for Visit * Reason Comments Questions Encounter Details Date Type Department Care Team Description 08/12/2022 Telephone Specialty Center 6500 Gastroenterology [address] [place] [address] Boo Crowell MD [address] [employer] [facility] [address] [place] [address] Questions Social History Tobacco Use [...] 2:39 PM CDT Outgoing call to pt. Substation Inspector relayed provider's message below and advised pt that gastric emptying scan order has been signed and sent (see 08/03/22 tele note). Pt verbalized understanding and agreement. * Boo Crowell MD - 08/13/2022 12:07 PM CDT Keeping it with catina for 10/20 is appropriate. Thanks. * Mahsa Akbar RN - 08/12/2022 2:55 PM CDT Incoming call from pt ROSA 07/30/2022. Plan per provider[facility] notes was to complete upper endoscopywith [...] Department Care Team Description 07/26/2023 1:30 PM [facility] SALES Appointment Specialty Center 6500 Endoscopy [address] [place] [facility] [place] [address] 09/09/2023 3:40 PM CDT Telemedicine Specialty Center 6500 Gastroenterology [address] [place] [facility] [place] [address] Boo Crowell MD [address] [facility] [address] [place] [address] documented as of this encounter Visit Diagnoses Not on filedocumented in this encounter Care Teams Combat Systems Operator Mine Warfare Relationship Specialty Start Date End [place] [address] PCP - General 12/12/21 documented as of this encounter
--- OUTSIDE RECORDS SUMMARY | 2023-07-09 08:12 | XMS_ITS | Encounter Summary ---
Author Name Unknown Organization [facility] Address [address], [place] [address] Care Team Providers Care Sand Mixer Operator Name Role Phone Needs Pcp, Assignment Primary Care Provider [phone] Reason for Visit * Reason Comments Test Results Encounter Details Date Type Department Care Team Description 04/28/2023 Telephone Specialty Center [facility] Gastroenterology [address] [place], [place] [address] Boo Crowell MD [address] [facility] [address] [place] [address] Test Results Social History Tobacco [...] in provider inbox for appt on 04/29. O AND M SUPERVISOR documented in this encounter Plan of Treatment Upcoming Encounters Date Type Department Care Team Description 07/26/2023 1:30 PM O AND M SUPERVISOR Appointment Specialty Center 6500 Endoscopy [address] [place] [address] 09/09/2023 3:40 PM CDT Telemedicine Specialty Center 6500 Gastroenterology [address] [place] [address] Boo Crowell MD [address] [facility] [address] [place], [place] [address] documented as of this encounter Visit Diagnoses Not on filedocumented in this encounter Care Teams Sand Mixer Operator Relationship Specialty Start Date End Date Needs Pcp, [place] [address] PCP - General 12/12/21 documented as of this encounter
--- OUTSIDE RECORDS SUMMARY | 2023-07-09 08:12 | XMS_ITS | Encounter Summary ---
Author Name Unknown Organization [facility] Address [address], [place] [address] Care Team Providers Care Labview Programmer Name Role Phone Needs Pcp, Assignment Primary Care Provider Reason for Visit * (Routine) - New Request Specialty Diagnoses / Procedures Referred By Bhumi t Referred To Contact Diagnoses Heartburn Gastroesophageal reflux disease without esophagitis Procedures PH MONITORING 48HR Rashel El MD [address] [place] [address] Referral ID Status Reason Start Date Expiration Date V isits Requested Visits Authorized [id number] New Request 10/13/2022 01/12/2024 1 1 Encounter Details Date Type Department Care Team Description 10/13/2022 1:13 PM CDT - 10/13/2022 11:59 PM CDT Hospital Encounter Specialty Center 6500 Endoscopy [address] [place] [address] Rashel El MD [address] [place], [place] [phone] Discharge Disposition: Home Social History Tobacco Use [...] propionate (FLONASE) 50 MCG/ACT nasal solution 1 [place] by Nasal route. 0 08/17/2018 Iron-Vitamin C [...] noted during the study. - See the [employer] HATCH data report for further details. Moderate [...] previously scheduled. Procedure Code(s): --- Professional --- 51087, 26, Esophagus, gastroesophageal reflux test; with mucosal attached telemetry pH electrode placement, recording, analysis and interpretation Diagnosis Code(s): --- Professional --- R12, Heartburn K21.9, Gastro-esophageal reflux disease without esophagitis CPT copyright 2020 [employer]. All rights reserved. The codes documented in this report are preliminary and upon surgical coder review may be revised to meet current compliance requirements. Rashel El, 10/13/2022 5:31:31 PM Number of Addenda: 0 Note Initiated On: 10/13/2022 3:04 PM Endoscopy Report documented in this encounter Plan of Treatment Upcoming Encounters Date Type Department Care Team Description 07/26/2023 1:30 PM RAMP JOCKEY Appointment Specialty Center 6500 Endoscopy [address] [email or web address] [address] 09/09/2023 3:40 PM CDT Telemedicine Specialty Center 6500 Gastroenterology [address] [email or web address] [address] Boo Crowell MD [address] [facility] [address] [place], [place] [address] documented as of this encounter Procedures Procedure [...] during the study. ? - See the [employer]oniac data report for further ? details. Moderate [...] Procedure Code(s): ? --- Professional --- ? 43224, 26, Esophagus, ? gastroesophageal reflux test; with ? mucosal attached telemetry pH ? electrode placement, recording, ? analysis and interpretation Diagnosis Code(s): ? --- Professional --- ? R12, Heartburn ? K21.9, Gastro-esophageal reflux ? disease without esophagitis CPT copyright 2020 [employer]. All rights reserved. The codes documented in this report are preliminary and upon surgical coder review may be revised to meet [...] noted during the study. - See the Qoniac data report for further details. Moderate Sedation: [...] previously scheduled. Procedure Code(s): --- Professional --- 06112, 26, Esophagus, gastroesophageal reflux test; with mucosal attached telemetry pH electrode placement, recording, analysis and interpretation Diagnosis Code(s): --- Professional --- R12, Heartburn K21.9, Gastro-esophageal reflux disease without esophagitis CPT copyright 2020 [employer]. All rights reserved. The codes documented in this report are preliminary and upon surgical coder review may be revised to meet current compliance requirements. Rashel El, 10/13/2022 5:31:31 PM Number of Addenda: 0 Note Initiated On: 10/13/2022 3:04 PM Endoscopy Report Rashel El MD PN GI PROCEDURE PERLA CARDONA PN PROVATION documented in this encounter Visit Diagnoses Not on filedocumented in this encounter Care Teams Labview Programmer Relationship Specialty Start Date End Date Needs Pcp, [place] [address] PCP - General 12/12/21 documented as of this encounter
--- OUTSIDE RECORDS SUMMARY | 2023-07-09 08:12 | XMS_ITS | Encounter Summary ---
Author Name Unknown Organization [facility] Address [address] [address] Care Team Providers Care Driver Education Instructor Name Role Phone Needs Pcp, Assignment Primary Care Provider Encounter Details Date Type Department Care Team Description 09/24/[address] [facility] Practice [address] [place] [address] Needs Pcp, Assignment [place], [place] [address] Social History Tobacco Use Types Packs/Day Years [...] Department Care Team Description 07/26/2023 1:30 PM ASSISTED LIVING ASSISTANT Appointment Specialty Center 6500 Endoscopy [address] [facility]. [place], [place] [address] 09/09/2023 3:40 PM CDT Telemedicine Specialty Center 6500 Gastroenterology [facility] [place] [facility]. [place], [place] [address] Boo Crowell MD [address] [facility] [address] [place], [place] [address] documented as of this encounter Visit Diagnoses Not on filedocumented in this encounter Care Teams Driver Education Instructor Relationship Specialty Start Date End Date Needs Pcp, [place] [address] PCP - General 12/12/21 documented as of this encounter
--- OUTSIDE RECORDS SUMMARY | 2023-07-09 08:12 | XMS_ITS | Clinical Summary ---
Author Name Unknown Organization [facility] Address [address] [place] [address] Care Team Providers Care Investigator Operator Name Role Phone Needs Pcp, Assignment Primary Care Provider [phone] Source Comments You are receiving this document as you are listed as the primary care provider,follow-up provider, or the patient has been referred to you for consultation.This is in compliance with the Medicare andCherrington Hospitalcaid EHR Incentive Program,which states Providers who transition their patient to another setting of careor provider of care or refers their patient to another provider of care shouldprovide summary care record for each transition of care or referral. [facility] Allergies Active Allergy Reactions Criticality Noted Date Comments Adhesive Other, see comments 01/08/2012 Tape it outlines the adhesive spot & gets itchy Bacitracin Other, see comments 07/12/2012 itching Ozaospnxig-Jszqjapr-Wlf ymyxin 04/25/2001 PN: LW Reaction: ITCHY, SKIN [...] propionate (FLONASE) 50 MCG/ACT nasal solution 1 [place] by Nasal route. 0 08/17/2018 Active Iron-Vitamin [...] Encounters Date Type Department Care Team Description 06/23/2023 Telephone Specialty [facility] [place] [address] [place] [address]. [place] [address] Boo Crowell MD Other (SIBO) 05/14/2023 Orders Only HIM DEPARTMENT Provider, MD Jesenia 04/29/2023 3:40 PM WARP WORKER Telemedicine Specialty Center [facility] [place] [facility] [place] [address] Boo Crowell MD Gastroesophageal reflux disease with esophagitis without hemorrhage (Primary Dx); Epigastric burning sensation; Throat burning; Abdominal bloating 04/29/2023 Telephone Specialty Center [address] [place] [address]. [place] [address] Boo Crowell MD Provider Orders (Glucose breath test) 04/28/2023 Telephone Specialty Center [address] [place] [address]. [place] [address] Boo Crowell MD Test Results 04/08/2023 Nurse Triage [facility]line [address] [place] [address] Unassigned, Provider ABDOMINAL PAIN from Last 3 Months Immunizations Name Administration Dates Next Due Flu Vac (18-64 Yrs), Intradermal 03/09/2016,11/2014 Flu Vac (3+ yrs) 02/28/2011 Flu Vac Preserv Free (3+yrs) 03/14/2013,04/01/20 12,05/14/2006 Flublok (RIV4) 03/21/2020 Influenza ([place] Only) (Flul aval Quad 0.5, 3+ yrs) 02/28/2011 Influenza IIV4 (Quadrivalent ) 0.5mL (51975) 03/21/2019,03/16/2018,02/28/2018,2016 Influenza IIV4 (Quadrivalent ) Fluzone, 65+ [...] 62.1 kg (137 lb) 07/30/2022 9:12 AM WARP WORKER Height 162.6 cm (5' 4) 03/06/2021 8:46 AM CDT Body Mass Index 23.52 03/06/2021 8:46 AM CDT Plan of Treatment Upcoming Encounters Date Type Department Care Team Description 07/26/2023 1:30 PM WARP WORKER Appointment Specialty Center 6500 Endoscopy [address] [place] [address] 09/09/2023 3:40 PM CDT Telemedicine Specialty Center 6500 Gastroenterology [address] [email or web address] [facility] [place], [place] [address] Boo Crowell MD [address] [employer] [facility] [address] [place] [address] Health Maintenance Due Date Last Done Comments Colon Cancer Screening Plan Due 1955 Hep C Screening (Preventive Services) 1955 Medicare Annual Wellness Visit 1955 Mammogram 1955 Cholesterol 2000 Zoster/Shingles (3 of 3) 04/12/2019 02/15/2019, 02/28 Dexa 2020 Pneumococcal 65+ Yrs (3 - PPSV23 or PCV20) 11/20/2026 11/20/2021, 02/28/2018 DTaP/Tdap/Td (3 - Tdap) 02/29/2028 02/28/2018, 11/12 Influenza Completed 03/24/2023, 02/28, 03/27/2021, Additional history exists COVID-19 Vaccine Completed 03/25/2023, 07/2022, 03/17/2022, Additional history exists HepA Aged Out No [...] VALDEZ/OTHER/AR from Last 3 Months Care Teams Investigator Operator Relationship Specialty Start Date End Date Needs Pcp, [place] [address] PCP - General 12/12/21
--- OUTSIDE RECORDS SUMMARY | 2023-07-09 08:12 | XMS_ITS | Encounter Summary ---
Author Name Unknown Organization [facility] Address [address] [place] [address] Care Team Providers Care Refuse And Recycling Worker Name Role Phone Needs Pcp, Assignment Primary Care Provider Encounter Details Date Type Department Care Team Description 12/03/2022 3:40 PM CDT Telemedicine Specialty Center 6500 Gastroenterology [address] [employer]. [place], [place] [address] Boo Crowell MD [address] [facility] [address] [place], [place] [id number] Eosinophilic esophagitis (Primary Dx); Functional chest pain; [...] FODMAPs is a reasonable diet to try. Make My plate provides a good source of informationon that. 8. We'll plan to see you back in 4 months. Please don't hesitate to contact us with any questions or concerns. Otherwise, take care! 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 Iron-Vitamin C (VITRON-C) 65-125 [...] BACITRACIN 07/12/2012 Other, see comments Unspecified Active PPANGSRLMS-YZKUDHTR-ODLRNGNXB 04/25/2001 Allergy Active BACTINE [ANESTHETICS, AMIDE] 07/12/2012 [...] noted during the study. - See the [employer] HATCH data report for further details. Impression: [...] Department Care Team Description 07/26/2023 1:30 PM CLAY PROCESSING FACTORY WORKER Appointment Specialty Center 6500 Endoscopy [address] [place] [facility] [address] 09/09/2023 3:40 PM CDT Telemedicine Specialty Center 6[address] [place] [address] Boo Crowell MD [address] [facility] [facility] [address] [place], [place] [address] documented as of this encounter Visit Diagnoses Diagnosis Eosinophilic esophagitis- Primary Functional chest pain Other chest pain Small bowel obstruction due to adhesions (HRC) Intestinal or peritoneal adhesions with obstruction (postoperative) (postinfection) documented in this encounter Care Teams Refuse And Recycling Worker Relationship Specialty Start Date End Date Needs Pcp, [place] [address] PCP - General 12/12/21 documented as of this encounter
--- OUTSIDE RECORDS SUMMARY | 2023-07-09 08:12 | XMS_ITS | Encounter Summary ---
Author Name Unknown Organization [facility] Address [address], [place] [address] Care Team Providers Care Traffic Law Attorney Name Role Phone Needs Pcp, Assignment Primary Care Provider [phone] Reason for Visit * Reason Comments Provider Orders Glucose breath test Encounter Details Date Type Department Care Team Description 04/29/2023 Telephone Specialty Center 6500 Gastroenterology [address] [employer]. [place], [place] [id number] Boo Crowell MD 6[address] [facility] [address] [place] [address] Provider Orders (Glucose breath test) [...] via CDI website. Sent patient instructions via [employer]. Received CDI confirmation URCE TEACHER documented in this encounter Plan of Treatment Upcoming Encounters Date Type Department Care Team Description 07/26/2023 1:30 PM RESOURCE TEACHER Appointment Specialty Center 6[address] Endoscopy [address] [place] [address] 09/09/2023 3:40 PM CDT Telemedicine Specialty Center 6500 Gastroenterology [address] [place] [address] Boo Crowell MD [address] [facility] [address] [place], [place] [id number] documented as of this encounter Visit Diagnoses Not on filedocumented in this encounter Care Teams Traffic Law Attorney Relationship Specialty Start Date End Date Needs Pcp, Janessa [place], [place] [address] PCP - General 12/12/21 documented as of this encounter
--- OUTSIDE RECORDS SUMMARY | 2023-07-09 08:12 | XMS_ITS | Referral Summary ---
Author Name Unknown Organization [facility] Address [address] [place] [address] Care Team Providers Care Interpretive Naturalist Name Role Phone Jonathan Thornton MD Unavailable [phone] Sophia Rivers Primary Care Provider Sandra Ruano APRN, CHILD WATCH ATTENDANT Unavailable [phone] Clinic, Not Listed Unavailable Unavailable Allergies Active [...] Advance Directives For more information, please contact: [phone] Latest Code Status on File Code Status Date Activated Date Inactivated Comments Full Code 10/19/2019 9:46 AM 10/19/2019 9:04 PM Question Answer Comments How was code status determined? Patient Code Status History Code Status Date Activated Date Inactivated Comments Full Code 10/23/2011 10:49 AM 10/24/2011 1:30 AM Question Answer Comments How was code status determined? Patient Care Teams Interpretive Naturalist Relationship Specialty Start Date End Date Sophia RiversRicha [address] [place] [address] PCP - General 09/13/13 Clinic, Not Listed PCP - Primary Care Clinic 01/25/17 Jonathan Thornton MD [address] [place] [address] [place] [address] Gastroenterology 11/14/11 Sandra Ruano, VP PRODUCT MARKETING, CHILD WATCH ATTENDANT [address] [place] [address] Pulmonary/Critical Care 12/27/15
--- OUTSIDE RECORDS SUMMARY | 2023-07-09 08:12 | XMS_ITS | Encounter Summary ---
Author Name Unknown Organization [facility] Address [address] [address] Care Team Providers Care Driver Education Instructor Name Role Phone Needs Pcp, Assignment Primary Care Provider Reason for Referral * (Routine) - New Request Specialty Diagnoses / Procedures Referred By Contac t Referred To Contact Diagnoses Heartburn Gastroesophageal reflux disease without esophagitis Procedures PH MONITORING 48HR Rashel El MD [address] [facility] [place] [address] Referral ID Status Reason Start Date Expiration Date V isits Requested Visits Authorized [id number] New Request 10/13/2022 01/12/2024 1 1 * Procedure/Equipment (Routine) - New Request Specialty Diagnoses / Procedures Referred By Contjessika t Referred To Contact Diagnoses Heartburn Procedures EGD Boo Crowell MD [address] [place] [address] [place] [address] Referral ID Status Reason Start Date Expiration Date V isits Requested Visits Authorized [id number] New Request 07/30/2022 10/29/2023 1 1 Reason for Visit * Procedure/Equipment (Routine) - New Request Specialty Diagnoses / Procedures Referred By Bhumi t Referred To Contact Diagnoses Heartburn Procedures EGD Boo Crowell MD [address] [place] [address] Referral ID Status Reason Start Date Expiration Date V isits Requested Visits Authorized [id number] New Request 07/30/2022 10/29/2023 1 1 Encounter Details Date Type Department Care Team Description 10/06/2022 9:53 AM CDT - 10/06/2022 11:59 PM CDT Hospital Encounter [facility] 6500 Endoscopy [address] [employer] [place], [place] [id number] Rashel El MD [address] [place], [place] [id number] Gastroesophageal reflux disease without esophagitis (Primary Dx); [...] propionate (FLONASE) 50 MCG/ACT nasal solution 1 [place] by Nasal route. 0 08/17/2018 Iron-Vitamin C [...] and oxygen saturations were monitored continuously. The [id number] was introduced through the mouth, and advanced [...] secretory therapy. Procedure Code(s): --- Professional --- 08851, Esophagogastroduodenoscopy, flexible, transoral; with biopsy, single or multiple G0500, Moderate sedation services provided by the same physician or other qualified health animal care supervisor performing a gastrointestinal endoscopic service that sedation supports, requiring the presence of an independent trained observer to assist in the monitoring of the patient's level of consciousness and physiological status; initial 15 minutes of intra-service time; patient age 5 years or older (additional time may be reported with 26609, as appropriate) Diagnosis Code(s): --- Professional --- K22.8, Other specified diseases of esophagus Z98.890, Other specified postprocedural states K31.89, Other diseases of stomach and duodenum K26.9, Duodenal ulcer, unspecified as acute or chronic, without hemorrhage or perforation R10.9, Unspecified abdominal pain D50.9, Iron deficiency anemia, unspecified R12, Heartburn K21.9, Gastro-esophageal reflux disease without esophagitis K20.0, Eosinophilic esophagitis CPT copyright 2020 [employer]. All rights reserved. The codes documented in this report are preliminary and upon biochemical development engineer review may be revised to meet current compliance requirements. Rashel El, 10/06/2022 11:43:34 AM Number of Addenda: 0 Note Initiated On: 10/06/2022 10:14 AM Endoscopy Report documented in this encounter Plan of Treatment Upcoming Encounters Date Type Department Care Team Description 07/26/2023 1:30 PM RETAIL HELPER Appointment Specialty Center 6[address] [facility] [place] [address] 09/09/2023 3:40 PM CDT Telemedicine Specialty Center 6500 Gastroenterology [address] [employer] [facility] [place] [address] Boo Crowell MD [facility] [employer] [facility] [address] [place] [address] documented as of this encounter Procedures Procedure [...] ? No immediate complications. Procedure: ? The Anna Lozabai pH capsule was previously ? placed. Results [...] during the study. ? - See the [employer] data report for further ? details. Moderate [...] Procedure Code(s): ? --- Professional --- ? 49139, 26, Esophagus, ? gastroesophageal reflux test; with ? mucosal attached telemetry pH ? electrode placement, recording, ? analysis and interpretation Diagnosis Code(s): ? --- Professional --- ? R12, Heartburn ? K21.9, Gastro-esophageal reflux ? disease without esophagitis CPT copyright 2020 [employer]. All rights reserved. The codes documented in this report are preliminary and upon biochemical development engineer review may be revised to meet current [...] noted during the study. - See the [employer] HATCH data report for further details. Moderate [...] previously scheduled. Procedure Code(s): --- Professional --- 61758, 26, Esophagus, gastroesophageal reflux test; with mucosal attached telemetry pH electrode placement, recording, analysis and interpretation Diagnosis Code(s): --- Professional --- R12, Heartburn K21.9, Gastro-esophageal reflux disease without esophagitis CPT copyright 2020 [employer]. All rights reserved. The codes documented in this report are preliminary and upon biochemical development engineer review may be revised to meet current compliance requirements. Rashel El, 10/13/2022 5:31:31 PM Number of Addenda: 0 Note Initiated On: 10/13/2022 3:04 PM Endoscopy Report Rashel El MD PN GI PROCEDURE CUONGE BRENDAN PN PROVATION * Surgical Path - GI (10/06/2022 11:33 AM CDT) Case Report Surgical Pathology ?Case: [id number] ? Authorizing Provider: ??Rashel El MD ? Collected: ? 10/06/2022 1133 ? Ordering Location: ? [facility]ty [facility] ?Received: ?10/06/2022 1200 ? Endoscopy ? Pathologist: ? Cindy Weems MD ? Specimens: ?? A) - Duodenum ? B) - Stomach ? C) - GE Junction ? D) - Esophagus ? 10/08/2022 4:31 PM CDT [facility] FINAL DIAGNOSIS A. Duodenum, biopsy: Duodenal mucosa with focal mucosal erosion B. Stomach, biopsy: Mild non-specific chronic gastritis No Helicobacter organisms identified on immunohistochemical stain C. GE Junction, biopsy: Squamocolumnar mucosa negative for intestinal metaplasia and dysplasia D. Esophagus, biopsy: Esophageal mucosa with no diagnostic abnormality 10/08/2022 4:31 PM CDT [facility] Clinical Information Anemia GERD 10/08/2022 4:31 PM CDT [facility] Microscopic Description Microscopic examination is performed. Deeper levels were obtained on part A. 10/08/2022 4:31 PM CDT [facility] Special Stains The stain controls have been reviewed and stain appropriately. 10/08/2022 4:31 PM CDT [facility] ASR Disclaimer One or more of these tests were developed and the performance characteristics were determined by [facility]. They have not been cleared or [...] clinical laboratory testing. 10/08/2022 4:31 PM T [facility] Gross Description A: The specimen is [...] one cassette. DZ 10/08/2022 4:31 PM CDT [facility] Embedded Images 10/08/2022 4:31 PM CDT [facility] Tissue ESOPHAGEAL STRUCTURE / Unknown 10/06/2022 11:33 AM CDT 10/06/2022 12:00 PM CDT Tissue specimen (specimen) STOMACH STRUCTURE / Unknown 10/06/2022 11:33 AM CDT 10/06/2022 12:00 PM CDT Tissue specimen (specimen) ENTIRE INFERIOR ESOPHAGEAL SPHINCTER / Unknown 10/06/2022 11:33 AM CDT 10/06/2022 12:00 PM CDT Tissue specimen (specimen) ESOPHAGEAL STRUCTURE / Unknown 10/06/2022 11:33 AM CDT 10/06/2022 12:00 PM CDT Rahsel El MD LAB PATHOLOGY [facility] [address] * EGD (10/06/2022 10:14 AM CDT) [...] ? saturations were monitored ? continuously. The [id number] was ? introduced through the mouth, and [...] Procedure Code(s): ? --- Professional --- ? 15956, Esophagogastroduodenoscopy, ? flexible, transoral; with biopsy, ? [...] (additional time may ? be reported with 07838, as ? appropriate) Diagnosis Code(s): ? --- [...] ? K20.0, Eosinophilic esophagitis CPT copyright 2020 [employer]. All rights reserved. The codes documented in this report are preliminary and upon biochemical development engineer review may be revised to meet current [...] and oxygen saturations were monitored continuously. The [id number] was introduced through the mouth, and advanced [...] secretory therapy. Procedure Code(s): --- Professional --- 79773, Esophagogastroduodenoscopy, flexible, transoral; with biopsy, single or multiple G0500, Moderate sedation services provided by the same physician or other qualified health animal care supervisor performing a gastrointestinal endoscopic service that sedation supports, requiring the presence of an independent trained observer to assist in the monitoring of the patient's level of consciousness and physiological status; initial 15 minutes of intra-service time; patient age 5 years or older (additional time may be reported with 66201, as appropriate) Diagnosis Code(s): --- Professional --- K22.8, Other specified diseases of esophagus Z98.890, Other specified postprocedural states K31.89, Other diseases of stomach and duodenum K26.9, Duodenal ulcer, unspecified as acute or chronic, without hemorrhage or perforation R10.9, Unspecified abdominal pain D50.9, Iron deficiency anemia, unspecified R12, Heartburn K21.9, Gastro-esophageal reflux disease without esophagitis K20.0, Eosinophilic esophagitis CPT copyright 2020 [employer]. All rights reserved. The codes documented in this report are preliminary and upon biochemical development engineer review may be revised to meet current compliance requirements. Rashel El, 10/06/2022 11:43:34 AM Number of Addenda: 0 Note Initiated On: 10/06/2022 10:14 AM Endoscopy Report Boo Crowell MD PN GI PROCEDURE ORDJuan J CARDONA [facility] Organization Address City/State/ZIP Co de Phone Number [...] mL documented in this encounter Care Teams Driver Education Instructor Relationship Specialty Start Date End Date Needs Pcp, [place] [address] PCP - General 12/12/21 documented as of this encounter
--- OUTSIDE RECORDS SUMMARY | 2023-07-09 08:12 | XMS_ITS | Encounter Summary ---
Author Name Unknown Organization [facility] Address [address] [place] [address] Care Team Providers Care Cell Repairer Name Role Phone Needs Pcp, Assignment Primary Care Provider Reason for Visit * Reason Comments Provider Orders Encounter Details Date Type Department Care Team Description 08/03/2022 Telephone Specialty Center 6[address] [place], [place] [address] Boo Crowell MD [address] [facility] [address] [place] [address] Provider Orders Social History Tobacco [...] Akbar RN - 08/14/2022 10:39 AM CDT Audit Consultant was made aware by GI nurse Tara RN that [facility] called this morning and reported that they needed an ICD code indicated on pt's GES orders. Audit Consultant verified paper copy orders that there is a diagnosis code written code K31.84. Audit Consultant attempted to call [facility] multiple times, but received message that office is closed. Audit Consultant left message that ICD code is listed and left GI nursing phone number if any questions. * Mahsa Akbar RN - 08/13/2022 2:34 PM CDT Orders received. Faxed to [facility] via fax number provided below. Confirmation received. Placed in HIM for scanning. Fax numbers: [phone] or [phone] * Boo Crowell MD - 08/13/2022 12:13 PM CDT Order written and in my outbox. Thanks. * Denise Zhao RN - 08/03/2022 11:07 AM CST Patient calling - ROSA 07/30/[address] Crowell - calling to request the Gastric Emptying Scan order be faxed to where she has previously had the test - located out of the [facility] in [place]. (Audit Consultant called to verify that the machine is located in the [facility] and verified the numbers below from the staff - staff states that yes, that test is done out of the [facility]). Ph. [phone] Dr. Crowell: to review fill out fuschia. GI Nursing: Please call patient once orders are faxed. OF ADVERTISING documented in this encounter Plan of Treatment Upcoming Encounters Date Type Department Care Team Description 07/26/2023 1:30 PM HEAD OF ADVERTISING Appointment Specialty Center 6500 Endoscopy [address] [place] [address] 09/09/2023 3:40 PM CDT Telemedicine Specialty Center 6500 Gastroenterology [address] [employer] [facility] [place] [address] Boo Crowell MD [address] [facility] [address] [place], [place] [address] documented as of this encounter Visit Diagnoses Not on filedocumented in this encounter Care Teams Cell Repairer Relationship Specialty Start Date End Date Needs Pcp, [place], [place] [address] PCP - General 12/12/21 documented as of this encounter
--- OUTSIDE RECORDS SUMMARY | 2023-07-09 08:12 | XMS_ITS | Encounter Summary ---
Author Name Unknown Organization [facility] Address [address], [place] [address] Care Team Providers Care Tire Care Manager Name Role Phone Needs Pcp, Assignment Primary Care Provider Reason for Visit * Reason Comments ABDOMINAL PAIN Encounter Details Date Type Department Care Team Description 04/08/2023 Nurse Triage Careline [address] [place], [place] [address] Unassigned, Provider [address] [place] [address] ABDOMINAL PAIN Social History Tobacco Use Types [...] if pain is not improving or worsening TESTER * Boo Crowell MD - 04/09/2023 3:20 PM CST Sorry that is hard to determine what it is. If it is severe she should go into the ED, otherwise she'll need to be seen in clinic. Thanks. TESTER * Xena Choi RN - 04/09/2023 11:34 [...] eating. Dr. Crowell: please advise, thank you. TESTER * Bree Carbajal RN - 04/08/2023 5:29 [...] Patient states that since being transferred to dc she has not had any pain and [...] gets itchy Bacitracin Other, see comments itching Wtwwcdpygo-Lshpsjwp-Efueooymu PN: LW Reaction: ITCHY, SKIN SWELLS Bactine [Anesthetics, Amide] Rash Bactrim [Sulfamethoxazole-Trimethoprim] Itching Cat Hair Extract Other, see comments Nasal breathing Jublia [Efinaconazole] Severe skin breakdown Quinolones PN: LW Reaction: ARRHYTHMIA Reason for Disposition Abdominal pains regularly occur about 1 hour after meals Protocols used: Abdominal Pain - Zdhlw-URTWJ-YD Care advice given. Discussed calling GI in [...] 21/12. Bree Olguin RN 5:52 PM 04/08/2023 TESTER * Ping Lawson - 04/08/2023 5:26 PM CST Verified patient using 3 identifiers: Yes Caller reports the following red flag symptoms: Pt is having waves of severe abdominal pain. Pt haschronic GI issues. Plan: Transferred directly to a CareLine RN. ' TESTER documented in this encounter Plan of Treatment Upcoming Encounters Date Type Department Care Team Description 07/26/2023 1:30 PM LOAD TESTER Appointment Specialty Center 6[address] End[address] [facility] [place] [address] 09/09/2023 3:40 PM CDT Telemedicine Specialty Center [address] [place] [address] Boo Crowell MD [address] [facility] [address] [place] [address] documented as of this encounter Visit Diagnoses Not on filedocumented in this encounter Care Teams Tire Care Manager Relationship Specialty Start Date End Date Needs Pcp, [place] [address] PCP - General 12/12/21 documented as of this encounter
--- OUTSIDE RECORDS SUMMARY | 2023-07-09 08:12 | XMS_ITS | Encounter Summary ---
Author Name Unknown Organization [facility] Address [address], [place] [address] Care Team Providers Care Rail Car Mechanic Name Role Phone Needs Pcp, Assignment Primary Care Provider Reason for Visit * Reason Comments Other SIBO Encounter Details Date Type Department Care Team Description 06/23/2023 Telephone Specialty Center 6500 G[address] [employer] [place], [place] [id number] Boo Crowell MD [address] [facility] [address] [place] [address] Other (SIBO) Social History Tobacco Use Types Packs/Day Years [...] as of this encounter Nursing Notes * Monica Hernández LPN - 06/28/2023 11:46 AM CST Patient called regarding questions about SIBO. Patient wanted to know about how long she should hold her antiacids. Patient states that [facility] stated to hold for only 24 hours. Patient stated that otherplaces during her search wanted one week without antiacids. Line Pilot stated that we go by what [facility] recommends as they are the ones doing the testing. Patient states that she might hold her antiacids for long since it will not harm or disrupt the testing process. Patient had no other questions at thistime. Y LAB TECHNICIAN * Cindy Alcaraz RN - 06/28/2023 11:11 AM CST Pt returning call, states she can be reached at home # above, her mobile number often doesn't ring and she misses calls. Y LAB TECHNICIAN * Monica Hernández LPN - 06/23/2023 3:56 PM CST LMTCB Y LAB TECHNICIAN * Leticia Zabala RN - 06/23/2023 3:43 PM CST Pt calling with additional questions regarding SIBO testing. She has called the company multiple times but would like to discuss this further with GI. Routing to team. Y LAB TECHNICIAN documented in this encounter Plan of Treatment Upcoming Encounters Date Type Department Care Team Description 07/26/2023 1:30 PM DAIRY LAB TECHNICIAN Appointment Specialty Center 6500 Endoscopy [address] [employer] [facility] [address] 09/09/2023 3:40 PM CDT Telemedicine Specialty Center 6500 Gastroenterology [address] [facility] [address] Boo Crowell MD [address] [facility] [address] [place] [address] documented as of this encounter Visit Diagnoses Not on filedocumented in this encounter Care Teams Rail Car Mechanic Relationship Specialty Start Date End Date Needs Pcp, [place] [address] PCP - General 12/12/21 documented as of this encounter
--- OUTSIDE RECORDS SUMMARY | 2023-07-09 08:12 | XMS_ITS | Encounter Summary ---
Author Name Unknown Organization [facility] Address [address] [address] Care Team Providers Care Citrus Fruit Colorer Name Role Phone Needs Pcp, Assignment Primary Care Provider Reason for Referral * (Routine) - New Request Specialty Diagnoses / Procedures Referred By Bhumi wellington Referred To Contact Diagnoses Gastroesophageal reflux disease with esophagitis without hemorrhage Procedures Manometry Esophageal Boo Crowell MD [address] [facility] [address] [place] [address] Referral ID Status Reason Start Date Expiration Date V isits Requested Visits Authorized [id number] New Request 04/29/2023 07/28/2024 1 1 RAMMING COORDINATOR Reason for Visit * Reason Onset Date Comments Video Visit 04/29/2023 Encounter Details Date Type Department Care Team Description 04/29/2023 3:40 PM PROGRAMMING COORDINATOR Telemedicine Specialty Center [address] [place], [place] [address] Boo Crowell MD [address] [place], [place] [address] Gastroesophageal reflux disease with esophagitis without hemorrhage [...] Boo Crowell MD - 04/29/2023 3:40 PM PROGRAMMING COORDINATOR Jerri Avery, it was a pleasure seeing [...] any questions or concerns. Otherwise, take care! RAMMING COORDINATOR documented in this encounter Progress Notes * Boo Crowell MD - 04/29/2023 3:40 PM CST GI Clinic Consult - [facility] Gastroenterology - MD [place]anna Troy Truman Gena MR# [id number] Date of Visit: 04/29/23 MEDICAL DECISION MAKING [...] SUBJECTIVE: Date of Visit: 04/29/23 HPI: Joanna Avery is a 68 y.o. 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 Iron-Vitamin C (VITRON-C) 65-125 [...] BACITRACIN 07/12/2012 Other, see comments Unspecified Active VEEXLSAVQB-GCNZBBLM-TARPWRAMJ 04/25/2001 Allergy Active BACTINE [ANESTHETICS, AMIDE] 07/12/2012 [...] and mood GI Procedures: OSH records from [facility] in 07/2017 - incomplete bolus [...] noted during the study. - See the [employer] data report for further details. Impression: - [...] 70 minutes including, but not limited to, ipd-venv-vq-face time spent reviewing records, counseling, and coordination of care. Boo Crowell MD RAMMING COORDINATOR documented in this encounter Plan of Treatment Upcoming Encounters Date Type Department Care Team Description 07/26/2023 1:30 PM PROGRAMMING COORDINATOR Appointment Specialty Center 6500 Endoscopy [address] [place] [address] 09/09/2023 3:40 PM CDT Telemedicine Specialty Center 6500 Gastroenterology [address] [place] [address] Boo Crowell MD [address] [place] [address] Scheduled Orders Name Type Priority Associated Diagnoses [...] pain documented in this encounter Care Teams Citrus Fruit Colorer Relationship Specialty Start Date End Date Needs Pcp, [place] [address] PCP - General 12/12/21 documented as of this encounter
--- OUTSIDE RECORDS SUMMARY | 2023-07-09 08:12 | XMS_ITS | Encounter Summary ---
Author Name Unknown Organization [facility] Address [address], [place] [address] Care Team Providers Care Conference Planning Manager Name Role Phone Needs Pcp, Assignment Primary Care Provider Encounter Details Date Type Department Care Team Description 05/14/2023 Orders Only [facility] Provider, [place] [address] Social History Tobacco Use Types Packs/Day Years [...] Department Care Team Description 07/26/2023 1:30 PM TERRITORY MANAGER GENERAL SALES Appointment Specialty Center 6[address] [place] [address] 09/09/2023 3:40 PM CDT Telemedicine Specialty Center [address] [place] [address] Boo Crowell MD [address] [facility] [address] [place] [address] documented as of this encounter Procedures Procedure Name Priority Date/Time Associated Diagnosis Comments ENDOSCOPY 05/14/2023 documented in this encounter Results * ENDOSCOPY (05/14/2023) Interface Provider MD DUMMY/OTHER/AR documented in this encounter Visit Diagnoses Not on filedocumented in this encounter Care Teams Conference Planning Manager Relationship Specialty Start Date End Date Needs Pcp, [place] [address] PCP - General 12/12/21 documented as of this encounter
--- OUTSIDE RECORDS SUMMARY | 2023-07-09 08:12 | XMS_ITS | Encounter Summary ---
Author Name Unknown Organization [facility] Address [address], [place] [address] Care Team Providers Care Concrete Mixing Truck Driver Name Role Phone Needs Pcp, Assignment Primary Care Provider Encounter Details Date Type Department Care Team Description 09/29/2022 9:00 AM CDT Immunization [facility] Department [address] [place] [address] Encounter for administration of vaccine (Primary Dx) [...] Department Care Team Description 07/26/2023 1:30 PM FIELD TRAINING MANAGER Appointment Specialty Center 6500 Endoscopy [address] [facility] [place] [address] 09/09/2023 3:40 PM CDT Telemedicine Specialty Center 6500 Gastroenterology [address] [facility] [place] [address] Boo Crowell MD [address] [facility] [address] [place] [address] documented as of this encounter Visit Diagnoses Diagnosis Encounter for administration of vaccine- Primary documented in this encounter Care Teams Concrete Mixing Truck Driver Relationship Specialty Start Date End Date Needs Pcp, Assignment [place], [place] [address] PCP - General 12/12/21 documented as of this encounter
--- OUTSIDE RECORDS SUMMARY | 2023-07-09 08:13 | XMS_ITS | Encounter Summary ---
Author Name Unknown Organization [facility] Address [address] [place] [address] Care Team Providers Care Senior Chemical Engineer Name Role Phone Clinic, [facility] Primary Care Provider Reason for Visit * Reason Onset Date Comments Infection 02/06/2023 Encounter Details Date Type Department Care Team (Late st Contact Info) Description 02/06/2023 3:30 PM CDT Virtual Visit [facility] [address] [address] Maureen Newton MD [address] [place] [phone] Clinical diagnosis of COVID-19 (Primary Dx) Social [...] resent by: Send to e- mail at: [email or web address] Will anyone else be joining your video [...] patient. Treatment Planned Paxlovid RX sent to [facility] Temporary change to home medications: Hold rosuvastatin [...] Final Rocio Newton MD Virtual Urgent Care [facility] Guillermo Marshall is a [...] Total Score: 0 06/07/19 20 12:16 PM WET MACHINE TENDER documented as of this encounter Care Teams Senior Chemical Engineer Relationship Specialty Start Date End Date Clinic, [address] [address] PCP - General 08/06/15 documented as of this encounter
--- OUTSIDE RECORDS SUMMARY | 2023-07-09 08:13 | XMS_ITS | Encounter Summary ---
Author Name Unknown Organization [facility] Address [address], [place] [address] Care Team Providers Care Sales Trader Name Role Phone Needs Pcp, Assignment Primary Care Provider Encounter Details Date Type Department Care Team Description 07/29/2022 Telephone [facility] Endoscopy Procedures [address] [place] [address] Boo Crowell MD [address] [facility] [address] [place] [address] Social History Tobacco Use Types [...] have a copy of the Esophageal Manometry. LINE ASSEMBLER documented in this encounter Plan of Treatment Upcoming Encounters Date Type Department Care Team Description 07/26/2023 1:30 PM MAIN LINE ASSEMBLER Appointment Specialty Center 6500 Endoscopy [address] [place] [address] 09/09/2023 3:40 PM CDT Telemedicine Specialty Center 6500 Gastroenterology [address] [place] [address] Boo Crowell MD [address] [employer] [address] [place] [address] documented as of this encounter Visit Diagnoses Not on filedocumented in this encounter Care Teams Sales Trader Relationship Specialty Start Date End Date Needs Pcp, [place] [address] PCP - General 12/12/21 documented as of this encounter
--- OUTSIDE RECORDS SUMMARY | 2023-07-09 08:13 | XMS_ITS | Encounter Summary ---
Author Name Unknown Organization [facility] Address [address] [place] [address] Care Team Providers Care Small Animal Veterinarian Name Role Phone Needs Pcp, Assignment Primary Care Provider Encounter Details Date Type Department Care Team Description 08/03/2007 Scanned History External to [facility] OPERATIVE REPORT Social History Tobacco Use Types Packs/Day Years Used Date Smoking Tobacco: Never Assessed Sex and Gender Information Value Date Recorded Sex Assigned at Not on file Gender Identity Not on file Sexual Orientation Not on file documented as of this encounter Plan of Treatment Upcoming Encounters Date Type Department Care Team Description 07/26/2023 1:30 PM HYDROELECTRIC PLANT STRUCTURAL ENGINEER Appointment Specialty Center 6500 Endoscopy [address] [place] [address] 09/09/2023 3:40 PM CDT Telemedicine Specialty Center 6500 Gastroenterology [address] [place] [facility] [place] [place] [address] Boo Crowell MD [address] [facility] [address] [place] [address] documented as of this encounter Visit Diagnoses Not on filedocumented in this encounter Care Teams Small Animal Veterinarian Relationship Specialty Start Date End Date Needs Pcp, [place] [address] PCP - General 12/12/21 documented as of this encounter
--- OUTSIDE RECORDS SUMMARY | 2023-07-09 08:13 | XMS_ITS | Encounter Summary ---
Author Name Unknown Organization [facility] Address [address] [place] [address] Care Team Providers Care Taximeter Repairer Name Role Phone [facility] Primary Care Provider Encounter Details Date Type Department Care Team (Late st Contact Info) Description 02/06/2023 [facility] [address] [address] Maureen Newton MD [address] [place] [phone] Social History Tobacco Use Types Packs/Day Years [...] Total Score: 0 06/07/19 20 12:16 PM SWINE EXTENSION FIELD SPECIALIST documented as of this encounter Care Teams Taximeter Repairer Relationship Specialty Start Date End [facility] [address] [place] [address] PCP - General 08/06/15 documented as of this encounter
--- OUTSIDE RECORDS SUMMARY | 2023-07-09 08:13 | XMS_ITS | Encounter Summary ---
Author Name Unknown Organization [facility] Address [address], [place] [address] Care Team Providers Care Structural Engineering Drafting Officer Name Role Phone Needs Pcp, Assignment Primary Care Provider Reason for Referral * Procedure/Equipment (Routine) - Incomplete Specialty Diagnoses / Procedures Referred By Bhumi wellington Referred To Contact Diagnoses Heartburn Dyspepsia Procedures NM Gastric Emptying Scan Boo [place]ell MD [address] [employer] [address] [place] [address] Referral ID Status Reason Start Date Expiration Date V isits Requested Visits Authorized [id number] Incomplete 07/30/2022 10/29/2023 6 6 UARD LOOM CARPET WEAVER * Procedure/Equipment (Routine) - New Request Specialty Diagnoses / Procedures Referred By Bhumi wellington Referred To Contact Diagnoses Heartburn Procedures EGD Boo Crowell MD [address] [place] [address] Referral ID Status Reason Start Date Expiration Date V isits Requested Visits Authorized [id number] New Request 07/30/2022 10/29/2023 1 1 UARD LOOM CARPET WEAVER Encounter Details Date Type Department Care Team Description 07/30/2022 9:10 AM JACQUARD LOOM CARPET WEAVER Office Visit Specialty Center 6500 Gastroenterology [address] [place] [address] Boo Crowell MD [address] [facility] [address] [place] [address] Heartburn (Primary Dx); Dyspepsia; Hx SBO; Iron [...] 62.1 kg (137 lb) 07/30/2022 9:12 AM JACQUARD LOOM CARPET WEAVER Height - - Body Mass Index 23.52 03/06/2021 8:46 AM CDT documented in this encounter Patient Instructions * Patient Instructions* Boo Crowell MD - 07/30/2022 9:10 AM JACQUARD LOOM CARPET WEAVER Jerri Avery, it was a pleasure seeing [...] any questions or concerns. Otherwise, take care! UARD LOOM CARPET WEAVER documented in this encounter Progress Notes * Boo Crowell MD - 07/30/2022 9:10 AM CST GI Clinic Consult - [facility] - Boo Crowell MD Joanna Avery MR# [id number] Date of Visit: 07/30/22 MEDICAL DECISION MAKING [...] switch GI docs bc her doc at [facility] stopped seeing patients. - she went to [facility] and was initially happy, but had less [...] propionate (FLONASE) 50 MCG/ACT nasal solution 1 [place] by Nasal route. Iron-Vitamin C (VITRON-C) 65-125 [...] BACITRACIN 07/12/2012 Other, see comments Unspecified Active [id number] 04/25/2001 Allergy Active BACTINE [ANESTHETICS, AMIDE] 07/12/2012 [...] Department Care Team Description 07/26/2023 1:30 PM JACQUARD LOOM CARPET WEAVER Appointment Specialty Center 6500 Endoscopy [address] [facility] [place] [address] 09/09/2023 3:40 PM CDT Telemedicine Specialty Center 6500 Gastroenterology [address] [facility] [place] [address] Boo Crowell MD [address] [place] [address] Scheduled Orders Name Type Priority Associated Diagnoses [...] ? saturations were monitored ? continuously. The [id number]-[id number] was ? introduced through the mouth, and [...] Procedure Code(s): ? --- Professional --- ? 24407, Esophagogastroduodenoscopy, ? flexible, transoral; with biopsy, ? [...] (additional time may ? be reported with 959[address], as ? appropriate) Diagnosis Code(s): ? --- [...] ? K20.0, Eosinophilic esophagitis CPT copyright 2020 [employer]. All rights reserved. The codes documented in this report are preliminary and upon size marker review may be revised to meet current [...] and oxygen saturations were monitored continuously. The FMV-[id number] was introduced through the mouth, and advanced [...] duodenum. Estimated blood loss was minimal. The Rewarding Return capsule with delivery system was introduced through [...] secretory therapy. Procedure Code(s): --- Professional --- 88365, Esophagogastroduodenoscopy, flexible, transoral; with biopsy, single or multiple G0500, Moderate sedation services provided by the same physician or other qualified health personal care aide performing a gastrointestinal endoscopic service that sedation supports, requiring the presence of an independent trained observer to assist in the monitoring of the patient's level of consciousness and physiological status; initial 15 minutes of intra-service time; patient age 5 years or older (additional time may be reported with [address]19[address], as appropriate) Diagnosis Code(s): --- Professional --- K22.8, Other specified diseases of esophagus Z98.890, Other specified postprocedural states K31.89, Other diseases of stomach and duodenum K26.9, Duodenal ulcer, unspecified as acute or chronic, without hemorrhage or perforation R10.9, Unspecified abdominal pain D50.9, Iron deficiency anemia, unspecified R12, Heartburn K21.9, Gastro-esophageal reflux disease without esophagitis K20.0, Eosinophilic esophagitis CPT copyright 2020 [employer]. All rights reserved. The codes documented in this report are preliminary and upon size marker review may be revised to meet current [...] Heartburn documented in this encounter Care Teams Structural Engineering Drafting Officer Relationship Specialty Start Date End Date Needs Pcp, [place] [address] PCP - General 12/12/21 documented as of this encounter
--- OUTSIDE RECORDS SUMMARY | 2023-07-09 08:13 | XMS_ITS | Referral Summary ---
Author Name Unknown Organization [facility] Address [address] [place] [address] Care Team Providers Care Motorcycle Delivery Driver Name Role Phone Clinic, [facility] Primary Care Provider Allergies Active Allergy Reactions [...] swelling Skin redness, swelling Severe skin breakdown Bfqptnel-Uznijjbpnn-Echu myxin Other (See Comments) Medium 05/11/2018 Skin [...] Comments Blood Pressure 120/70 06/07/2019 10:32 AM LASTING FLOORWORKER Pulse 78 06/07/2019 10:32 AM LASTING FLOORWORKER Temperature - - Respiratory Rate - - Oxygen Saturation - - Inhaled Oxygen Concentration - - Weight 59.8 kg (131 lb 12.8 oz) 021 10:36 AM CDT Height 162.6 cm (5' 4) 10/16/2020 10:3 6 AM CDT Body Mass Index 22.62 10/16/2020 10:36 AM CDT Plan of Treatment Not on file Care Teams Motorcycle Delivery Driver Relationship Specialty Start Date End Date Clinic, [address] [address] PCP - General 08/06/15
--- OUTSIDE RECORDS SUMMARY | 2023-07-09 08:13 | XMS_ITS | Encounter Summary ---
Author Name Unknown Organization [facility] Address [address] [place] [address] Care Team Providers Care Plate Cleaner Name Role Phone Needs Pcp, Assignment Primary Care Provider Encounter Details Date Type Department Care Team Description 08/03/2007 Scanned History External to [facility] OPERATIVE REPORT Social History Tobacco Use Types Packs/Day Years Used Date Smoking Tobacco: Never Assessed Sex and Gender Information Value Date Recorded Sex Assigned at Not on file Gender Identity Not on file Sexual Orientation Not on file documented as of this encounter Plan of Treatment Upcoming Encounters Date Type Department Care Team Description 07/26/2023 1:30 PM CORPORATE TUTOR Appointment Specialty Center 6500 Endoscopy [address] [place] [address] 09/09/2023 3:40 PM CDT Telemedicine Specialty Center 6500 Gastroenterology [address] [facility] [place] [address] Boo Crowell MD [address] [facility] [facility] [address] [place] [address] documented as of this encounter Visit Diagnoses Not on filedocumented in this encounter Care Teams Plate Cleaner Relationship Specialty Start Date End Date Needs Pcp, [place] [address] PCP - General 12/12/21 documented as of this encounter
--- OUTSIDE RECORDS SUMMARY | 2023-07-09 08:13 | XMS_ITS | Clinical Summary ---
Author Name Unknown Organization [facility] [facility] Address [address] [place] [address] Care Team Providers Care Bad Work Gatherer Name Role Phone Clinic, [facility] Primary Care Provider Allergies Active Allergy [...] swelling Skin redness, swelling Severe skin breakdown Jxegqdaq-Worhmnvtjo-Jlfi myxin Other (See Comments) Medium 05/11/2018 Skin [...] Comments Blood Pressure 120/70 06/07/2019 10:32 AM A OPERATOR Pulse 78 06/07/2019 10:32 AM A OPERATOR Temperature - - Respiratory Rate - - [...] (Cologuard) 1955 HEPATITIS C SCREENING 1973 LIPID 1995 RSV VACCINE ( & 60+) (1 - 1-dose 60+ series) 2015 ZOSTER IMMUNIZATION (3 of 3) 04/12/2019 02/15/2019, 03/15/2017 FALL RISK ASSESSMENT 2020 MEDICARE ANNUAL WELLNESS VISIT 10/16/2021 10/16/2020 GLUCOSE 05/29/2022 05/29/2019 COVID-19 Vaccine ( season) 2023 09/29/2022, 03/17/2022, [...] age to complete this topic Care Teams Bad Work Gatherer Relationship Specialty Start Date End Date Clinic, [facility] [address] [place] [address] PCP - General 08/06/15
--- NOTE | 2023-07-09 08:15 | CRLHL7_ITS ---
For Patients: As a result of the 21st Century Cures Act, medical imaging exams and procedure reports are released immediately into your electronic medical record. You may view this report before your referring provider. If you have questions, please contact your health care provider. INDICATION: Shoulder pain. COMPARISON: None. TECHNIQUE: Axial T1 and PD fat-sat, coronal PD, T2 and PD fat sat and sagittal PD and T2 right shoulder sequences. FINDINGS: Rotator cuff: Full-thickness tear from the supraspinatus footplate and distal tendon with apparent sparing at the anterior-most margin at the rotator interval. Tear is approximately 9 mm anterior-posterior and 6 mm greatest retraction. Hazy intermediate signal disorganized tendinosis mildly expands intact posterior and proximal supraspinatus with some shallow articular tearing in the anterior proximal supraspinatus. Moderate intermediate signal tendinosis without tearing expands infraspinatus. Intact teres minor. Shallow tendinosis subscapularis without significant tear. Mild grade 1 atrophy of supraspinatus with the other rotator cuff muscles appropriate for age and body habitus. - Acromioclavicular joint and coracoacromial arch: Curved type 2 acromial undersurface. Shallow broad subacromial spur. Acromiohumeral distance 6 mm. Small amount of fluid and moderate synovitis in the subacromial/subdeltoid bursa. Moderate degenerative arthrosis AC joint without significant inferior osteophyte. No clavicular dislocation or fracture. Subcoracoid interval is patent. - Biceps labral complex: Blunted intermediate signal degenerated labrum. Intact biceps anchor. Appropriately located normal caliber biceps tendon. - Glenohumeral joint: Anatomic alignment. Uniform well maintained cartilage thickness and signal. Upper normal physiologic fluid. Strandy intermediate signal synovitis in the axillary recess. No intra-articular body. No capsulitis. - Bones and soft tissues: No fracture or bone lesion. Deltoid bulk and signal is normal. Visualized axilla is unremarkable. IMPRESSION: 1. Small full-thickness tear of the supraspinatus. Prominent tendinosis supraspinatus and infraspinatus. Moderate marginal tendinosis subscapularis. 2. Subacromial spurring. Moderate AC DJD. 3. Circumferential mucoid degeneration and degenerative tearing glenoid labrum without displacement. 4. Subacromial/subdeltoid bursitis. Dictated by Nate Resendiz MD @ 07/09/2023 11:42:51 AM (Electronically Signed)
== END 2023-07-09 08:09 | disposition home or self-care (01) ==
LOC: MRI 08:09
PROVIDERS: PCP Internal Medicine; Visit Provider Internal Medicine
DX: M25.511 Pain in right shoulder (principal); M75.101 Unspecified rotator cuff tear or rupture of right shoulder, not specified as traumatic; M19.011 Primary osteoarthritis, right shoulder; M75.51 Bursitis of right shoulder; S43.431A Superior glenoid labrum lesion of right shoulder, initial encounter
CPT/HCPCS: 73221

== ENCOUNTER 2024-03-07 10:30 | Outpatient (RCR) | payer MEDICARE, BC, SELFPAY ==
--- NOTE | 2023-06-21 08:35 | PT.OPEX ---
PT [place] Outpatient Eval PT [facility] Outpatient Eval Start: 06/18/23 17:40 Freq: Status: Active Protocol: Document 06/18/23 17:41 CONG (Rec: 06/18/23 17:47 CONG [id number]) E-signed By Mela Gar DPT Physical Therapy Outpatient Evaluation Insurance Information Recert Due Date 09/16/23 Insurance Name Medicare B,Blue Cross/Blue Shield Medical Diagnosis R biceps tendinopathy, R RC tendinopathy Treating Diagnosis R shoulder pain, impaired R shoulder ROM, impaired R shoulder/UE mobility/strength, impaired posture, limited tolerance for reaching/lifting /dressing activities using R shoulder/UE, interrupted sleep . Subjective Subjective Patient reports chronic R shoulder pain with onset about 6 weeks ago. States she was trying to pull her phone out of her front pocket and had pain/weakness/difficulty pulling it out. She reports noticing some prior limitations with her R shoulder/UE with difficultly lifting/placing her arm for mammograms. Now reporting ongoing pain, weakness, difficulty moving R shoulder/ UE. She is able to use her R arm at lower levels but limited with any reaching up/ out or any lifting up/out. Pain range 0-6/10. She denies any recent injury/trauma to her R shoulder but report hx of R AC separation and R frozen shoulder with prior injection years ago. She is using tylenol on occasion. Using heating pad mutliple times a day, which feels good. Sleep is more interrupted secondary to R shoulder pain. 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 Pain range 0-6/10. Patient reports increased pain with any use of R shoulder/UE for reaching or lifting out/up. Patient is quite limited with R shoulder AROM this session. R shoulder AROM: flex 85 degrees , abd/scap 80 degrees, IR with R hand to back of R hip, ER with R hand to back of head but needing compensatory movements to get it there. Patient unable to position for MMT R shoulder flex, scap, abd secondary to pain and weakness. IR/ER strength 4-/5 with pain/weakness. Patient is tight, tender with palpation R shoulder region including R supraspinatus, R UT, R posterior shoulder, R teres musculature, R anterior shoulder, R bicep tendon, and over R RC tendons/lateral shoulder region. Able to initiate some gentle R shoulder exercises this session. Initiated US and MT treatment in attempt to decrease tightness, tension, pain in R shoulder musculature . Reviewed with patient there is some concern for RC injury and if she did not make progress with PT treatments recommendation would be return to MD for an MRI. Patient expressed understanding and is in agreement with plan. Patient would benefit from skiled PT for pain/sx management, improved R shoulder ROM, improved R shoulder/UE mobility/strength, return to functional use of R shoulder/UE, and establishment of HEP. Plan of Care Rehabilitation Potential Good Physical Therapy Goals 1. Decrease R shoulder pain to less than/equal to 3/10 with daily activities and with the progression of PT activities over the next 6-8 weeks. 2. Improve R shoulder PROM over the next 4-6 weeks to prepare for return to functional use of R shoulder/UE. 3. Improve R shoulder AROM over the next 6-8 weeks for return to functional use of R shoulder/ UE with daily activities. 4. Improve R shoulder/UE strength over the next 10-12 weeks for return to full functional use of R shoulder/UE with daily activities. 5. Patient will be I with HEP within 12 weeks for progression toward above goals, ongoing self management of pain/sx, ongoing self improvements in ROM/strength/function, and for return to full functional use of R shoulder/UE with daily activities. Coordination/Communication With Referral Source Treatment Plan/Direct Interventions Manual Therapy,Therapeutic Exercises,Ultrasound Frequency/Duration 1-2x/week Patient Will Be Discharged From Therapy Completion of LTG(s),Skills Plateau,Independent w/HEP, Independently Progressing Evaluation Billing Untimed Code Treatment Minutes 22 Complexity Moderate Certification Information Initial Certification Date 06/18/23 Ending Certification Date 09/16/23 Provider Signature Shows Agreement With POC & Medical Necessity Physician Signature & Date Requested Please Sign/Date Here Physician Comment/Change : Physician NPI Number #
--- NOTE | 2023-12-28 15:56 | PT.OPDNX ---
PT [facility] Daily Note PT [facility] Daily Note Start: 06/18/23 17:40 Freq: Status: Active Protocol: Document 12/28/23 14:45 CONG (Rec: 12/28/23 15:55 CONG [id number]) E-signed By Mela Gar DPT PT OP Daily Progress Note Visit Information Note Type Daily Note,Recert/Progress Note Visit Number [id number] Insurance Authorized Visits - Physician Authorized Visits - Insurance Information Recert Due Date 03/17/24 Insurance Name Medicare B,Blue Cross/Blue Shield Medical Diagnosis R biceps tendinopathy, R RC tendinopathy Treating Diagnosis R shoulder pain, impaired R shoulder ROM, impaired R shoulder/UE mobility/strength, impaired posture, limited tolerance for reaching/lifting /dressing activities using R shoulder/UE, interrupted sleep . Subjective Preferred Name [place] Subjective Patient had follow up with MD prior to her PT appt today. Reports having an injection to her R shoulder. States the injection was painful, still feeling sore this session so she is unsure how much she will be able to do this session. Patient states MD thought her ROM had improved a little - they reviewed options of manipulation and RC surgery or injection. Patient wanted to try the injection. HEP is going well. Spouse continues to assist with ROM, stretching at home as well. 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 Home Exercise Home Exercise Comments R shoulder codmans shoulder rolls, scap sets florina flex/scap table slide flex, circles, alphabet table ER stretching HO issued for HEP Objective Patient Instructed in Risks/Benefits Yes Therapeutic Exercise Therapeutic Exercise Minutes (minutes) 30 Therapeutic Exercise: To Restore Review of HEP Functional Status R shoulder codmans performed between exercises UBE x 5 min, fwd/back, mid resistance florina flex, circles wall slides - flex, circles CW /CCW, snow angels 2 x 10 lat pull downs - 4 plates 2 x 20 hands together flex 2 x 10 seated R shoulder AROM answered patient questions regarding injection, ROM, stretching, exercises - patient not wanting to over do it after her injection a short time ago Treatment Minutes Timed Code Treatment Minutes 30 Total Treatment Time 30 Billing Units Therapeutic Exercise Units 2 Assessment/Impression Assessment/Impression Patient had follow up with MD this afternoon, states she had injection to her R shoulder. She reports pain with the injection and still having some pain/soreness after the injection. She is agreeable to some ROM, stretching exercises this session. Overall, R shoulder P/AAROM continue to slowly improve. Patient with some ongoing tightness at end ranges, but limited with IR. Continued with focus on ROM, stretching to loosen up R shoulder capsule/soft tissue and improve ROM. Ongoing weakness also noted in R shoulder with AROM. Patient with difficulty holding R shoulder in test positions for flex/ scap/abd due to pain/weakness. R shoulder ER 4/5, IR 3+/5 with MMT. Reviewed IR stretching with wand behind back and with hands on hips. Patient to continue with her HEP. Recheck in PT next week. She is making progress toward her PT goals but recovery of her ROM from adhesive capsulitis has been slow and patient with ongoing weakness secondary to limited use of R shoulder over the last 7-8 months and her RC tear. Will continue to progress with R shoulder ROM and strength as able. Continue with PT POC. Plan of Care Physical Therapy Goals 1. Decrease R shoulder pain to less than/equal to 3/10 with daily activities and with the progression of PT activities over the next 6-8 weeks. 2. Improve R shoulder PROM over the next 4-6 weeks to prepare for return to functional use of R shoulder/UE. 3. Improve R shoulder AROM over the next 6-8 weeks for return to functional use of R shoulder/ UE with daily activities. 4. Improve R shoulder/UE strength over the next 10-12 weeks for return to full functional use of R shoulder/UE with daily activities. 5. Patient will be I with HEP within 12 weeks for progression toward above goals, ongoing self management of pain/sx, ongoing self improvements in ROM/strength/function, and for return to full functional use of R shoulder/UE with daily activities. Daily Plan of Care Continue per POC Recertification Information Recertification Start Date 12/20/23 Recertification Due Date 03/17/24 Reasons to Continue Skilled Therapy see above note - ongoing progress toward PT goals Rehabilitation Potential good Continued Plan of Care and Interventions 1x/week Provider Signature Shows Agreement With POC & Medical Necessity Physician Comment/Change Comment or Changes Physician NPI Number #
== END 2024-07-05 23:59 | disposition home or self-care (01) ==
PROVIDERS: PCP Internal Medicine; Visit Provider Internal Medicine
DX: M67.911 Unspecified disorder of synovium and tendon, right shoulder (principal); M67.921 Unspecified disorder of synovium and tendon, right upper arm; M25.511 Pain in right shoulder; Z74.09 Other reduced mobility; G47.9 Sleep disorder, unspecified; R29.3 Abnormal posture; R29.898 Other symptoms and signs involving the musculoskeletal system; Z51.89 Encounter for other specified aftercare
CPT/HCPCS: 80061; 82565; 82728; 82947; 83735; 84443; 84450; 84460; 97035; 97110; 97140; 97162

== ENCOUNTER 2024-04-25 09:45 | Outpatient (RCR) | payer MEDICARE, BC, SELFPAY ==
--- NOTE | 2024-03-29 12:23 | PT.OPE ---
PT [facility] Eval PT [facility] Outpatient Eval Start: 03/29/24 08:23 Freq: Status: Active Protocol: Document 03/29/24 12:22 CJT (Rec: 03/29/24 12:23 CJT [id number]) E-signed By Merrick Garcia PT Physical Therapy Outpatient Evaluation Insurance Information Recert Due Date 06/27/24 Insurance Name Medicare B Medical Diagnosis acute LBP Treating Diagnosis Low back pain Referring Chau Myles Subjective Preferred Name Flower Subjective Pt presents with complaints of low back pain. Pain began on 03/22/24 when she bent over to pick something up. Pain has gone up to a 10/10 at ties with certain movements/ positions. Sitting has felt fine. Pain is across the low back but worse on the L side. Pt has been experiencing spasms nearly constantly. Started prednisone yesterday and has not had spasms since. Currently struggling with walking, laundry, dishes. Sleeps in a sleep number bed that is elevated and has been able to sleep okay. Has issues if she needs to move. Needs to get out of bed and then get back in bed if she needs to reposition. 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[employer]) Precautions Therapy Limitations/Systems Review Not Limited Objective Other/Pertinent Objective Lumbar ROM Extension - max limitations Flexion - can reach approx 5 inches from toes, needs to move slowly and experiences some pain in L lumbar adventist and L SIJ R/L Side Bend - moderate limitations B, no pain R/L Rotation - moderate limitations B, no pain R Hip ROM - WNL Flexion - IR/ER - Extension - L Hip ROM Flexion - IR/ER - Extension - R knee ROM - WNL L knee ROM - WNL B LE strength grossly 5/5 MMT Palpation: pt reports pain/ tenderness with palpation to B thoracic and lumbar paraspinals, glute med, and piriformis Gait: short stride length B Special Testing Slump: negative B SLR: negative B FADIR: negative B HEATHER: positive B for reduced ROM Zeynep's: DNT - pt does not tolerate prone position Piriformis: positive B Hamstring: minimally positive B Pelvis: DNT Leg Length (R/L): DNT Assessment Assessment/Impression Flower is a very pleasant 68 year old female who presents to our clinic for evaluation and treatment of low back pain . Today's evaluation was quite limited due to pts high level of pain in low back. We will plan to repeat strength and ROM testing when pt returns. Pts pain appears to be due primarily to muscle spasms in the low back, likely facilitated by weakness and instability. She noted significant improvement in her pain following today's treatment of gentle massage, mobility and stretching exercises, and use of high and low frequency electrical stimulation. We will continue to progress exercises as able moving forward with focus on progressing towards low back and hip and core strengthening with hopes of reducing risk of this problem occurring again. The nature of the pts condition was explained and all questions were answered to the pts satisfaction. Skilled PT services are medically necessary to address deficits and return patient to highest level of function. Recommend physical therapy sessions 1-2/ week for 4-8 weeks. Pt agrees with this plan. Printout of HEP was given for I completion and pt gives verbal understanding of each exercise . Primary Functional Limitations Walking, bending Plan of Care Rehabilitation Potential Good Physical Therapy Goals STG - To be completed in 4 weeks: 1. Pt will report reduction in back pain by factor of 2 so that they may perform all ADLs with tolerable level of pain. 2. Pt will demonstrate ability to perform pelvic tilt with good coordination as indication of appropriate firing of pelvic and lumbar stabilizing muscles to provide greater support for pelvis and lumbar spine. 3. Pt will demonstrate 5/5 MMT for all LE motions without reproduction of pain to provide greater support to pelvis and lumbar spine. 4. Pt will report ability to tolerate 30+ minutes of standing so that they may shop for groceries at store. LTG - To be completed in 8-12 weeks: 1. Pt to be I with HEP so that they may I manage progression of symptoms. 2. Pt will report ability to roll over in bed without standing up so that she may quickly turn over with minimal waking, so that she may achieve a better night's sleep . 3. Pt will demonstrate ability to bend forward to picker and sorter load and unload shoe off of ground without increase in back pain so that they may perform similar activities at home without return of symptoms. Treatment Plan/Direct Interventions Dry Needling,Electrical Stimulation,Gait Training,Heat ,Ice/Cold/Vasopneumatic,Joint Mobilization,Manual Therapy, Neuromuscular Re-ed,Self-Care/ Home Management,Therapeutic Activities,Therapeutic Exercises Frequency/Duration 2 reducing to 1/week for 4-8 weeks Patient Will Be Discharged From Therapy Completion of LTG(s),Skills Plateau,Independent w/HEP, Independently Progressing Evaluation Billing Untimed Code Treatment Minutes 40 PT Eval No Charge No Complexity Low Certification Information Initial Certification Date 03/29/24 Ending Certification Date 06/27/24 Provider Signature Required Yes Provider Signature Shows Agreement With POC & Medical Necessity Physician NPI Number Write NPI# Here Physician Comment/Change : Physician Signature & Date Requested Please Sign/Date Here
== END 2024-07-26 13:37 | disposition home or self-care (01) ==
PROVIDERS: PCP Internal Medicine; Visit Provider Family Medicine
DX: M54.50 Low back pain, unspecified (principal); Z51.89 Encounter for other specified aftercare
CPT/HCPCS: 97032; 97110; 97140; 97161

== ENCOUNTER 2024-06-15 13:12 | Outpatient (CLI) | payer MEDICARE, BC, SELFPAY | END 2024-06-15 13:13 | disposition home or self-care (01) | LOC: NFLDREF 13:12 | PROVIDERS: PCP Internal Medicine; Visit Provider Internal Medicine | DX: I10 Essential (primary) hypertension (principal) | CPT/HCPCS: 80048 ==

== ENCOUNTER 2024-06-30 06:13 | Day surgery (SDC) | payer MEDICARE, BC, SELFPAY ==
[2024-06-30] VITALS (13 sets, daily range): BP systolic 108–168; BP diastolic 48–96; PULSE 54–66; RESP 16–20; TEMP 36–36.6; O2SAT 96–100; BMI 25.9
--- OUTSIDE RECORDS SUMMARY | 2024-06-30 06:16 | XMS_ITS | Referral Summary ---
Author Organization [facility] Address [address] [place] [id number] Care Team Providers Care Rubber Goods Inspector Tester Name Role Phone [facility], [facility] ([place], [place]) Primary Care Provider Allergies Active Allergy Reactions [...] swelling Skin redness, swelling Severe skin breakdown Syuqyuwd-Wkzzniudab-Fxvi myxin Other (See Comments) Medium 05/11/2018 Skin itching, redness, swelling Other reaction(s): Other Skin itching, redness, swelling Skin itching, redness, swelling Quinolones Other (See Comments) High 04/25/2001 Skipped beats PN: LW Reaction: ARRHYTHMIA Irregular heart beat Other reaction(s): Other causes skipping heartbeat Other reaction(s): Other Irregular heart beat Other reaction(s): Irregular Heartbeat Skipped beats causes skipping heartbeat Medications ALBUTEROL IN Inhale 1-2 puffs into the lungs as needed 07/09/2006 Active Zinc Sulfate (ZINC 15 PO) Take 50 mg by mouth daily Active Calcium Citrate-Vitamin D 200-250 MG-UNIT TABS Take 2 tablets by mouth daily Active fish oil-omega-3 fatty acids 1000 MG capsule Take 2 g by mouth daily Active metoprolol tartrate (LOPRESSOR) 100 MG tablet Take 50 mg by mouth daily Patient take ER tabs Active pantoprazole (PROTONIX) 20 MG EC tablet Take 40 mg by mouth daily Active clonazePAM (KLONOPIN) 0.5 MG tablet Take 0.5 mg by mouth 2 times daily as needed for anxiety Active multiple vitamin tablet TABS Take 1 tablet by mouth daily Active rosuvastatin (CRESTOR) 20 MG tablet TAKE 1 TABLET BY MOUTH EVERYDAY AT BEDTIME 08/10/2020 Active Active Problems No known active [...] School Help Needed Not on file 03/14 Comments No Sex and Gender Information Value Date Recorded Sex Assigned at Not on file Legal Sex Female 3:15 AM TECHNICAL AIDE Gender Identity Not on file Sexual Orientation Not on file Last Filed Vital Signs Vital Sign Reading Time Taken Comments Blood Pressure 120/70 06/07/2019 10:32 AM TECHNICAL AIDE Pulse 78 06/07/2019 10:32 AM TECHNICAL AIDE Temperature - - Respiratory Rate - - Oxygen Saturation - - Inhaled Oxygen Concentration - - Weight 59.8 kg (131 lb 12.8 oz) 021 10:36 AM CDT Height 162.6 cm (5' 4) 10/16/2020 10:3 6 AM CDT Body Mass Index 22.62 10/16/2020 10:36 AM CDT Plan of Treatment Not on file Procedures Procedure Name Priority Date/Time Associated Diagnosis Comments PAP IMAGED THIN LAYER SCREEN Routine 10/16/2020 12:28 PM CDT Screening for cervical cancer GLUCOSE Routine 05/29/2019 from Last 3 Months or Most Recently Relevant to Health Maintenance Results * Glucose (05/29/2019) Glucose 99 60 - 99 mg/dL [facility] Blood specimen (specimen) 05/29/2019 Narrative [facility] - 05/29/2019 LAB RESULT [facility] us Provider Outside LAB - BLOOD ORDERABLES Final Re sult [facility] [address] [address], [facility] [phone] from Last 3 Months or Most Recently Relevant to Health Maintenance Insurance MEDICARE MEDICARE [facility] MEDICARE SUPPLEMENT Care Teams Rubber Goods Inspector Tester Relationship Specialty Start Date End Date [facility], [facility] ([place], [place]) [address] [place] [address] PCP - General 08/06/15
--- OUTSIDE RECORDS SUMMARY | 2024-06-30 06:16 | XMS_ITS | Encounter Summary ---
Author Organization [facility] Address [address], [place] [address] Care Team Providers Care Supervisor Type Photography Name Role Phone Needs Pcp, Assignment Primary Care Provider [phone] Encounter Details Date Type Department Care Team (Late st Contact Info) Description 08/03/2007 Scanned History External to [facility]PER[facility] REPORT Social History Tobacco Use Types Packs/Day Years Used Date Smoking Tobacco: Never Assessed Sex and Gender Information Value Date Recorded Sex Assigned at Not on file Gender Identity Not on file Sexual Orientation Not on file documented as of this encounter Plan of Treatment Upcoming Encounters Date Type Department Care Team (Late st Contact Info) Description 07/25/2024 11:00 AM CONE PICKER Appointment Endoscopy at [facility] at [address] [place] [address] Boo Crowell MD [address] [place] [address] [address] [place] [address] documented as of this encounter Visit Diagnoses Not on filedocumented in this encounter Care Teams Supervisor Type Photography Relationship Specialty Start Date End Date Needs Pcp, Assignment [place], [place] [id number] PCP - General 12/12/21 documented as of this encounter
--- OUTSIDE RECORDS SUMMARY | 2024-06-30 06:16 | XMS_ITS | Clinical Summary ---
Author Organization [facility] [facility] [facility] Address [address] [address] Care Team Providers Care Robotic Machine Operator Name Role Phone Needs Pcp, Assignment Primary Care Provider Source Comments You are receiving this document as you are listed as the primary care provider,follow-up provider, or the patient has been referred to you for consultation.This is in compliance with the Medicare andMedicaid EHR Incentive Program,which states Providers who transition their patient to another setting of careor provider of care or refers their patient to another provider of care shouldprovide summary care record for each transition of care or referral. [employer] Allergies Active Allergy Reactions Criticality Noted Date Comments Adhesive Other, see comments 01/08/2012 Tape it outlines the adhesive spot & gets itchy Bacitracin Other, see comments 07/12/2012 itching Onwpguucci-Pmezioyd-Zjh ymyxin 04/25/2001 PN: LW Reaction: ITCHY, SKIN SWELLS Anesthetics, Amide Rash 07/12/2012 Sulfamethoxazole-Trimet hoprim Itching 08/08/2019 Cat Dander Other, see comments 08/06/2006 Nasal breathing Efinaconazole [...] times a day. 34.8 3 07/09/2006 Active magnesium oxide (AKA MAG-OX 400) 250 MG tablet daily with breakfast. Active zinc gluconate 50 MG tablet Take 1 Tablet (50 mg) by mouth daily. Active triamcinolone (NASACORT AQ) 55 MCG/ACT nasal inhaler Place 2 Sprays into both nostrils daily. Active rosuvastatin (CRESTOR) 20 MG tablet TAKE 1 TABLET BY MOUTH EVERYDAY AT BEDTIME 10/27/2019 Active CALCIUM CITRATE-VITAMIN D OR Take 2 Tablets by mouth. Active fluocinonide (LIDEX) 0.05 % external solution Apply topically. 06/27/2015 A ctive fluticasone propionate (FLONASE) 50 MCG/ACT nasal solution 1 [place] by Nasal route. 08/17/2018 Active metoprolol tartrate (LOPRESSOR) 50 MG tablet Take 1 Tablet (50 mg) by mouth two times a day. Active lisinopril (ZESTRIL) 2.5 MG tablet Take 1 Tablet (2.5 mg) by mouth daily. Active alumuminum hydroxide-magnesium trisilicate (AKA GAVISCON) 80-20 MG Chew and swallow 2 Tablets by mouth 4 times daily as needed. Active famotidine (PEPCID) 20 MG tablet Take 1 Tablet (20 mg) by mouth daily at bedtime. 90 Tablet 3 09/09/2023 09/03/2024 Active Active Problems Problem Noted Date Diagnosed Date Gastroesophageal reflux disease without esophagi tis 01/26/2018 Immunizations Name Administration Dates Next Due Flu Vac (18-64 Yrs), Intradermal 03/09/2016,11/2014 Flu Vac (3+ yrs) 02/28/2011 Flu Vac Preserv Free (3+yrs) 03/14/2013,04/01/20 12,05/14/2006 Flublok (RIV4) 03/21/2020 Influenza ([place] Only) (Flul aval Quad 0.5, 3+ yrs) 02/28/2011 Influenza IIV4 (Quadrivalent ) 0.5mL (37201) 03/21/2019,03/16/2018,02/28/2018,2016 Influenza IIV4 (Quadrivalent ) Fluzone, 65+ Yrs 03/17/2022,03/27/2021 Influenza, Unspecified Formulation 05/14/2006 Influenza, Whole 03/28/2014 Moderna Bivalent 12+ 09/29/2022 Moderna Monovalent 12+ 09/17/2021 PCV13 (Prevnar) 11/20/2021 PPSV23 (Pneumovax) 02/28/2018 Pfizer Bivalent 12+ 03/17/2022 Pfizer Monovalent 12+ Purple Top 02/27/2021,0311/2020,07/24/2020 Td, Preservative Free 02/28/2018 Tdap 11/12/2008 Zoster [...] Sign Reading Time Taken Comments Blood Pressure 137/72 07/26/2023 1:20 PM AUTOMOTIVE DESIGNER Pulse 78 07/26/2023 1:20 PM AUTOMOTIVE DESIGNER Temperature 37.3 C (99.2 F) 01/26/2018 10:22 AM CDT Respiratory Rate 16 07/26/2023 1:20 PM AUTOMOTIVE DESIGNER Oxygen Saturation 100% 07/26/2023 1:20 PM AUTOMOTIVE DESIGNER Inhaled Oxygen Concentration - - Weight 64 kg (141 lb) 07/26/2023 1:20 PM AUTOMOTIVE DESIGNER Height 162.6 cm (5' 4) 07/26/2023 1:20 PM AUTOMOTIVE DESIGNER Body Mass Index 24.2 07/26/2023 1:20 PM AUTOMOTIVE DESIGNER Plan of Treatment Upcoming Encounters Date Type Department Care Team (Late st Contact Info) Description 07/25/2024 11:00 AM AUTOMOTIVE DESIGNER Appointment Endoscopy at [facility] at [facility] [address] [place] [address] Boo Crowell MD [address] [facility] [address] [place] [address] Health Maintenance Due Date Last Done Comments Colon Cancer Screening Plan Due 1955 Hep C Screening (Preventive Services) 1955 Medicare Annual Wellness Visit 1955 Mammogram 1955 Cholesterol 2000 RSV (1 - Risk 60-74 years 1-dose series) 2015 Zoster/Shingles (3 of 3) 04/12/2019 02/15/2019, 02/28 Dexa 2020 Pneumococcal 65+ Yrs (3 - PPSV23 or PCV20) 11/20/2026 11/20/2021, 02/28/2018 DTaP/Tdap/Td (3 - Tdap) 02/29/2028 02/28/2018, 11/12 COVID-19 Vaccine Completed 03/27/2024, 10/2023, 03/25/2023, Additional history exists Influenza Completed 03/27/2024, 03/01, 03/17/2022, Additional history exists HepA Aged Out [...] age to complete this topic Care Teams Robotic Machine Operator Relationship Specialty Start Date End Date Needs Pcp, [place] [address] PCP - General 12/12/21
--- OUTSIDE RECORDS SUMMARY | 2024-06-30 06:16 | XMS_ITS | Clinical Summary ---
Author Organization [facility] Address [place], [place] [address] Care Team Providers Care Hvac Project Engineer Name Role Phone Sophia Rivers MD Primary Care Provider [phone] Jennifer Prakash Unavailable [phone] Pcp, No Unavailable Unavailable Sophia Rivers MD Unavailable Sincere Mckee MD Unavailable Jennifer Prakash MBBS Unavailable [phone] Jennifer Prakash Unavailable [phone] Allergies Active Allergy Reactions Criticality Noted [...] skin breakdown Hydrocodone Arrhythmia 10/03/2013 Causes arrythmia Kmqszctn-Qbidzbgfzi-Jip ymyxin Other - Describe In Comment Field [...] hands Sulfamethoxazole-Trimet hoprim Hives,Edema,Erythema Medium 05/22/2021 Medications acetaminophen (TYLENOL) 325 mg tablet Take 2 tablets by mouth every 4 hours if needed (For mild pain.). Max acetaminophen dose: 4000mg in 24 hrs. 0 02/07/20 20 Active propylene glycol (SYSTANE COMPLETE OPHT) Place 1 Drop into the eye(s) each time if needed. Active albuterol sulfate 90 mcg/actuation aebs Inhale 2 Puffs by mouth every 4 hours if needed. Active cholecalciferol, Vitamin D3, 2,000 unit tablet Take 2,000 units by mouth once daily. Active triamcinolone, 55 mcg each actuation, nasal (NASACORT AQ) 55 mcg nasal spray Inhale 2 Sprays to both nostrils once daily. Active rosuvastatin (CRESTOR) 20 mg tabletIndications: Hyperlipidemia, unspecified hyperlipidemia type TAKE 1 TABLET BY MOUTH EVERYDAY AT BEDTIME 90 Tablet 3 11/08/19 22 Active Aluminum Hydrox-Magnesium Carb (Gaviscon) 95-358 mg/15 mL susp Take 10 mL by mouth at bedtime if needed (stomach upset). Active calcium carb/magnesium hydrox (ROLAIDS ORAL) Take 2 capsules by mouth at bedtime and 2 capsules once daily as needed Active calcium citrate (CITRACAL) 200 mg (950 mg) tablet Take 1,900 mg by mouth once daily. Active clonazePAM (KLONOPIN) 0.5 mg tablet Take 0.25-0.5 mg by mouth at bedtime if needed for Anxiety or Sleep. Active fluticasone propionate (FLOVENT) 44 mcg/Actuation inhaler Inhale 1 Puff by mouth once daily. Active magnesium 250 mg tab Take 250 mg by mouth once daily. Active zinc 50 mg tablet Take 50 mg by mouth every morning. Active estrogens, conjugated (PREMARIN) 0.625 mg/gram vaginal cream Insert into the vagina at bedtime if needed. Active famotidine (PEPCID) 40 mg tablet Take 40 mg by mouth 2 times daily if needed for Heartburn or GI Upset. Active Simethicone 125 mg chewable tablet Chew 125-250 mg by mouth 2 times daily if needed for Flatulence or GI Upset. Max dose: 500 mg per 24 hrs Active lisinopriL (PRINIVIL; ZESTRIL) 2.5 mg tabletIndications: Essential hypertension Take 1 Tablet (2.5 mg) by mouth once daily. 90 Tablet 3 09/02/19 24 Active metoprolol succinate (TOPROL XL) 50 mg sustained-release tabletIndications: PVC's (premature ventricular contractions) Take 1 Tablet (50 mg) by mouth once daily. 90 Tablet 3 09/02/19 24 Active Active Problems Problem Noted Date Diagnosed Date Paroxysmal atrial fibrillation 09/07/2023 Implantable loop recorder present 09/07/2023 Small bowel obstruction 04/04/2022 Obstructive sleep apnea 04/04/2022 Atrial tachycardia 04/14/2017 PVC (premature ventricular contraction) 07/06/19 15 Eosinophilic esophagitis 05/31/2010 Gastroesophageal reflux disease with esophagitis 05/31/2010 Primary hypertension 05/31/2010 Pure hypercholesterolemia 05/31/2010 Leukocytosis 05/31/2010 Microcytic anemia 05/31/2010 Anxiety disorder Primary insomnia Asthma Paroxysmal supraventricular tachycardia Family History Medical History Relation Name Comments [...] drink = 0.6 oz pur e alcohol) Financial Resource Strain Answer Date R ecorded Difficulty of Paying Living Expenses Not on file 05/31/2021 Difficulty of Paying Living Expenses Not on file 05/31/2021 Comments No Sex and Gender Information Value Date Recorded Sex Assigned at Not on file 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 Gender Identity Not on file Sexual Orientation Not on file Obstetrics History Last Filed Vital Signs Vital Sign Reading Time Taken Comments Blood Pressure 151/82 09/07/2023 1:00 PM CDT Pulse 64 09/07/2023 1:00 PM CDT Temperature 36.1 C (97 F) 09/07/2023 1:00 PM CDT Respiratory Rate 16 09/07/2023 1:00 PM CDT Oxygen Saturation 100% 09/07/2023 1:00 PM CDT Inhaled Oxygen Concentration - - Weight 65.3 kg (144 lb) 09/07/2023 11:07 AM CDT Height 162.6 cm (5' 4) 09/07/2023 11:07 AM CDT Body Mass Index 24.72 09/07/2023 11:07 AM CDT Plan of Treatment Upcoming Encounters Date Type Department Care Team (Late st Contact Info) Description 09/04/2024 Cardiac Device Check [facility] [phone] Health Maintenance Due Date Last Done Comments Tdap 1966 Depression screening for age 12+ 1967 Hepatitis C screening for ag e 18-79 1973 Pneumococcal series for age 50+ (1 of 2 - PCV) 1974 Tetanus booster 1975 Colonoscopy through age 75 2000 Lipids for age 45-75 2000 Mammogram for age 45-75 2000 Zoster (shingles) series for age 50+ (1 of 2) 2005 DEXA/DXA scan for age 65+ 2020 Medicare Wellness for age 65+ 2020 COVID-19 vaccine series ( season) 2024 03/25/2023, 09/29/2022, 03/17/2022, Additional history exists Influenza for age 65+ 01/30/2024 BMI (ht and wt on same day) for age 18+ 09/01/2024 09/02/2023, 07/29/2022, 07/01/2022, Additional history exists RSV vaccine for adults or (1 - 1-dose 75+ series) 2030 Insurance MEDICARE PROVIDER BASED [facility] MEDICARE PROVIDER [facility]ED [facility] MEDICARE PB ONLY [facility] MEDICARE [place] ONLY [facility] MEDICARE PART A HB ONLY MEDICARE PART B HB ONLY [facility] MEDICARE PART B HB ONLY MEDICARE PART A HB ONLY Advance Directives Documents on File Type Date Recorded Patient Career Development Manager Expl anation Healthcare Directive 09/07/2023 2:06 PM Healthcare Directive 03/28/2020 10:41 AM Agent_Darren Avery_12/08/2017 * Full Code (Latest Code Status on File) Date Activated Date Inactivated Comments 04/04/2022 12:18 PM 04/05/2022 8:00 PM Question Answer Comments Code Status Discussion: Reviewed Preferences * Full Code Date Activated Date Inactivated Comments 06/11/2021 12:06 PM 06/12/2021 2:37 AM Question Answer Comments Code Status Discussion: Not Discussed * Full Code Date Activated Date Inactivated Comments 07/26/2020 9:07 AM 07/27/2020 2:28 AM Question Answer Comments Code Status Discussion: Not Discussed * Full Code Date Activated Date Inactivated Comments 06/14/2020 10:43 AM 06/15/2020 6:13 AM Question Answer Comments Code Status Discussion: Not Discussed * Full Code Date Activated Date Inactivated Comments 06/14/2020 7:22 AM 06/14/2020 10:43 AM Question Answer Comments Code Status Discussion: Not Discussed Care Teams Hvac Project Engineer Relationship Specialty Start Date End Date Sophia Rivers MD [address] [place] [address] PCP - General Internal Medicine 04/10/21 Jennifer Prakash MBBS [address] [facility] [address] [place] [address] 06/26/14 Pcp, No . 04/10/21 Sophia Rivers MD [address] [place] [address] Internal Medicine 06/26/14 Sincere Mckee MD . Consulting Physician Cardiology - Electrophysiology 06/26/14 Jennifer Prakash MBBS [address] [place] [address] Cardiology Cardiovascular Disease 06/26/14 Jennifer Prakash MBBS [address] [facility] [address] [place] [address] 03/24/21
--- OUTSIDE RECORDS SUMMARY | 2024-06-30 06:16 | XMS_ITS | Continuity of Care Document ---
Author Organization [facility] Address [address] [address] [place] [address] Phone Care Team Providers Care Actuarial Intern Name Role Phone Eliazar Garcia MD Unavailable [...] Mod-hi 2 18 Offic/outpt E&m [facility] Mod-ma 2 18 Offic/outpt E&m [facility] [place] Advance Directives Directive Yes / No Effective Date File Name No Information Encounters Encounter Description Practice Location Reason(s) For Visit Diagnoses Date Provider Providers Copied on Encounter [facility], [address] [address], [place], [id number], [place] tel:[phone] [facility] No Information 3 Jose Perea. [address] [facility], [place], [place], [address] , [place]. tel:[phone] Offic/outpt E&m [facility] [place] 2 [facility] [place], [address] [address], [place], [address], [place] tel:[phone] [facility] GI Symptoms or Concerns (chief complaint) Previous History Review (chief complaint) Eosinophilic esophagitisHiatal herniaEsophageal dysmotility 3 Jose Perea. [address] [facility], [address], [facility] [place], [address] , [place]. tel:[phone] Referring Provider: Referral Self, USE FOR SELF REFERRALS. [facility] [place], [address] [address], [place], [address], [place] tel:[phone] [facility] GI Symptoms or Concerns (chief complaint) Small bowel strictureDietary counseling and surveillance 2 Lorena Mancuso. [address] [facility], [place], [place], [address] , [place]. tel:[phone] Referring Provider: Referral Self, USE FOR SELF REFERRALS. [facility] [place], [address] [address], [place], [address], [place] tel:[phone] [facility] Small bowel stricture 2 Jose Perea. [address] [facility], [address], [place], [place], [address] , [place]. tel:[phone] Established Level 5 [facility] [place], [address] [address], [place], [address], [place] tel:[phone] [facility] GI Symptoms or Concerns (chief complaint) Iron deficiency anemia, unspecified iron deficiency anemia typeSmall bowel stricture 2 Jose Perea. [address] [facility], [address], [place], [address] , [place]. tel: [phone] Referring Provider: Referral Self, USE FOR SELF REFERRALS. [facility], [address] [address], [place], [address], [place] tel:[phone] [facility] Iron deficiency anemia, unspecified iron deficiency anemia type 2 Cain Mello. [address] [facility], [address], [place], [address] , [place]. tel: [phone] [facility], [address] [address], [place], [address], [place] tel:[phone] [facility] No Information 2 Cain Mello. [address] [facility], [address], [place], [address] , [place]. tel: [phone] Established Level 5 [facility], [address] [address], [place], [address], [place] tel:[phone] [facility] GI Symptoms or Concerns (chief complaint) Iron deficiency anemia, unspecified iron deficiency anemia typeGastroesophag eal reflux disease without esophagitis 2 Cain Mello. [address] [facility], [address], [place], [address] , [place]. tel: [phone] Referring Provider: Referral Self, USE FOR SELF REFERRALS. [facility], [address] [address], [place], [address], [place] tel:[phone] [facility] Iron deficiency anemia, unspecified Dec- 2 Cain Mello. [address] [facility], [address], [place], [address] , [place]. tel: [phone] Referring Provider: Riaz Laughlin, [address] [facility] [address], [place], [address] . tel:[phone] [facility], [address] [address], [place], [address], [place] tel:[phone] [facility] GI Symptoms or Concerns (chief complaint) Dysphagia, unspecified typeIron deficiency anemia, unspecifiedDyspha porsche, unspecified 2 Cain Mello. [address] [facility], [address], [place], [address] , [place]. tel: [phone] Referring Provider: Referral Self, USE FOR SELF REFERRALS. [facility], [address] [address], [place], [address], [place] tel:[phone] [facility] Iron deficiency anemia, unspecified iron deficiency anemia typeIron deficiency anemia, unspecified 2 Cain Mello. [address] [facility], [address], [place], [address] , [place]. tel: [phone] Referring Provider: Referral Self, USE FOR SELF REFERRALS. [facility], [address] [address], [place], [address], [place] tel:[phone] [facility] No Information 2 aCin Mello. [address] [facility], [address], [place], [address] , [place]. tel: [phone] Established Level 5 [facility], [address] [address], [place], [address], [place] tel:[phone] [facility] GI Symptoms or Concerns (chief complaint) Iron deficiency anemia, unspecified 2 Cain Mello. [address] [facility], [address], [place], [address] , [place]. tel: [phone] Referring Provider: Referral Self, USE FOR SELF REFERRALS. [facility], [address] [address], [place], [address], [place] tel:[phone] [facility] No Information Jason-2 2 Babak Carney. [address] [facility] [address], [address], [place], [address] , [place]. tel: [phone] Offic/outpt E&m Estab Mod-hi 2 [facility], [address] [address], [place], [address], [place] tel:[phone] [facility] Comment (chief complaint) Iron deficiency anemia, unspecified Apr-0 0 Cain Mello. [address] [facility] [address], [address], [place], [place], [address] , [place]. tel: [phone] Telephone E&M III 21-30 Min MD EMMANUEL [facility], [address] [address], [place], [address], [place] tel:[phone] [facility] No Information Aug-0 0 Cain Mello. [address] [facility] [address], [address], [place], [address] , [place]. tel: [phone] Referring Provider: Referral Self, USE FOR SELF REFERRALS. [facility], [address] [address], [place], [address], [place] tel:[phone] [facility] Abdominal pain, unspecified abdominal location Jul-2 0 Cain Mello. [address] [facility], [address], [place], [address] , [place]. tel: [phone] [facility], [address] [address], [place], [address], [place] tel:[phone] [facility] Abnormal findings on imaging test Jul-0 0 Cain Mello. [address] [facility], [address], [place], [address] , [place]. tel: [phone] [facility], [address] [address], [place], [address], [place] tel:[phone] [facility] Arthur Abnormal finding on imaging Mar-0 0 Cain Mello. [address] [facility] [address], [address], [place], [address] , [place]. tel: [phone] [facility], [address] [address], [place], [address], [place] tel:[phone] [facility] Abnormal finding on imaging Mar-0 0 Cain Mello. [address] [facility], [address], [place], [address] , [place]. tel: [phone] [facility], [address] [address], [place], [address], [place] tel:[phone] [facility] Abdominal pain, unspecified abdominal location Mar-0 0 Cain Mello. [address] [facility], [address], [place], [address] , [place]. tel: [phone] [facility], [address] [address], [place], [address], [place] tel:[phone] [facility] Iron deficiency anemia, unspecified Mar-0 0 Zulma Demarco. [address] [facility], [address], [place], [address] , [place]. tel: [phone] Referring Provider: Riaz Laughlin, [address] [facility] [address], [place], [address] . tel:[phone] [facility], [address] [address], [place], [address], [place] tel:[phone] [facility] No Information Mar-0 0 Cain Mello. [address] [facility], [address], [place], [address] , [place]. tel: [phone] Referring Provider: Jonathan Laughlin, [address], [place], [address]. tel:[phone] [facility], [address] [address], [place], [address], [place] tel:[phone] [facility] No Information 0 Jose Perea. [address] [facility], [address], [place], [address] , [place]. tel: [phone] [facility], [address] [address], [place], [address], [place] tel:[phone] [facility] Iron deficiency anemia, unspecified iron deficiency anemia type 0 Cain Mello. [address] [facility], [address], [place], [address] , [place]. tel: [phone] Specialist : Jonathan Thornton MD, [address] [place] [address] [address], [place], [address]. tel:[phone] Provider: Boogie Garcia MD, [address] [facility] [address], [place], [address]. tel:[phone] cialist: Kacie Flores MD, [address] [facility] [address], [place], [address]. tel:[phone] [facility], [address] [address], [place], [address], [place] tel:[phone] [facility] Iron deficiency anemia, unspecified iron deficiency anemia type 0 Cain Mello. [address] [facility], [address], [place], [address] , [place]. tel: [phone] [facility], [address] [address], [place], [address], [place] tel:[phone] [facility] Iron deficiency anemia, unspecified iron deficiency anemia type 0 Cain Mello. [address] [facility], [address], [place], [address] , [place]. tel: [phone] Offic/outpt E&m Estab Mod-hi 2 [facility], [address] [address], [place], [address], [place] tel:[phone] [facility] GI Symptoms or Concerns (chief complaint) Eosinophilic esophagitisDietar y counseling and surveillanceEssen tial (primary) hypertension 9 Cain Mello. [address] [facility], [address], [place], [address] , [place]. [phone] Referring Provider: Referral Self, USE FOR SELF REFERRALS. Offic/outpt E&m Estab Mod-hi 2 [facility], [address] [address], [place], [address], [place] tel:[phone] [facility] GI Symptoms or Concerns (chief complaint) Eosinophilic esophagitisDietar y counseling and surveillanceEssen tiaaaliyah (primary) hypertension 8 Cain Mello. [address] [facility], [facility] [address], [facility] [place], [address] , [place]. [phone] Referring Provider: Sophia Arita, [address] [place] [address], [address]. tel:[phone] Offic/outpt E&m Estab Mod-hi 2 [facility], [address] [address], [place], [address], [place] tel:[phone] [facility] GI Symptoms or Concerns (chief complaint) Eosinophilic esophagitisDietar y counseling and surveillance 8 Cain Mello. [address] [facility], [facility] [address], [facility] [place], [address] , [place]. [phone] Referring Provider: Referral Self, USE FOR SELF REFERRALS. Offic/outpt E&m New Mod-hi [facility], [address] [address], [place], [address], [place] tel:[phone] [facility] GI Symptoms or Concerns (chief complaint) Eosinophilic esophagitisHiatal herniaChest discomfort 8 Roman Morse. [address] [facility], [address], [place], [address] , [place]. [phone] Specialist : Jonathan Thornton MD, [address] [place] [address] [address], [place], [address]. tel:[phone] Provider: Boogie Garcia MD, [address], [place], [address]. tel:[phone] cialist: Kacie Flores MD, [address], [place], [address]. tel:[phone] erring Provider: Referral Self, USE FOR SELF [...] Registry Payers Payer name Insurance type Covered alliance party ID Authoralea tijusta(s) Medicare NGS [id number] Blue Cross Medicare Supplement [id number] Social History Type Description Quantity Date Captured [...] had refractory reflux and went to the [facility] and she ultimately had a [...] Toupet fundoplication in May 2020 at the [facility] and did relatively well for a year [...] had refractory reflux and went to the [facility] and she ultimately had a Toupet type [...] was including the Baltazar was performed in [facility]. 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 Thornton at [facility].Diagnosis of Eosinophilic Esophagitis have been made with [...] or my patient coordinator Annika at ext [phone]. Related to Small bowel stricture Gastroparesis Folder [...] the PPIs, we believe as does the [employer] that the benefits in patients [...] Rivers or certainly with Dr. Thornton at [facility].We appreciate assisting in this patient's care and would be happy to see her as needed.Please note these findings are discussed in counseling with the patient for over 45 minutes. Related to Eosinophilic esophagitis Assessments Type Assessment Date No Information Patient Care Teams Name Effective Dates (start - stop) Status Members No Information
--- OUTSIDE RECORDS SUMMARY | 2024-06-30 06:16 | XMS_ITS | Encounter Summary ---
Author Organization [place] Address [address] [place] [address] Care Team Providers Care Senior Business Objects Developer Name Role Phone [facility] Primary Care Provider Encounter Details Date Type Department Care Team (Late st Contact Info) Description 02/06/2023 [facility] Medical Advice [facility] [address] [address] Maureen Newton MD [address] [place] [id number] Social History Tobacco Use Types Packs/Day Years Used Date Smoking Tobacco: Never Smokeless Tobacco: Never Alcohol Use Standard Drinks/Week Comments Not Currently 0 (1 standard drink = 0.6 oz pur e alcohol) PHQ-2 Answer Date Recorded PHQ-2 Score 0 06/07/2019 Comments No Sex and Gender Information Value Date Recorded Sex Assigned at Not on file Legal Sex Female 3:15 AM [employer] Gender Identity Not on file Sexual Orientation Not on file documented as of this encounter Plan of Treatment Not on file documented as of this encounter Visit Diagnoses Not on filedocumented in this encounter Additional Health Concerns Assessment Noted Time PHQ-9 Depression Total Score: 0 06/07/19 20 12:16 PM [employer]ICE [employer]ATION C[employer]IER documented as of this encounter Care Teams Senior Business Objects Developer Relationship Specialty Start Date End Date Clinic, [facility] [address] [place] [address] PCP - General 08/06/15 documented as of this encounter
--- OUTSIDE RECORDS SUMMARY | 2024-06-30 06:16 | XMS_ITS | Clinical Summary ---
Author Organization [facility] Address [address] [place] [address] Care Team Providers Care Private Secretary Name Role Phone Jonathan Thornton MD Unavailable [phone] Sophia Rivers Primary Care Provider Snadra Ruano APRN, HELP DESK ENGINEER Unavailable [phone] Clinic, Not Listed Unavailable Unavailable Allergies Active [...] redness & swelling Quinazolinones 09/12/2013 Irregular heartbeat All All fluoroquinolones. Irregular heart beat Unidentified Other 08/06/2006 Dogs cause nasal breathing Avalox causes skipping heartbeat Medications albuterol HFA 90mcg/puff (PROVENTIL;WARREN TOLIN HFA) 90 mcg/actuation Inhl Inhale 2 puffs every 6 (six) hours as needed. Active metoprolol succinate, XL, (TOPROL XL) 100 mg Oral Tab SR 24hr Take 50 mg by mouth once daily. Active fluticasone HFA 44mcg/puff (FLOVENT) 44 mcg/actuation Inhl Aerosol Inhale 1 puff every morning. Active Zinc 50 mg Oral Tab Take 50 mg by mouth once daily. Active PSYLLIUM SEED, WITH SUGAR, (METAMUCIL SMOOTH TEXTURE ORAL) Take 1 Tablespoonful by mouth at bedtime. Active magnesium 250 mg Oral Tab Take 250 mg by mouth twice a day. Active CALCIUM ORAL Take 200 mg by mouth once daily. I take approx. 1200 mg a day Active PROPYLENE GLYCOL/PEG 400 (SYSTANE OPHT) Instill 1 drop into EACH eye as needed. Active clonazePAM (KLONOPIN) 0.5 mg Oral Tab Take 0.25-0.5 mg by mouth as needed. Active TRIAMCINOLONE ACETONIDE (NASACORT NASAL SPRAY) Instill 2 sprays into EACH nare once daily. Active cholecalcifero l, Vitamin D3, 1,000 unit oral tablet Take 1,000 Units by mouth once daily. Active iron,carbonyl- vitamin C (VITRON-C) 65 mg iron- 125 mg oral delayed release tablet Take by mouth once daily. Active Simethicone 125 mg oral Tab Take by mouth twice a day. Active rosuvastatin (CRESTOR) 10 mg oral tablet Take 20 mg by mouth once daily. Active lisinopriL (PRINIVIL) 2.5 mg oral tablet Take 2.5 mg by mouth once daily. Active Active Problems Problem Noted Date Diagnosed Date Small bowel obstruction due to adhesions 020 Abdominal pain, bilateral up per quadrant with coffee ground emesis 10/23/2011 Coffee ground emesis 10/23/2011 Asthma Gastritis LUCITA (obstructive sleep apnea) Overview (10/23/2011): on CPAP Anxiety and depression HTN (hypertension) Dyslipidemia Immunizations Name Administration Dates Next Due Influenza split virus quadrivalent 02/28/2011 Social History Tobacco Use Types Packs/Day Years Used Date Smoking Tobacco: Never Smokeless Tobacco: Never Alcohol Use Standard Drinks/Week Comments Not Currently 0 (1 standard drink = 0.6 oz pur e alcohol) Comments No Sex and Gender Information Value Date Recorded Sex Assigned at Not on file Legal Sex Female 5:29 AM CDT Gender Identity Not on file Sexual Orientation Not on file Last Filed Vital Signs Vital Sign Reading Time Taken Comments Blood Pressure 147/66 10/19/2019 1:10 PM CDT Pulse 69 10/19/2019 1:10 PM CDT Temperature 36.6 C (97.9 F) 10/19/2019 1:10 PM CDT Respiratory Rate 18 10/19/2019 1:10 PM CDT Oxygen Saturation 99% 10/19/2019 1:10 PM CDT Inhaled Oxygen Concentration - - Weight 62.6 kg (138 lb) 12/17/2021 8:59 AM CDT Height 162.6 cm (5' 4) 12/17/2021 8:59 AM CDT Body Mass Index 23.69 12/17/2021 8:59 AM CDT Plan of Treatment Health Maintenance Due Date Last Done Comments Mammogram Screening 1955 Osteoporosis Screening 1955 Depression Follow-Up (PHQ-9) 1956 RSV Vaccines (1 - Risk 60-74 years 1-dose series) 2015 Adult Tetanus Booster 11/12/2018 11/12/2008 Zoster Vaccine (3 of 3) 04/12/2019 02/15/2019, 03/15 Yearly Review of HCD 10/08/2020 10/09/2019, 10/10/2018, 06/22/2017 COVID-19 Vaccine (5 - 2023-2 5 season) 2024 09/17/2021, 02/27/2021, 08/14/2020, Additional history exists Influenza Vaccine (#1) 2024 , 03/21/2020, 03/21/2019, Additional history exists Pneumococcal 50+ Years (3 of 3 - PCV20 or PCV21) 11/20/2026 11/20/2021, 02/28/2018 Colonoscopy 12/05/2026 12/05/2021, 07/01, 01/26/2017, Additional history exists Hepatitis C Screening Completed 09/12/2013 Procedures Procedure Name Priority Date/Time Associated Diagnosis Comments COLONOSCOPY Routine 07/13/2019 3:05 PM HOME FURNISHINGS SALES REPRESENTATIVE HEP A/B/C PANEL Routine 09/12/2013 5:59 PM CDT Elevated liver function tests from Last 3 Months or Most Recently Relevant to Health Maintenance Results * Colonoscopy (07/13/2019 3:05 PM HOME FURNISHINGS SALES REPRESENTATIVE) 07/13/2019 3:05 PM HOME FURNISHINGS SALES REPRESENTATIVE Narrative TEST - 07/13/2019 4:04 PM HOME FURNISHINGS SALES REPRESENTATIVE [facility] Patient Name: Karen Shirley Procedure Date: 07/13/2019 3:05 PM Date of : 1955 Note Status: Finalized Attending MD: Jonathan Thornton MD Procedure: Colonoscopy Indications: Iron deficiency anemia Providers: Jonathan Thornton MD, Savita Engle, Ping Perez, RN, Jonathan Thornton MD Requesting Provider: Medicines: Fentanyl 100 micrograms IV, Midazolam 5.5 mg IV, Diphenhydramine 25 mg IV, Ondansetron 4 mg IV Complications: No immediate complications. Procedure: Pre-Anesthesia Assessment: - Prior to the procedure, a History and Physical was performed, and patient medications, allergies and sensitivities were reviewed. The patient's tolerance of previous anesthesia was reviewed. - The risks and benefits of the procedure and the sedation options and risks were discussed with the patient. All questions were answered and informed consent was obtained. - Abdominal Examination: bowel sounds present, abdomen soft and non-tender, no masses or organomegaly noted. - CV Examination: normal. - Mental Status Examination: alert and oriented. - Respiratory Examination: clear to auscultation. - ASA Grade Assessment: II - A patient with mild systemic disease. - After reviewing the risks and benefits, the patient was deemed in satisfactory condition to undergo the procedure. - The anesthesia plan was to use moderate sedation/analgesia (conscious sedation). Informed consent was obtained after discussion of the procedure including its risks of perforation, bleeding, potential need for surgery, potential complications associated with conscious sedation, and possibility of an incomplete procedure or missed lesion. The scope was passed under direct vision. Throughout the procedure, the patient's blood pressure, pulse, and oxygen saturations were monitored continuously. The Colonoscope was introduced through the anus and advanced to the terminal ileum, with identification of the appendiceal orifice and IC valve. The terminal ileum, ileocecal valve, appendiceal orifice, and rectum were photographed. The entire colon was examined. The colonoscopy was somewhat difficult due to significant looping and a tortuous colon. Successful completion of the procedure was aided by increasing the dose of sedation medication, changing the patient to a supine position and using manual pressure. The patient tolerated the procedure well. The quality of the bowel preparation was fair( polyps could have been missed but no gross lesiions identified).. Findings: The perianal and digital rectal examinations were normal. Non-bleeding internal hemorrhoids were found during retroflexion. The hemorrhoids were moderate. Scattered small and large-mouthed diverticula were found in the sigmoid colon, descending colon, transverse colon and ascending colon. The sigmoid colon, descending colon and splenic flexure were moderately redundant. The exam was otherwise normal throughout the examined colon. The terminal ileum appeared normal. Impression: - Preparation of the colon was fair. - Non-bleeding internal hemorrhoids. - Diverticulosis in the sigmoid colon, in the descending colon, in the transverse colon and in the ascending colon. - Redundant colon. - The examined portion of the ileum was normal. - No specimens collected. Recommendation: - Discharge patient to home (ambulatory). - Written discharge instructions were provided to the patient. - Repeat colonoscopy in 5 years for surveillance. - Perform an upper GI endoscopy today to further evaluate anemia. - Return to referring physician in 2 weeks for repeat HGB check.. Procedure Code(s): --- Professional --- 80261, Colonoscopy, flexible; diagnostic, including collection of specimen(s) by brushing or washing, when performed (separate procedure) Diagnosis Code(s): --- Professional --- K64.8, Other hemorrhoids D50.9, Iron deficiency anemia, unspecified K57.30, Diverticulosis of large intestine without perforation or abscess without bleeding Q43.8, Other specified congenital malformations of intestine CPT copyright 2016 [employer]. All rights reserved. The codes documented in this report are preliminary and upon sheet rock installer review may be revised to meet current compliance requirements. MD Jonathan Richard MD 07/13/2019 4:04:21 PM This report has been signed electronically.Jonathan Thornton MD Number of Addenda: 0 Note Initiated On: 07/13/2019 3:05 PM [address] [address] Procedure Note Jonathan Thornton MD - 07/13/2019 [facility] Patient Name: Karen Shirley Procedure Date: 07/13/2019 3:05 PM Date of : 1955 Note Status: Finalized Attending MD: Jonathan Thornton MD Procedure: Colonoscopy Indications: Iron deficiency anemia Providers: Jonathan Thornton MD, Savita Engle, Ping Perez, RN, Jonathan Laguerre MD Requesting Provider: Medicines: Fentanyl 100 micrograms IV, Midazolam 5.5 mg IV, Diphenhydramine 25mg IV, Ondansetron 4 mg IV Complications: No immediate complications. Procedure: Pre-Anesthesia Assessment: - Prior to the procedure, a History and Physical was performed, and patient medications, allergies and sensitivities were reviewed. The patient's tolerance of previous anesthesia was reviewed. - The risks and benefits of the procedure and the sedation optionsand risks were discussed with the patient. All questions were answeredand informed consent was obtained. - Abdominal Examination: bowel sounds present, abdomen soft and non-tender, no masses or organomegaly noted. - CV Examination: normal. - Mental Status Examination: alert and oriented. - Respiratory Examination: clear to auscultation. - ASA Grade Assessment: II - A patient with mild systemic disease. - After reviewing the risks and benefits, the patient was deemed in satisfactory condition to undergo the procedure. - The anesthesia plan was to use moderate sedation/analgesia(conscious sedation). Informed consent was obtained after discussion of the procedure including its risks of perforation, bleeding, potential need for surgery, potential complications associated with conscious sedation,and possibility of an incomplete procedure or missed lesion. The scopewas passed under direct vision. Throughout the procedure, the patient's blood pressure, pulse, and oxygen saturations were monitored continuously. The Colonoscope was introduced through the anus and advanced to the terminal ileum, with identification of theappendiceal orifice and IC valve. The terminal ileum, ileocecal valve,appendiceal orifice, and rectum were photographed. The entire colon was examined. The colonoscopy was somewhat difficult due to significant looping jacques tortuous colon. Successful completion of the procedure was aided by increasing the dose of sedation medication, changing the patient to a supine position and using manual pressure. The patient tolerated the procedure well. The quality of the bowel preparation was fair( polyps could have been missed but no gross lesiions identified).. Findings: The perianal and digital rectal examinations were normal. Non-bleeding internal hemorrhoids were found during retroflexion. The hemorrhoids were moderate. Scattered small and large-mouthed diverticula were found in thesigmoid colon, descending colon, transverse colon and ascending colon. The sigmoid colon, descending colon and splenic flexure weremoderately redundant. The exam was otherwise normal throughout the examined colon. The terminal ileum appeared normal. Impression: - Preparation of the colon was fair. - Non-bleeding internal hemorrhoids. - Diverticulosis in the sigmoid colon, in the descending colon, inthe transverse colon and in the ascending colon. - Redundant colon. - The examined portion of the ileum was normal. - No specimens collected. Recommendation: - Discharge patient to home (ambulatory). - Written discharge instructions were provided to the patient. - Repeat colonoscopy in 5 years for surveillance. - Perform an upper GI endoscopy today to further evaluate anemia. - Return to referring physician in 2 weeks for repeat HGB check.. Procedure Code(s): --- Professional --- 50604, Colonoscopy, flexible; diagnostic, including collection of specimen(s) by brushing or washing, when performed (separateprocedure) Diagnosis Code(s): --- Professional --- K64.8, Other hemorrhoids D50.9, Iron deficiency anemia, unspecified K57.30, Diverticulosis of large intestine without perforation orabscess without bleeding Q43.8, Other specified congenital malformations of intestine CPT copyright 2016 [employer]. All rights reserved. The codes documented in this report are preliminary and upon sheet rock installer reviewmay be revised to meet current compliance requirements. MD Jonathan Richard MD 07/13/2019 4:04:21 PM This report has been signed electronically.Jonathan Thornton MD Number of Addenda: 0 Note Initiated On: 07/13/2019 3:05 PM [address] [address] us Jonathan Thornton MD PROCEDURE ORDERABLE Final Resul t TEST * HEP A/B/C PANEL (09/12/2013 5:59 PM CDT) HEP BC IGM INÉS Non-Reacti ve Non-Reacti ve 09/12/2013 10:[address] [facility] HEP A IGM INÉS Non-Reacti ve Non-Reacti ve 09/12/2013 10:[address] [facility] HEP BS ANTIGEN Non-Reacti ve Non-Reacti ve 09/12/2013 10:[address] [facility] Hepatitis C Antibody Non-Reacti ve Non-Reacti ve 09/12/2013 10:[address] [facility] Blood specimen (specimen) VENOUS BLOOD SPECIMEN / Unknown 09/12/2013 5:59 PM CDT 09/12/2013 9:03 PM CDT us Jonathan Thornton MD IMMUNOLOGY ORDERABLE Final Resu lt Performing Organization Address City/State/[facility] de Phone Number [facility] [address] [place] [address] from Last 3 Months or Most Recently Relevant to Health Maintenance Insurance [facility] MEDICARE PART A & B [facility] MEDICARE SUPPLEMENT Advance Directives For more information, please contact: [phone] * Full Code (Latest Code Status on File) Date Activated Date Inactivated Comments 10/19/2019 9:46 AM 10/19/2019 9:04 PM Question Answer Comments How was code status determined? Patient * Full Code Date Activated Date Inactivated Comments 10/23/2011 10:49 AM 10/24/2011 1:30 AM Question Answer Comments How was code status determined? Patient Care Teams Private Secretary Relationship Specialty Start Date End Date Sophia Rivers [address] [place] [address] PCP - General 09/13/13 Clinic, Not Listed PCP - Primary Care Clinic 01/25/17 Jonathan Thornton MD [address] [address] Gastroenterology 11/14/11 Sandra Ruano CYNDIE, HELP DESK ENGINEER [address] [place] [address] Pulmonary/Critical Care 12/27/15
--- OUTSIDE RECORDS SUMMARY | 2024-06-30 06:16 | XMS_ITS | Referral Summary ---
Author Organization [facility] Address [address] [place] [address] Care Team Providers Care Gun Numberer Name Role Phone Jonathan Thornton MD Unavailable [phone] Sophia Rivers Primary Care Provider [phone] Sandra Ruano APRN, SKATING CARHOP Unavailable [phone] Clinic, Not Listed Unavailable Unavailable Allergies Active [...] Diagnosis Comments COLONOSCOPY Routine 07/13/2019 3:05 PM CHEMIST ASSISTANT HEP A/B/C PANEL Routine 09/12/2013 5:59 PM CDT Elevated liver function tests from Last 3 Months or Most Recently Relevant to Health Maintenance Results * Colonoscopy (07/13/2019 3:05 PM CHEMIST ASSISTANT) 07/13/2019 3:05 PM CHEMIST ASSISTANT Narrative TEST - 07/13/2019 4:04 PM CHEMIST ASSISTANT [facility] Patient Name: Joanna Shirley Procedure Date: 07/13/2019 3:05 PM Date of : 1955 Note Status: Finalized Attending MD: Jonathan Thornton MD Procedure: Colonoscopy Indications: Iron deficiency anemia Providers: Jonathan Thornton MD, Ping Owen, LUIS, Jonathan Thornton MD Requesting Provider: Medicines: Fentanyl [...] HGB check.. Procedure Code(s): --- Professional --- 63331, Colonoscopy, flexible; diagnostic, including collection of specimen(s) by brushing or washing, when performed (separate procedure) Diagnosis Code(s): --- Professional --- K64.8, Other hemorrhoids D50.9, Iron deficiency anemia, unspecified K57.30, Diverticulosis of large intestine without perforation or abscess without bleeding Q43.8, Other specified congenital malformations of intestine CPT copyright 2016 [employer]. All rights reserved. The codes documented in this report are preliminary and upon pci security consultant review may be revised to meet current compliance requirements. MD Jonathan Richard MD 07/13/2019 4:04:21 PM This report has been signed electronically.Jonathan Thornton MD Number of Addenda: 0 Note Initiated On: 07/13/2019 3:05 PM [address] [place] [address] Procedure Note Jonathan Thornton MD - 07/13/2019 [facility] Patient Name: Joanna Shirley Procedure Date: 07/13/2019 3:05 PM Date of : 1955 Note Status: Finalized Attending MD: Jonathan Thornton MD Procedure: Colonoscopy Indications: Iron deficiency anemia Providers: Jonathan Thornton MD, Ping Owen, RN, Jonathan Laguerre MD Requesting Provider: Medicines: [...] HGB check.. Procedure Code(s): --- Professional --- 31007, Colonoscopy, flexible; diagnostic, including collection of specimen(s) by brushing or washing, when performed (separateprocedure) Diagnosis Code(s): --- Professional --- K64.8, Other hemorrhoids D50.9, Iron deficiency anemia, unspecified K57.30, Diverticulosis of large intestine without perforation orabscess without bleeding Q43.8, Other specified congenital malformations of intestine CPT copyright 2016 [employer]. All rights reserved. The codes documented in this report are preliminary and upon pci security consultant reviewmay be revised to meet current compliance requirements. MD Jonathan Richard MD 07/13/2019 4:04:21 PM This report has been signed electronically.Jonathan Thornton MD Number of Addenda: 0 Note Initiated On: 07/13/2019 3:05 PM [address] [address] [place] Jonathan Thornton MD PROCEDURE ORDERABLE Final Resul t Performing Organization Address City/[facility] Co de Phone Number TEST * HEP A/B/C PANEL (09/12/2013 5:59 PM CDT) HEP BC IGM INÉS Non-Reacti ve Non-Reacti ve 09/12/2013 10:06 PM CDT [facility] HEP A IGM INÉS Non-Reacti ve Non-Reacti ve 09/12/2013 10:06 PM CDT [facility] HEP BS ANTIGEN Non-Reacti ve Non-Reacti ve 09/12/2013 10:06 PM CDT [facility] Hepatitis C Antibody Non-Reacti ve Non-Reacti ve 09/12/2013 10:06 PM CDT [facility] Blood specimen (specimen) VENOUS BLOOD SPECIMEN / Unknown 09/12/2013 5:59 PM CDT 09/12/2013 9:03 PM CDT us Jonathan Thornton MD IMMUNOLOGY ORDERABLE Final Resu lt Performing Organization Address City/[facility]/ZIP Co de Phone Number [facility] [address] [place] [address] from Last 3 Months or Most Recently Relevant to Health Maintenance Insurance [facility] B [facility] Supplemental Address: [address] [address] [place] [address] Advance Directives For more information, please contact: [phone] * Full Code (Latest Code Status on File) Date Activated Date Inactivated Comments 10/19/2019 9:46 AM 10/19/2019 9:04 PM Question Answer Comments How was code status determined? Patient * Full Code Date Activated Date Inactivated Comments 10/23/2011 10:49 AM 10/24/2011 1:30 AM Question Answer Comments How was code status determined? Patient Care Teams Gun Numberer Relationship Specialty Start Date End Date Sophia Rivers [address] [place] [address] PCP - General 09/13/13 Clinic, Not Listed PCP - Primary Care Clinic 01/25/17 Jonathan Thornton MD [address] [place] [address] [place] [address] Gastroenterology 11/14/11 Sandra Ruano, JUVENILE JUSTICE OFFICER, SKATING CARHOP [address] [place] [address] Pulmonary/Critical Care 12/27/15
--- OUTSIDE RECORDS SUMMARY | 2024-06-30 06:16 | XMS_ITS | Encounter Summary ---
Author Organization [facility] Address [address], [place] [address] Care Team Providers Care Carpenter Mine Name Role Phone Needs Pcp, Assignment Primary Care Provider [phone] Encounter Details Date Type Department Care Team (Late st Contact Info) Description 08/03/2007 Scanned History External to [facility] OPERATIVE REPORT Social History Tobacco Use Types Packs/Day Years Used Date Smoking Tobacco: Never Assessed Sex and Gender Information Value Date Recorded Sex Assigned at Not on file Gender Identity Not on file Sexual Orientation Not on file documented as of this encounter Plan of Treatment Upcoming Encounters Date Type Department Care Team (Late st Contact Info) Description 07/25/2024 11:00 AM MANAGER COMPENSATION Appointment Endoscopy at [facility] at [address] [place] [address] Boo Crowell MD [address] [place] [address] [phone] [place] [address] documented as of this encounter Visit Diagnoses Not on filedocumented in this encounter Care Teams Carpenter Mine Relationship Specialty Start Date End Date Needs Pcp, Assignment [place], [place] [address] PCP - General 12/12/21 documented as of this encounter
--- OUTSIDE RECORDS SUMMARY | 2024-06-30 06:16 | XMS_ITS | Clinical Summary ---
Author Organization [place] Address [address] [place] [id number] Care Team Providers Care [employer] Professional Name Role Phone [facility], [facility] Primary Care Provider Allergies Active Allergy Reactions [...] swelling Skin redness, swelling Severe skin breakdown Bcnslebb-Lzydinbdkt-Ppjp myxin Other (See Comments) Medium 05/11/2018 Skin [...] on file Legal Sex Female 3:15 AM BELL NECK HAMMERER Gender Identity Not on file Sexual Orientation Not on file Last Filed Vital Signs Vital Sign Reading Time Taken Comments Blood Pressure 120/70 06/07/2019 10:32 AM BELL NECK HAMMERER Pulse 78 06/07/2019 10:32 AM BELL NECK HAMMERER Temperature - - Respiratory Rate - - [...] DEXA 1955 FIT 1955 FLEX SIG 1955 LIPID 1955 MAMMO SCREENING 1955 sDNA (Cologuard) 1955 HEPATITIS C SCREENING 1973 ZOSTER IMMUNIZATION (3 of 3) 04/12/2019 02/15/2019, 03/15/2017 FALL RISK ASSESSMENT 2020 MEDICARE ANNUAL WELLNESS VISIT 10/16/2021 10/16/2020 GLUCOSE 05/29/2022 05/29/2019 COVID-19 Vaccine ( season) 2024 09/29/2022, 03/17/2022, 09/17/2021, Additional history exists INFLUENZA VACCINE (#1) 2024 , 03/27/2021, 03/21/2020, Additional history exists PHQ-2 (once per calendar year) 2024 06/07/2019, 06/07/2019 Pneumococcal Vaccine: 50+ Years (3 of 3 - PCV20 or PCV21) 11/20/2026 11/20/2021, 02/28/2018 DTAP/TDAP/TD IMMUNIZATION (3 - Td or Tdap) 02/29/2028 02/28/2018, 11/12/2008 RSV VACCINE (1 - 1-dose 75+ series) 2030 COLONOSCOPY 12/06/2031 12/05/2021 COLORECTAL CANCER SCREENING 12/06/2031 [...] (05/29/2019) Glucose 99 60 - 99 mg/dL [facility] Blood specimen (specimen) 05/29/2019 Narrative [facility] - 05/29/2019 LAB RESULT [facility] us Provider Outside LAB - BLOOD ORDERABLES Final Re sult [facility] [address] [address], [facility] [phone] from Last 3 Months or Most Recently Relevant to Health [place] [id number] MEDICARE BCBS OF [place] MEDICARE SUPPLEMENT Care Teams [employer] Professional Relationship Specialty Start Date End Date [facility] [address] [place] [address] PCP - General 08/06/15
--- NOTE | 2024-06-30 07:17 | W.PM.H&PU ---
History & Physical Update History & Physical Update H&P Reviewed and patient assessed: No changes noted
--- NOTE | 2024-06-30 07:17 | PM.ORPRC ---
Procedure Note Date of procedure: 06/30/24 Procedure: PREOPERATIVE DIAGNOSES: 1. Right shoulder adhesive capsulitis. 2. Right shoulder rotator cuff tear. POSTOPERATIVE DIAGNOSES: 1. Right shoulder adhesive capsulitis 2. Right shoulder rotator cuff tear. NAME OF OPERATION: 1. Right shoulder arthroscopic lysis of adhesion 2. Right shoulder manipulation under anesthesia 3. Right shoulder subdeltoid/subacromial debridement SURGEON: Jose Weaver MD CELERY TIER: Kesha Alex. An chemical laboratory assistant was critical for this case to aide in patient positioning, suture manipulation, arm positioning, instrument positioning, and closure. ANESTHESIA: General plus preoperative supraclavicular block. IMPLANTS: None COMPLICATIONS: None evident ESTIMATED BLOOD LOSS: 10 mL INDICATIONS: The patient is a pleasant, 69-year-old female who has experienced chronic right shoulder pain and stiffness that has persisted despite prolonged course of physical therapy and home exercise program. She is also noted to have a small rotator cuff tear on MRI. Due to failure to improve non operative treatment, patient was offered surgical intervention consisting of right shoulder arthroscopic lysis of adhesions with manipulation under anesthesia. We also discussed possible rotator cuff repair. After discussion, patient has elected to proceed with a staged procedure consisting 1st of right shoulder arthroscopic lysis of adhesions and manipulation under anesthesia followed later by an arthroscopic rotator cuff repair. FINDINGS: Exam under anesthesia revealed stable shoulder with limited range of motion. Preoperative range of motion: Passive forward elevation 110?, external rotation 45?, and abduction 60?. After lysis of adhesions and manipulation under anesthesia, range of motion measured: Passive forward elevation 160?, external rotation 75?, and abduction 110?. The diagnostic arthroscopy revealed softening of the glenoid and humeral head cartilage consistent with grade 1 chondromalacia. Anterior, posterior, and superior labrum was intact. There was diffuse inflamed and thickened capsular tissue. There was a small tear of the supraspinatus which measured approximately 1 cm in the anterior-posterior direction and was minimally retracted. The subscapularis and infraspinatus were intact. Long head of the biceps tendon was normal in appearance. No loose bodies were identified within the pouch or subscapularis recess. There was diffuse thickened bursal tissue in the subacromial and subdeltoid space. Type 2 acromion. PROCEDURE: Following a thorough discussion of risks, benefits, and alternatives, consent was obtained and the operative shoulder was marked. A supraclavicular nerve block was performed by anesthesia staff in preop holding. The patient was brought to the operating room and placed supine on the operating table. Induction of anesthesia was completed, and patient was given IV Ancef preoperatively for prophylaxis. Patient was placed into the beach chair position. Head was placed in padded wet process miller head assistant in neutral alignment, and all bony prominences were well padded. Passive range of motion was then checked with measurements as noted above. The operative shoulder and upper extremity were then prepped and draped in the appropriate sterile fashion using ChloraPrep. A surgical time-out was performed confirming patient identity, surgical site, and procedure. The glenohumeral joint was injected with 40 mL of normal saline using and 18g spinal needle from a posterior approach. Posterior portal was established. Anterior portal was established after localization with a spinal needle and a 7.0 mm cannula was placed here. Diagnostic arthroscopy was then performed with findings as noted above.. The rotator interval was released using the radiofrequency ablator. Camera was then moved into the anterior portal. Posterior capsule was released from the 11 o'clock position to the 7 o'clock position using the pencil tip radiofrequency ablator. We then released the axillary pouch staying approximately 5 mm away from the labrum in order to protect the axillary nerve. Next, the anterior capsule was released up to the mid glenoid notch using the pencil tip radiofrequency ablator. Arthroscopic instruments were then removed, and manipulation under anesthesia was performed. Camera was then placed into the subacromial space from the posterior portal. A lateral portal was established after localization with spinal needle. Subacromial and subdeltoid bursectomy were then performed using combination of the radiofrequency ablator and arthroscopic shaver. There was then taken out of the arm dias and passive range of motion was checked with findings as noted above. Excess fluid was then drained from leg glenohumeral joint and subacromial space, and the glenohumeral joint and subacromial space were then injected with a combination of Depo-Medrol and 1% lidocaine. Portal sites were closed with 3-0 nylon simple sutures followed by application of sterile dressings and a simple sling. Patient was then rotated back in a supine position woken from anesthesia and transferred to the recovery room in stable condition. PLAN: 1. Discharged to home day of surgery. 2. Ice for pain and swelling. 3. Tylenol and oxycodone as needed for pain control. 4. Simple sling as needed for comfort. 5. Physical therapy per the accelerated shoulder surgery debridement rehabilitation protocol. - 2-3 times per week for 3 weeks then as needed. - May advance activities as tolerated without restrictions. 6. Home exercise program several times daily for active and passive range of motion exercises to help maintain shoulder range of motion. 7. Follow-up in orthopedic clinic in 10-14 days for wound check and suture removal.
[2024-06-30] MEDS: 0.9 % SODIUM CHLORIDE 500 ML 500 ML 100 ML IV ×2 (07:18→10:26)
[2024-06-30] MEDS: SODIUM CHLORIDE 0.9 % (FLUSH) 10 ML SYRINGE IVF (07:18)
[2024-06-30] MEDS: fentaNYL 100 MCG/2 ML inj IVP (07:24)
[2024-06-30] MEDS: MIDAZOLAM HCL 1 MG/ML inj IVP (07:25)
--- NOTE | 2024-06-30 07:35 | SUR.PREOP ---
TIME?OUT:?0725 PT/RN/MDA?VERIFICATION?OF?SURGICAL?SITE,?PROCEDURE,?AND?CONSENT OBTAINED?PRIOR?TO?INVASIVE?PROCEDURE.
[2024-06-30] MEDS: CEFAZOLIN 2 GM INJ IVP (07:47)
--- NOTE | 2024-06-30 07:50 | P.ANES_ITS ---
Anesthesia Charges Start Date/Time Anesthesia Start Date: 06/30/24 Anesthesia Start Time: 07:33 Stop Date/Time Anesthesia Stop Date: 06/30/24 Anesthesia Stop Time: 09:37 Coding CPT Codes CPT Codes: ANESTH SURGERY OF SHOULDER - 58334 ([id number]) P2 - PATIENT W/MILD SYST DISEASE, QK - SHUTTLE HAND 2-4 CNCRNT ANES PROC, QX - MAGNETIC TESTING TECHNICIAN SVC W/ MD MED DIRECTION
--- NOTE | 2024-06-30 07:50 | P.NB_ITS ---
Nerve Block Nerve Block Time Seen by Provider: 07:25 Date Seen: 06/30/24 Type of block requested by surgeon for post-operative analgesia: supraclavicular Side: right Time out performed: Yes Verification of patient name: Yes Verification of date of : Yes Site marking: site marked Name of person performing procedure: [place] Continuous monitoring Was continuous monitoring of O2 sat, B/P, cardiac specialist, recorded every 15 minutes?: Yes Procedure Checklist: sterile prep, needles and gloves Ultrasound guided. Images saved: Yes Medications given in 5ml increments after negative aspiration: Ropivicaine %: 0.5 mL: 20 Needle gauge: 22 Precedex (mcg): 25 Patient tolerated procedure well: Yes Block Charges Block Charge (with Pro Fee): Brachial Plexus Use of Ultrasound Machine for Block: Yes- US Guidance/pain block
--- NOTE | 2024-06-30 07:50 | W.ANESCHARGE ---
Anesthesia Charges Start Date/Time Anesthesia Start Date: 06/30/24 Anesthesia Start Time: 07:33 Stop Date/Time Anesthesia Stop Date: 06/30/24 Anesthesia Stop Time: 09:37 Coding CPT Codes CPT Codes: ANESTH SURGERY OF SHOULDER - 28220 ([id number]) P2 - PATIENT W/MILD SYST DISEASE, QK - WARDROBE SPECIALIST 2-4 CNCRNT ANES PROC, QX - GAS TURBINE MECHANIC SVC W/ MD MED DIRECTION
[2024-06-30] MEDS: EPINEPHrine 1 MG in SODIUM CHLORIDE IRRIG SOLUTION 3,000 ML 3001 MG IRRIGATION ×4 (08:00→08:50)
--- NOTE | 2024-06-30 08:19 | SUR.OPER ---
PATIENT QUESTIONS ANSWERED SATISFACTORILY PREOPERATIVELY. PATIENT BROUGHT TO OR #3 PER CART FOLLOWING THE BLOCK. Patient positioned supine on OR #3 bed for the intubation.? Perioperative team wrapped the?left arm in a neutral position on the pt. abdomen with the drawsheet.? Right arm elevated on an IV pole in a padded strap. Final approval of positioning by surgeon. CONTINUOUS IRRIGATION OF THE LEFT SHOULDER WITH MIXTURE OF 3000 NACL AND 1mg OF EPINEPHRINE DURING PROCEDURE.
[2024-06-30] MEDS: methylPREDNISolone acetate 80 MG/ML INJ INTRA-ARTI (09:13)
[2024-06-30] MEDS: LIDOCAINE 1% MDV 8 ML INJECTION (09:13)
[2024-06-30] MEDS: LIDOCAINE 1%-EPI 1:100,000 20 ML INFILTRATI (09:15)
--- NOTE | 2024-06-30 09:35 | P.ANES_ITS ---
Anesthesia Charges Start Date/Time Anesthesia Start Date: 06/30/24 Anesthesia Start Time: 07:33 Stop Date/Time Anesthesia Stop Date: 06/30/24 Anesthesia Stop Time: 09:37 Coding CPT Codes CPT Codes: ANESTH SURGERY OF SHOULDER - 33846 ([id number]) P2 - PATIENT W/MILD SYST DISEASE, QK - LICENSED NURSING ASSISTANT 2-4 CNCRNT ANES PROC, QX - VETERINARY PHARMACOLOGIST SVC W/ MD MED DIRECTION
--- NOTE | 2024-06-30 09:35 | W.ANESCHARGE ---
Anesthesia Charges Start Date/Time Anesthesia Start Date: 06/30/24 Anesthesia Start Time: 07:33 Stop Date/Time Anesthesia Stop Date: 06/30/24 Anesthesia Stop Time: 09:37 Coding CPT Codes CPT Codes: ANESTH SURGERY OF SHOULDER - 77486 ([id number]) P2 - PATIENT W/MILD SYST DISEASE, QK - LOFTER 2-4 CNCRNT ANES PROC, QX - CORRECTION OFFICER PENITENTIARY SVC W/ MD MED DIRECTION
--- NOTE | 2024-06-30 09:48 | SUR.PHASEI ---
Patient arrived to PACU and verbalized she wants to sit up higher. Blood pressure stable. HOB raised. Awake, no complaints of pain or nausea, Ice applied to right shoulder.
--- NOTE | 2024-06-30 10:03 | SUR.PHASEI ---
Patient meets discharge criteria from PACU
== END 2024-06-30 11:51 | disposition home or self-care (01) ==
LOC: OR 06:14
PROVIDERS: PCP Internal Medicine; Visit Provider Orthopaedic Surgery
PROC: (CPT 29805; principal; 2024-06-30 07:30)
DX: M75.01 Adhesive capsulitis of right shoulder (principal); M75.101 Unspecified rotator cuff tear or rupture of right shoulder, not specified as traumatic; G89.18 Other acute postprocedural pain
CPT/HCPCS: 29825; 29822; 01630; 64415; 76942; J2003; J0171; J0330; J0690; J1010; J1100; J2250; J2371; J2405; J2704; J2795; J3010; J7030; L3670

== ENCOUNTER 2024-08-22 10:34 | Outpatient (CLI) | payer MEDICARE, BC, SELFPAY | END 2024-08-22 10:35 | disposition home or self-care (01) | LOC: NFLDREF 10:35 | PROVIDERS: PCP Internal Medicine; Visit Provider Internal Medicine | DX: I10 Essential (primary) hypertension (principal); Z01.818 Encounter for other preprocedural examination | CPT/HCPCS: 80048 ==

== ENCOUNTER 2024-09-07 10:45 | Outpatient (RCR) | payer MEDICARE, BC, SELFPAY | END 2024-09-11 08:01 | disposition home or self-care (01) | PROVIDERS: PCP Internal Medicine; Visit Provider Orthopaedic Surgery | DX: M75.121 Complete rotator cuff tear or rupture of right shoulder, not specified as traumatic (principal); M75.01 Adhesive capsulitis of right shoulder; Z98.890 Other specified postprocedural states; Z51.89 Encounter for other specified aftercare | CPT/HCPCS: 97110; 97112; 97161 ==

== ENCOUNTER 2024-09-08 06:16 | Day surgery (SDC) | payer MEDICARE, BC, SELFPAY ==
[2024-09-08] VITALS (20 sets, daily range): BP systolic 124–154; BP diastolic 57–118; PULSE 57–75; RESP 12–16; TEMP 36.2–36.6; O2SAT 93–100; BMI 25.4
[2024-09-08] MEDS: LACTATED RINGERS 1000 ML 1,000 ML 100 ML IV ×2 (06:20→09:32)
[2024-09-08] MEDS: EPINEPHrine 1 MG in SODIUM CHLORIDE IRRIG SOLUTION 3,000 ML 9003 MG IRRIGATION ×6 (06:30→09:35)
[2024-09-08] MEDS: SODIUM CHLORIDE 0.9 % (FLUSH) 10 ML SYRINGE IVF (07:02)
--- NOTE | 2024-09-08 07:22 | P.ORPRC_ITS ---
Procedure Note Date of procedure: 09/08/24 Procedure: PREOPERATIVE DIAGNOSES: 1. Right shoulder rotator cuff tear. 2. Right shoulder subacromial impingement syndrome. 3. Right shoulder acromioclavicular joint osteoarthritis 4. Right shoulder adhesive capsulitis POSTOPERATIVE DIAGNOSES: 1. Right shoulder rotator cuff tear. 2. Right shoulder subacromial impingement syndrome. 3. Right shoulder acromioclavicular joint osteoarthritis 4. Right shoulder adhesive capsulitis NAME OF OPERATION: 1. Right shoulder arthroscopic rotator cuff repair. 2. Right shoulder arthroscopic bursectomy, subacromial decompression/partial acromioplasty. 3. Right shoulder arthroscopic distal clavicle excision SURGEON: Jose Weaver MD GRAPHIC COORDINATOR: Rupal Massey P.A.-C. An speech language assistant was critical for this case to aid in patient positioning, suture manipulation, arm positioning, instrument positioning, and closure. ANESTHESIA: General plus preoperative supraclavicular block. IMPLANTS: FX 2.6 knotless FiberTak suture anchors x2 and 4.75 mm BioComposite SwiveLock suture anchors x2 COMPLICATIONS: None ESTIMATED BLOOD LOSS: 10 mL INDICATIONS: The patient is a pleasant, 69-year-old female who has experienced chronic right shoulder pain and stiffness. She was subsequent diagnosed with adhesive capsulitis in a small rotator cuff tear. Range of motion did not improve with conservative treatment she underwent arthroscopic lysis of adhesions and manipulation under anesthesia 2+ months ago. She returns today for surgery to repair her rotator cuff been addressed pain associated with her chronic lacunar joint osteoarthritis. Prior to surgery risks benefits of the procedures were discussed with patient, all questions were answered, and informed consent was obtained. FINDINGS: Exam under anesthesia revealed stable shoulder. Preoperative range of motion: Passive forward elevation 150 ?, external rotation 55 ?, and abduction 120 ?. The diagnostic arthroscopy revealed softening of the glenoid and humeral head cartilage consistent with grade 1 chondromalacia. Anterior, posterior, and superior labrum was intact. There was a small tear of the supraspinatus which measured approximately 1.5 cm in the anterior-posterior direction and was minimally retracted. The subscapularis and infraspinatus were intact. Long head of the biceps tendon was normal in appearance. No loose bodies were identified within the pouch or subscapularis recess. Type 2 acromion with moderate degenerative changes of the acromioclavicular joint. PROCEDURE: Following a thorough discussion of risks, benefits, and alternatives, consent was obtained and the operative shoulder was marked. A supraclavicular nerve block was performed by anesthesia staff in preop holding. The patient was brought to the operating room and placed supine on the operating table. Induction of anesthesia was completed, and patient was given IV Ancef preoperatively for prophylaxis. Patient was placed into the beach chair position. Head was placed in padded porter head in neutral alignment, and all bony prominences were well padded. The operative shoulder and upper extremity were prepped and draped in the appropriate sterile fashion using ChloraPrep. A surgical time-out was performed confirming patient identity, surgical site, surgical procedure. The glenohumeral joint was injected with 40 mL of normal saline using and 18g spinal needle from a posterior approach. Posterior portal was established. Anterior portal was established after localization with a spinal needle and a 7.0 mm cannula was placed here. Diagnostic arthroscopy was then performed with findings as noted above. There were some adhesions in the glenohumeral joint which were debrided using the arthroscopic shaver and radiofrequency ablator. The frayed cuff tissue was debrided using the shaver. Camera was then moved to the subacromial space. Lateral portal was established after localization of spinal needle. A passport cannula placed into the lateral portal. Subacromial bursectomy was performed using arthroscopic shaver and radiofrequency ablator. A partial acromioplasty was then performed using the 5.0 mm bur. Following this, further inspection of the rotator cuff was performed. This identified the tear as noted above. The margins of the tear were debrided, and the greater tuberosity was lightly decorticated with the bone-cutting shaver. After gentle decortication, small stab incisions were made off lateral aspect of the acromion, and two Arthrex knotless FiberTak suture anchors were placed in the anterior medial and posterior medial aspects of the supraspinatus footprint. The scorpion suture Passer was then used to pass a FiberLoop suture through the cuff tissue lateral to the musculotendinous junction. This stitch was then used to shuttle sutures from previously placed anchors through the cuff. Medial row repair was then performed using the knotless sutures. Lateral repair was then completed by placing 24.75 mm BioComposite SwiveLock anchors lateral to the supraspinatus footprint. Each anchor incorporated 1 FiberTape from the previously placed medial row anchors. Prior to securing the anchors in place, sutures were tension. Suture from the anterior lateral anchor was then used to complete the repair of the anterior supraspinatus. Medial row anchors were then retention. All remnant sutures were cut and removed. The cuff was inspected and noted to be firmly reattached back to his footprint with good tension. Attention was then directed to the distal clavicle excision. AC joint was debrided of soft tissue using the radiofrequency ablator. Distal clavicle excision was then performed using the 5.0 mm oliver removing approximately 1 cm bone from the distal clavicle. A 70 degree scope was utilized to visualize the AC joint during the distal clavicle excision. Surgical instruments and cannulas were then removed. Excess fluid was drained, and portal closure performed by the surgical garment inspector with 3-0 nylon. Sterile dressings were applied, and operative arm was placed into an abduction sling. The patient was then rotated back to the supine position, awoken from anesthesia, and transferred to the PACU in stable condition. PLAN: 1. Discharged to home day of surgery. 2. Ice for pain and swelling. 3. Tylenol and oxycodone as needed for pain control. 4. Abduction sling at all times except for ROM and showering. -Remove sling several times daily for pendulum exercises finger, wrist, and elbow range of motion. 5. Follow-up in orthopedic clinic in 10-14 days for wound check and suture removal. 6. Will initiate formal physical therapy 2 weeks postoperatively per the standard rotator cuff repair protocol
--- NOTE | 2024-09-08 07:22 | W.PM.H&PU ---
History & Physical Update History & Physical Update H&P Reviewed and patient assessed: No changes noted
[2024-09-08] MEDS: MIDAZOLAM HCL 1 MG/ML inj IVP (07:30)
[2024-09-08] MEDS: fentaNYL 100 MCG/2 ML inj IVP (07:30)
--- NOTE | 2024-09-08 07:42 | SUR.PREOP ---
TIME?OUT:?60 PT/nataliia alonzo RN/rufus johnson MDA?VERIFICATION?OF?SURGICAL?SITE,?PROCEDURE,?AND?CONSENT OBTAINED?PRIOR?TO?INVASIVE?PROCEDURE.
[2024-09-08] MEDS: CEFAZOLIN 1 GM inj IVP (08:06)
[2024-09-08] MEDS: LIDOCAINE 1%-EPI 1:100,000 20 ML INFILTRATI (08:24)
--- NOTE | 2024-09-08 08:43 | W.PM.NB ---
Nerve Block Nerve Block Time Seen by Provider: 07:31 Date Seen: 09/08/24 Type of block requested by surgeon for post-operative analgesia: supraclavicular Side: right Time out performed: Yes Verification of patient name: Yes Verification of date of : Yes Site marking: site marked Name of person performing procedure: [place] Continuous monitoring Was continuous monitoring of O2 sat, B/P, quality assurance monitor body, recorded every 15 minutes?: Yes Procedure Checklist: sterile prep, needles and gloves Ultrasound guided. Images saved: Yes Medications given in 5ml increments after negative aspiration: Marcaine %: 0.25 mL: 5 and Exparel mL: 10 Needle gauge: 22 Patient tolerated procedure well: Yes Block Charges Block Charge (with Pro Fee): Brachial Plexus Use of Ultrasound Machine for Block: Yes- US Guidance/pain block
[2024-09-08] MEDS: LACTATED RINGERS 500 ML 500 ML 125 ML IV (09:55)
--- NOTE | 2024-09-08 10:38 | P.ANES_ITS ---
Anesthesia Charges Start Date/Time Anesthesia Start Date: 09/08/24 Anesthesia Start Time: 07:45 Stop Date/Time Anesthesia Stop Date: 09/08/24 Anesthesia Stop Time: 10:29 Coding CPT Codes CPT Codes: ANESTH SURGERY OF SHOULDER - 18583 ([id number]) P2 - PATIENT W/MILD SYST DISEASE, QZ - MONOGRAM MACHINE OPERATOR SVC W/O LICENSED FINAL EXPENSE AGENTS BY
--- NOTE | 2024-09-08 10:38 | W.ANESCHARGE ---
Anesthesia Charges Start Date/Time Anesthesia Start Date: 09/08/24 Anesthesia Start Time: 07:45 Stop Date/Time Anesthesia Stop Date: 09/08/24 Anesthesia Stop Time: 10:29 Coding CPT Codes CPT Codes: ANESTH SURGERY OF SHOULDER - 32161 ([id number]) P2 - PATIENT W/MILD SYST DISEASE, QZ - IRONING WORKER SVC W/O PROSPECTING DRILLER HELPER BY
[2024-09-08] MEDS: fentaNYL 100 MCG/2 ML inj 50 MCG IVP ×2 (10:48→10:56)
--- NOTE | 2024-09-08 11:14 | SUR.PHASEI ---
patient met discharge criteria per anesthesia
[2024-09-08] MEDS: OxyCODONE/APAP 5-325 TABLET PO (11:22)
[2024-09-08] MEDS: hydrOXYzine pamoate 25 MG CAPSULE PO (11:22)
== END 2024-09-08 13:07 | disposition home or self-care (01) ==
LOC: OR 06:17
PROVIDERS: PCP Internal Medicine; Visit Provider Orthopaedic Surgery
PROC: (CPT 29805; principal; 2024-09-08 07:30)
DX: M75.101 Unspecified rotator cuff tear or rupture of right shoulder, not specified as traumatic (principal); M75.41 Impingement syndrome of right shoulder; M19.011 Primary osteoarthritis, right shoulder; M75.01 Adhesive capsulitis of right shoulder; G89.18 Other acute postprocedural pain
CPT/HCPCS: 29827; 29826; 29824; 01630; 64415; 76942; A9270; C1713; J0171; J0330; J0665; J0666; J0690; J1100; J2250; J2371; J2405; J2704; J2710; J3010; J7120; L3670

== ENCOUNTER 2024-12-08 04:53 | Inpatient (IN) | payer MEDICARE, BC, SELFPAY ==
--- OUTSIDE RECORDS SUMMARY | 2022-07-06 01:56 | XMS_ITS | Continuity of Care Document ---
Author Organization [facility] Address [address] [address] [place] [address] Phone Care Team Providers Care Traffic Or System Dispatcher Name Role Phone Eliazar Garcia MD Unavailable Unavailable Allergies, Adverse Reactions, Alerts Substance Reaction Status Criticality amitriptyline Irregular heartbeat(moderate) Active No Information adhesive tape Rash Active No Information sulfamethoxazole ItchingItching Active No Inform ation trimethoprim Itching Active No Information levofloxacin Altered Heart Rate Active No Inform ation efinaconazole Active No Information wine spirit Active No Information polymyxin B Active No Information NEOMYCIN SULFATE Active No Informat ion BACITRACIN ZINC Active No Informati on bacitracin Active No Information neomycin Active No Information Quinolones Active No Information Medications Medication Instructions Dosage Effective Dates (start - stop) Status Comments Flovent HFA 44 mcg/actuation aerosol inhaler inhale 1 puff by inhalation route 2 times every day 44 MCG - Active Phazyme 250 mg capsule take by mouth once daily - Active COLACE (unknown strength) take 1 capsule by oral route 2-3 times every day Not Available - Active GAVISCON (unknown strength) take 2 teaspoon by oral route 3-4 times every day Not Available - Active ROLAIDS EXTRA STRENGTH (unknown strength) chew 2-4 tablets by mouth daily as needed Not Available - Active buspirone 5 mg tablet take 1 tablet by oral route 2 times every day 5 MG - Active omeprazole 20 mg capsule,delayed release take 1 Capsule by ORAL route 2 times every day before meals 20 MG - Active rosuvastatin 20 mg tablet take 1 tablet by oral route every day 20 MG - Active Nasacort 55 mcg nasal spray aerosol inhale 1 inhaler by nasal route every day as needed 1 inhaler - Active metoprolol succinate ER 50 mg tablet,extended release 24 hr take 1 tablet by oral route every day 50 MG - Active lisinopril 2.5 mg tablet take 1 tablet by oral route every day 2.5 MG - Active Vitamin D3 50 mcg (2,000 unit) capsule take 1 by Oral route every day 1 - Active Ventolin HFA 90 mcg/actuation aerosol inhaler inhale 1 - 2 puff by INHALATION route every 4 - 6 hours as needed 1-2 puff - Active Align 4 mg capsule take 1 by Oral route every day 1 - Active magnesium oxide 250 mg tablet Takes 1 tablet daily - Active zinc 50 mg tablet take 1 by Oral route every day - Active Metamucil 3.4 gram/5.4 gram oral powder take 1 tablespoon by oral route every day 1 tablespoon - Active Procedures Procedure Date Offic/outpt E&m Estab Mod-hi 2 23 Dietitian New Virtual Visit Established Level 5 Established Level 5 [facility] PH Monitor Ugi Endo; W/bx 1/mx Level Iv-surg Path Gross/micro 22 Colonoscopy Flex; Dx (sep Pro) 22 Established Level 5 Offic/outpt E&m Estab Mod-hi 2 20 Telephone E&M III 21-30 Min 20 Telephone E&M III 21-30 Min EMMANUEL Small Bowel PillCam Capsule 1st Day Offic/outpt E&m Estab Mod-hi 2 19 Offic/outpt E&m Estab Mod-hi 2 18 Offic/outpt E&m Estab Mod-hi 2 18 Offic/outpt E&m New Mod-hi Advance Directives Directive Yes / No Effective Date File Name No Information Encounters Encounter Description Practice Location Reason(s) For Visit Diagnoses Date Provider Providers Copied on Encounter [facility], [address] [address], [place], [id number], [place] tel:[phone] [facility] No Information 3 Jose Perea. [address] [facility], [address], [id number], [place]. tel:[phone] Offic/outpt E&m Estab [facility] [facility] [place], [address] [address], [place], [id number], [place] tel:[phone] [facility] GI Symptoms or Concerns (chief complaint) Previous History Review (chief complaint) Eosinophilic esophagitisHia joleen herniaEsophage al dysmotility 3 Jose Perea. [address] [place] [address], [id number], [place]. tel:[phone] Referring Provider: Referral Self, USE FOR SELF REFERRALS. [facility] [place] [address] [address], [place], [id number], [place] tel:[phone] [facility] GI Symptoms or Concerns (chief complaint) Small bowel strictureDieta ry counseling and surveillance 2 Lorena Mancuso. [address], [id number], [place]. tel:[phone] Referring Provider: Referral Self, USE FOR SELF REFERRALS. [facility] [place] [address] [address], [place], [id number], [place] tel:[phone] [facility] Small bowel stricture 2 Jose Perea. [address] [place] [address], [id number], [place]. tel:[phone] Established Level 5 [facility] [place] [address] [address], [place], [id number], [place] tel:[phone] [facility] GI Symptoms or Concerns (chief complaint) Iron deficiency anemia, unspecified iron deficiency anemia typeSmall bowel stricture 2 Jose Perea. [address] [facility], [facility] [address], [place], [address], [place]. tel:[phone] Referring Provider: Referral Self, USE FOR SELF REFERRALS. [facility], [address] [address], [place], [id number], [place] tel:[phone] [facility] [place] [facility] Iron deficiency anemia, unspecified iron deficiency anemia type 2 Cain Mello. [address] [facility], [address], [id number], [place]. tel:[phone] [facility], [address] [address], [place], [address], [place] tel:[phone] [facility] No Information 2 Cain Mello. [address] [facility], [address], [id number], [place]. tel:[phone] Established Level 5 [facility], [address] [address], [place], [id number], [place] tel:[phone] [facility] GI Symptoms or Concerns (chief complaint) Iron deficiency anemia, unspecified iron deficiency anemia typeGastroesop hageal reflux disease without esophagitis 2 Cain Mello. [address] [place] [address], [facility] [address], [place], [id number], [place]. tel:[phone] Referring Provider: Referral Self, USE FOR SELF REFERRALS. [facility], [address] [address], [place], [id number], [place] tel:[phone] [facility] Iron deficiency anemia, unspecified Dec- 2 Cain Mello. [address] [facility], [address], [id number], [place]. tel:[phone] Referring Provider: Riaz Laughlin, [address] [address], [facility] [place], [address] . tel:[phone] [facility], [address] [address], [place], [id number], [place] tel:[phone] [facility] GI Symptoms or Concerns (chief complaint) Dysphagia, unspecified typeIron deficiency anemia, unspecifiedDys phagia, unspecified 2 Cain Mello. [address] [place] [address], [id number], [place]. tel:[phone] Referring Provider: Referral Self, USE FOR SELF REFERRALS. [facility], [address] [address], [place], [id number], [place] tel:[phone] [facility] Iron deficiency anemia, unspecified iron deficiency anemia typeIron deficiency anemia, unspecified 2 Cain Mello. [address] [place] [address], [id number], [place]. tel:[phone] Referring Provider: Referral Self, USE FOR SELF REFERRALS. [facility], [address] [address], [place], [id number], [place] tel:[phone] [facility] No Information 2 Cain Mello. [address] [place] [address], [id number], [place]. tel:[phone] Established Level 5 [facility], [address] [address], [place], [id number], [place] tel:[phone] [facility] GI Symptoms or Concerns (chief complaint) Iron deficiency anemia, unspecified 2 Cain Mello. [address] [place] [address], [id number], [place]. tel:[phone] Referring Provider: Referral Self, USE FOR SELF REFERRALS. [facility], [address] [address], [place], [address], [place] tel:[phone] [facility] [place] [facility] No Information 2 Babak Carney. [address] [facility], [facility] [address], [place], [place], [id number], [place]. tel:[phone] Offic/outpt E&m Estab Mod-hi 2 [facility], [address] [address], [place], [id number], [place] tel:[phone] [facility] [place] [facility] Comment (chief complaint) Iron deficiency anemia, unspecified Apr-0 0 Cain Mello. [address] [facility], [facility] [address], [place], [place], [id number], [place]. tel:[phone] Telephone E&M III 21-30 Min MD EMMANUEL [facility], [address] [address], [place], [id number], [place] tel:[phone] [facility] No Information Apr-0 0 Cain Mello. [address] [facility], [address], [id number], [place]. [phone] Referring Provider: Referral Self, USE FOR SELF REFERRALS. [facility], [address] [address], [place], [id number], [place] tel:[phone] [facility] Abdominal pain, unspecified abdominal location Jul-2 0 Cain Mello. [address] [facility], [facility] [address], [place], [place], [id number], [place]. tel:[phone] [facility], [address] [address], [place], [address], [place] tel:[phone] [facility] [place] [facility] Abnormal findings on imaging test Jul-0 0 Cain Mello. [address] [facility], [facility] [address], [place], [place], [id number], [place]. tel:[phone] [facility], [address] [address], [place], [id number], [place] tel:[phone] [facility] [place] Abnormal finding on imaging Jul-0 0 Cain Mello. [address] [facility], [facility] [address], [place], [place], [address], [place]. tel:[phone] [facility], [address] [address], [place], [address], [place] tel:[phone] [facility] Abnormal finding on imaging Mar-0 5 0 Cain Mello. [address] [facility], [address], [place], [place], [id number], [place]. tel:[phone] [facility], [address] [address], [place], [address], [place] tel:[phone] [facility] Abdominal pain, unspecified abdominal location Mar-0 5- 0 Cain Mello. [address] [facility], [facility] [address], [place], [place], [id number], [place]. tel:[phone] [facility], [address] [address], [place], [id number], [place] tel:[phone] [facility] Iron deficiency anemia, unspecified Mar-0 0 No Information Referring Provider: Riaz Laughlin, [address] [facility] [address], [place], [address] . tel:[phone] [facility], [address] [address], [place], [id number], [place] tel:[phone] [place] [address] No Information Mar-0 0 Cain Mello. [address] [facility], [facility] [address], [place], [place], [address], [place]. tel:[phone] Referring Provider: Jonathan Laughlin, [address], [place], [address]. tel:[phone] [facility], [address] [address], [place], [id number], [place] tel:[phone] [facility] No Information Jul-2 0 Jose Perea. [address] [facility], [address], [place], [place], [address], [place]. tel:[phone] [facility], [address] [address], [place], [address], [place] tel:[phone] [facility] [place] [facility] Iron deficiency anemia, unspecified iron deficiency anemia type 0 aCin Mello. [address] [facility], [facility] [address], [place], [place], [id number], [place]. tel:[phone] Specialist : Jonathan Thornton MD, [address] [place] [address] [address], [place], [address]. tel:[phone] Provider: Boogie Garcia MD, [address] [facility] [address], [place], [address]. tel:[phone] cialist: Kacie Flores MD, [address] [facility] [address], [place], [address]. tel:[phone] [facility], [address] [address], [place], [address], [place] tel:[phone] [facility] Iron deficiency anemia, unspecified iron deficiency anemia type 0 Cain Mello. [address] [facility], [facility] [address], [place], [place], [address], [place]. tel:[phone] [facility], [address] [address], [place], [address], [place] tel:[phone] [facility] [place] [facility] Iron deficiency anemia, unspecified iron deficiency anemia type 0 Cain Mello. [address] [facility], [facility] [address], [place], [place], [id number], [place]. tel:[phone] Offic/outpt E&m Estab Mod-hi 2 [facility], [address] [address], [place], [address], [place] tel:[phone] [facility] GI Symptoms or Concerns (chief complaint) Eosinophilic esophagitisDie tary counseling and surveillanceEs sential (primary) hypertension 9 Cain Mello. [address] [facility], [facility] [address], [place], [place], [address], [place]. tel:[phone] Referring Provider: Referral Self, USE FOR SELF REFERRALS. Offic/outpt E&m Estab Mod-hi 2 [facility], [address] [address], [place], [id number], [place] tel:[phone] [facility] GI Symptoms or Concerns (chief complaint) Eosinophilic esophagitisDie tary counseling and surveillanceEs sential (primary) hypertension 8 Cain Mello. [address] [facility], [facility] [address], [place], [place], [address], [place]. tel:[phone] Referring Provider: Sophia Arita, [address] [place], [address]. tel:[phone] Offic/outpt E&m Estab Mod-hi 2 [facility], [address] [address], [place], [address], [place] tel:[phone] [facility] GI Symptoms or Concerns (chief complaint) Eosinophilic esophagitisDie tary counseling and surveillance 8 Cain Mello. [address] [facility], [facility] [address], [place], [place], [address], [place]. tel:[phone] Referring Provider: Referral Self, USE FOR SELF REFERRALS. Offic/outpt E&m New Mod-hi [facility], [address] [address], [place], [address], [place] tel:[phone] [facility] GI Symptoms or Concerns (chief complaint) Eosinophilic esophagitisHia joleen herniaChest discomfort 8 Roman Morse. [address] [facility], [address], [place], [place], [address], [place]. tel:[phone] Specialist : Jonathan Thornton MD, [address] [place] [address] [address], [place], [address]. tel:[phone] kavin Provider: Boogie Garcia MD, [address] [facility] [address], [place], [address]. tel:[phone] cialist: Kacie Flores MD, [address] [facility] [address], [place], [address]. tel:[phone] erring Provider: Referral Self, USE FOR SELF REFERRALS. Family History Family Member Type Diagnosis Age At Onset Father Problem (finding) Mother Problem (finding) Cancer, breast Maternal aunt Problem (finding) cancer of colon Mother Problem (finding) GERD Sister Problem (finding) GERD Father Problem (finding) Alcoholism Mother Problem (finding) peptic ulceration Immunizations Vaccine Date Status Comments influenza, high-dose seasona l, quadrivalent, .7mL dose, preservative free administered Note: [facility] bi-direct ional interface ; Source: Other Registry SARS-COV-2 (COVID-19) vaccin e, mRNA, spike protein, LNP, bivalent booster, preservative free, 30 mcg/0.3 mL dose, mathew-sucrose formulation administered Note: [facility] bi-d irectional interface ; Source: Other Registry Prevnar 13 administered Note: [facility] bi-d irectional interface ; Source: Other Registry SARS-COV-2 (COVID-19) vaccin e, mRNA, spike protein, LNP, preservative free, 100 mcg/0.5mL dose or 50 mcg/0.25mL dose administered Note: [facility] bi-direct ional interface ; Source: Other Registry influenza, high-dose seasona l, quadrivalent, .7mL dose, preservative free administered Note: [facility] bi-direct ional interface ; Source: Other Registry SARS-COV-2 (COVID-19) vaccin e, mRNA, spike protein, LNP, preservative free, 30 mcg/0.3mL dose administered Note: [facility] bi-direct ional interface ; Source: Other Registry SARS-COV-2 (COVID-19) vaccin e, mRNA, spike protein, LNP, preservative free, 30 mcg/0.3mL dose administered Note: [facility] bi-direct ional interface ; Source: Other Registry SARS-COV-2 (COVID-19) vaccin e, mRNA, spike protein, LNP, preservative free, 30 mcg/0.3mL dose administered Note: [facility] bi-direct ional interface ; Source: Other Registry Seasonal, quadrivalent, recombinant, injectable influenza vaccine, preservative free administered Note: [facility] bi-direct ional interface ; Source: Other Registry Afluria Qd administered Note: [facility] bi-directional interface ; Source: Other Registry Fluzone Quad 6mo or older administered Note: [facility] bi-direct ional interface ; Source: Other Registry zoster vaccine recombinant administered N ote: [facility] bi-directional interface ; Source: Other Registry Afluria Qd administered Note: [facility] bi-directional interface ; Source: Other Registry Fluzone Quad 6mo or older administered Note: [facility] bi-direct ional interface ; Source: Other Registry tetanus and diphtheria toxoi ds, adsorbed, preservative free, for adult use (5 Lf of tetanus toxoid and 2 Lf of diphtheria toxoid) administered Note: [facility] bi-direct ional interface ; Source: Other Registry Pneumovax 23 administered Note: [facility] bi-d irectional interface ; Source: Other Registry Influenza, injectable, MDCK, preservative free Flucelvax Quad Y administered Source: Source Unspe cified Influenza, injectable, quadrivalent, preservative free, 3 yrs or older administered Source: Other Provi dash Afluria Qd administered Note: [facility] bi-directional interface ; Source: Other Registry zoster vaccine, live administered Note: [facility] bi-directional interface ; Source: Other Registry Fluzone Quad 6mo or older administered Note: [facility] bi-direct ional interface ; Source: Other Registry seasonal influenza, intradermal, preservative free administered Note: [facility] C bi- directional interface ; Source: Other Registry seasonal influenza, intradermal, preservative free administered Note: [facility] C bi- directional interface ; Source: Other Registry influenza virus vaccine, who le virus administered Note: [facility] bi-direct ional interface ; Source: Other Registry Influenza, seasonal, injectable, preservative free administered Note: [facility] bi-directional interface ; Source: Other Registry Influenza, seasonal, injectable, preservative free administered Note: [facility] bi-directional interface ; Source: Other Registry tetanus toxoid, reduced diphtheria toxoid, and acellular pertussis vaccine, adsorbed administered Note: [facility] bi-direct ional interface ; Source: Other Registry influenza virus vaccine, unspecified formulation administered Note: [facility] bi-di rectional interface ; Source: Other Registry Payers Payer name Insurance type Covered libertarian ID Authoriza tion(s) Medicare NGS MB [id number] [place] [employer] Medicare Supplement BL [id number] Social History Type Description Quantity Date Captured Comments Sex Female Smoking Status No Information Chief Complaint And Reason For Visit No Information Reason For Referral Reason For Referral No Information Plan Of Treatment Date Type Action Status Goal Lifestyle education regardin g diet completed Goal Lifestyle education regardin g diet completed Goal Lifestyle education regardin g diet completed Referral Ordered: MRI Enterography WITH Contrast Appointment date/timeframe: 04/23/2022 ordered Referral Ordered: Ferritin Appointment date/timeframe: First Available ordered Referral Ordered: Vitamin B12 Serum Appointment date/timeframe: First Available ordered Referral Ordered: Iron/TIBC Appointment date/timeframe: First Available ordered Referral Ordered: Finnegan PH Monitor Appointment date/timeframe: 12/24/2021 ordered Referral Ordered: follow-up visit with with cain ordered Referral Ordered: MRI Enterography WITHOUT And WITH Contrast Appointment date/timeframe: 08/17/2019 ordered Referral Ordered: CT Enterography WITHOUT And WITH Contrast Appointment date/timeframe: 08/11/2019 ordered Referral Ordered: Xray Abdomen; Complete For Retained PillCam Appointment date/timeframe: 08/08/2019 ordered Referral Ordered: Small Bowel PillCam Appointment date/timeframe: 08/02/2019 ordered Referral Ordered: Colonoscopy Appointment date/timeframe: -today ordered Referral Ordered: EGD Appointment date/timeframe: -today ordered Referral Ordered: referred to Jree Carbajal ordered History Of Present Illness Encounter Date Complaint History Of Prese nt Illness Previous History Review Joanna Avery is a very nice 66-year-old female following up with us with regard to gastroesophageal reflux disease and history of iron deficiency anemia. Joanna had refractory reflux and went to the [facility] and she ultimately had a Toupet type Baltazar fundoplication in May 2020. This worked reasonably well for the first year or so, but subsequently, the patient has had recurrent heartburn and some regurgitation, but mainly heartburn. She is on omeprazole 20 mg daily, but despite this she still notes fairly frequent breakthrough heartburn. We did discuss the possibility that she has dyspepsia contributing to the majority of her symptoms. Overall with her dietary changes she is doing much better. Weight has been stable.In addition to this, the patient has also had iron deficiency anemia. This has been investigated with an upper endoscopy and RN, which showed a Toupet procedure, which was intact and in good position, but the exam was otherwise negative with biopsies negative for celiac sprue. A colonoscopy which was negative and then an attempt at a small bowel camera study, which unfortunately got stuck in the mid-small bowel. Around that time, the patient started developing episodes of abdominal pain and bloating and an MR enterography revealed a 12-inch long segment of inflamed small bowel. Overall I do not find a source for gastrointestinal causes of iron deficiency at this point and she will follow up with her primary to discuss further.The patient ultimately went to surgery with Dr. Benito Olvera and had a resection of that section of bowel, which apparently was from a band of tissue obstructing the bowel, but there was no evidence for Crohn's disease. Since her dietary changes have been implemented and she met with a GI dietitian she is had no further episodes. We did discuss the possibility of adding a powder fiber supplement once daily. MRI looking at her small bowel was unremarkable. No bowel obstruction since her last visit which previously were occurring about every 8 weeks. GI Symptoms or Concerns GI Symptoms or Concerns [place] ent Nutrition AssessmentAnthropometrics: Patient reports current weight is 135lbOther Supplements: Was taking Metamucil prior to bowel obstructionFood and Exercise History: Diet Recall: Breakfast: Special K with skim milk, grape juiced diluted with water 50%Lunch: Flour tortilla with roast beef, shredded cheese, 1 tbsp sour cream, tortilla chips, canned peaches and skim milkDinner: Silva Walterser pot pie (did not eat the peas) Nutrition Diagnosis: Food and nutrition related knowledge deficit related to low residue diet as evidenced by patient request for information. Nutrition Discussion and Education: Met with patient via virtual visit today. Patient has a history of recurring bowel obstructions. Question Crohn's or adhesions per chart. She has a history of GERD and Baltazar procedure. Patient reports she has been trying to follow a low residue diet due to recurrent bowel obstructions. Her diet is very limited at this point and we discussed ways to safely liberalize and incorporate foods from each food group for a balanced and healthy diet. Recommended continuing with soft, low roughage foods but also try bringing in some well cooked or blended fruits and vegetables. This will also help her bowel pattern as she states that she used to take Metamucil daily with good effect but has not been taking this recently and bowels have not been regular. She did try a half dose at once point recently but this caused gas and bloating after having not taking it for some time. Discussed taking a very small amount of a well tolerated fiber supplement, Metamucil or Citrucel in addition to increasing her water intake to help with bowel regularity. All questions were answered to patient's satisfaction today, she is welcome to follow ups as needed. GI Symptoms or Concerns Joanna is a 66-year-old female with a history of gastroesophageal reflux disease and iron deficiency, who underwent a Toupet fundoplication in May 2020 at the [facility] and did relatively well for a year or so, but ultimately developed recurrent heartburn and regurgitation. She also has had some postoperative pain, in what she feels is the area of her diaphragm. She was told that this is likely related to her fundoplication and it has been somewhat persistent and bothersome.In addition to this, she has also had iron deficiency anemia with upper endoscopy and colonoscopy. She did have a small bowel capsule retained in the past, which did reveal a stricture concerning for Crohn's disease. Ultimately with time, this did resolve. MRI confirmed the stricture. Subsequently went to surgery with Colorectal Surgery and the previous reports note that she had a bowel obstruction, although she reports that there was just a band of tissue causing the obstruction smith GI Symptoms or Concerns Joanna Avery is a very nice 66-year-old female following up with us with regard to gastroesophageal reflux disease and history of iron deficiency anemia. Joanna had refractory reflux and went to the [facility] and she ultimately had a Toupet type Baltazar fundoplication in May 2020. This worked reasonably well for the first year or so, but subsequently, the patient has had recurrent heartburn and some regurgitation, but mainly heartburn. She is on omeprazole 20 mg daily, but despite this she still notes fairly frequent breakthrough heartburn.In addition to this, the patient has also had iron deficiency anemia. This has been investigated with an upper endoscopy and RN, which showed a Toupet procedure, which was intact and in good position, but the exam was otherwise negative with biopsies negative for celiac sprue. A colonoscopy which was negative and then an attempt at a small bowel camera study, which unfortunately got stuck in the mid-small bowel. Kurtis GI Symptoms or Concerns GI Symptoms or Concerns Joanna Avery is a very nice 66-year-old female following up with us today with regard to her multiple GI issues including gastroesophageal reflux disease with large hiatal hernia, iron-deficiency anemia, chronic abdominal pain, previous small bowel obstruction and dysphagia. The patient's reflux has been quite severe over the years and she ultimately did have a Baltazar fundoplication performed in May 2020. She did quite well for about a year and in May 2021, she had a normal impedance pH study. All of this work was including the Baltazar was performed in [facility]. Unfortunately, in October 2021, i.e., November 09, specifically the patient had an episode of protracted nausea and vomiting, and since then, her reflux has recurred with heartburn and regurgitation similar to before requiring some antacid medication. The patient is concerned that her reflux is back.Her abdominal pain has never really gone; this is upper abdominal pain, intermittent and associated Comment Joanna Avery is a very nice 64-year-old female who I saw today as a televisit. The patient consented to the visit and she was the only one on the phone. A total of 25 minutes was spent with the patient on the phone, with at least half of that for counseling and care coordination.Joanna has multiple GI issues including severe gastroesophageal reflux disease with a hiatal hernia and heartburn or regurgitation refractory to medication, and iron-deficiency anemia, which has been evaluated with a negative endoscopy other than the hiatal hernia, negative colonoscopy and a small bowel capsule study. The small bowel capsule study did disclose an obstruction in the distal small bowel and in fact the capsule got stuck in this region. A followup MR scan revealed a 10 cm segment of strictured, inflamed distal small bowel, although not the terminal ileum. The capsule did ultimately pass. The patient saw a surgeon, Dr. 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 Joanna has known eosinophilic esophagitis from when she first presented with dysphagia with high eosinophil counts. On b.i.d. PPI, a recent endoscopy just a month ago disclosed only 5 eosinophils per high power field. The patient is no longer experiencing any dysphagia on pantoprazole 20 mg twice daily.She also has gastroesophageal reflux disease, with both heartburn and regurgitation on PPI therapy. She does not have much in the way of heartburn. She does have fairly significant regurgitation. The regurgitation is not into the mouth, but is into the level of the upper chest, and sometimes into the throat with some throat burning. 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 The patient has done well on pantoprazole 20 mg twice daily with clearance of her esophageal eosinophilia and adequate control of her reflux. However, the patient is very uncomfortable taking retirement PPIs due to perceived and some real side effects. As a result of her PPI concerns, she is now down to pantoprazole 20 mg once a day, but on this regimen, she has some recurrent heartburn and some regurgitation. 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 The patient has had GE reflux dating back at least 20 years, manifested by heartburn and regurgitation as well as some atypical pharyngolaryngeal symptoms, has esophageal dysmotility dating back probably 10 years, and also has relatively recently diagnosed eosinophilic esophagitis at one time having an eosinophil count of 40 per high-power field.She has had a pH study, which confirms reflux with an elevated DeMeester score and acid exposure time, and endoscopy with findings consistent with eosinophilic esophagitis, but no visible reflux esophagitis and no Vicente's esophagus, and esophageal motility study, which demonstrates at least 2 swallows with simultaneous contractions consistent with esophageal spasm.Currently, the patient is on pantoprazole 40 GI Symptoms or Concerns Joanna is a 62-year-old woman that we are asked to see because of difficulty with swallowing. By history, she is a 62-year-old woman who has previously been followed by Dr. Thornton at [facility].Diagnosis of Eosinophilic Esophagitis have been made with symptoms of dysphagia in 2008. In reviewing the chart, she had up to 40 eosinophils per high power field seen. At that time, she had been dilated to 15 mm and has generally done well.Most recently, she has been having increasing symptoms. She describes no symptoms of heartburn, but rather a discomfort that is present 24x7. It is a swallowing sensation felt in the mid chest. It is not associated with volume regurgitation. It does not interfere with her ability to eat. She has had no impactions and otherwise has done well.With her symptoms, she most recently was seen by Dr. Thornton in July. At that time, a biopsy of the esophagus was read as showing unremarkable squamous mucosa. No microscopic description oth Functional Status Date Functional Assessmen t No Information Instructions Date Instruction Additional Infor lola 1. Avoid eating larg e meals at one time. Chew your food well and take your time eating. 2. Continue to consume soft foods and avoid raw fruits and veggies that have skins, peels and seeds. Well cooked (fork tender), blended or canned versions of these foods will help to avoid a blockage. Soups, stews, crock pot meals and smoothies are good ways to add fruits and vegetables to your diet. Do keep portions sizes of fruits/veggies small/moderate. 3. White grain products versus whole grain will be lower residual. If you are concerned about your blood sugar, make sure to consume these products with a protein source to help slow the absorption and therefore the rise in blood sugar. 4. Work toward getting at least 64 ounces of water daily to help your bowels move. You can also try taking a small amount of a fiber supplement (Citrucel or Metamucil are often tolerated fairly well) in conjunction with this water intake. 5. Feel free to make a follow up appointment with me as needed or send questions/concerns through the patient portal or my patient coordinator Annika at ext [phone]. Related to Small bowel stricture Gastroparesis Folder Related to Small bowel stricture Diverticulosis/Diverticulitis Re lated to Iron deficiency anemia, unspecified iron deficiency anemia type Hemorrhoids Related to Iron deficiency anemia, unspecified iron deficiency anemia type Lifestyle education regarding di et Related to Dietary counseling and surveillance Lifestyle education regarding di et Related to Dietary counseling and surveillance Lifestyle education regarding di et Related to Dietary counseling and surveillance I spent 45 minutes i n discussion with both the patient and her . The counseling was done regarding her symptoms.Her main symptom at present is simply atypical sensation that she feels 24x7 in the esophagus that there is a continued need to swallow. She is not however having difficulty with swallowing or dysphagia.I note that from her recent endoscopy, eosinophilia was not noted. Her esophagus was such that an 18 mm balloon procedure performed in the distal esophagus was without incident. In addition, there is no sensation of food sticking when she eats. Her most recent biopsies did not show any active eosinophilia.I suspect the patient does have eosinophilic esophagitis that is PPI sensitive and I have counseled her that I would keep her on the omeprazole. The atypical symptoms that she describes are of unknown etiology. Much of this may simply be functional.I did review with the patient and her her manometry, which shows normal amplitude composite score I did not have the individual swallows available. Nonetheless, the peristalsis overall is intact. I note that only 10% of the time did the swallows fail. Her LES appear to relax normally and there was no evidence of a functional obstruction.I do not think that this is an allergic issue. I appreciate that she was seen by Allergy. I would not put the patient on steroids or intervene in any other way.At this stage, I would simply keep the patient on PPIs, she can try a double dose to see if this helps with the atypical sensation that she has, but I would then go back to the regular dose, which is controlling her symptoms of reflux and it appears causing the eosinophils to move out of her esophagus.In my opinion, surgery is not indicated. The patients who respond best to surgery are those who have typical symptoms of reflux and in her the medications appear to be working.While there is some discussion in the literature about the PPIs, we believe as does the [employer] that the benefits in patients such as this outweigh the risks.She has a known diagnosis, which has been confirmed repeatedly in the past. The medication seemed to respond and certainly depending on how she feels, she can adjust the dose to the lowest dose of the response to her symptoms.I think the risks of surgery, be it either a Baltazar or a hernia repair with a LINX procedure, have risks that outweigh the potential benefits in this patient, who is otherwise doing well.We discussed the role of allergy testing. It is not as helpful in adults as it is in children. I have reviewed Dr. FLORES's note and I would agree wholeheartedly with not moving towards any further intervention.To this end, I will ask the patient to follow up through her primary care provider, Dr. Rivers. Should she respond better to a higher dose of medication, this certainly could be considered. However, if not, I would keep her at the lowest dose that would control her symptoms.I did not place her on calcium channel agents at this point without further evidence to suggest spasm I have held. These can be associated with fluid retention and other side effects. She is doing well on beta-blockers for her heart and I would not change this. I would not intervene differently in this situation.Should the patient's symptoms change in any way, I would be happy to see her back at any point, but if she is otherwise well controlled, I will ask that she follow up through Dr. Rivers or certainly with Dr. Thornton at [facility].We appreciate assisting in this patient's care and would be happy to see her as needed.Please note these findings are discussed in counseling with the patient for over 45 minutes. Related to Eosinophilic esophagitis Assessments Type Assessment Date No Information Patient Care Teams Name Effective Dates (start - stop) Status Members No Information
--- OUTSIDE RECORDS SUMMARY | 2022-07-06 01:56 | XMS_ITS | Continuity of Care Document ---
Author Organization [facility] Address [address] [address] [place] [address] Phone Care Team Providers Care Hand Filer Balance Wheel Name Role Phone Eliazar Garcia MD Unavailable [...] Diagnoses Date Provider Providers Copied on Encounter [facility], [address] [address], Rajeevshirley horace [place], [id number], [place] tel:[phone] [facility] No Information 3 Jose Perea. [address] [facility], [address], [id number], [place]. tel:[phone] Offic/outpt E&m Estab [facility] 2 [facility], [address] [address], [place], [id number], [place] tel:[phone] [facility] GI Symptoms or Concerns (chief complaint) Previous History Review (chief complaint) Eosinophilic esophagitisHia joleen herniaEsophage al dysmotility 3 Jose Perea. [address] [place] [address], [id number], [place]. tel:[phone] Referring Provider: Referral Self, USE FOR SELF REFERRALS. [facility] [address] [address], [place], [id number], [place] tel:[phone] [facility] GI Symptoms or Concerns (chief complaint) Small bowel strictureDieta ry counseling and surveillance 2 Lorena Mancuso. [address], [id number], [place]. tel:[phone] Referring Provider: Referral Self, USE FOR SELF REFERRALS. [facility] [address] [address], [place], [id number], [place] tel:[phone] [facility] Small bowel stricture 2 Jose Perea. [address] [place] [address], [id number], [place]. tel:[phone] Established Level 5 [facility] [address] [address], [place], [id number], [place] tel:[phone] [facility] GI Symptoms or Concerns (chief complaint) Iron deficiency anemia, unspecified iron deficiency anemia typeSmall bowel stricture 2 Jose Perea. [address] [facility], [facility] [address], [place], [address], [place]. tel:[phone] Referring Provider: Referral Self, USE FOR SELF REFERRALS. [facility], [address] [address], [place], [address], [place] tel:[phone] [facility] Iron deficiency anemia, unspecified iron deficiency anemia type 2 Cain Mello. [address] [facility], [address], [id number], [place]. tel:[phone] [facility], [address] [address], [place], [id number], [place] tel:[phone] [facility] No Information 2 Cain Mello. [address] [facility], [address], [id number], [place]. tel:[phone] Established Level 5 [facility], [address] [address], [place], [id number], [place] tel:[phone] [facility] GI Symptoms or Concerns (chief complaint) Iron deficiency anemia, unspecified iron deficiency anemia typeGastroesop hageal reflux disease without esophagitis 2 Cain Mello. [address] [place] [address], [facility] [address], [place], [id number], [place]. tel:[phone] Referring Provider: Referral Self, USE FOR SELF REFERRALS. [facility], [address] [address], [place], [id number], [place] tel:[phone] [facility] Iron deficiency anemia, unspecified Dec- 2 Cain Mello. [address] [facility], [address], [id number], [place]. tel:[phone] Referring Provider: Riaz Laughlin, [address] [address], [place], [address] . tel:[phone] [facility], [address] [address], [place], [id number], [place] tel:[phone] [facility] GI Symptoms or Concerns (chief complaint) Dysphagia, unspecified typeIron deficiency anemia, unspecifiedDys phagia, unspecified 2 Cain Mello. [address] [place] [address], [id number], [place]. tel:[phone] Referring Provider: Referral Self, USE FOR SELF REFERRALS. [facility], [address] [address], [place], [id number], [place] tel:[phone] [facility] Iron deficiency anemia, unspecified iron deficiency anemia typeIron deficiency anemia, unspecified 2 Cain Mello. [address] [place] [address], [id number], [place]. tel:[phone] Referring Provider: Referral Self, USE FOR SELF REFERRALS. [facility], [address] [address], [place], [id number], [place] tel:[phone] [facility] No Information 2 Cain Mello. [address] [place] [address], [id number], [place]. tel:[phone] Established Level 5 [facility], [address] [address], [place], [id number], [place] tel:[phone] [facility] GI Symptoms or Concerns (chief complaint) Iron deficiency anemia, unspecified 2 Cain Mello. [address] [place] [address], [id number], [place]. tel:[phone] Referring Provider: Referral Self, USE FOR SELF REFERRALS. [facility], [address] [address], [place], [id number], [place] tel:[phone] [facility] No Information 2 Babak Carney. [address] [facility], [facility] [address], [place], [place], [id number], [place]. tel:[phone] Offic/outpt E&m Estab Mod-hi 2 [facility], [address] [address], [place], [id number], [place] tel:[phone] [facility] Comment (chief complaint) Iron deficiency anemia, unspecified Apr-0 0 Cain Mello. [address] [facility], [facility] [address], [place], [place], [id number], [place]. tel:[phone] Telephone E&M III 21-30 Min MD EMMANUEL [facility], [address] [address], [place], [id number], [place] tel:[phone] [facility] No Information Apr-0 0 Cain Mello. [address] [facility], [address], [id number], [place]. [phone] Referring Provider: Referral Self, USE FOR SELF REFERRALS. [facility], [address] [address], [place], [id number], [place] tel:[phone] [facility] Abdominal pain, unspecified abdominal location Jul-2 0 Cain Mello. [address] [facility], [facility] [address], [place], [place], [id number], [place]. tel:[phone] [facility], [address] [address], [place], [id number], [place] tel:[phone] [facility] Abnormal findings on imaging test Jul-0 0 Cain Mello. [address] [facility], [facility] [address], [place], [place], [id number], [place]. tel:[phone] [facility], [address] [address], [place], [address], [place] tel:[phone] [facility] Abnormal finding on imaging Jul-0 0 Cain Mello. [address] [facility], [facility] [address], [place], [place], [id number], [place]. tel:[phone] [facility], [address] [address], [place], [id number], [place] tel:[phone] [facility] Abnormal finding on imaging Mar-0 5 0 Cain Mello. [address] [facility], [address], [place], [place], [id number], [place]. tel:[phone] [facility], [address] [address], [place], [id number], [place] tel:[phone] [facility] Abdominal pain, unspecified abdominal location Mar-0 5- 0 Cain Mello. [address] [facility], [facility] [address], [place], [place], [id number], [place]. tel:[phone] [facility], [address] [address], [place], [address], [place] tel:[phone] [facility] Iron deficiency anemia, unspecified Mar-0 0 No Information Referring Provider: Riaz Laughlin, [address] [facility] [address], [place], [address] . tel:[phone] [facility], [address] [address], [place], [address], [place] tel:[phone] [place] [address] No Information Mar-0 0 Cain Mello. [address] [facility], [facility] [address], [place], [place], [id number], [place]. tel:[phone] Referring Provider: Jonathan Laughlin, [address], [place], [address]. tel:[phone] [facility], [address] [address], [place], [id number], [place] tel:[phone] [facility] No Information Jul-2 0 Jose Perea. [address] [facility], [address], [place], [place], [id number], [place]. tel:[phone] [facility], [address] [address], [place], [address], [place] tel:[phone] [facility] Iron deficiency anemia, unspecified iron deficiency anemia type 0 Cain Mello. [address] [facility], [facility] [address], [place], [place], [id number], [place]. tel:[phone] Specialist : Jonathan Thornton MD, [address] [place] [address] [address], [place], [address]. tel:[phone] [facility] Provider: Boogie Garcia MD, [address] [facility] [address], [place], [address]. tel:[phone] cialist: Kacie Flores MD, [address] [facility] [address], [place], [address]. tel:[phone] [facility], [address] [address], [place], [address], [place] tel:[phone] [facility] Iron deficiency anemia, unspecified iron deficiency anemia type 0 Cain Mello. [address] [facility], [facility] [address], [place], [place], [id number], [place]. tel:[phone] [facility], [address] [address], [place], [id number], [place] tel:[phone] [facility] Iron deficiency anemia, unspecified iron deficiency anemia type 0 Cain Mello. [address] [facility], [facility] [address], [place], [place], [address], [place]. tel:[phone] Offic/outpt E&m Estab Mod-hi 2 [facility], [address] [address], [place], [id number], [place] tel:[phone] [facility] GI Symptoms or Concerns (chief complaint) Eosinophilic esophagitisDie tary counseling and surveillanceEs sential (primary) hypertension 9 Cain Mello. [address] [facility], [facility] [address], [place], [place], [address], [place]. tel:[phone] Referring Provider: Referral Self, USE FOR SELF REFERRALS. Offic/outpt E&m Estab Mod-hi 2 [facility], [address] [address], [place], [id number], [place] tel:[phone] [facility] GI Symptoms or Concerns (chief complaint) Eosinophilic esophagitisDie tary counseling and surveillanceEs sential (primary) hypertension 8 Cain Mello. [address] [facility], [facility] [address], [place], [place], [address], [place]. tel:[phone] Referring Provider: Sophia Arita, [address] [place], [address]. tel:[phone] Offic/outpt E&m Estab Mod-hi 2 [facility], [address] [address], [place], [address], [place] tel:[phone] [facility] GI Symptoms or Concerns (chief complaint) Eosinophilic esophagitisDie tary counseling and surveillance 8 Cain Mello. [address] [facility], [facility] [address], [place], [place], [address], [place]. tel:[phone] Referring Provider: Referral Self, USE FOR SELF REFERRALS. Offic/outpt E&m New Mod-hi [facility], [address] [address], [place], [address], [place] tel:[phone] [facility] GI Symptoms or Concerns (chief complaint) Eosinophilic esophagitisHia joleen herniaChest discomfort 8 Roman Morse. [address] [facility], [address], [place], [place], [address], [place]. tel:[phone] Specialist : Jonathan Thornton MD, [address] [place] [address] [address], [place], [address]. tel:[phone] kavin Provider: Boogie Garcia MD, [address] [facility] [address], [place], [address]. tel:[phone] cialist: Kacie Flores MD, [address] [facility] [address], [facility], [address]. tel:[phone] erring Provider: Referral Self, USE FOR SELF [...] libertarian ID Authoriza tion(s) Medicare NGS MB [id number] [employer] Medicare Supplement BL [id number] Social History Type Description Quantity Date Captured [...] date/timeframe: -today ordered Referral Ordered: referred to Jere Carbajal ordered History Of Present Illness Encounter Date Complaint History Of Prese nt Illness Previous History Review Joanna Avery is a very nice 66-year-old female following up with us with regard to gastroesophageal reflux disease and history of iron deficiency anemia. Joanna had refractory reflux and went to the [facility] and she ultimately had a [...] [facility] and did relatively well for a year [...] had refractory reflux and went [facility] and she ultimately had a Toupet type [...] was including the Baltazar was performed in [facility]. 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 The patient has done well on pantoprazole 20 mg twice daily with clearance of her esophageal eosinophilia and adequate control of her reflux. 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 Thornton at [facility].Diagnosis of Eosinophilic Esophagitis have been made [...] or my patient coordinator Annika at ext [phone]. Related to Small bowel stricture Gastroparesis Folder [...] the PPIs, we believe as does the [employer] that the benefits in patients [...] Rivers or certainly with Dr. Thornton at [facility].We appreciate assisting in this patient's care and would be happy to see her as needed.Please note these findings are discussed in counseling with the patient for over 45 minutes. Related to Eosinophilic esophagitis Assessments Type Assessment Date No Information Patient Care Teams Name Effective Dates (start - stop) Status Members No Information
[2024-12-08] VITALS (8 sets, daily range): BP systolic 151–196; BP diastolic 67–93; PULSE 68–86; RESP 16–20; TEMP 35.9–37.6; O2SAT 97–100; BMI 25.4; BMI 25.5
--- OUTSIDE RECORDS SUMMARY | 2024-12-08 04:57 | XMS_ITS | Encounter Summary ---
Author Organization [facility] Address [address] [address] Care Team Providers Care Shredding Machine Knife Changer Name Role Phone Needs Pcp, Assignment Primary Care Provider Encounter Details Date Type Department Care Team (Late st Contact Info) Description 08/03/2007 Scanned History External to [facility] OPERATIVE REPORT Social History Tobacco Use Types Packs/Day Years Used Date Smoking Tobacco: Never Assessed Comments Unknown Sex and Gender Information Value Date Recorded Sex Assigned at Not on file Legal Sex Female 4:43 AM CDT Gender Identity Not on file Sexual Orientation Not on file documented as of this encounter Plan of Treatment Not on file documented as of this encounter Visit Diagnoses Not on filedocumented in this encounter Care Teams Shredding Machine Knife Changer Relationship Specialty Start Date End Date Needs Pcp, [place] [address] PCP - General 12/12/21 documented as of this encounter
--- OUTSIDE RECORDS SUMMARY | 2024-12-08 04:57 | XMS_ITS | Clinical Summary ---
Author Organization [facility] Address [address] [place] [address] Care Team Providers Care Chiller Technician Name Role Phone Sophia Rivers MD Primary Care Provider [phone] Jennifer Prakash MBBS Unavailable [phone] Pcp, No Unavailable Unavailable Sophia Rivers MD Unavailable Sincere Mckee MD Unavailable Jennifer Prakash MBBS Unavailable [phone] Jennifer Prakash MBMARISELA Unavailable Allergies Active Allergy Reactions Criticality Noted [...] skin breakdown Hydrocodone Arrhythmia 10/03/2013 Causes arrythmia Hywuhxyr-Gqtgnjljmv-Ndt ymyxin Other - Describe In Comment Field [...] on file Legal Sex Female 6:51 AM PSYCHIATRIC CNS Gender Identity Not on file Sexual Orientation [...] Care Team (Late st Contact Info) Description 02/19/2025 1:30 PM CDT Office Visit [facility] [address] [place] [address] Neda Fuller MD [address] [facility] [address] [place], [place] [id number] 03/06/2025 Cardiac Device Check [facility] [phone] Health Maintenance Due Date Last Done Comments Tetanus booster 1966 Depression screening for age 12+ 1967 Hepatitis C screening for age 18-79 1973 Pneumococcal series for age 50+ (1 of 2 - PCV) 1974 Colonoscopy through age 75 2000 Lipids for age 45-75 2000 Mammogram for age 45-75 2000 Zoster (shingles) series for age 50+ (1 of 2) 2005 DEXA/DXA scan for age 65+ 2020 Medicare Wellness for age 65+ 2020 COVID-19 vaccine series ( season) 2024 03/25/2023, 09/29/2022, 03/17/2022, Additional history exists BMI (ht and wt on same day) for age 18+ 09/01/2024 09/02/2023, 07/29/2022, 07/01/2022, Additional history exists Influenza Vaccine (#1) 2025 RSV vaccine for adults or (1 - 1-dose 75+ series) 2030 Hepatitis B series for 19+ Aged Out N o longer eligible based on patient's age to complete this topic Insurance MEDICARE PROVIDER BASED [facility] MEDICARE PROVIDER BASED [facility] MEDICARE PB ONLY [facility] MEDICARE PB ONLY [facility] MEDICARE PART A HB ONLY MEDICARE PART B HB ONLY [facility] MEDICARE PART B HB ONLY MEDICARE PART A HB ONLY Advance Directives Documents on File Type Date Recorded Patient Mail Distributor Expl anation Healthcare Directive 09/07/2023 2:06 PM Healthcare Directive 03/28/2020 10:41 AM Agent_Mark Gena_12/08/2017 * Full Code (Latest Code Status on [...] Code Status Discussion: Not Discussed Care Teams Chiller Technician Relationship Specialty Start Date End Date Sophia Rivers MD [address] [place] [address] PCP - General Internal Medicine 04/10/21 Jennifer Prakash MBBS [address] [place] [address] 06/26/14 Pcp, No . 04/10/21 Sophia Rivers MD [address] [place] [address] Internal Medicine 06/26/14 Sincere Mckee MD . Consulting Physician Cardiology - Electrophysiology 06/26/14 Jennifer Prakash MBBS [address] [place] [address] Cardiology Cardiovascular Disease 06/26/14 Jennifer Prakash MBBS [address] [place] [address] 03/24/21
--- OUTSIDE RECORDS SUMMARY | 2024-12-08 04:57 | XMS_ITS | Clinical Summary ---
Author Organization [facility] Address [address] [place] [address] Care Team Providers Care Aircraft Pneudraulic Systems Mechanic Name Role Phone Jonathan Thornton MD Unavailable [phone] Sophia Rivers Primary Care Provider Sandra Ruano APRN, SOIL ENGINEER Unavailable [phone] Clinic, Not Listed Unavailable Unavailable Allergies Active [...] Anxiety and depression HTN (hypertension) Dyslipidemia Immunizations Immunization Administration Dates Next Due Influenza split virus [...] HCD 10/08/2020 10/09/2019, 10/10/2018, 06/22/2017 COVID-19 Vaccine ( - season) 2024 09/17/2021, 02/27/2021, 08/14/2020, Additional history exists Influenza Vaccine (#1) 2025 , 03/21/2020, 03/21/2019, Additional history exists Pneumococcal 50+ Years (3 of 3 - PCV20 or PCV21) 11/20/2026 11/20/2021, 02/28/2018 Colonoscopy 12/05/2026 12/05/2021, 07/01, 01/26/2017, Additional history exists Hepatitis C Screening Completed 09/12/2013 Meningococcal B Vaccine Aged Out No l onger eligible based on patient's age to complete this topic Procedures Procedure Name Priority Date/Time Associated Diagnosis Comments COLONOSCOPY Routine 07/13/2019 3:05 PM VEGETABLE TRIMMER HEP A/B/C PANEL Routine 09/12/2013 5:59 PM CDT Elevated liver function tests from Last 3 Months or Most Recently Relevant to Health Maintenance Results * Colonoscopy (07/13/2019 3:05 PM VEGETABLE TRIMMER) 07/13/2019 3:05 PM VEGETABLE TRIMMER Narrative TEST - 07/13/2019 4:04 PM VEGETABLE TRIMMER [facility] Patient Name: Karen Shirley Procedure Date: 07/13/2019 3:05 PM Date of : 1955 Note Status: Finalized Attending MD: Jonathan Thornton MD Procedure: Colonoscopy Indications: Iron deficiency anemia Providers: Jonathan Thornton MD, Savita Engle, Ping Perez, LUIS, Jonathan Thornton MD Requesting Provider: Medicines: [...] HGB check.. Procedure Code(s): --- Professional --- 74703, Colonoscopy, flexible; diagnostic, including collection of specimen(s) by brushing or washing, when performed (separate procedure) Diagnosis Code(s): --- Professional --- K64.8, Other hemorrhoids D50.9, Iron deficiency anemia, unspecified K57.30, Diverticulosis of large intestine without perforation or abscess without bleeding Q43.8, Other specified congenital malformations of intestine CPT copyright 2016 [employer]. All rights reserved. The codes documented in this report are preliminary and upon websphere commerce architect review may be revised to meet current compliance requirements. MD Jonathan Richard MD 07/13/2019 4:04:21 PM This report has been signed electronically.Jonathan Thornton MD Number of Addenda: 0 Note Initiated On: 07/13/2019 3:05 PM [address] [place] [address] Procedure Note Jonathan Thornton MD - 07/13/2019 [facility] Patient Name: Karen Shirley Procedure Date: 07/13/2019 [...] HGB check.. Procedure Code(s): --- Professional --- 83559, Colonoscopy, flexible; diagnostic, including collection of specimen(s) by brushing or washing, when performed (separateprocedure) Diagnosis Code(s): --- Professional --- K64.8, Other hemorrhoids D50.9, Iron deficiency anemia, unspecified K57.30, Diverticulosis of large intestine without perforation orabscess without bleeding Q43.8, Other specified congenital malformations of intestine CPT copyright 2016 [employer]. All rights reserved. The codes documented in this report are preliminary and upon websphere commerce architect reviewmay be revised to meet current compliance requirements. MD Jonathan Richard MD 07/13/2019 4:04:21 PM This report has been signed electronically.Jonathan Thornton MD Number of Addenda: 0 Note Initiated On: 07/13/2019 3:05 PM [address] [address] us Jonathan Thornton MD PROCEDURE ORDERABLE Final Resul t TEST * HEP A/B/C PANEL (09/12/2013 5:59 PM CDT) HEP BC IGM INÉS Non-Reacti ve Non-Reacti ve 09/12/2013 10:06 PM CDT [facility] HEP A IGM INÉS Non-Reacti ve Non-Reacti ve 09/12/2013 10:06 PM CDT [facility] HEP BS ANTIGEN Non-Reacti ve Non-Reacti ve 09/12/2013 10:06 PM CDT [facility] Hepatitis C Antibody Non-Reacti ve Non-Reacti ve 09/12/2013 10:06 PM CDT [facility] Blood specimen (specimen) VENOUS BLOOD SPECIMEN / Unknown 09/12/2013 5:59 PM CDT 09/12/2013 9:03 PM CDT us Jonathan Thornton MD IMMUNOLOGY ORDERABLE Final Resu lt [facility] [address] [place], [place] [address] from Last 3 Months or Most Recently Relevant to Health Maintenance Insurance [facility] MEDICARE PART A & B [facility] MEDICARE SUPPLEMENT Advance Directives For more information, please contact: [phone] * Full Code (Latest Code Status on File) Date Activated Date Inactivated Comments 10/19/2019 9:46 AM 10/19/2019 9:04 PM Question Answer Comments How was code status determined? Patient * Full Code Date Activated Date Inactivated Comments 10/23/2011 10:49 AM 10/24/2011 1:30 AM Question Answer Comments How was code status determined? Patient Care Teams Aircraft Pneudraulic Systems Mechanic Relationship Specialty Start Date End Date Sophia Rivers [address] [place] [address] PCP - General 09/13/13 Clinic, Not Listed PCP - Primary Care Clinic 01/25/17 Jonathan Thornton MD [address] [place] [address] [place] [address] Gastroenterology 11/14/11 Sandra Ruano, CYNDIE, SOIL ENGINEER [address] [place] [address] Pulmonary/Critical Care 12/27/15
--- OUTSIDE RECORDS SUMMARY | 2024-12-08 04:57 | XMS_ITS | Clinical Summary ---
Author Organization [facility] Address [address], [place] [address] Care Team Providers Care Rn Nursery Name Role Phone Needs Pcp, Assignment Primary [...] for each transition of care or referral. [facility] Allergies Active Allergy Reactions Criticality Noted Date Comments Adhesive Other, see comments 01/08/2012 Tape it outlines the adhesive spot & gets itchy Bacitracin Other, see comments 07/12/2012 itching Jngfpuxnyl-Xgxglsto-Snb ymyxin 04/25/2001 PN: LW Reaction: ITCHY, SKIN SWELLS Anesthetics, Amide Rash 07/12/2012 Sulfamethoxazole-Trimet hoprim Itching 08/08/2019 Cat Dander Other, see comments 08/06/2006 Nasal breathing Efinaconazole 07/01/2016 Severe skin breakdown Quinolones 04/25/2001 PN: LW Reaction: ARRHYTHMIA Medications * This document contains information received from the source organization and may not represent a complete record from that organization. clonazePAM (AKA KLONOPIN) 0.5 MG tablet Take 1-2 tablets by mouth NEEDED PRN. LW Addl Instr:3 refills total Indicated for: Anxiety 60 2 9 Active ALBUTEROL IN Inhale 1-2 puffs every 4 hours as needed. 51 3 7 Active fluticasone (FLOVENT HFA) 44 mcg/actuation inhaler Inhale 2 Puffs two times a day. 34.8 3 7 Active magnesium oxide (AKA MAG-OX 400) 250 MG tablet daily with breakfast. Active zinc gluconate 50 MG tablet Take 1 Tablet (50 mg) by mouth daily. Active triamcinolone (NASACORT AQ) 55 MCG/ACT nasal inhaler Place 2 Sprays into both nostrils daily. Active rosuvastatin (CRESTOR) 20 MG tablet TAKE 1 TABLET BY MOUTH EVERYDAY AT BEDTIME 0 Active CALCIUM CITRATE-VITAMIN D OR Take 2 Tablets by mouth. Active fluocinonide (LIDEX) 0.05 % external solution Apply topically. 6 Active fluticasone propionate (FLONASE) 50 MCG/ACT nasal solution 1 [place] by Nasal route. 9 Active metoprolol tartrate (LOPRESSOR) 50 MG tablet Take 1 Tablet (50 mg) by mouth two times a day. Active lisinopril (ZESTRIL) 2.5 MG tablet Take 1 Tablet (2.5 mg) by mouth daily. Active alumuminum hydroxide-magnes ium trisilicate (AKA GAVISCON) 80-20 MG Chew and swallow 2 Tablets by mouth 4 times daily as needed. Active Active Problems Problem Noted Date Diagnosed Date Gastroesophageal reflux disease without esophagi tis 01/26/2018 Immunizations Immunization Administration Dates Next Due Flu Vac (18-64 Yrs), Intradermal 03/09/2016,11/2014 Flu Vac (3+ yrs) 02/28/2011 Flu Vac Preserv Free (3+yrs) 03/14/2013,04/01/20 12,05/14/2006 Flublok (RIV4) 03/21/2020 Influenza ([place] Only) (Flul aval Quad 0.5, 3+ yrs) 02/28/2011 Influenza IIV4 (Quadrivalent ) 0.5mL (89587) 03/21/2019,03/16/2018,02/28/2018,2016 Influenza IIV4 (Quadrivalent ) Fluzone, 65+ [...] = 0.6 oz pur e alcohol) rare Comments Unknown Sex and Gender Information Value Date Recorded Sex Assigned at Not on file Legal Sex Female 4:43 AM CDT Gender Identity Not on file Sexual Orientation Not on file Last Filed Vital Signs Vital Sign Reading Time Taken Comments Blood Pressure 120/62 07/25/2024 1:15 PM TOP CLOSER Pulse 68 07/25/2024 1:15 PM TOP CLOSER Temperature 37.1 C (98.7 F) 07/25/2024 11:15 AM TOP CLOSER Respiratory Rate 16 07/25/2024 1:15 PM TOP CLOSER Oxygen Saturation 98% 07/25/2024 1:15 PM TOP CLOSER Inhaled Oxygen Concentration - - Weight 64 kg (141 lb) 07/26/2023 1:20 PM TOP CLOSER Height 162.6 cm (5' 4) 07/26/2023 1:20 PM TOP CLOSER Body Mass Index 24.2 07/26/2023 1:20 PM TOP CLOSER Plan of Treatment Health Maintenance Due Date Last Done Comments Colon Cancer Screening Plan Due 1955 Hep C Screening (Preventive Services) 1955 Medicare Annual Wellness Visit 1955 Mammogram 1955 Cholesterol 2000 Zoster/Shingles Vaccine (3 of 3) 04/12/2019 02/15/2019, 03/15/2017 Dexa 2020 COVID-19 Vaccine ( season) 2024 03/27/2024, 10/04/2023, 03/25/2023, Additional history exists Influenza Vaccine (#1) 2025 , 03/24/2023, 03/17/2022, Additional history exists Pneumococcal Vaccine 50+ Yrs (3 of 3 - PCV) 11/20/2026 11/20/2021, 02/28/2018 DTaP/Tdap/Td Vaccine (3 - Tdap) 02/29/2028 02/28/2018, 11/12/2008 RSV Vaccine (1 - 1-dose 75+ series) 2030 HepA Vaccine Aged Out No longer eligi ble based on patient's age to complete this topic HepB Vaccine Aged Out No longer eligi ble based on patient's age to complete this topic Hib Vaccine Aged Out No longer eligi ble based on patient's age to complete this topic IPV (Polio) Vaccine Aged Out No longe r eligible based on patient's age to complete this topic MCV4 Vaccine Aged Out No longer eligi ble based on patient's age to complete this topic Meningococcal B Vaccine Aged Out No l onger eligible based on patient's age to complete this topic Insurance MEDICARE [facility] MEDICARE SUPPLEMENT MEDICARE BCBS MEDICARE SUPPLEMENT Advance Directives Documents on File Type Date Recorded Patient Remote Sensing Advisor Expl anation HEALTHCARE DIRECTIVE 12/08/2017 Darren Gena 12/09/19 18 Healthcare Agents on File Name Relationship Healthcare Agent Relationshi p Communication Darren Avery Health Care Agent Care Teams Rn Nursery Relationship Specialty Start Date End [place] [address] PCP - General 12/12/21
--- OUTSIDE RECORDS SUMMARY | 2024-12-08 04:57 | XMS_ITS | Clinical Summary ---
Author Organization [facility] Address [address] [place] [address] Care Team Providers Care Numerical Tool Programmer Name Role Phone [facility], [facility] Primary Care Provider Allergies Active Allergy [...] swelling Skin redness, swelling Severe skin breakdown Qehdased-Qjaqzhschk-Ytsn myxin Other (See Comments) Medium 05/11/2018 Skin [...] on file Legal Sex Female 3:15 AM UNDERGRADUATE ADVISOR Gender Identity Not on file Sexual Orientation Not on file Last Filed Vital Signs Vital Sign Reading Time Taken Comments Blood Pressure 120/70 06/07/2019 10:32 AM UNDERGRADUATE ADVISOR Pulse 78 06/07/2019 10:32 AM UNDERGRADUATE ADVISOR Temperature - - Respiratory Rate - - [...] (Cologuard) 1955 HEPATITIS C SCREENING 1973 ZOSTER VACCINE (3 of 3) 04/12/2019 02/15/2019, 03/15 FALL RISK ASSESSMENT 2020 MEDICARE ANNUAL WELLNESS VISIT 10/16/2021 10/16/2020 DIABETES SCREENING 05/29/2022 05/29/2019 COVID-19 VACCINE ( season) 2024 09/29/2022, 03/17/2022, 09/17/2021, Additional history exists PHQ-2 (once per calendar year) 2024 06/07/2019, 06/07/2019 INFLUENZA VACCINE (#1) 2025 2, 03/27/2021, 03/21/2020, Additional history exists PNEUMOCOCCAL VACCINE 50+ YEARS (3 of 3 - PCV20 or PCV21) 11/20/2026 11/20/2021, 02/28/2018 DTAP/TDAP/TD VACCINE (3 - Td or Tdap) 02/29/2028 02/28/2018, 11/12/2008 RSV VACCINE (1 - 1-dose 75+ series) 2030 COLONOSCOPY 12/06/2031 12/05/2021 COLORECTAL CANCER SCREENING 12/06/2031 PAP Discontinued 10/16/2020, 10/16/2020 HPV VACCINE Aged Out No longer eligi ble based on patient's age to complete this topic MENINGITIS VACCINE Aged Out No longer eligible based on patient's age to complete this topic Procedures Procedure Name Priority Date/Time Associated Diagnosis Comments PAP IMAGED THIN LAYER SCREEN Routine 10/16/2020 12:28 PM CDT Screening for cervical cancer GLUCOSE Routine 05/29/2019 from Last 3 Months or Most Recently Relevant to Health Maintenance Results * Glucose (05/29/2019) Glucose 99 60 - 99 mg/dL [facility] Blood specimen (specimen) 05/29/2019 Narrative [facility] - 05/29/[address] [facility] us Provider Outside LAB - BLOOD ORDERABLES Final Re sult [facility] [address] [address], [facility] [phone] from Last 3 Months or Most Recently Relevant to Health Maintenance Insurance MEDICARE MEDICARE [facility] [place] [address] Care Teams Numerical Tool Programmer Relationship Specialty Start Date End Date Clinic, [facility] [address] [place] [address] PCP - General 08/06/15
--- OUTSIDE RECORDS SUMMARY | 2024-12-08 04:57 | XMS_ITS | Encounter Summary ---
Author Organization [facility] Address [address] [place] [address] Care Team Providers Care Porcelain Enameling Supervisor Name Role Phone [facility] Primary Care Provider Encounter Details Date Type Department Care Team (Late st Contact Info) Description 02/06/2023 [facility] Medical Advice [facility] [address] [address] Maureen Newton MD [address] [place] [id number] Social History Tobacco Use Types Packs/Day Years Used Date Smoking Tobacco: Never Smokeless Tobacco: Never Alcohol Use Standard Drinks/Week Comments Not Currently 0 (1 standard drink = 0.6 oz pur e alcohol) PHQ-2 Answer Date Recorded PHQ-2 Score 0 06/07/2019 Comments No Sex and Gender Information Value Date Recorded Sex Assigned at Not on file Legal Sex Female 3:15 AM SUPERINTENDENT OIL WELL SERVICES Gender Identity Not on file Sexual Orientation Not on file documented as of this encounter Plan of Treatment Not on file documented as of this encounter Visit Diagnoses Not on filedocumented in this encounter Additional Health Concerns Assessment Noted Time PHQ-9 Depression Total Score: 0 06/07/19 20 12:16 PM SUPERINTENDENT OIL WELL SERVICES documented as of this encounter Care Teams Porcelain Enameling Supervisor Relationship Specialty Start Date End Date Clinic, [facility] [address] [place] [address] PCP - General 08/06/15 documented as of this encounter
--- OUTSIDE RECORDS SUMMARY | 2024-12-08 04:58 | XMS_ITS | Referral Summary ---
Author Organization [facility] Address [address] [place] [address] Care Team Providers Care Associate Field Service Engineer Name Role Phone Jonathan Thornton MD Unavailable [phone] Sophia Rivers Primary Care Provider Sandra Ruano APRN, PAN SHOVER Unavailable [phone] Clinic, Not Listed Unavailable Unavailable Allergies Active [...] Diagnosis Comments COLONOSCOPY Routine 07/13/2019 3:05 PM MAINTENANCE ELECTRICIAN HEP A/B/C PANEL Routine 09/12/2013 5:59 PM CDT Elevated liver function tests from Last 3 Months or Most Recently Relevant to Health Maintenance Results * Colonoscopy (07/13/2019 3:05 PM MAINTENANCE ELECTRICIAN) 07/13/2019 3:05 PM MAINTENANCE ELECTRICIAN Narrative TEST - 07/13/2019 4:04 PM MAINTENANCE ELECTRICIAN [facility] Patient Name: Joanna Shirley Procedure Date: 07/13/2019 [...] HGB check.. Procedure Code(s): --- Professional --- 64127, Colonoscopy, flexible; diagnostic, including collection of specimen(s) by brushing or washing, when performed (separate procedure) Diagnosis Code(s): --- Professional --- K64.8, Other hemorrhoids D50.9, Iron deficiency anemia, unspecified K57.30, Diverticulosis of large intestine without perforation or abscess without bleeding Q43.8, Other specified congenital malformations of intestine CPT copyright 2016 [employer] [place] [employer]. All rights reserved. The codes documented in this report are preliminary and upon post office manager review may be revised to meet current compliance requirements. MD Jonathan Richard MD 07/13/2019 4:04:21 PM This report has been signed electronically.Jonathan Thornton MD Number of Addenda: 0 Note Initiated On: 07/13/2019 3:05 PM [address] [place] [address] Procedure Note Jonathan Thornton MD - 07/13/2019 [facility] Patient Name: Joanna Shirley Procedure Date: 07/13/2019 [...] HGB check.. Procedure Code(s): --- Professional --- 43819, Colonoscopy, flexible; diagnostic, including collection of specimen(s) by brushing or washing, when performed (separateprocedure) Diagnosis Code(s): --- Professional --- K64.8, Other hemorrhoids D50.9, Iron deficiency anemia, unspecified K57.30, Diverticulosis of large intestine without perforation orabscess without bleeding Q43.8, Other specified congenital malformations of intestine CPT copyright 2016 [employer] [place] [employer]. All rights reserved. The codes documented in this report are preliminary and upon post office manager reviewmay be revised to meet current compliance requirements. MD Jonathan Richard MD 07/13/2019 4:04:21 PM This report has been signed electronically.Jonathan Thornton MD Number of Addenda: 0 Note Initiated On: 07/13/2019 3:05 PM [address] [address] us Jonathan Thornton MD PROCEDURE ORDERABLE Final Resul t Performing Organization Address City/[facility] Co de Phone Number TEST * HEP A/B/C PANEL (09/12/2013 5:59 PM CDT) HEP BC IGM INÉS Non-Reacti ve Non-Reacti ve 09/12/2013 10:06 PM CDT [facility] HEP A IGM INÉS Non-Reacti ve Non-Reacti ve 09/12/2013 10:06 PM CDT [facility] HEP BS ANTIGEN Non-Reacti ve Non-Reacti ve 09/12/2013 10:06 PM CDT [facility] Hepatitis C Antibody Non-Reacti ve Non-Reacti ve 09/12/2013 10:06 PM CDT [facility] Blood specimen (specimen) VENOUS BLOOD SPECIMEN / Unknown 09/12/2013 5:59 PM CDT 09/12/2013 9:03 PM CDT us Jonathan Thornton MD IMMUNOLOGY ORDERABLE Final Resu lt Performing Organization Address City/[facility]/ZIP Co de Phone Number [facility] [address] [place] [address] from Last 3 Months or Most Recently Relevant to Health Maintenance [facility] A & B [facility] MEDICARE SUPPLEMENT Advance Directives For more information, please contact: [phone] * Full Code (Latest Code Status on File) Date Activated Date Inactivated Comments 10/19/2019 9:46 AM 10/19/2019 9:04 PM Question Answer Comments How was code status determined? Patient * Full Code Date Activated Date Inactivated Comments 10/23/2011 10:49 AM 10/24/2011 1:30 AM Question Answer Comments How was code status determined? Patient Care Teams Associate Field Service Engineer Relationship Specialty Start Date End Date Sophia Rivers [address] [place] [address] PCP - General 09/13/13 Clinic, Not Listed PCP - Primary Care Clinic 01/25/17 Jonathan Thornton MD [address] [place] [address] [place] [address] Gastroenterology 11/14/11 Sandra Ruano, PAINT PREPARER, PAN SHOVER [address] [place] [address] Pulmonary/Critical Care 12/27/15
--- OUTSIDE RECORDS SUMMARY | 2024-12-08 04:58 | XMS_ITS | Encounter Summary ---
Author Organization [facility] Address [address] [address] Care Team Providers Care Bottling Line Attendant Name Role Phone Needs Pcp, Assignment Primary Care Provider Encounter Details Date Type Department Care Team (Late st Contact Info) Description 08/03/2007 Scanned History External to [facility] OPERATIVE REPORT Social History Tobacco Use Types [...] on filedocumented in this encounter Care Teams Bottling Line Attendant Relationship Specialty Start Date End Date Needs Pcp, [place] [address] PCP - General 12/12/21 documented as of this encounter
--- NOTE | 2024-12-08 05:09 | CRLHL7_ITS ---
For Patients: As a result of the Century Cures Act, medical imaging exams and procedure reports are released immediately into your electronic medical record. You may view this report before your referring provider. If you have questions, please contact your health care provider. INDICATION: Abdominal pain. TECHNIQUE: CT abdomen and pelvis acquired with 72 cc Omnipaque 350 IV contrast. COMPARISON: 04/04/2022. FINDINGS: Lower chest: Unremarkable. Liver: A hemangioma present in the left lobe. Otherwise unremarkable. Gallbladder and bile ducts: Unremarkable. No stones or inflammation. No biliary dilatation. Pancreas: Unremarkable. No mass or inflammation. Spleen: Unremarkable. Normal in size. No masses. Adrenal glands: Unremarkable. No nodules. Kidneys: Unremarkable. No suspicious masses, stones, or hydronephrosis. GI tract: Moderate dilatation of low central small bowel loops. Remainder of the GI tract normal in caliber and appearance. Normal appendix. Vasculature: Abdominal aorta is normal in caliber. Mesenteric arteries are patent. Lymph nodes: No lymphadenopathy. Peritoneum/Abdominal Wall: Unremarkable. No sign of mass or infiltration. No free air or significant free fluid. Pelvis: Unremarkable. Bones: Unremarkable for age. IMPRESSION: Findings suspicious for a mild partial distal small bowel obstruction or regional enteritis in the low central abdomen.. Remainder of the exam is unremarkable. No other findings to explain pain. Please note that all CT scans at this facility use dose modulation, iterative reconstruction, and/or weight-based dosing when appropriate to reduce radiation dose to as low as reasonably achievable. Dictated by Kojo Camargo MD @ 12/08/2024 6:46:49 AM (Electronically Signed)
--- NOTE | 2024-12-08 05:11 | ED.ABDPAIN ---
HPI - Abdominal Pain General Chief Complaint: Abdominal Pain Stated Complaint: possible bowel obstruction Time Seen by Provider: 12/08/24 05:59 History of Present Illness HPI narrative: Patient is a 69-year-old woman with history of small-bowel obstructions likely secondary to adhesions following hysterectomy and fundoplication who presents with mid abdominal pain. The pain is been present for approximately 10 hours. She has had limited nausea and vomiting. She has had no diarrhea and no air passed per rectum. She has not had any recent travel no recent fever chills. No dysuria. Related Data Home Medications ?Medication ?Instructions ?Recorded ?Confirmed calcium carbonate 675 mg-magnesium 6 tab PO .Daily as needed PRN 07/28/22 12/08/24 hydroxide 135 mg chewable tablet cholecalciferol (vitamin D3) 50 2,000 unit PO DAILY 07/28/22 12/08/24 mcg (2,000 unit) tablet magnesium 250 mg tablet 250 mg PO QDAY 07/28/22 12/08/24 triamcinolone acetonide 55 mcg 2 spray intranasal DAILY 07/28/22 12/08/24 nasal spray aerosol famotidine 20 mg tablet 20 mg PO DAILY 12/22/23 12/08/24 fluocinonide 0.05 % topical 1 topical PRN 03/27/24 11/30/24 solution ketoconazole 2 % topical cream applic topical DAILY 03/27/24 11/30/24 ferrous sulfate 142 mg (45 mg 142 mg PO QDAY 06/15/24 12/08/24 iron) tablet,extended release Previous Rx's ?Medication ?Instructions ?Recorded sulfacetamide sodium (acne) 10 % 1 applic topical BID #118 mL 08/06/22 lotion (suspension) (Klaron) conjugated estrogens 0.625 mg/gram 0.625 mg topical .COMPLEX #30 grams 11/30/23 vaginal cream (Premarin) fluticasone propionate 44 1 puff PO DAILY #10.6 ea 11/30/23 mcg/actuation HFA aerosol inhaler metoprolol succinate 50 mg 50 mg PO DAILY #90 tabs 11/30/23 tablet,extended release 24 hr rosuvastatin 20 mg tablet 20 mg PO DAILY #90 tabs 11/30/23 albuterol sulfate 90 mcg/actuation 2 puff inhalation Q4H PRN asthma 06/15/24 aerosol inhaler #18 ea lisinopril 2.5 mg tablet 2.5 mg PO DAILY #90 tabs 11/30/24 Allergies Allergy/AdvReac Type Severity Reaction Status Date / Time Quinolones Allergy Mild irregular Verified 11/30/24 11:22 heartbeat sulfamethoxazole (From Allergy Unknown itchy, Verified 11/30/24 11:22 Sulfamethoxazole-Trimethoprim) red, swelling trimethoprim (From Allergy Unknown itchy, Verified 11/30/24 11:22 Sulfamethoxazole-Trimethoprim) red, swelling Topical Antibiotics Allergy Mild itchy and Uncoded 11/30/24 11:22 swelling Review of Systems Status of ROS Reports: 10 or more systems reviewed and unremarkable except as noted in History and below [facility] Medical History History of supraventricular tachycardia (08/11/12) ?Z86.79 - Personal history of other diseases of the circulatory system (ICD-10) Obsessive-compulsive disorder (08/11/12) ?F42.9 - Obsessive-compulsive disorder, unspecified (ICD-10) History of atrial fibrillation (08/11/12) ?Z86.79 - Personal history of other diseases of the circulatory system (ICD-10) Chronic gastritis (08/11/12) ?K29.50 - Unspecified chronic gastritis without bleeding (ICD-10) Surgical History History of arthroscopy of right shoulder (09/08/24) ?Z98.890 - Other specified postprocedural states (ICD-10) Small bowel stricture ?K56.699 - Other intestinal obstruction unspecified as to partial versus complete obstruction (ICD-10) Gastroparesis ?K31.84 - Gastroparesis (ICD-10) History of tonsillectomy (08/11/12) ?Z90.89 - Acquired absence of other organs (ICD-10) History of hysterectomy (08/11/12) ?Z90.710 - Acquired absence of both cervix and uterus (ICD-10) Social History What is your current living situation?: I presently have a place to live Problems where you live: no known problems In the past 12 months, utilities in danger of being shut off: no In past 12 months, lack of transportation kept you from medical appts, meetings, work, or getting things needed for daily living: no In the past 12 mos, have been you worried that your food would run out before you had money to buy more?: never true In the past 12 mos, the food you bought just didn't last and you didn't have money to buy more?: never true Smoking Status: Never smoker How often do you have a drink containing alcohol: monthly or less AUDIT-C Alcohol total score: 1 Non-prescribed substance use: denies use Caffeine: No How often does anyone, including family, friends and others, physically hurt you: never How often does anyone, including family, friends and others, insult or talk down to you: sometimes How often does anyone, including family, friends and others, threaten you with harm: never How often does anyone, including family, friends and others, scream or curse at you: sometimes Are you using contraception or practicing any form of control: No Health Related Social Needs: Other personal risk factors, not elsewhere classified (Z91.89) Exam Narrative: Exam Narrative: EXAM GENERAL: Patient appears comfortable and well. EYES: No scleral icterus. ENT: Tympanic membranes and oropharynx normal. THYROID: no thyroid nodules or thyromegaly. LYMPH: No supraclavicular or cervical lymphadenopathy. SKIN: Visible skin seen during exam normal or with benign process only. EXT: No dependent lower extremity pedal edema. HEART: Regular rate and rhythm with no murmurs, rubs, or gallops. LUNGS: Clear to auscultation bilaterally with no crackles or wheezes. ABD: Soft, non tender, non distended. Hypoactive bowel sounds noted. PSYCH: Good eye contact, speech is not pressured. Const: Vital Signs, click to edit/add: Vital Signs - 24 hr 12/08/24 04:57 12/08/24 05:57 Temperature 96.6 F L Pulse Rate [Pulse Oximeter] 77 70 Respiratory Rate 16 16 Blood Pressure [Ri ght Upper Arm] 152/82 H Pulse Oximetry 98 98 Oxygen Delivery Me thod Room Air Room Air Course Course ED Course: Patient seen and examined. CBC comprehensive metabolic panel lipase lactate UA CT abdomen pelvis pending. Normal saline given with 30 mg of Toradol. Vital Signs Vital signs: Initial Vital Signs Temperature 96.6 F L 12/08/24 04:57 Temperature Source Temporal Artery Scan 12/08/24 04:57 Pulse Rate 77 12/08/24 04:57 Respiratory Rate 16 12/08/24 04:57 Blood Pressure 152/82 H 12/08/24 04:57 Blood Pressure Mean 105 12/08/24 04:57 Blood Pressure Position Semi-Fowlers 12/08/24 04:57 Pulse Oximetry 98 12/08/24 04:57 Oxygen Delivery Method Room Air 12/08/24 04:57 Vital Signs Temperature 96.6 F L 12/08/24 04:57 Pulse Rate 77 12/08/24 04:57 Respiratory Rate 16 12/08/24 04:57 Blood Pressure 152/82 H 12/08/24 04:57 Pulse Oximetry 98 12/08/24 04:57 Oxygen Delivery Method Room Air 12/08/24 04:57 Temperature 96.6 F L 12/08/24 04:57 Pulse Rate 70 12/08/24 05:57 Respiratory Rate 16 12/08/24 05:57 Blood Pressure 152/82 H 12/08/24 04:57 Pulse Oximetry 98 12/08/24 05:57 Oxygen Delivery Method Room Air 12/08/24 05:57 Medications Administered Medications: Discontinued Medications Generic Name Dose Route Start Last Admin Trade Name Freq PRN Reason Stop Dose Admin Sodium Chloride 1,000 mls @ 1,000 mls/hr 12/08/24 05:10 12/08/24 06:01 0.9 % Sodium Chloride 1000 Ml IV 12/08/24 06:09 Infused .Q1H MARCI Infusion Ketorolac Tromethamine 30 mg 12/08/24 05:09 12/08/24 05:21 Ketorolac 30 Mg/Ml Inj IVP 12/08/24 05:10 30 mg ONCE ONE Administration MDM - Abdominal Pain MDM Narrative Medical decision making narrative: Patient is a 69-year-old woman comes in with abdominal pain. She has had previous abdominal surgery and has a partial small-bowel obstruction. She has leukocytosis but no other signs of infection. This time we did keep her NPO provide hydration and give her IV Toradol. She will be admitted for bowel rest and reassessment. Lab Data Labs: Lab Results 12/08/24 12/08/24 Range/Units 05:20 05:30 WBC 17.51 H (4.50-11.00) K/uL RBC 5.08 (4.00-5.20) m/uL Hgb 13.3 (12.0-16.0) gm/dL Hct 42.7 (33.0-51.0) % MCV 84 (80-100) fL MCH 26 (26-34) pg MCHC 31 L (32-36) gm/dL RDW Coeff of Edith 13.1 (11.5-15.5) % Plt Count 297 (140-440) K/uL Neut % (Auto) 86.1 H (42.0-72.0) % Lymph % (Auto) 7.6 L (20-44) % Bee % (Auto) 4.0 (0.0-11.0) % Eos % (Auto) 1.8 (0.0-7.0) % Baso % (Auto) 0.3 (0.0-3.0) % Neut # (Auto) 15.10 H (1.7-7.0) K/uL Lymph # (Auto) 1.30 (0.90-2.90) K/uL Bee # (Auto) 0.70 (0.00-0.90) K/UL Eos # (Auto) 0.30 (0.00-0.50) K/uL Baso # (Auto) 0.10 (0.00-0.30) K/uL Abs Immat Gran (auto) 0.00 (0.00-0.30) K/uL Imm/Tot Granulo (auto) 0.2 % Sodium 140 (135-149) mmol/L Potassium 3.7 (3.6-5.1) mmol/L Chloride 104 (96-114) mmol/L Carbon Dioxide 28 (20-32) mmol/L Anion Gap 8 (7-15) mEq/L BUN 12 (7-30) mg/dL Creatinine 0.8 (0.5-1.5) mg/dL Estimated Creat Clear 45.85 Estimated GFR 80 ml/min Glucose 166 H (60-115) mg/dL Lactate 1.8 (0.5-1.9) mmol/L Calcium 9.4 (8.4-10.6) mg/dL Total Bilirubin 1.0 (0.1-1.5) mg/dL AST 27 (12-35) U/L ALT 21 (4-35) U/L Alkaline Phosphatase 65 (40-150) U/L Total Protein 7.0 (6.0-8.3) g/dL Albumin 4.4 (3.3-5.0) g/dL Lipase 197 (23-300) U/L Urine Color Yellow (Yellow) Urine Appearance Clear (Clear) Urine pH 5.5 (5.0-8.5) Ur Specific [place] >= 1.030 (1.000-1.030) Urine Protein 2+ A (Negative) Urine Glucose (UA) Negative (Negative) Urine Ketones Trace A (Negative) Urine Blood Trace-intact A (Negative) Urine Nitrite Negative (Negative) Urine Bilirubin Negative (Negative) Urine Urobilinogen 0.2 (0.2-1.0) Ur Leukocyte Esterase Negative (Negative) Urine RBC 0-2 (0-2) Urine WBC 0-2 (0-5) Ur Squamous Epith Cells Moderate A (None-Few) Urine Bacteria Few A (None) Urine Mucus Many A (None) Discharge Plan Discharge Clinical Impression: Partial small bowel obstruction Patient Disposition: Admitted As Inpatient Condition: Stable Activity Level: Other Discharge Diet: Other
--- OUTSIDE RECORDS SUMMARY | 2024-12-08 05:33 | XMS_ITS | Patient Health Record ---
Author Organization [facility] Chelsie Cameron at N Address [address] [place] [address] Care Team Providers Care Therapist Name Role Phone SUSY MOSQUEDA MD Primary Care Provider Unava ilable Allergies Allergen (clinical drug ingredient) Drug/Non Drug Allergy documented on EMR Reaction Allergy Type Onset Date Status Adhesive (uncoded) other Allergy A ctive All topical antibiotics (uncoded) other Allergy Active Cat hair extract (uncoded) other Allergy Active efinaconazole [place]ublia (uncoded) Unknown Allergy Active Medicinal quinolone and acting as antibacterial agent (FN) Quinolones (uncoded) Unknown Allergy Active moxifloxacin Avelox other Drug Allergy Acti ve Bacitracin other Drug Allergy Active neomycin Neomycin itching, other Drug Allergy Ac tive Reason For Referral No Information Medications Medication SIG (Take, Route, Frequency, Duration) Notes [...] mg tablet if needed in addition Active [place] 3 1000 MG 1 capsule Orally Onc e a day Active Social History Tobacco Use: Social History Observation Description Date Details (start date - stop date) Never Smoker NA - NA Tobacco Use/Smoking Question Answer Notes Are you a 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 Problems Problem Type SNOMED Code ICD Code Onset Dates Problem Status W/U Status Risk Notes Problem Eosinophilic esophagitis (882089414) Eosinophilic esophagitis (K20.0) Active confirmed Problem Hiatal hernia (41272638) Hiatal hernia (K44.9) Active confirmed Problem Gastroesophageal reflux disease with esophagitis (092388512) Gastroesophageal reflux disease with esophagitis (K21.0) Active confirmed Problem Dysphagia (81158523) Dysphagia (R13.10) Active confirmed Problem Obstructive sleep apnea syndrome (disorder) (47248590) Obstructive sleep apnea (adult) (pediatric) (G47.33) Active confirmed Problem Diaphragmatic hernia (15750893) Diaphragmatic hernia without obstruction or gangrene (K44.9) Active confirmed Problem Body mass index 25-29 - overweight (757231362) Body mass index (BMI) 28.0-28.9, adult (Z68.28) Active confirmed Problem Atypical chest pain (028776391) Atypical chest pain (R07.89) Active confirmed Problem Overweight (510387435) Overweight (E66.3) Active confirmed Problem Schatzki's ring (32186310) Schatzki's ring (K22.2) Active confirmed Problem Gastroesophageal reflux disease (230089696) Chronic gastroesophageal reflux disease (K21.9) Active confirmed Problem Chronic sinusitis (60322579) Other sinusitis, unspecified chronicity (J32.9) Active confirmed Plan Of Treatment No Information Insurance Providers Payer Name Payer Address Payer Phone Subscriber Number Group Number Insured Name Patient Relationship to Insured Coverage Start Date Coverage End Date [employer] PLAN START 19 [address] [place], [place] [address] [phone] [id number] KAREN SHIRLEY Self - patient is the insured Medical (General) History Medical History History ICD Code asthma gastritis LUCITA on CPAP anxiety and depression hypertension-denies dyslipidemia abdominal pain, bilateral upper quadrant with coffee-ground emesis GERD Long-term arrhythmia Surgical History Surgery Date(Month/Year) hystectomy with bilateral oo phorectomy and salpinectomy (stil has cervix) tonsillectomy and adenoidectomy colonoscopy upper GI endoscopy 01/26/2017 [facility] Hospitalization History Reason Date(Month/Year) Arrhythmia 1980
[2024-12-08 05:50] LABS: Lactate* 1.8 mmol/L (0.5-1.9)
[2024-12-08 05:53] LABS: Appearance Urine Clear (Clear)
[2024-12-08 05:55] LABS: Hematocrit 42.7 % (33.0-51.0); Hemoglobin* 13.3 gm/dL (12.0-16.0); Immature Granulocytes Pct Auto 0.2 %; Mean Corpuscular HGB Conc 31 gm/dL (32-36); Mean Corpuscular Hemoglobin 26 pg (26-34); Mean Corpuscular Volume 84 fL (80-100); RDW Coefficient of Variation % 13.1 % (11.5-15.5); Red Blood Count 5.08 m/uL (4.00-5.20); White Blood Count* 17.51 K/uL (4.50-11.00)
[2024-12-08 06:08] LABS: Albumin* 4.4 g/dL (3.3-5.0); Chloride* 104 mmol/L (96-114)
[2024-12-08 06:09] LABS: Potassium* 3.7 mmol/L (3.6-5.1); Sodium* 140 mmol/L (135-149)
[2024-12-08 06:11] LABS: Alanine Aminotransferase* 21 U/L (4-35); Anion Gap 8 mEq/L (7-15); Aspartate Amino Transferase* 27 U/L (12-35); Blood Urea Nitrogen* 12 mg/dL (7-30); Carbon Dioxide* 28 mmol/L (20-32); Creatinine* 0.8 mg/dL (0.5-1.5); Est. Creatinine Clearance* 45.85; Estimated Glomerular Filt Rate 80 ml/min
[2024-12-08 06:12] LABS: Alkaline Phosphatase* 65 U/L (40-150); Bilirubin Total* 1.0 mg/dL (0.1-1.5); Calcium* 9.4 mg/dL (8.4-10.6); Glucose* 166 mg/dL (60-115); Total Protein* 7.0 g/dL (6.0-8.3)
[2024-12-08 06:14] LABS: Immature Granulocytes Abs Auto 0.00 K/uL (0.00-0.30); Lymphocytes Absolute Auto 1.30 K/uL (0.90-2.90)
[2024-12-08 06:15] LABS: Slide Review Reflex No
--- NOTE | 2024-12-08 09:03 | PM.IMHP1 ---
Assessment and Plan Assessment and plan (1) Partial small bowel obstruction: Problem comment: - recurrent, high risk for complications given comorbidities and previous SBOs - NPO, IVFs, low threshold to place NG - will not formally consult surgery at this time Status: Acute (2) Leukocytosis: Problem comment: - WBC 17 with PMN predominance, possibly demargination from acute illness - urine culture pending, no evidence of infectious process at this time - defer antibiotics, follow symptoms and WBC Status: Acute (3) Irritable bowel syndrome: Problem comment: - constipation predominant, on probiotics as an outpatient Status: Acute (4) Eosinophilic esophagitis: Problem comment: - dxed around 2010, past esophageal dilatations - most recent EGD with dilitation 01/14 (Dr. Jonathan Thornton), outside EGD with biopsies ([facility]) 11/16 consistent with reflux esophagitis - 12/08/24: will treat with IV PPI while NPO Status: Acute Plan - per above - IV PPI and Lovenox for ppx - inpatient stay required given expected 2 midnight stay, history of recurrent SBO, high risk for complications given history and comorbidities Hospitalist- H&P: HPI History of Present Illness Date Seen: 12/08/24 Chief complaint: possible bowel obstruction Narrative: Joanna Avery is a 69 year old female who presented to the emergency room this morning for abdominal pain. History of recurrent small-bowel obstructions and abdominal surgery (hysterectomy fundoplication, lysis of adhesions for small-bowel stricture in 2019). Her pain started last evening around 7pm, didn't present at that time because she's been able to decrease po intake and have these self resolve in the past; this morning, symptoms worsened and she vomited thrice (history of fundoplication which has loosened over time, allowing vomiting). No hematemesis. No recent concerning foods, follows a low fiber diet. ER course: - CT scan suspicious for partial distal SBO versus enteritis - received Toradol for discomfort - WBC 17 with PMN predominance - reassuring VS Admitted for recurrent symptomatic SBO. She will be made NPO and treated with IVFs. She is hopeful to avoid an NG tube. Last colonoscopy in November 2021 and reassuring. Histories below; has extensive GI history and follows with Gastroenterology for this (notably small-bowel stricture, IBS, gastroparesis, and eosinophilic esophagitis). Review of Systems Status of ROS: Reports: 10 or more systems reviewed and unremarkable except as noted in History and below Medical Decision Making Medical Decision Making Code Status: Full Has patient completed a Health Care Directive: No During This Stay, Who Would You Like To Make Decisions For You In The Event You Are Unable To Make Them For Yourself?: [facility]ren [facility] Medical History (Updated 12/08/24 @ 09:26 by Neda James MD) History of supraventricular tachycardia (08/11/12) ?Z86.79 - Personal history of other diseases of the circulatory system (ICD-10) Obsessive-compulsive disorder (08/11/12) ?F42.9 - Obsessive-compulsive disorder, unspecified (ICD-10) History of atrial fibrillation (08/11/12) ?Z86.79 - Personal history of other diseases of the circulatory system (ICD-10) Chronic gastritis (08/11/12) ?K29.50 - Unspecified chronic gastritis without bleeding (ICD-10) Surgical History (Updated 12/08/24 @ 09:04 by Neda James MD) History of fundoplication ?Z98.890 - Other specified postprocedural states (ICD-10) History of arthroscopy of right shoulder (09/08/24) ?Z98.890 - Other specified postprocedural states (ICD-10) Small bowel stricture ?K56.699 - Other intestinal obstruction unspecified as to partial versus complete obstruction (ICD-10) Gastroparesis ?K31.84 - Gastroparesis (ICD-10) History of tonsillectomy (08/11/12) ?Z90.89 - Acquired absence of other organs (ICD-10) History of hysterectomy (08/11/12) ?Z90.710 - Acquired absence of both cervix and uterus (ICD-10) Social History (Updated 12/08/24 @ 09:13 by Neda James MD) Narrative: Lives with Darren (MDM if needed) in [place]. Never smoker, minimal to no ETOH, low fiber diet. 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 What is your current living situation?: I presently have a place to live Problems where you live: no known problems In the past 12 months, utilities in danger of being shut off: no In past 12 months, lack of transportation kept you from medical appts, meetings, work, or getting things needed for daily living: no In the past 12 mos, have been you worried that your food would run out before you had money to buy more?: never true In the past 12 mos, the food you bought just didn't last and you didn't have money to buy more?: never true Smoking Status: Never smoker How often do you have a drink containing alcohol: monthly or less AUDIT-C Alcohol total score: 1 Non-prescribed substance use: denies use Caffeine: No How often does anyone, including family, friends and others, physically hurt you: never How often does anyone, including family, friends and others, insult or talk down to you: sometimes How often does anyone, including family, friends and others, threaten you with harm: never How often does anyone, including family, friends and others, scream or curse at you: sometimes Are you using contraception or practicing any form of control: No Health Related Social Needs: Other personal risk factors, not elsewhere classified (Z91.89) Meds Home Medications and Allergies Home Medications ?Medication ?Instructions ?Recorded ?Confirmed ?Type calcium carbonate 675 mg-magnesium 6 tab PO .Daily as needed PRN 07/28/22 12/08/24 History hydroxide 135 mg chewable tablet cholecalciferol (vitamin D3) 50 2,000 unit PO DAILY 07/28/22 12/08/24 History mcg (2,000 unit) tablet magnesium 250 mg tablet 250 mg PO QDAY 07/28/22 12/08/24 History triamcinolone acetonide 55 mcg 2 spray intranasal DAILY 07/28/22 12/08/24 History nasal spray aerosol sulfacetamide sodium (acne) 10 % 1 applic topical BID #118 mL 08/06/22 12/08/24 Rx lotion (suspension) (Klaron) conjugated estrogens 0.625 mg/gram 0.625 mg topical .COMPLEX #30 grams 11/30/23 12/08/24 Rx vaginal cream (Premarin) fluticasone propionate 44 1 puff PO DAILY #10.6 ea 11/30/23 12/08/24 Rx mcg/actuation HFA aerosol inhaler metoprolol succinate 50 mg 50 mg PO DAILY #90 tabs 11/30/23 12/08/24 Rx tablet,extended release 24 hr rosuvastatin 20 mg tablet 20 mg PO DAILY #90 tabs 11/30/23 12/08/24 Rx famotidine 20 mg tablet 20 mg PO DAILY 12/22/23 12/08/24 History fluocinonide 0.05 % topical 1 topical PRN 03/27/24 11/30/24 History solution ketoconazole 2 % topical cream applic topical DAILY 03/27/24 11/30/24 History albuterol sulfate 90 mcg/actuation 2 puff inhalation Q4H PRN asthma 06/15/24 12/08/24 Rx aerosol inhaler #18 ea ferrous sulfate 142 mg (45 mg 142 mg PO QDAY 06/15/24 12/08/24 History iron) tablet,extended release lisinopril 2.5 mg tablet 2.5 mg PO DAILY #90 tabs 11/30/24 12/08/24 Rx Allergies Allergy/AdvReac Type Severity Reaction Status Date / Time Quinolones Allergy Mild irregular Verified 11/30/24 11:22 heartbeat sulfamethoxazole (From Allergy Unknown itchy, Verified 11/30/24 11:22 Sulfamethoxazole-Trimethoprim) red, swelling trimethoprim (From Allergy Unknown itchy, Verified 11/30/24 11:22 Sulfamethoxazole-Trimethoprim) red, swelling Topical Antibiotics Allergy Mild itchy and Uncoded 11/30/24 11:22 swelling Exam Narrative: Exam Narrative: GEN: Alert and oriented, answering questions appropriately HEENT: EOMIs bilaterally, no scleral icterus CV: RRR, + systolic murmur without concerning features R: LCTA bilaterally without concerning wheezing Ab: Mild distension, tolerates palpation. Bowel sounds noted Ext: wwp, no concerning edema Skin: No concerning skin lesions or rashes on exposed skin Neuro: Nonfocal Psych: Appropriate Const: Vital Signs, click to edit/add: Vital Signs - 24 hr 12/08/24 04:57 12/08/24 05:57 12/08/24 08:17 Temperature 96.6 F L 98.6 F Pulse Rate [Pulse Oximeter] 77 70 Pulse Rate [Right Radial] 82 Respiratory Rate 16 16 16 Blood Pressure [Le ft Arm] 151/67 H Blood Pressure [Ri ght Upper Arm] 152/82 H Pulse Oximetry 98 98 97 Oxygen Delivery Me thod Room Air Room Air Room Air Hospitalist - H&P: Result Labs Labs: Short CBC 12/08/24 Range/Units 05:20 WBC 17.51 H (4.50-11.00) K/uL Hgb 13.3 (12.0-16.0) gm/dL Hct 42.7 (33.0-51.0) % Plt Count 297 (140-440) K/uL BMP 12/08/24 05:20 Sodium 140 Potassium 3.7 Chloride 104 Carbon Dioxide 28 BUN 12 Creatinine 0.8 Glucose 166 H Calcium 9.4 Liver Function 12/08/24 Range/Units 05:20 Total Bilirubin 1.0 (0.1-1.5) mg/dL AST 27 (12-35) U/L ALT 21 (4-35) U/L Alkaline Phosphatase 65 (40-150) U/L Albumin 4.4 (3.3-5.0) g/dL Urine 12/08/24 Range/Units 05:30 Urine Color Yellow (Yellow) Urine Appearance Clear (Clear) Urine pH 5.5 (5.0-8.5) Ur Specific [place] >= 1.030 (1.000-1.030) Urine Protein 2+ A (Negative) Urine Glucose (UA) Negative (Negative)
[2024-12-08] MEDS: PANTOPRAZOLE SODIUM 40 MG INJ IVP (09:28)
[2024-12-08] MEDS: METOPROLOL TARTRATE 1 MG/ML inj 2.5 MG IVP ×2 (09:28→15:48)
[2024-12-08] MEDS: SODIUM CHLORIDE 0.9 % (FLUSH) 10 ML SYRINGE 5 ML IVF ×2 (09:30→20:53)
--- NOTE | 2024-12-08 15:09 | NUTR.NU ---
Nutrition visit r/t MD consult for low fiber diet review. Flower reports she has been following a low fiber diet and has had quarterly visits with her GI provider. She reports having met with an RD in outpatient setting as well. Flower reports her weight to be stable. She is not certain related to adequate protein in diet. She will track for adequacy based on discussion, at least 70 grams a day. We reviewed a low fiber diet and provided tips as well including nutrition supplements. She expressed gratitude r/t to today's visit. Encouraged her to call with follow up questions prn.
--- NOTE | 2024-12-08 19:51 | PC.NURSE ---
End of shift [id number] - Pt arrived from ED at approximately 0740. Pt alert, oriented, cooperative. Up independently in room and observed to ambulate in halls. Tolerating RA and NPO diet. Pt denied n/v and reported decreased abdominal pain, however indicated that she was experiencing persistent epigastric pain that pt reports usually accompanies bowel episodes. MD made aware, orders given. RN education pt on medication options, pt refused at time of education. Pt appears to be resting comfortably in bed with call light within reach at end of shift.
[2024-12-08] MEDS: METOPROLOL TARTRATE 1 MG/ML inj 5 MG IVP (20:52)
--- NOTE | 2024-12-08 22:38 | PC.NURSE ---
Pt's BP elevated since creative writer arrival at 1900. Pt very concerned about elevated BP. creative writer educated pt on different doses. Provider involved and dosing changed. on recheck BP still elevated and at this time pt was adamant on her home does of metoprolol 50mg ER tat her had brought in. Provider aware and education given to pt. Pt gave verbal conformation was to creative writer that she understood that taking home dose is not recommended. pt adamant on taking it and took 1/2 tab of home dose in front of creative writer at 2220. provider updated. Last BP 196/81 HR 68.
[2024-12-09 02:18] VITALS: BP 152/68; PULSE 66; RESP 16; O2SAT 98
--- NOTE | 2024-12-09 05:52 | PC.NURSE ---
VSS overnight. up at sandy in room. denies any n/v or abd pain. BS active. pt reports passing gas throughout shift. scheduled metoprolol held d/t pt taking own dose-see previous note. using call light appropriately.
[2024-12-09 07:20] LABS: Hematocrit 37.1 % (33.0-51.0); Hemoglobin* 11.6 gm/dL (12.0-16.0); Immature Granulocytes Abs Auto 0.01 K/uL (0.00-0.30); Immature Granulocytes Pct Auto 0.1 %; Lymphocytes Absolute Auto 1.81 K/uL (0.90-2.90); Mean Corpuscular HGB Conc 31 gm/dL (32-36); Mean Corpuscular Hemoglobin 27 pg (26-34); Mean Corpuscular Volume 85 fL (80-100); RDW Coefficient of Variation % 13.1 % (11.5-15.5); Red Blood Count 4.35 m/uL (4.00-5.20); White Blood Count* 6.99 K/uL (4.50-11.00)
[2024-12-09 07:31] LABS: Slide Review Reflex No
[2024-12-09 07:35] VITALS: BP 160/85; PULSE 64; RESP 18; TEMP 36.8; O2SAT 97
[2024-12-09 07:38] LABS: Albumin* 3.5 g/dL (3.3-5.0); Chloride* 111 mmol/L (96-114); Sodium* 139 mmol/L (135-149)
[2024-12-09 07:39] LABS: Potassium* 3.9 mmol/L (3.6-5.1)
[2024-12-09 07:41] LABS: Alanine Aminotransferase* 16 U/L (4-35); Alkaline Phosphatase* 55 U/L (40-150); Anion Gap 3 mEq/L (7-15); Aspartate Amino Transferase* 23 U/L (12-35); Bilirubin Total* 1.3 mg/dL (0.1-1.5); Blood Urea Nitrogen* 7 mg/dL (7-30); Carbon Dioxide* 25 mmol/L (20-32); Creatinine* 0.8 mg/dL (0.5-1.5); Est. Creatinine Clearance* 45.85; Estimated Glomerular Filt Rate 80 ml/min; Total Protein* 5.8 g/dL (6.0-8.3)
[2024-12-09 07:42] LABS: Calcium* 8.4 mg/dL (8.4-10.6); Glucose* 99 mg/dL (60-115)
[2024-12-09] MEDS: METOPROLOL SUCCINATE (XL) 50 MG TAB PO (07:54)
[2024-12-09] MEDS: SODIUM CHLORIDE 0.9 % (FLUSH) 10 ML SYRINGE 5 ML IVF (07:56)
[2024-12-09] MEDS: PANTOPRAZOLE SODIUM 40 MG INJ IVP (09:35)
[2024-12-09 11:30] VITALS: BP 134/68; PULSE 67; RESP 16; TEMP 36.7; O2SAT 99
--- NOTE | 2024-12-09 14:41 | P.DS_ITS ---
DS: Providers Provider Date Seen: 12/09/24 Date of admission: 12/08/24 08:13 Primary care physician: Sophia Rivers MD Admitting Clinician: Neda James MD Consults: 12/08/24 08:54 Consult to Nutrition [CONS] Routine Comment: Reason for consult:: Miscellaneous Comment: recurrent SBOs, on low fiber diet - please check in to see if any needs Attending Physician on discharge: Neda James MD Date of Discharge: 12/09/24 DS: Diagnosis Discharge Diagnosis (1) Partial small bowel obstruction: Status: Acute Problem details: - recurrent, high risk for complications given comorbidities and previous SBOs - NPO, IVFs - improved with advancement of diet on 12/09 (2) Leukocytosis: Status: Acute Problem details: - WBC 17 with PMN predominance, possibly demargination from acute illness - normalized on 12/09/24 - urine culture NGTD, did not require antibiotic therapy (3) Irritable bowel syndrome: Status: Acute Problem details: - constipation predominant, on probiotics as an outpatient (4) Eosinophilic esophagitis: Status: Acute Problem details: - dxed around 2010, past esophageal dilatations - most recent EGD with dilitation 01/14 (Dr. Jonathan Thornton), outside EGD with seth whitmore ([facility]) 11/16 consistent with reflux esophagitis DS: Summary Hospital Course Hospital Course: Flower was admitted to the hospital on 12/08 for a partial SBO, accompanied by abdominal pain and vomiting. History of recurrent small-bowel obstructions and abdominal surgery (hysterectomy fundoplication, lysis of adhesions for small-bowel stricture in 2019). During stay, pain improved and she was able to tolerate a full liquid diet, requesting d/c home. Routine f/u with PCP. Status at Discharge Functional status at discharge: independent ambulation Overall status at discharge: patient is progressing back to baseline Time Spent with Patient Time attestation: Total time spent providing and/or coordinating discharge services: Time spent: Greater than 30 minutes Exam Narrative: Exam Narrative: GEN: Alert and oriented, answering questions appropriately HEENT: EOMIs bilaterally, no scleral icterus CV: RRR, no concerning murmurs R: LCTA bilaterally without concerning wheezing Ab: + bowel sounds, tolerates palpation Ext: wwp, no concerning edema Skin: No concerning skin lesions or rashes on exposed skin Neuro: Nonfocal Psych: Appropriate Const: Vital Signs, click to edit/add: Vital Signs - 24 hr 12/08/24 15:00 12/08/24 19:44 12/08/24 22:15 Temperature 98.1 F 98.1 F 99.2 F Pulse Rate [Pulse Oximeter] 68 Pulse Rate [Right Radial] 86 73 Respiratory Rate 20 16 18 Blood Pressure [Le ft Arm] 179/86 H 191/93 H 196/81 H Pulse Oximetry 99 100 98 Oxygen Delivery Me thod Room Air Room Air Room Air 12/09/24 02:18 12/09/24 07:35 12/09/24 11:30 Temperature 98.2 F 98.1 F Pulse Rate [Pulse Oximeter] 66 64 67 Pulse Rate [Right Radial] Respiratory Rate 16 18 16 Blood Pressure [Le ft Arm] 152/68 H 160/85 H 134/68 Pulse Oximetry 98 97 99 Oxygen Delivery Me thod Room Air Room Air Room Air DS: Data Data Completed and Pending Labs on day of discharge: Labs from last 24 hours 12/09/24 06:21 WBC 6.99 RBC 4.35 Hgb 11.6 L Hct 37.1 MCV 85 MCH 27 MCHC 31 L RDW Coeff of Edith 13.1 Plt Count 217 Neut % (Auto) 56.0 Lymph % (Auto) 25.9 [place] % (Auto) 7.3 Eos % (Auto) 10.4 H Baso % (Auto) 0.3 Neut # (Auto) 3.91 Lymph # (Auto) 1.81 [place] # (Auto) 0.50 Eos # (Auto) 0.70 H Baso # (Auto) 0.02 Abs Immat Gran (auto) 0.01 Imm/Tot Granulo (auto) 0.1 Sodium 139 Potassium 3.9 Chloride 111 Carbon Dioxide 25 Anion Gap 3 L BUN 7 Creatinine 0.8 Estimated Creat Clear 45.85 Estimated GFR 80 Glucose 99 Calcium 8.4 Total Bilirubin 1.3 AST 23 ALT 16 Alkaline Phosphatase 55 Total Protein 5.8 L Albumin 3.5 Preliminary micro results at discharge 12/08/24 05:30 Urine Culture - Preliminary Urine,Clean Catch No growth. Discharge Plan Discharge Disposition: Home, Self-Care Date of Admission: 12/08/24 08:13 Attending Provider on Discharge: Neda James Primary Care Provider: Sophia Rivers Condition: Stable Anticipated Discharge Date/Time: 12/09/24 14:40 Discharge Medications: Continued ferrous sulfate 142 mg (45 mg iron) tablet extended release 142 mg PO QDAY albuterol sulfate 90 mcg/actuation HFA aerosol inhaler 2 puff inhalation Q4H PRN (Reason: asthma) Qty: 18 4RF sulfacetamide sodium (acne) [[place]] 10 % suspension 1 applic topical BID Qty: 118 2RF cholecalciferol (vitamin D3) 50 mcg (2,000 unit) tablet 2,000 unit PO DAILY triamcinolone acetonide 55 mcg aerosol,spray 2 spray intranasal DAILY magnesium 250 mg tablet 250 mg PO QDAY calcium carbonate-mag hydroxid 675-135 mg tablet,chewable 6 tab PO .Daily as needed PRN rosuvastatin 20 mg tablet 20 mg PO DAILY Qty: 90 3RF fluticasone propionate 44 mcg/actuation HFA aerosol inhaler 1 puff PO DAILY Qty: 10.6 3RF Premarin 0.625 mg/gram cream 0.625 mg topical .COMPLEX Qty: 30 1RF Rx Instructions: 0.625 mg topical 2-3x weekly; place half dollar sized dollop cream to hairless perineal skin 2-3x weekly metoprolol succinate 50 mg tablet extended release 24 hr 50 mg PO DAILY Qty: 90 3RF famotidine 20 mg tablet 20 mg PO DAILY fluocinonide 0.05 % solution 1 topical PRN ketoconazole 2 % cream topical DAILY lisinopril 2.5 mg tablet 2.5 mg PO DAILY Qty: 90 0RF Discharge Orders: Discharge Order (Routine); Ordered 12/09/24 Ordered By: Neda James Patient Education: Low Fiber Diet (DC), Bowel Obstruction (DC) Additional Instructions: Your white blood count normalized and no growth on urine culture, so no antibiotics needed upon discharge. Continue full liquid/bland/low fiber diet upon discharge. No changes to home medications. Activity Level: Other Discharge Diet: Other Follow Up Appointments: Sophia Rivers MD [Primary Care Provider, Internal Medicine] - 12/19/24 1:30 pm Referral Note: [facility] for hospital follow-up. Forms: [facility] Info Instructions
--- NOTE | 2024-12-09 16:51 | PC.NURSE ---
Pt up independently. Denies pain. Passing flatus. 1 small, hard BM. Diet advanced without increased pain or abdominal bloating. IV DC'd, cath tip intact. DC instructions verbally and in writing. All questions answered. DC to home with @ 2770.
[2024-12-11 13:28] LABS: Cholesterol* 105 mg/dL (90-199); HDL Cholesterol* 33 mg/dL (>=50); Triglycerides* 146 mg/dL (40-149)
[2024-12-14 16:56] LABS: TSH With Reflex to FT4* 7.240 uIU/mL (0.270-4.200)
[2024-12-14 19:52] LABS: Free T4 Free Thyroxine* 0.83 ng/dL (0.70-1.85)
== END 2024-12-09 15:25 | disposition home or self-care (01) | DRG 390 ==
LOC: ED 07:39 → MEDSURG 08:13
PROVIDERS: Admitting Provider Internal Medicine; Emergency Provider Internal Medicine; PCP Internal Medicine; Visit Provider Family Medicine
DX: K56.51 Intestinal adhesions [bands], with partial obstruction (principal); K20.0 Eosinophilic esophagitis; K58.1 Irritable bowel syndrome with constipation; D72.829 Elevated white blood cell count, unspecified; F42.9 Obsessive-compulsive disorder, unspecified; Z48.89 Encounter for other specified surgical aftercare
CPT/HCPCS: 36415; 74177; 80053; 80061; 81001; 81003; 83605; 83690; 83735; 84439; 84443; 85025; 87086; 99283; 99284; 99285; A9270; J1885; J2470; J7030; Q9967

== ENCOUNTER 2025-05-10 16:11 | Outpatient (CLI) | payer MEDICARE, BC, SELFPAY | END 2025-05-10 16:12 | disposition home or self-care (01) | PROVIDERS: PCP Internal Medicine; Visit Provider Internal Medicine | DX: L65.9 Nonscarring hair loss, unspecified (principal) | CPT/HCPCS: 82607; 82728; 84207; 84425 ==

== ENCOUNTER 2025-05-22 11:22 | Outpatient (CLI) | payer MEDICARE, BC, SELFPAY ==
[2025-05-22 13:00] LABS: Vitamin D 25 Hydroxy* 19 ng/mL (30-80)
[2025-05-22 13:07] LABS: Free T4 Free Thyroxine* 0.93 ng/dL (0.70-1.85)
[2025-05-24 07:57] LABS: Vitamin D, 1,25-Dihydroxy 36.9 pg/mL (19.9-79.3)
[2025-05-24 11:16] LABS: Zinc, Serum/Plasma 80.4 ug/dL (60.0-120.0)
== END 2025-05-22 11:23 | disposition home or self-care (01) ==
LOC: LAB 11:25
PROVIDERS: PCP Internal Medicine
DX: Z79.899 Other long term (current) drug therapy (principal)
CPT/HCPCS: 36415; 82306; 82652; 84439; 84443; 84630